=== PATIENT | female | born 1965 | race American Indian/Alaskan Native ===

== ENCOUNTER 2017-06-16 13:19 | Emergency (ER) | payer MEDICARE ==
[2017-06-16 15:33] LABS: Basophils % (Auto) 0.5 % (0.0-1.8); Eosinophils % (Auto) 2.5 % (0.0-4.3); Hematocrit 35.9 % (30.3-42.9); Hemoglobin 11.4 gm/dl (10.1-14.3); Mean Corpuscular HGB Conc 32 % (30-34); Mean Corpuscular Hemoglobin 27 pg (28-32); Mean Corpuscular Volume 86 fl (79-97); Platelet Count 229 K/mm3 (140-440); Red Blood Count 4.17 M/mm3 (3.65-5.03); Red Cell Distribution Width 14.3 % (13.2-15.2); White Blood Count 10.6 K/mm3 (4.5-11.0)
[2017-06-16 15:44] LABS: INR 0.91 (0.87-1.13)
[2017-06-16 15:48] LABS: BUN/Creatinine Ratio 19.23; Calcium 8.9 mg/dL (8.4-10.2); Chloride 102.4 mmol/L (98-107); Potassium 4.3 mmol/L (3.6-5.0)
[2017-06-16 16:15] LABS: Bacteria,Urine 1+ /HPF (Negative); Bilirubin,Urine NEG (Negative); Blood,Urine NEG (Negative); Ketones,Urine NEG (Negative); Leukocyte Esterase,Urine TR (Negative); Mucus,Urine FEW /HPF; Nitrite,Urine NEG (Negative)
[2017-06-17 03:43] VITALS: BP 132/72
--- NOTE | 2017-06-17 04:51 | Emergency Department Report ---
HPI - General Chief Complaint: Extremity Injury, Lower Time Seen by Provider: 06/17/17 04:42 - HPI HPI: Patient complaining of bilateral upper thighs redness after working outside yesterday for about 13 hours. Patient denies any leg swelling, or pain. Patient also complained of right wisdom tooth pain, jaw swelling. ED Past Medical Hx - Past Medical History Hx Hypertension: Yes Hx CVA: No Hx Heart Attack/AMI: No Hx Congestive Heart Failure: No Hx Diabetes: Yes Hx Deep Vein Thrombosis: No Hx Pulmonary Embolism: No Hx GERD: No Hx Liver Disease: No Hx Renal Disease: No Hx Sickle Cell Disease: No Hx Arthritis: No Hx Seizures: No Hx Psychiatric Treatment: Yes (depression, anxiety) Hx Asthma: No Hx COPD: No Hx Tuberculosis: No Hx Dementia: No Hx HIV: No Additional medical history: fibroids - Surgical History Hx Coronary Stent: No Hx Pacemaker: Yes Hx Internal Defibrillator: Yes Hx Breast Surgery: Yes (BREAST REDUCTION) Additional Surgical History: breast reduction 1999, x2, hysterectomy, fibroids removal - Social History Smoking Status: Current Every Day Smoker Substance Use Type: None - Medications Home Medications: Home Medications Medication Instructions Recorded Confirmed Last Taken Type Citalopram Hydrobromide [celeXA] 40 mg PO DAILY 10/09/13 03/25/16 11/28/15 History ALPRAZolam [Xanax TAB] 0.5 mg PO QHS 10/31/14 03/25/16 11/28/15 History Aspirin [Aspirin BABY CHEW TAB] 81 mg PO QDAY 10/31/14 03/25/16 11/28/15 History Clonidine HCl 0.2 mg PO BID 04/05/15 03/25/16 03/25/16 History Insulin Detemir [Levemir VIAL] 25 unit SQ QHS 12/20/15 03/25/16 Unknown History Labetalol [Normodyne TAB] 300 mg PO BID #90 tablet 03/24/16 Unknown Rx traMADol [Ultram 50 MG tab] 50 mg PO Q6HR PRN #20 tablet 08/20/16 Unknown Rx Acyclovir [Zovirax Cap] 400 mg PO TID #20 cap 08/21/16 Unknown Rx Cyclobenzaprine [Flexeril] 10 mg PO TID PRN #15 tablet 10/18/16 Unknown Rx Ibuprofen [Motrin 800 MG tab] 800 mg PO Q8HR PRN #30 tablet 10/18/16 Unknown Rx Amoxicillin [Amoxicillin TAB] 875 mg PO BID #10 tablet 06/17/17 Unknown Rx Ketorolac [Toradol] 10 mg PO Q6H PRN #10 tablet 06/17/17 Unknown Rx Triamcinolone 0.025% (Nf) [Kenalog 1 applic TP TID #1 tube 06/17/17 Unknown Rx 0.025% OINT] ED Review of Systems ROS: Stated complaint: TOOTHACHE/WEAK/BRUISE LEFT LEG Other details as noted in HPI Comment: All other systems reviewed and negative Constitutional: no symptoms reported ENT: other (dental pain) Musculoskeletal: myalgia Physical Exam - Physical Exam Vital Signs: Vital Signs 06/16/17 06/16/17 06/17/17 15:10 20:53 03:43 Temperature 98.5 F 98.3 F 98.6 F Pulse Rate 61 76 64 Respiratory 16 18 16 Rate Blood Pressure 126/67 153/79 Blood Pressure 132/72 [Right] O2 Sat by Pulse 96 100 100 Oximetry Physical Exam: Gen. alert and oriented 3 in no distress Right molar area dental abscess Head atraumatic normocephalic Eyes PERR LA EOMI Chest regular rate and rhythm normal S1-S2 lungs clear bilaterally Abdomen soft nondistended Back no point tenderness paravertebral tenderness Neuro no focal deficit. Psych normal mood. ED Course Vital Signs 06/16/17 06/16/17 06/17/17 15:10 20:53 03:43 Temperature 98.5 F 98.3 F 98.6 F Pulse Rate 61 76 64 Respiratory 16 18 16 Rate Blood Pressure 126/67 153/79 Blood Pressure 132/72 [Right] O2 Sat by Pulse 96 100 100 Oximetry ED Medical Decision Making - Lab Data Result diagrams: 06/16/17 15:23 06/16/17 15:23 Critical care attestation.: If time is entered above; I have spent that time in minutes in the direct care of this critically ill patient, excluding procedure time. ED Disposition Clinical Impression: Dermatitis, Dental abscess Disposition: DC-01 TO HOME OR SELFCARE Is pt being admited?: No Does the pt Need Aspirin: No Condition: Stable Instructions: Stasis Dermatitis (ED), Dental Abscess (ED) Prescriptions: Amoxicillin [Amoxicillin TAB] 875 mg PO BID #10 tablet Ketorolac [Toradol] 10 mg PO Q6H PRN #10 tablet PRN Reason: Pain Triamcinolone 0.025% (Nf) [Kenalog 0.025% OINT] 1 applic TP TID #1 tube Referrals: PRIMARY CARE,MD [Primary Care Provider] - 3-5 Days
== END 2017-06-17 05:06 | disposition home or self-care (01) ==
LOC: ED 13:19
DX: L30.9 Dermatitis, unspecified (principal); K04.7 Periapical abscess without sinus; F32.9 Major depressive disorder, single episode, unspecified; F41.9 Anxiety disorder, unspecified; I10 Essential (primary) hypertension; E11.9 Type 2 diabetes mellitus without complications; F17.200 Nicotine dependence, unspecified, uncomplicated; Z79.82 Long term (current) use of aspirin; Z79.4 Long term (current) use of insulin; Z95.0 Presence of cardiac pacemaker
CPT/HCPCS: 36415; 80048; 81001; 81025; 85025; 85610; 99283

== ENCOUNTER 2017-06-24 14:42 | Emergency (ER) | payer MEDICARE ==
[2017-06-24 15:30] LABS: Basophils % (Auto) 0.2 % (0.0-1.8); Eosinophils % (Auto) 1.5 % (0.0-4.3); Hematocrit 35.2 % (30.3-42.9); Hemoglobin 11.1 gm/dl (10.1-14.3); Mean Corpuscular HGB Conc 32 % (30-34); Mean Corpuscular Hemoglobin 27 pg (28-32); Mean Corpuscular Volume 87 fl (79-97); Platelet Count 240 K/mm3 (140-440); Red Blood Count 4.05 M/mm3 (3.65-5.03); Red Cell Distribution Width 14.2 % (13.2-15.2); White Blood Count 10.6 K/mm3 (4.5-11.0)
[2017-06-24 15:33] LABS: Albumin 3.8 g/dL (3.9-5); Albumin/Globulin Ratio 1.2 %; BUN/Creatinine Ratio 19.16; Bilirubin,Total 0.2 mg/dL (0.1-1.2); Calcium 8.5 mg/dL (8.4-10.2); Chloride 101.3 mmol/L (98-107); Potassium 4.6 mmol/L (3.6-5.0); Total Protein 6.9 g/dL (6.3-8.2)
[2017-06-24 17:01] VITALS: BP 135/63
[2017-06-24 17:11] LABS: Bacteria,Urine 1+ /HPF (Negative); Mucus,Urine FEW /HPF
[2017-06-24 17:12] LABS: Bilirubin,Urine NEG (Negative); Blood,Urine NEG (Negative); Ketones,Urine NEG (Negative); Leukocyte Esterase,Urine TR (Negative); Nitrite,Urine NEG (Negative)
[2017-06-24] MEDS ORDERED: TORADOL IM ONE (18:34)
[2017-06-24] MEDS ORDERED: NORCO 5/325 PO ONE (18:35)
--- NOTE | 2017-06-24 19:03 | Emergency Department Report ---
ED Extremity Problem HPI - General Chief complaint: Extremity Injury, Lower Stated complaint: KNEE PAIN Time Seen by Provider: 06/24/17 17:21 Source: patient Mode of arrival: Ambulatory Limitations: No Limitations - History of Present Illness Initial comments: 51-year-old female with past medical history of diabetes, hypertension, depression, and anxiety presents to the hospital complaining of multiple mosquito bites with subsequent localized skin reaction/rash and left medial knee pain 1 week. 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 She states that she has been bitten by multiple mosquitoes. She is presents concern for mosquito ball viral illness. She also states that she has a history of arthritis in her fingers. When it rains she gets pain in her fingers but for the last week she is also beginning and pain to her medial left knee. No trauma or injury reported. Pain worse or palpation, movement, and ambulation. Pain rated 7/10 in intensity. No alleviating factors. Taken Motrin without improvement. Patient was seen here last week seen with Dr. West diagnosed with stasis dermatitis and dental abscess. Placed on antibiotics and topical ointment. Patient states that rash seems to be improving. Severity scale (0 -10): 8 - Related Data Home Medications Medication Instructions Recorded Confirmed Last Taken Citalopram Hydrobromide [celeXA] 40 mg PO DAILY 10/09/13 03/25/16 11/28/15 ALPRAZolam [Xanax TAB] 0.5 mg PO QHS 10/31/14 03/25/16 11/28/15 Aspirin [Aspirin BABY CHEW TAB] 81 mg PO QDAY 10/31/14 03/25/16 11/28/15 Clonidine HCl 0.2 mg PO BID 04/05/15 03/25/16 03/25/16 Insulin Detemir [Levemir VIAL] 25 unit SQ QHS 12/20/15 03/25/16 Unknown Previous Rx's Medication Instructions Recorded Last Taken Type Labetalol [Normodyne TAB] 300 mg PO BID #90 tablet 03/24/16 Unknown Rx traMADol [Ultram 50 MG tab] 50 mg PO Q6HR PRN #20 tablet 08/20/16 Unknown Rx Acyclovir [Zovirax Cap] 400 mg PO TID #20 cap 08/21/16 Unknown Rx Cyclobenzaprine [Flexeril] 10 mg PO TID PRN #15 tablet 10/18/16 Unknown Rx Ibuprofen [Motrin 800 MG tab] 800 mg PO Q8HR PRN #30 tablet 10/18/16 Unknown Rx Amoxicillin [Amoxicillin TAB] 875 mg PO BID #10 tablet 06/17/17 Unknown Rx Ketorolac [Toradol] 10 mg PO Q6H PRN #10 tablet 06/17/17 Unknown Rx Triamcinolone 0.025% (Nf) [Kenalog 1 applic TP TID #1 tube 06/17/17 Unknown Rx 0.025% OINT] HYDROcodone/APAP 5-325 [[place] 1 each PO Q6HR PRN #15 tablet 06/24/17 Unknown Rx 5/325] Allergies Allergy/AdvReac Type Severity Reaction Status Date / Time amlodipine Allergy Intermediate Unknown Verified 07/04/16 19:56 insulin NPH human isophane Allergy Unknown Verified 01/16/16 17:07 [From Humulin N] insulin regular, human Allergy Unknown Verified 01/16/16 17:07 [From Humulin R] lisinopril Allergy Swelling Verified 10/31/14 17:21 losartan [Losartan] Allergy Unknown Verified 01/16/16 17:07 metformin Allergy Rash Verified 04/05/15 16:20 potassium Allergy Unknown Verified 01/16/16 17:07 ED Review of Systems ROS: Stated complaint: KNEE PAIN Other details as noted in HPI Comment: All other systems reviewed and negative Other: Constitutional: No fevers chills Eyes: No eye pain visual changes ENT: No ear pain or throat pain Neck: Denies pain Respiratory: Denies cough wheezing shortness of breath Cardiovascular: Denies chest pain, palpitations, syncope GI: Denies LLQ PAIN nausea, vomiting, diarrhea, constipation, melena hematochezia : Denies dysuria, urinary frequency, or urgency Musculoskeletal: as per hpi Skin: Denies rash, lesions, erythema Neurologic: Denies headache, numbness, weakness Psychiatric: Denies suicidal ideation, hallucinations Hematological/lymphatic: Denies easy bruising, lymphadenopathy ED Past Medical Hx - Past Medical History Hx Hypertension: Yes Hx CVA: No Hx Heart Attack/AMI: No Hx Congestive Heart Failure: No Hx Diabetes: Yes Hx Deep Vein Thrombosis: No Hx Pulmonary Embolism: No Hx GERD: No Hx Liver Disease: No Hx Renal Disease: No Hx Sickle Cell Disease: No Hx Arthritis: No Hx Seizures: No Hx Psychiatric Treatment: Yes (depression, anxiety) Hx Asthma: No Hx COPD: No Hx Tuberculosis: No Hx Dementia: No Hx HIV: No Additional medical history: fibroids - Surgical History Hx Coronary Stent: No Hx Pacemaker: No Hx Internal Defibrillator: Yes Hx Breast Surgery: Yes (BREAST REDUCTION) Additional Surgical History: breast reduction 1999, x2, hysterectomy, fibroids removal - Social History Smoking Status: Current Every Day Smoker Substance Use Type: None - Medications Home Medications: Home Medications Medication Instructions Recorded Confirmed Last Taken Type Citalopram Hydrobromide [celeXA] 40 mg PO DAILY 10/09/13 03/25/16 11/28/15 History ALPRAZolam [Xanax TAB] 0.5 mg PO QHS 10/31/14 03/25/16 11/28/15 History Aspirin [Aspirin BABY CHEW TAB] 81 mg PO QDAY 10/31/14 03/25/16 11/28/15 History Clonidine HCl 0.2 mg PO BID 04/05/15 03/25/16 03/25/16 History Insulin Detemir [Levemir VIAL] 25 unit SQ QHS 12/20/15 03/25/16 Unknown History Labetalol [Normodyne TAB] 300 mg PO BID #90 tablet 03/24/16 Unknown Rx traMADol [Ultram 50 MG tab] 50 mg PO Q6HR PRN #20 tablet 08/20/16 Unknown Rx Acyclovir [Zovirax Cap] 400 mg PO TID #20 cap 08/21/16 Unknown Rx Cyclobenzaprine [Flexeril] 10 mg PO TID PRN #15 tablet 10/18/16 Unknown Rx Ibuprofen [Motrin 800 MG tab] 800 mg PO Q8HR PRN #30 tablet 10/18/16 Unknown Rx Amoxicillin [Amoxicillin TAB] 875 mg PO BID #10 tablet 06/17/17 Unknown Rx Ketorolac [Toradol] 10 mg PO Q6H PRN #10 tablet 06/17/17 Unknown Rx Triamcinolone 0.025% (Nf) [Kenalog 1 applic TP TID #1 tube 06/17/17 Unknown Rx 0.025% OINT] HYDROcodone/APAP 5-325 [[place] 1 each PO Q6HR PRN #15 tablet 06/24/17 Unknown Rx 5/325] ED Physical Exam - General Limitations: No Limitations - Other Other exam information: General: No limitations, patient is alert in no acute distress Head exam: Atraumatic, normocephalic Eyes exam: Normal appearance, pupils equal reactive to light, extraocular movements intact ENT: Moist mucous membrane, normal oropharynx Neck exam: Normal inspection, full range of motion, no meningismus nontender Respiratory exam: Clear to auscultation bilateral, no wheezes, rales, crackles Cardiovascular: Normal rate and rhythm, normal heart sounds Abdomen: Soft, nondistended, mild left lower quadrant tenderness, with normal bowel sounds, no rebound, or guarding Extremity: Full range of motion normal inspection no deformity, tenderness at the left knee medial joint space. No warmth or erythema or edema Back: Normal Inspection, full range of motion, no tenderness Neurologic: Alert, oriented x3, cranial nerves intact, no motor or sensory deficit Psychiatric: normal affect, normal mood Skin: Several areas on legs of ecchymosis and insect bites ED Course Vital Signs 06/24/17 06/24/17 06/24/17 14:50 16:59 17:04 Temperature 98.2 F 98.3 F Pulse Rate 94 H 72 Respiratory 16 12 12 Rate Blood Pressure 141/68 Blood Pressure 135/63 [Right] O2 Sat by Pulse 99 Oximetry - Reevaluation(s) Reevaluation #1: 06/24/17 Patient received Toradol and [place] in the ED for pain ED Medical Decision Making - Lab Data Result diagrams: 06/24/17 15:01 06/24/17 15:01 Lab Results 06/24/17 06/24/17 06/24/17 Range/Units 14:49 15:01 15:01 WBC 10.6 (4.5-11.0) K/mm3 RBC 4.05 (3.65-5.03) M/mm3 Hgb 11.1 (10.1-14.3) gm/dl Hct 35.2 (30.3-42.9) % MCV 87 (79-97) fl MCH 27 L (28-32) pg MCHC 32 (30-34) % RDW 14.2 (13.2-15.2) % Plt Count 240 (140-440) K/mm3 Lymph % (Auto) 29.6 (13.4-35.0) % [place] % (Auto) 8.4 H (0.0-7.3) % Eos % (Auto) 1.5 (0.0-4.3) % Baso % (Auto) 0.2 (0.0-1.8) % Lymph # 3.1 (1.2-5.4) K/mm3 [place] # 0.9 H (0.0-0.8) K/mm3 Eos # 0.2 (0.0-0.4) K/mm3 Baso # 0.0 (0.0-0.1) K/mm3 Seg Neutrophils % 60.3 (40.0-70.0) % Seg Neutrophils # 6.4 (1.8-7.7) K/mm3 Sodium 139 (137-145) mmol/L Potassium 4.6 (3.6-5.0) mmol/L Chloride 101.3 (98-107) mmol/L Carbon Dioxide 24 (22-30) mmol/L Anion Gap 18 mmol/L BUN 23 H (7-17) mg/dL Creatinine 1.2 (0.7-1.2) mg/dL Estimated GFR 57 ml/min BUN/Creatinine Ratio 19.16 % Glucose 231 H (65-100) mg/dL POC Glucose 283 H (70-105) Calcium 8.5 (8.4-10.2) mg/dL Total Bilirubin 0.20 (0.1-1.2) mg/dL AST 15 (5-40) units/L ALT 18 (7-56) units/L Alkaline Phosphatase 98 (35-129) units/L Total Protein 6.9 (6.3-8.2) g/dL Albumin 3.8 L (3.9-5) g/dL Albumin/Globulin Ratio 1.2 % Lipase 40 (13-60) units/L Urine Color (Yellow) Urine Turbidity (Clear) Urine pH (5.0-7.0) Ur Specific [place] (1.003-1.030) Urine Protein (Negative) mg/dL Urine Glucose (UA) (Negative) mg/dL Urine Ketones (Negative) mg/dL Urine Blood (Negative) Urine Nitrite (Negative) Ur Reducing Substances Urine Bilirubin (Negative) Urine Ictotest Urine Urobilinogen (<2.0) mg/dL Ur Leukocyte Esterase (Negative) Urine WBC (Auto) (0.0-6.0) /HPF Urine RBC (Auto) (0.0-6.0) /HPF U Epithel Cells (Auto) (0-13.0) /HPF Urine Bacteria (Auto) (Negative) /HPF Urine Mucus /HPF 06/24/17 06/24/17 Range/Units 16:20 18:45 WBC (4.5-11.0) K/mm3 RBC (3.65-5.03) M/mm3 Hgb (10.1-14.3) gm/dl Hct (30.3-42.9) % MCV (79-97) fl MCH (28-32) pg MCHC (30-34) % RDW (13.2-15.2) % Plt Count (140-440) K/mm3 Lymph % (Auto) (13.4-35.0) % [place] % (Auto) (0.0-7.3) % Eos % (Auto) (0.0-4.3) % Baso % (Auto) (0.0-1.8) % Lymph # (1.2-5.4) K/mm3 [place] # (0.0-0.8) K/mm3 Eos # (0.0-0.4) K/mm3 Baso # (0.0-0.1) K/mm3 Seg Neutrophils % (40.0-70.0) % Seg Neutrophils # (1.8-7.7) K/mm3 Sodium (137-145) mmol/L Potassium (3.6-5.0) mmol/L Chloride (98-107) mmol/L Carbon Dioxide (22-30) mmol/L Anion Gap mmol/L BUN (7-17) mg/dL Creatinine (0.7-1.2) mg/dL Estimated GFR ml/min BUN/Creatinine Ratio % Glucose (65-100) mg/dL POC Glucose 218 H (70-105) Calcium (8.4-10.2) mg/dL Total Bilirubin (0.1-1.2) mg/dL AST (5-40) units/L ALT (7-56) units/L Alkaline Phosphatase (35-129) units/L Total Protein (6.3-8.2) g/dL Albumin (3.9-5) g/dL Albumin/Globulin Ratio % Lipase (13-60) units/L Urine Color Yellow (Yellow) Urine Turbidity Clear (Clear) Urine pH 6.0 (5.0-7.0) Ur Specific [place] 1.015 (1.003-1.030) Urine Protein 30 mg/dl (Negative) mg/dL Urine Glucose (UA) 50 (Negative) mg/dL Urine Ketones Neg (Negative) mg/dL Urine Blood Neg (Negative) Urine Nitrite Neg (Negative) Ur Reducing Substances Not Reportable Urine Bilirubin Neg (Negative) Urine Ictotest Not Reportable Urine Urobilinogen 2.0 (<2.0) mg/dL Ur Leukocyte Esterase Tr (Negative) Urine WBC (Auto) 1.0 (0.0-6.0) /HPF Urine RBC (Auto) 2.0 (0.0-6.0) /HPF U Epithel Cells (Auto) 11.0 (0-13.0) /HPF Urine Bacteria (Auto) 1+ (Negative) /HPF Urine Mucus Few /HPF - Medical Decision Making 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 This could be the cause of her knee pain but also patient may suffer from meniscus or ligamentous injury. Pain medication provided for symptomatic treatment. Sleeve knee brace recommended for support. Orthopedic follow-up encouraged. Patient's concern for mosquito born illness address. Patient informedof the cure for mosquito borne illnesses that typically it can occur in the [place]. Pt lacks of systemic symptoms, fever, viral illness therefore it makes mosquito born illness less likely. Labs and vitals unremarkable. - Differential Diagnosis bursitis, meniscal injury, ligamentous injury, arthritis Critical Care Time: No Critical care attestation.: If time is entered above; I have spent that time in minutes in the direct care of this critically ill patient, excluding procedure time. ED Disposition Clinical Impression: Mosquito bite, Right medial knee pain Disposition: DC-01 TO HOME OR SELFCARE Is pt being admited?: No Does the pt Need Aspirin: No Condition: Stable Instructions: Insect Bite or Sting (ED), Knee Pain (ED) Additional Instructions: Follow-up with either the orthopedic doctors provided for further workup and evaluation of the medial right knee pain. Take medication as prescribed. Return if worsen Prescriptions: HYDROcodone/APAP 5-325 [[place] 5/325] 1 each PO Q6HR PRN #15 tablet PRN Reason: Pain Referrals: CARMEN CARLSON MD [Staff Physician] - 3-5 Days JOSE FRANCISCO AKBAR MD [Staff Physician] - 3-5 Days [facility] [Provider Group] - 3-5 Days Forms: Work/School Release Form(ED) Time of Disposition: 19:06
== END 2017-06-24 19:28 | disposition home or self-care (01) ==
LOC: ED 14:42
DX: M25.561 Pain in right knee (principal); W57.XXXA Bitten or stung by nonvenomous insect and other nonvenomous arthropods, initial encounter; Y93.9 Activity, unspecified; Y92.89 Other specified places as the place of occurrence of the external cause; Y99.9 Unspecified external cause status; I10 Essential (primary) hypertension; E11.9 Type 2 diabetes mellitus without complications; F17.200 Nicotine dependence, unspecified, uncomplicated
CPT/HCPCS: 36415; 80053; 81001; 82962; 83690; 85025; 96372; 99283; J1885

== ENCOUNTER 2018-02-09 19:20 | Emergency (ER) | payer MEDICARE ==
[2018-02-09 20:34] LABS: Basophils % (Auto) 0.4 % (0.0-1.8); Eosinophils # (Auto) 0.2 K/mm3 (0.0-0.4); Eosinophils % (Auto) 1.9 % (0.0-4.3); Hematocrit 38.6 % (30.3-42.9); Hemoglobin 12.6 gm/dl (10.1-14.3); Lymphocytes # (Auto) 2.5 K/mm3 (1.2-5.4); Lymphocytes % (Auto) 28.1 % (13.4-35.0); Mean Corpuscular HGB Conc 33 % (30-34); Mean Corpuscular Hemoglobin 27 pg (28-32); Mean Corpuscular Volume 84 fl (79-97); Monocytes # (Auto) 0.8 K/mm3 (0.0-0.8); Monocytes % (Auto) 8.8 % (0.0-7.3); Platelet Count 210 K/mm3 (140-440); Red Blood Count 4.61 M/mm3 (3.65-5.03); Red Cell Distribution Width 13.5 % (13.2-15.2)
[2018-02-09 20:52] LABS: Alanine Aminotransferase 15 units/L (7-56); Albumin 3.2 g/dL (3.9-5); BUN/Creatinine Ratio 17; Blood Urea Nitrogen 15 mg/dL (7-17); Calcium 8.4 mg/dL (8.4-10.2); Hemolysis Index 0
[2018-02-09 21:19] LABS: Bilirubin,Urine NEG (Negative); Blood,Urine NEG (Negative); Color,Urine Yellow (Yellow); Urobilinogen,Urine < 2.0 mg/dL (<2.0)
[2018-02-09] MEDS ORDERED: NACL 0.9% 1000 ML 2,000 ML IV ONE (21:36)
--- NOTE | 2018-02-09 21:53 | Emergency Department Report ---
ED General Adult HPI - General Chief complaint: Hyperglycemia Stated complaint: HIGH BLOOD PRESSURE,SUGAR Time Seen by Provider: 02/09/18 21:35 Source: patient Mode of arrival: Ambulatory Limitations: No Limitations - History of Present Illness Initial comments: 52-year-old -French female comes into the emergency room complaining of her blood sugars have been elevated. Patient reports that she was seen yesterday at [place] for elevated blood sugar. Patient reports at that time a kink or fluid and insulin regular. Patient reports that she is on Lantus 10 units subcutaneous daily. She is not on any other hyperglycemic medication secondary to multiple allergies since she's been menopausal. Patient admitted to blurred vision/ cloudy. -: month(s) Severity scale (0 -10): 0 - Related Data Home Medications Medication Instructions Recorded Confirmed Last Taken Citalopram Hydrobromide [celeXA] 40 mg PO DAILY 10/09/13 03/25/16 11/28/15 ALPRAZolam [Xanax TAB] 0.5 mg PO QHS 10/31/14 03/25/16 11/28/15 Aspirin [Aspirin BABY CHEW TAB] 81 mg PO QDAY 10/31/14 03/25/16 11/28/15 Clonidine HCl 0.2 mg PO BID 04/05/15 03/25/16 03/25/16 Insulin Detemir [Levemir VIAL] 25 unit SQ QHS 12/20/15 03/25/16 Unknown Previous Rx's Medication Instructions Recorded Last Taken Type Labetalol [Normodyne TAB] 300 mg PO BID #90 tablet 03/24/16 Unknown Rx traMADol [Ultram 50 MG tab] 50 mg PO Q6HR PRN #20 tablet 08/20/16 Unknown Rx Acyclovir [Zovirax Cap] 400 mg PO TID #20 cap 08/21/16 Unknown Rx Cyclobenzaprine [Flexeril] 10 mg PO TID PRN #15 tablet 10/18/16 Unknown Rx Ibuprofen [Motrin 800 MG tab] 800 mg PO Q8HR PRN #30 tablet 10/18/16 Unknown Rx Amoxicillin [Amoxicillin TAB] 875 mg PO BID #10 tablet 06/17/17 Unknown Rx Ketorolac [Toradol] 10 mg PO Q6H PRN #10 tablet 06/17/17 Unknown Rx Triamcinolone 0.025% (Nf) [Kenalog 1 applic TP TID #1 tube 06/17/17 Unknown Rx 0.025% OINT] HYDROcodone/APAP 5-325 [[place] 1 each PO Q6HR PRN #15 tablet 06/24/17 Unknown Rx 5/325] Insulin Glargine,Hum.rec.anlog 15 unit SQ QHS #3 insuln.pen 02/09/18 Unknown Rx [Lantus Solostar] Insulin Regular, Human [Novolin R] 4 unit SC WMHS #1 vial 02/09/18 Unknown Rx Allergies Allergy/AdvReac Type Severity Reaction Status Date / Time amlodipine Allergy Intermediate Unknown Verified 07/04/16 19:56 insulin NPH human isophane Allergy Unknown Verified 01/16/16 17:07 [From Humulin N] insulin regular, human Allergy Unknown Verified 01/16/16 17:07 [From Humulin R] lisinopril Allergy Swelling Verified 10/31/14 17:21 losartan [Losartan] Allergy Unknown Verified 01/16/16 17:07 metformin Allergy Rash Verified 04/05/15 16:20 potassium Allergy Unknown Verified 01/16/16 17:07 ED Review of Systems ROS: Stated complaint: HIGH BLOOD PRESSURE,SUGAR Other details as noted in HPI ED Past Medical Hx - Past Medical History Hx Hypertension: Yes Hx CVA: No Hx Heart Attack/AMI: No Hx Congestive Heart Failure: No Hx Diabetes: Yes Hx Deep Vein Thrombosis: No Hx Pulmonary Embolism: No Hx GERD: No Hx Liver Disease: No Hx Renal Disease: No Hx Sickle Cell Disease: No Hx Arthritis: No Hx Seizures: No Hx Psychiatric Treatment: Yes (depression, anxiety) Hx Asthma: No Hx COPD: No Hx Tuberculosis: No Hx Dementia: No Hx HIV: No Additional medical history: fibroids - Surgical History Hx Coronary Stent: No Hx Pacemaker: No Hx Internal Defibrillator: Yes Hx Breast Surgery: Yes (BREAST REDUCTION) Additional Surgical History: breast reduction 1999, x2, hysterectomy, fibroids removal - Social History Smoking Status: Current Every Day Smoker Substance Use Type: None - Medications Home Medications: Home Medications Medication Instructions Recorded Confirmed Last Taken Type Citalopram Hydrobromide [celeXA] 40 mg PO DAILY 10/09/13 03/25/16 11/28/15 History ALPRAZolam [Xanax TAB] 0.5 mg PO QHS 10/31/14 03/25/16 11/28/15 History Aspirin [Aspirin BABY CHEW TAB] 81 mg PO QDAY 10/31/14 03/25/16 11/28/15 History Clonidine HCl 0.2 mg PO BID 04/05/15 03/25/16 03/25/16 History Insulin Detemir [Levemir VIAL] 25 unit SQ QHS 12/20/15 03/25/16 Unknown History Labetalol [Normodyne TAB] 300 mg PO BID #90 tablet 03/24/16 Unknown Rx traMADol [Ultram 50 MG tab] 50 mg PO Q6HR PRN #20 tablet 08/20/16 Unknown Rx Acyclovir [Zovirax Cap] 400 mg PO TID #20 cap 08/21/16 Unknown Rx Cyclobenzaprine [Flexeril] 10 mg PO TID PRN #15 tablet 10/18/16 Unknown Rx Ibuprofen [Motrin 800 MG tab] 800 mg PO Q8HR PRN #30 tablet 10/18/16 Unknown Rx Amoxicillin [Amoxicillin TAB] 875 mg PO BID #10 tablet 06/17/17 Unknown Rx Ketorolac [Toradol] 10 mg PO Q6H PRN #10 tablet 06/17/17 Unknown Rx Triamcinolone 0.025% (Nf) [Kenalog 1 applic TP TID #1 tube 06/17/17 Unknown Rx 0.025% OINT] HYDROcodone/APAP 5-325 [[place] 1 each PO Q6HR PRN #15 tablet 06/24/17 Unknown Rx 5/325] Insulin Glargine,Hum.rec.anlog 15 unit SQ QHS #3 insuln.pen 02/09/18 Unknown Rx [Lantus Solostar] Insulin Regular, Human [Novolin R] 4 unit SC WMHS #1 vial 02/09/18 Unknown Rx ED Physical Exam - General Limitations: No Limitations ED Course Vital Signs 02/09/18 19:38 Temperature 98.6 F Pulse Rate 92 H Respiratory 18 Rate Blood Pressure 123/71 Blood Pressure 123/71 [Right] O2 Sat by Pulse 100 Oximetry ED Medical Decision Making - Lab Data Result diagrams: 02/09/18 20:24 02/09/18 20:24 Critical care attestation.: If time is entered above; I have spent that time in minutes in the direct care of this critically ill patient, excluding procedure time. 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 Discussed patient to discontinue Novolin R she has any side effects such as swelling shortness of breathing chest pain. Please follow-up with an endocrine doctor I have listed one below. Prescriptions: Insulin Glargine,Hum.rec.anlog [Lantus Solostar] 15 unit SQ QHS #3 insuln.pen Insulin Regular, Human [Novolin R] 4 unit SC WMHS #1 vial Referrals: PRIMARY CAREMD [Primary Care Provider] - 3-5 Days LUCIO TORIBIO MD [Staff Physician] - 3-5 Days JOSE RAO MD [Staff Physician] - 3-5 Days [place] [Other] - 3-5 Days Forms: Work/School Release Form(ED)
[2018-02-09] MEDS ORDERED: HumuLIN R IV ONE (23:46)
[2018-02-10 00:59] VITALS: BP 127/73
== END 2018-02-10 01:03 | disposition home or self-care (01) ==
LOC: ED 19:20
DX: E11.65 Type 2 diabetes mellitus with hyperglycemia (principal); I10 Essential (primary) hypertension; F17.200 Nicotine dependence, unspecified, uncomplicated; Z88.8 Allergy status to other drugs, medicaments and biological substances; Z79.82 Long term (current) use of aspirin; Z79.4 Long term (current) use of insulin
CPT/HCPCS: 36415; 80053; 81001; 82962; 83036; 85025; 96361; 96374; 99283; J7030; J1815

== ENCOUNTER 2018-11-17 01:21 | Emergency (ER) | payer MEDICARE ==
[2018-11-17] MEDS ORDERED: NACL 0.9% 1000 ML 1,000 ML IV ONE (01:59)
[2018-11-17 02:19] LABS: Basophils % (Auto) 0.2 % (0.0-1.8); Eosinophils # (Auto) 0.2 K/mm3 (0.0-0.4); Eosinophils % (Auto) 2.3 % (0.0-4.3); Hematocrit 37.3 % (30.3-42.9); Hemoglobin 12.2 gm/dl (10.1-14.3); Lymphocytes # (Auto) 3.5 K/mm3 (1.2-5.4); Lymphocytes % (Auto) 37.6 % (13.4-35.0); Mean Corpuscular HGB Conc 33 % (30-34); Mean Corpuscular Volume 86 fl (79-97); Monocytes # (Auto) 0.7 K/mm3 (0.0-0.8); Monocytes % (Auto) 7.7 % (0.0-7.3); Platelet Count 230 K/mm3 (140-440); Red Blood Count 4.36 M/mm3 (3.65-5.03); Red Cell Distribution Width 14.4 % (13.2-15.2)
[2018-11-17] MEDS ORDERED: D50W (25GM) Syringe IV ONE ×2 (02:25→02:41)
[2018-11-17 02:33] LABS: Albumin 3.6 g/dL (3.9-5); BUN/Creatinine Ratio 24; Blood Urea Nitrogen 24 mg/dL (7-17); Calcium 8.7 mg/dL (8.4-10.2); Hemolysis Index 149
[2018-11-17 02:47] LABS: Bacteria,Urine 2+ /HPF (Negative); Bilirubin,Urine NEG (Negative); Blood,Urine SM (Negative); Color,Urine Yellow (Yellow); Mucus,Urine FEW /HPF; Urobilinogen,Urine < 2.0 mg/dL (<2.0)
[2018-11-17 03:29] LABS: Alanine Aminotransferase 18 units/L (7-56)
--- NOTE | 2018-11-17 04:37 | Cat Scan Report ---
FINAL REPORT PROCEDURE: CT ABDOMEN PELVIS W CON TECHNIQUE: Computerized axial tomography of the abdomen and pelvis was performed after the IV inject ion of iodinated nonionic contrast. HISTORY: abd pain COMPARISON: No prior studies are available for comparison. FINDINGS: Visualized lower thorax: No significant abnormality. Liver: Normal size and attenuation. There are tiny liver cysts. Spleen: Normal size and attenuation. Gallbladder and biliary system: Normal. Pancreas: Normal. Adrenals: Normal. Kidneys: There are kidney cysts bilaterally. There are no stones. There is no hydronephrosis.. GI tract: The stomach is unremarkable. There is no bowel obstruction, colitis or enteritis. The appen stan is not identified. There is no indirect evidence of appendicitis.. Lymph nodes and mesentery: Normal. Vasculature: Normal. Bladder: Normal. Reproductive organs: Uterus is unremarkable.. Peritoneum: There is no ascites or free air, abscess or adenopathy.. Musculoskeletal structures: No significant abnormality. Other: None. IMPRESSION: There is no acute intra-abdominal abnormality.
[2018-11-17] MEDS ORDERED: TORADOL IV ONE (04:40)
[2018-11-17 05:13] VITALS: BP 134/71
--- NOTE | 2018-11-17 05:37 | Emergency Department Report ---
HPI - General Chief Complaint: Abdominal Pain Time Seen by Provider: 11/17/18 02:38 - HPI HPI: 53-year-old -[place] Citizen female presents to the emergency department with complaint of a 2 day history of some lower abdominal discomfort as well as some mid to lower back pain. She denies any problems with bowel or bladder, numbness or paresthesias or any neurological deficits. She denies any vaginal bleeding or discharge, dysuria, fever, nausea or vomiting. She has not taken anything for her symptoms prior to presentation. The patient was found to triage to have low blood sugar. She admits that she continue to take her diabetes/insulin medication and did not have any appropriate dinner. The patient thinks that a lot of her symptoms are secondary to menopause and "hormone issues." She has a new primary care physician that she has not seen yet but has an appointment coming up next week. No recent travel or sick contacts at home. ED Past Medical Hx - Past Medical History Hx Hypertension: Yes Hx CVA: No Hx Heart Attack/AMI: No Hx Congestive Heart Failure: No Hx Diabetes: Yes Hx Deep Vein Thrombosis: No Hx Pulmonary Embolism: No Hx GERD: No Hx Liver Disease: No Hx Renal Disease: No Hx Sickle Cell Disease: No Hx Arthritis: No Hx Seizures: No Hx Psychiatric Treatment: Yes (depression, anxiety, panic attacks) Hx Asthma: No Hx COPD: No Hx Tuberculosis: No Hx Dementia: No Hx HIV: No Additional medical history: fibroids - Surgical History Hx Coronary Stent: No Hx Pacemaker: No Hx Internal Defibrillator: Yes Hx Breast Surgery: Yes (BREAST REDUCTION) Additional Surgical History: breast reduction 1999, x2, hysterectomy, fibroids removal - Social History Smoking Status: Current Every Day Smoker Substance Use Type: None - Medications Home Medications: Home Medications Medication Instructions Recorded Confirmed Last Taken Type RX: Citalopram Hydrobromide 40 mg PO DAILY 10/09/13 03/25/16 11/28/15 History [celeXA] RX: ALPRAZolam [Xanax TAB] 0.5 mg PO QHS 10/31/14 03/25/16 11/28/15 History RX: Aspirin [Aspirin BABY CHEW TAB] 81 mg PO QDAY 10/31/14 03/25/16 11/28/15 History RX: cloNIDine HCl [Clonidine HCl] 0.2 mg PO BID 04/05/15 03/25/1603/25/16 History RX: Insulin Detemir [Levemir VIAL] 25 unit SQ QHS 12/20/15 03/25/16 Unknown History RX: Labetalol [Normodyne TAB] 300 mg PO BID #90 tablet 03/24/16 Unknown Rx RX: traMADol [Ultram 50 MG tab] 50 mg PO Q6HR PRN #20 tablet 08/20/16 Unknown Rx RX: Acyclovir [Zovirax Cap] 400 mg PO TID #20 cap 08/21/16 Unknown Rx Cyclobenzaprine [Flexeril] 10 mg PO TID PRN #15 tablet 10/18/16 Unknown Rx RX: Amoxicillin [Amoxicillin TAB] 875 mg PO BID #10 tablet 06/17/17 Unknown Rx RX: Ketorolac [Toradol] 10 mg PO Q6H PRN #10 tablet 06/17/17 Unknown Rx RX: Triamcinolone 0.025% (Nf) 1 applic TP TID #1 tube 06/17/17 Unknown Rx [Kenalog 0.025% OINT] HYDROcodone/APAP 5-325 [[place] 1 each PO Q6HR PRN #15 tablet 06/24/17 Unknown Rx 5/325] Insulin Glargine,Hum.rec.anlog 15 unit SQ QHS #3 insuln.pen 02/09/18 Unknown Rx [Lantus Solostar] Insulin Regular, Human [Novolin R] 4 unit SC WMHS #1 vial 02/09/18 Unknown Rx Benzonatate [Tessalon Perle] 100 mg PO TID #15 capsule 10/15/18 Unknown Rx RX: Clindamycin [Clindamycin CAP] 300 mg PO Q8H #30 cap 10/15/18 Unknown Rx RX: Ibuprofen [Motrin 800 MG tab] 800 mg PO Q8HR PRN #30 tablet 10/15/18 Unknown Rx RX: traMADol [Ultram 50 MG tab] 50 mg PO Q6HR PRN #10 tablet 11/17/18 Unknown Rx ED Review of Systems ROS: Stated complaint: RT SIDE PAIN/WEAK/HBP Other details as noted in HPI Comment: All other systems reviewed and negative Constitutional: denies: chills, fever Eyes: denies: eye pain, vision change ENT: denies: ear pain, throat pain Respiratory: denies: cough, shortness of breath Cardiovascular: denies: chest pain, palpitations Gastrointestinal: abdominal pain. denies: vomiting Genitourinary: denies: dysuria Musculoskeletal: back pain. denies: arthralgia Skin: denies: rash, lesions Neurological: denies: headache, weakness Physical Exam - Physical Exam Vital Signs: Vital Signs 11/17/18 11/17/18 01:25 05:12 Temperature 97.9 F Pulse Rate 117 H 75 Respiratory 18 18 Rate Blood Pressure 146/64 Blood Pressure 134/71 [Left] O2 Sat by Pulse 100 100 Oximetry Physical Exam: GENERAL: The patient is well-developed well-nourished. HEENT: Normocephalic. Atraumatic. Patient has moist mucous membranes. EYES: Extraocular motions are intact. Pupils are equal and reactive to light bilaterally. NECK: Supple. Trachea is midline. CHEST/LUNGS: Clear to auscultation. There is no respiratory distress noted. HEART/CARDIOVASCULAR: Regular. There is no tachycardia. There is no obvious murmur. ABDOMEN: Abdomen is soft. Mild lower abdominal tenderness to palpation. No guarding. Patient has normal bowel sounds. Obese midsection. SKIN: Skin is warm and dry. NEURO: The patient is awake, alert, and oriented. The patient is cooperative. The patient has no focal neurologic deficits. The patient has normal speech. MUSCULOSKELETAL: There is no tenderness or deformity. There is no limitation range of motion. There is no evidence of acute injury. Muscle strength 5 out of 5 upper and lower extremities bilaterally. ED Course Vital Signs 11/17/18 11/17/18 01:25 05:12 Temperature 97.9 F Pulse Rate 117 H 75 Respiratory 18 18 Rate Blood Pressure 146/64 Blood Pressure 134/71 [Left] O2 Sat by Pulse 100 100 Oximetry ED Medical Decision Making - Lab Data Result diagrams: 11/17/18 02:10 11/17/18 02:10 - Radiology Data Radiology results: report reviewed CT of the abdomen and pelvis with IV contrast does not show any acute intra- abdominal or pelvic pathology. - Medical Decision Making Patient presents with a few days of lower abdominal pain and some back pain. She also presents with some hypoglycemia but did not have any unresponsive episode. She was given D50 and her blood sugar went up to about 160. It was rechecked prior to discharge and had only dropped down to about 150. Patient's labs were unremarkable including a CBC, CMP, urinalysis, Except for the hypogl ycemia. CT scan of the abdomen and pelvis was done and did not show any acute intra-abdominal or pelvic pathology. Patient had some mild tachycardia when she first arrived but I believe that was due to her hypoglycemia and repeat vitals were all within normal limits. Patient was given a dose of Toradol and some IV fluid and upon reevaluation she is feeling improved. She has an appointment next week with a new primary care physician. She will return to the ER with any worsening of her symptoms or any acute distress. - Differential Diagnosis diverticulitis, colitis, pyelonephritis, UTI Critical Care Time: No Critical care attestation.: If time is entered above; I have spent that time in minutes in the direct care of this critically ill patient, excluding procedure time. ED Disposition Clinical Impression: Hypoglycemia Back pain Qualifiers: Back pain location: low back pain Chronicity: unspecified Back pain laterality: unspecified Sciatica presence: without sciatica Qualified Code(s): M54.5 - Low back pain Abdominal pain Qualifiers: Abdominal location: lower abdomen, unspecified Qualified Code(s): R10.30 - Lower abdominal pain, unspecified Disposition: DC-01 TO HOME OR SELFCARE Is pt being admited?: No Condition: Stable Instructions: Diabetic Hypoglycemia (ED), Abdominal Pain (ED), Back Pain (ED) Additional Instructions: Please follow-up with your primary care physician in the next few days. Return to the emergency Department with any worsening of your symptoms or any acute distress. Prescriptions: RX: traMADol [Ultram 50 MG tab] 50 mg PO Q6HR PRN #10 tablet PRN Reason: Pain Referrals: EFE GREENE MD [Primary Care Provider] - 2-3 Days Time of Disposition: 05:37
== END 2018-11-17 06:20 | disposition home or self-care (01) ==
LOC: ED 01:21
DX: E11.649 Type 2 diabetes mellitus with hypoglycemia without coma (principal); R10.30 Lower abdominal pain, unspecified; M54.5 Low back pain; I10 Essential (primary) hypertension; F32.9 Major depressive disorder, single episode, unspecified; F41.9 Anxiety disorder, unspecified; F41.0 Panic disorder [episodic paroxysmal anxiety]; F17.200 Nicotine dependence, unspecified, uncomplicated; Z90.710 Acquired absence of both cervix and uterus; Z79.4 Long term (current) use of insulin; Z79.899 Other long term (current) drug therapy; Z88.6 Allergy status to analgesic agent; Z88.8 Allergy status to other drugs, medicaments and biological substances
CPT/HCPCS: 36415; 74177; 80053; 81001; 82962; 85025; 96374; 96375; 99284; J1885; Q9967

== ENCOUNTER 2019-01-27 12:49 | Emergency (ER) | payer MEDICARE ==
--- NOTE | 2019-01-27 13:21 | Emergency Department Report ---
HPI - General Chief Complaint: Arrhythmia/Palpitations Time Seen by Provider: 01/27/19 13:04 - HPI HPI: 53-year-old female presents to the emergency department via EMS from home with complaint of some anxiety and heart racing sensation that started about one hour prior to arrival. The heart racing/palpitations have resolved upon presentation. The patient has a history of anxiety for which she takes Xanax and says that she has been out since the beginning of the month when she was dealing with her mother's illness. She says that she contacted her psychiatrist was told she could not get an appointment until early to mid February. She also has a history of hypertension, insulin-dependent diabetes and depression. She denies any suicidal or homicidal ideations or any hallucinations. She did not take anything for her symptoms prior to arrival. She denies any chest pain, shortness of breath, nausea, vomiting or diaphoresis. She just got a new primary care physician. The patient was at an emergency department through [facility] 2 days ago secondary to a tooth infection. At that time she was prescribed Tylenol No. 3 and clindamycin. ED Past Medical Hx - Past Medical History Previous Medical History?: Yes Hx Hypertension: Yes Hx CVA: No Hx Heart Attack/AMI: No Hx Congestive Heart Failure: No Hx Diabetes: Yes Hx Deep Vein Thrombosis: No Hx Pulmonary Embolism: No Hx GERD: No Hx Liver Disease: No Hx Renal Disease: No Hx Sickle Cell Disease: No Hx Arthritis: No Hx Seizures: No Hx Psychiatric Treatment: Yes (depression, anxiety, panic attacks) Hx Asthma: No Hx COPD: No Hx Tuberculosis: No Hx Dementia: No Hx HIV: No Additional medical history: fibroids - Surgical History Past Surgical History?: Yes Hx Coronary Stent: No Hx Pacemaker: No Hx Internal Defibrillator: Yes Hx Breast Surgery: Yes (BREAST REDUCTION) Additional Surgical History: breast reduction 1999, x2, hysterectomy, fibroids removal, dental - Social History Smoking Status: Current Some Day Smoker Substance Use Type: None - Medications Home Medications: Home Medications Medication Instructions Recorded Confirmed Last Taken Type Citalopram Hydrobromide [celeXA] 40 mg PO DAILY 10/09/13 03/25/16 11/28/15 History ALPRAZolam [Xanax TAB] 0.5 mg PO QHS 10/31/14 03/25/16 11/28/15 History Aspirin [Aspirin BABY CHEW TAB] 81 mg PO QDAY 10/31/14 03/25/16 11/28/15 History cloNIDine HCl [Clonidine HCl] 0.2 mg PO BID 04/05/15 03/25/16 03/25/16 History Insulin Detemir [Levemir VIAL] 25 unit SQ QHS 12/20/15 03/25/16 Unknown History Labetalol [Normodyne TAB] 300 mg PO BID #90 tablet 03/24/16 Unknown Rx traMADol [Ultram 50 MG tab] 50 mg PO Q6HR PRN #20 tablet 08/20/16 Unknown Rx Acyclovir [Zovirax Cap] 400 mg PO TID #20 cap 08/21/16 Unknown Rx Cyclobenzaprine [Flexeril] 10 mg PO TID PRN #15 tablet 10/18/16 Unknown Rx Amoxicillin [Amoxicillin TAB] 875 mg PO BID #10 tablet 06/17/17 Unknown Rx Ketorolac [Toradol] 10 mg PO Q6H PRN #10 tablet 06/17/17 Unknown Rx Triamcinolone 0.025% (Nf) [Kenalog 1 applic TP TID #1 tube 06/17/17 Unknown Rx 0.025% OINT] HYDROcodone/APAP 5-325 [[place] 1 each PO Q6HR PRN #15 tablet 06/24/17 Unknown Rx 5/325] Insulin Glargine,Hum.rec.anlog 15 unit SQ QHS #3 insuln.pen 02/09/18 Unknown Rx [Lantus Solostar] Insulin Regular, Human [Novolin R] 4 unit SC WMHS #1 vial 02/09/18 Unknown Rx Benzonatate [Tessalon Perle] 100 mg PO TID #15 capsule 10/15/18 Unknown Rx Clindamycin [Clindamycin CAP] 300 mg PO Q8H #30 cap 10/15/18 Unknown Rx Ibuprofen [Motrin 800 MG tab] 800 mg PO Q8HR PRN #30 tablet 10/15/18 Unknown Rx traMADol [Ultram 50 MG tab] 50 mg PO Q6HR PRN #10 tablet 11/17/18 Unknown Rx ALPRAZolam [Xanax] 1 mg PO Q8H PRN #10 tablet 01/27/19 Unknown Rx ED Review of Systems ROS: Stated complaint: HEART PALPATIONS/JAW PAIN/ABSCESS Other details as noted in HPI Comment: All other systems reviewed and negative Constitutional: denies: chills, fever Eyes: denies: eye pain, vision change ENT: dental pain. denies: throat pain Respiratory: denies: cough, wheezing Cardiovascular: palpitations. denies: chest pain Gastrointestinal: denies: abdominal pain, vomiting Genitourinary: denies: dysuria, frequency Musculoskeletal: denies: back pain, arthralgia Skin: denies: rash, lesions Neurological: denies: headache, weakness Psychiatric: anxiety. denies: auditory hallucinations, visual hallucinations, homicidal thoughts, suicidal thoughts Physical Exam - Physical Exam Vital Signs: Vital Signs 01/27/19 12:58 Temperature 98.2 F Pulse Rate 76 Respiratory 16 Rate Blood Pressure 139/67 O2 Sat by Pulse 100 Oximetry Physical Exam: GENERAL: The patient is well-developed well-nourished. HEENT: Normocephalic. Atraumatic. Patient has moist mucous membranes. EYES: Extraocular motions are intact. Pupils are equal and reactive to light bilaterally. NECK: Supple. Trachea is midline. CHEST/LUNGS: Clear to auscultation. There is no respiratory distress noted. HEART/CARDIOVASCULAR: Regular. There is no tachycardia. There is no obvious murmur. ABDOMEN: Abdomen is soft, nontender. Patient has normal bowel sounds. There is no abdominal distention. SKIN: Skin is warm and dry. NEURO: The patient is awake, alert, and oriented. The patient is cooperative. The patient has no focal neurologic deficits. The patient has normal speech. MUSCULOSKELETAL: There is no tenderness or deformity. There is no limitation range of motion. There is no evidence of acute injury. ED Course Vital Signs 01/27/19 12:58 Temperature 98.2 F Pulse Rate 76 Respiratory 16 Rate Blood Pressure 139/67 O2 Sat by Pulse 100 Oximetry ED Medical Decision Making - Lab Data Result diagrams: 01/27/19 13:09 01/27/19 13:09 - EKG Data -: EKG Interpreted by Me EKG shows normal: sinus rhythm, axis, intervals, QRS complexes (Q waves to the septal leads), ST-T waves Rate: normal - EKG Data When compared to previous EKG there are: no significant change Interpretation: unchanged when compared t (04/25/16) - Medical Decision Making Patient presents to the emergency department with a complaint of some anxiety and heart racing that started about one hour prior to presentation and has since resolved. EKG does not show any signs of ST elevation [place] or dysrhythmia. Patient's labs show some renal insufficiency with a creatinine of 1.6 and GFR of about 41. She also has some hyperglycemia but does not appear to have any signs of diabetic ketoacidosis as there is no elevated anion gap. She was given IV fluid resuscitation and a dose of insulin and upon reevaluation her blood sugar came down to about 80. She was then given some food to stabilize the blood sugar and make sure it did not continue to drop. She was reevaluated multiple times and multiple hours and says that her symptoms have not returned. She has not had any complaints of any chest pain or shortness of breath. The patient has a primary care physician and psychiatrist. She was given a small dose/refill of her Xanax or any panic attacks or moderate to severe anxiety. She will return to the ER with any worsening of her symptoms or any acute distress. - Differential Diagnosis anxiety, hyperthyroid, DKA, HHNK Critical Care Time: No Critical care attestation.: If time is entered above; I have spent that time in minutes in the direct care of this critically ill patient, excluding procedure time. ED Disposition Clinical Impression: Anxiety, Hyperglycemia, Palpitations Disposition: DC-01 TO HOME OR SELFCARE Is pt being admited?: No Condition: Stable Instructions: Palpitations (ED), Diabetic Hyperglycemia (ED) Additional Instructions: Please follow-up with your primary care physician and psychiatrist. Return to the emergency Department with any worsening of your symptoms or any acute distress. Try and stay away from foods that are high in sugar, carbohydrates and starches to help with your diabetes. Keep a blood sugar log. You have been prescribed a medication that can be sedating. Therefore, this medication cannot be taken prior to driving, working, being responsible for children, and cannot be mixed with alcohol of any quantity. Prescriptions: ALPRAZolam [Xanax] 1 mg PO Q8H PRN #10 tablet PRN Reason: Anxiety Referrals: EFE GREENE MD [Primary Care Provider] - 2-3 Days Time of Disposition: 16:26
[2019-01-27 13:49] LABS: Basophils % (Auto) 0.3 % (0.0-1.8); Eosinophils # (Auto) 0.1 K/mm3 (0.0-0.4); Eosinophils % (Auto) 1.6 % (0.0-4.3); Hematocrit 33.8 % (30.3-42.9); Hemoglobin 10.9 gm/dl (10.1-14.3); Lymphocytes % (Auto) 29.1 % (13.4-35.0); Mean Corpuscular HGB Conc 32 % (30-34); Mean Corpuscular Volume 85 fl (79-97); Monocytes # (Auto) 0.6 K/mm3 (0.0-0.8); Monocytes % (Auto) 8.6 % (0.0-7.3); Platelet Count 229 K/mm3 (140-440); Red Blood Count 3.99 M/mm3 (3.65-5.03); Red Cell Distribution Width 14.1 % (13.2-15.2)
[2019-01-27 13:51] LABS: INR 0.87 (0.87-1.13); Partial Thromboplastin Time 27.2 Sec. (24.2-36.6)
[2019-01-27 14:05] LABS: Alanine Aminotransferase 12 units/L (7-56); Albumin 3.4 g/dL (3.9-5); BUN/Creatinine Ratio 21; Blood Urea Nitrogen 34 mg/dL (7-17); Calcium 8.5 mg/dL (8.4-10.2); Hemolysis Index 5
[2019-01-27] MEDS ORDERED: NACL 0.9% 1000 ML 1,000 ML IV ONE (14:08)
[2019-01-27] MEDS ORDERED: HumuLIN R IV ONE (14:09)
[2019-01-27 16:59] VITALS: BP 142/66
== END 2019-01-27 16:59 | disposition home or self-care (01) ==
LOC: ED 12:49
DX: F41.0 Panic disorder [episodic paroxysmal anxiety] (principal); E11.65 Type 2 diabetes mellitus with hyperglycemia; I10 Essential (primary) hypertension; F32.9 Major depressive disorder, single episode, unspecified; F17.200 Nicotine dependence, unspecified, uncomplicated; Z88.1 Allergy status to other antibiotic agents; Z88.8 Allergy status to other drugs, medicaments and biological substances; Z79.4 Long term (current) use of insulin; Z90.710 Acquired absence of both cervix and uterus
CPT/HCPCS: 36415; 80053; 82962; 84443; 84484; 85025; 85610; 85730; 93005; 93010; 96361; 96374; 99284; J7030; J1815

== ENCOUNTER 2019-01-29 13:28 | Emergency (ER) | payer MEDICARE ==
[2019-01-29 17:41] VITALS: BP 148/67
--- NOTE | 2019-01-29 17:45 | Emergency Department Report ---
HPI - General Chief Complaint: Allergic Reaction Time Seen by Provider: 01/29/19 17:06 - HPI HPI: Pt is a 53 yo female who presents to the ED with right upper dental pain. The patient states it is causing her to have a headache. She has not taken the tyle nol 3 or ibuprofen today. She states she also has light-headedness. She has not been drinking as much fluids as she should secondary to the dental pain. The patient is currently taking clindamycin but has not been drinking plenty of fluids while taking it as it states on the label. The patient is scheduled for a tooth extraction tomorrow with the dentist. She denies any fever, drainage, facial swelling, CP, tongue edema, throat swelling, difficulty in breathing, rash, itching, SOB, N/V. The patient also has a hx of DM and takes insulin. ED Past Medical Hx - Past Medical History Hx Hypertension: Yes Hx CVA: No Hx Heart Attack/AMI: No Hx Congestive Heart Failure: No Hx Diabetes: Yes Hx Deep Vein Thrombosis: No Hx Pulmonary Embolism: No Hx GERD: No Hx Liver Disease: No Hx Renal Disease: No Hx Sickle Cell Disease: No Hx Arthritis: No Hx Seizures: No Hx Psychiatric Treatment: Yes (depression, anxiety, panic attacks) Hx Asthma: No Hx COPD: No Hx Tuberculosis: No Hx Dementia: No Hx HIV: No Additional medical history: fibroids - Surgical History Past Surgical History?: Yes Hx Coronary Stent: No Hx Pacemaker: No Hx Internal Defibrillator: Yes Hx Breast Surgery: Yes (BREAST REDUCTION) Additional Surgical History: breast reduction 1999, x2, hysterectomy, fibroids removal - Social History Smoking Status: Current Every Day Smoker - Medications Home Medications: Home Medications Medication Instructions Recorded Confirmed Last Taken Type Citalopram Hydrobromide [celeXA] 40 mg PO DAILY 10/09/13 03/25/16 11/28/15 History ALPRAZolam [Xanax TAB] 0.5 mg PO QHS 10/31/14 03/25/16 11/28/15 History Aspirin [Aspirin BABY CHEW TAB] 81 mg PO QDAY 10/31/14 03/25/16 11/28/15 History cloNIDine HCl [Clonidine HCl] 0.2 mg PO BID 04/05/15 03/25/16 03/25/16 History Insulin Detemir [Levemir VIAL] 25 unit SQ QHS 12/20/15 03/25/16 Unknown History Labetalol [Normodyne TAB] 300 mg PO BID #90 tablet 03/24/16 Unknown Rx traMADol [Ultram 50 MG tab] 50 mg PO Q6HR PRN #20 tablet 08/20/16 Unknown Rx Acyclovir [Zovirax Cap] 400 mg PO TID #20 cap 08/21/16 Unknown Rx Cyclobenzaprine [Flexeril] 10 mg PO TID PRN #15 tablet 10/18/16 Unknown Rx Amoxicillin [Amoxicillin TAB] 875 mg PO BID #10 tablet 06/17/17 Unknown Rx Ketorolac [Toradol] 10 mg PO Q6H PRN #10 tablet 06/17/17 Unknown Rx Triamcinolone 0.025% (Nf) [Kenalog 1 applic TP TID #1 tube 06/17/17 Unknown Rx 0.025% OINT] HYDROcodone/APAP 5-325 [[place] 1 each PO Q6HR PRN #15 tablet 06/24/17 Unknown Rx 5/325] Insulin Glargine,Hum.rec.anlog 15 unit SQ QHS #3 insuln.pen 02/09/18 Unknown Rx [Lantus Solostar] Insulin Regular, Human [Novolin R] 4 unit SC WMHS #1 vial 02/09/18 Unknown Rx Benzonatate [Tessalon Perle] 100 mg PO TID #15 capsule 10/15/18 Unknown Rx Clindamycin [Clindamycin CAP] 300 mg PO Q8H #30 cap 10/15/18 Unknown Rx Ibuprofen [Motrin 800 MG tab] 800 mg PO Q8HR PRN #30 tablet 10/15/18 Unknown Rx traMADol [Ultram 50 MG tab] 50 mg PO Q6HR PRN #10 tablet 11/17/18 Unknown Rx ALPRAZolam [Xanax] 1 mg PO Q8H PRN #10 tablet 01/27/19 Unknown Rx ED Review of Systems ROS: Stated complaint: PALPATATION Other details as noted in HPI Comment: All other systems reviewed and negative Physical Exam - Physical Exam Vital Signs: Vital Signs 01/29/19 01/29/19 14:06 17:40 Temperature 98.3 F 98.3 F Pulse Rate 79 68 Respiratory 18 17 Rate Blood Pressure 139/65 Blood Pressure 148/67 [Left] O2 Sat by Pulse 98 100 Oximetry Physical Exam: pt is alert and in no apparent distress, breath sounds are normal bilaterally, no respiratory distress, no w/r/r, heart is regular rate and rhythm, no murmur, no rub, moderately dry mucous membranes, no facial edema, no tongue edema, uvula is midline, no rash, right upper gum with previous abscess that has drained, small opening where the drainage occurred, no drainage currently, no fluctuance, no induration, no erythema, dental caries present ED Course Vital Signs 01/29/19 01/29/19 14:06 17:40 Temperature 98.3 F 98.3 F Pulse Rate 79 68 Respiratory 18 17 Rate Blood Pressure 139/65 Blood Pressure 148/67 [Left] O2 Sat by Pulse 98 100 Oximetry ED Medical Decision Making - Lab Data Vital Signs 01/29/19 01/29/19 14:06 17:40 Temperature 98.3 F 98.3 F Pulse Rate 79 68 Respiratory 18 17 Rate Blood Pressure 139/65 Blood Pressure 148/67 [Left] O2 Sat by Pulse 98 100 Oximetry - Medical Decision Making Pt is a 53 yo female who presents to the ED with right upper dental pain. The patient states it is causing her to have a headache. She has not taken the tylenol 3 or ibuprofen today. She states she also has light-headedness. She has not been drinking as much fluids as she should secondary to the dental pain. The patient is currently taking clindamycin but has not been drinking plenty of fluids while taking it as it states on the label. The patient is scheduled for a tooth extraction tomorrow with the dentist. She denies any fever, drainage, facial swelling, CP, tongue edema, throat swelling, difficulty in breathing, rash, itching, SOB, N/V. The patient also has a hx of DM and takes insulin. Examination shows a previous dental abscess of the right upper gum which drained, no current drainage, fluctuance, erythema, or induration. Pt has dental caries. no facial swelling, no angioedema, uvula is midline. heart and lung examination is normal. VSS were checked twice and were WNL. BG 221 which patient states it how her blood glucose typically runs. Advised pt to please keep her appt with her dentist tomorrow (01/31) for her dental extraction. Advised to please drink 8 glasses of water a day. Discussed with pt to see her PCP she has an appt on 01/31 and need to discuss getting better control of her glucose. Critical care attestation.: If time is entered above; I have spent that time in minutes in the direct care of this critically ill patient, excluding procedure time. ED Disposition Clinical Impression: Pain, dental, Dental abscess Disposition: TO HOME OR SELFCARE Is pt being admited?: No Does the pt Need Aspirin: No Condition: Stable Instructions: Dental Abscess (ED), Dental Caries (ED), Toothache (ED) Additional Instructions: Please follow up with your dentist tomorrow (01/29) for your tooth extraction. Keep your appointment with your primary care doctor on 01/31/19 to discuss your medications and elevation in your blood glucose. Take medication as prescribed. Please drink plenty of fluids. Take your ibuprofen /tylenol 3 that you were prescribed for pain. Return to the emergency room immediately for any new or worsening symptoms as discussed. Referrals: EFE GREENE MD [Primary Care Provider] - 2-3 Days Time of Disposition: 18:16 Print Language: URDU
== END 2019-01-29 18:24 | disposition home or self-care (01) ==
LOC: ED 13:28
DX: K04.7 Periapical abscess without sinus (principal); I10 Essential (primary) hypertension; E11.9 Type 2 diabetes mellitus without complications; F32.9 Major depressive disorder, single episode, unspecified; Z90.710 Acquired absence of both cervix and uterus
CPT/HCPCS: 82962

== ENCOUNTER 2019-04-09 16:38 | Emergency (ER) | payer MEDICARE ==
[2019-04-09] MEDS ORDERED: ASPIRIN PO ONE (16:54)
[2019-04-09] MEDS ORDERED: ALUM-MAG HYDROX-SIMETH 200-200-20MG/5ML PO ONE (17:15)
[2019-04-09] MEDS ORDERED: LIDOCAINE VISCOUS 2% PO ONE (17:15)
--- NOTE | 2019-04-09 17:19 | Emergency Department Report ---
ED General Adult HPI - General Chief complaint: Chest Pain Stated complaint: CHEST/ABD PAIN Time Seen by Provider: 04/09/19 17:01 Source: patient, EMS Mode of arrival: Stretcher Limitations: No Limitations - History of Present Illness Initial comments: Patient is a 53-year-old female that presents emergency room with complaints of epigastric pain. Patient states she ate fried chicken last night and immediately began having burning sensation in her stomach. Patient states that she's got a bad taste in her mouth. Patient is also complaining of burping. Patient states she feels like her stomach is swollen. Patient states the pain is a discomfort and is a 4 out of 10. Patient states she feels nauseous at times. Patient denies chest pain. Patient denies shortness of breath. Patient denies vomiting. Patient states she feels bloated. Patient denies diarrhea. Patient denies changes in her bowel movements. -: Sudden Location: abdomen Severity scale (0 -10): 4 Quality: burning Improves with: rest Worsens with: eating Associated Symptoms: denies: confusion, chest pain, cough, diaphoresis, fever/chills, headaches, loss of appetite, malaise, rash, seizure, shortness of breath, syncope, weakness - Related Data Home Medications Medication Instructions Recorded Confirmed Last Taken Citalopram Hydrobromide [celeXA] 40 mg PO DAILY 10/09/13 03/25/16 11/28/15 ALPRAZolam [Xanax TAB] 0.5 mg PO QHS 10/31/14 03/25/16 11/28/15 Aspirin [Aspirin BABY CHEW TAB] 81 mg PO QDAY 10/31/14 03/25/16 11/28/15 cloNIDine HCl [Clonidine HCl] 0.2 mg PO BID 04/05/15 03/25/16 03/25/16 Insulin Detemir [Levemir VIAL] 25 unit SQ QHS 12/20/15 03/25/16 Unknown Previous Rx's Medication Instructions Recorded Last Taken Type Labetalol [Labetalol 200mg TAB] 300 mg PO BID #90 tablet 03/24/16 Unknown Rx traMADol [Ultram 50 MG tab] 50 mg PO Q6HR PRN #20 tablet 08/20/16 Unknown Rx Acyclovir [Zovirax Cap] 400 mg PO TID #20 cap 08/21/16 Unknown Rx Cyclobenzaprine [Flexeril] 10 mg PO TID PRN #15 tablet 10/18/16 Unknown Rx Amoxicillin [Amoxicillin TAB] 875 mg PO BID #10 tablet 06/17/17 Unknown Rx Ketorolac [Toradol] 10 mg PO Q6H PRN #10 tablet 06/17/17 Unknown Rx Triamcinolone 0.025% (Nf) [Kenalog 1 applic TP TID #1 tube 06/17/17 Unknown Rx 0.025% OINT] HYDROcodone/APAP 5-325 [[place] 1 each PO Q6HR PRN #15 tablet 06/24/17 Unknown Rx 5/325] Insulin Glargine,Hum.rec.anlog 15 unit SQ QHS #3 insuln.pen 02/09/18 Unknown Rx [Lantus Solostar] Insulin Regular, Human [Novolin R] 4 unit SC WMHS #1 vial 02/09/18 Unknown Rx Benzonatate [Tessalon Perle] 100 mg PO TID #15 capsule 10/15/18 Unknown Rx Clindamycin [Clindamycin CAP] 300 mg PO Q8H #30 cap 10/15/18 Unknown Rx Ibuprofen [Motrin 800 MG tab] 800 mg PO Q8HR PRN #30 tablet 10/15/18 Unknown Rx traMADol [Ultram 50 MG tab] 50 mg PO Q6HR PRN #10 tablet 11/17/18 Unknown Rx ALPRAZolam [Xanax] 1 mg PO Q8H PRN #10 tablet 01/27/19 Unknown Rx ALPRAZolam [Xanax TAB] 1 mg PO QID PRN #16 tab 04/09/19 Unknown Rx Esomeprazole Magnesium [NexIUM] 40 mg PO QDAY 30 Days #30 04/09/19 Unknown Rx capsule.dr Allergies Allergy/AdvReac Type Severity Reaction Status Date / Time amlodipine Allergy Intermediate Unknown Verified 04/09/19 16:46 amoxicillin Allergy Unknown Verified 04/09/19 16:46 insulin NPH human isophane Allergy Unknown Verified 04/09/19 16:46 [From Humulin N] insulin regular, human Allergy Unknown Verified 04/09/19 16:46 [From Humulin R] lisinopril Allergy Swelling Verified 04/09/19 16:46 losartan [Losartan] Allergy Unknown Verified 04/09/19 16:46 metformin Allergy Rash Verified 04/09/19 16:46 potassium Allergy Unknown Verified 04/09/19 16:46 [id number] Reductase Allergy Unknown Verified 04/09/19 16:46 Inhibitor ED Review of Systems ROS: Stated complaint: CHEST/ABD PAIN Other details as noted in HPI Constitutional: denies: chills, fever Eyes: denies: eye pain, eye discharge, vision change ENT: denies: ear pain, throat pain Respiratory: denies: cough, shortness of breath, wheezing Cardiovascular: denies: chest pain, palpitations Endocrine: no symptoms reported Gastrointestinal: abdominal pain, nausea. denies: vomiting, diarrhea Genitourinary: denies: urgency, dysuria, discharge Musculoskeletal: denies: back pain, joint swelling, arthralgia Skin: denies: rash, lesions Neurological: denies: headache, weakness, paresthesias Psychiatric: denies: anxiety, depression Hematological/Lymphatic: denies: easy bleeding, easy bruising ED Past Medical Hx - Past Medical History Previous Medical History?: Yes Hx Hypertension: Yes Hx CVA: No Hx Heart Attack/AMI: No Hx Congestive Heart Failure: No Hx Diabetes: Yes Hx Deep Vein Thrombosis: No Hx Pulmonary Embolism: No Hx GERD: No Hx Liver Disease: No Hx Renal Disease: No Hx Sickle Cell Disease: No Hx Arthritis: No Hx Seizures: No Hx Psychiatric Treatment: Yes (depression, anxiety, panic attacks) Hx Asthma: No Hx COPD: No Hx Tuberculosis: No Hx Dementia: No Hx HIV: No Additional medical history: fibroids - Surgical History Past Surgical History?: Yes Hx Coronary Stent: No Hx Pacemaker: No Hx Internal Defibrillator: Yes Hx Breast Surgery: Yes (BREAST REDUCTION) Additional Surgical History: breast reduction 1999, x2, hysterectomy, fibroids removal - Family History Family history: no significant - Social History Smoking Status: Current Every Day Smoker Substance Use Type: None - Medications Home Medications: Home Medications Medication Instructions Recorded Confirmed Last Taken Type Citalopram Hydrobromide [celeXA] 40 mg PO DAILY 10/09/13 03/25/16 11/28/15 History ALPRAZolam [Xanax TAB] 0.5 mg PO QHS 10/31/14 03/25/16 11/28/15 History Aspirin [Aspirin BABY CHEW TAB] 81 mg PO QDAY 10/31/14 03/25/16 11/28/15 History cloNIDine HCl [Clonidine HCl] 0.2 mg PO BID 04/05/15 03/25/16 03/25/16 History Insulin Detemir [Levemir VIAL] 25 unit SQ QHS 12/20/15 03/25/16 Unknown History Labetalol [Labetalol 200mg TAB] 300 mg PO BID #90 tablet 03/24/16 Unknown Rx traMADol [Ultram 50 MG tab] 50 mg PO Q6HR PRN #20 tablet 08/20/16 Unknown Rx Acyclovir [Zovirax Cap] 400 mg PO TID #20 cap 08/21/16 Unknown Rx Cyclobenzaprine [Flexeril] 10 mg PO TID PRN #15 tablet 10/18/16 Unknown Rx Amoxicillin [Amoxicillin TAB] 875 mg PO BID #10 tablet 06/17/17 Unknown Rx Ketorolac [Toradol] 10 mg PO Q6H PRN #10 tablet 06/17/17 Unknown Rx Triamcinolone 0.025% (Nf) [Kenalog 1 applic TP TID #1 tube 06/17/17 Unknown Rx 0.025% OINT] HYDROcodone/APAP 5-325 [[place] 1 each PO Q6HR PRN #15 tablet 06/24/17 Unknown Rx 5/325] Insulin Glargine,Hum.rec.anlog 15 unit SQ QHS #3 insuln.pen 02/09/18 Unknown Rx [Lantus Solostar] Insulin Regular, Human [Novolin R] 4 unit SC WMHS #1 vial 02/09/18 Unknown Rx Benzonatate [Tessalon Perle] 100 mg PO TID #15 capsule 10/15/18 Unknown Rx Clindamycin [Clindamycin CAP] 300 mg PO Q8H #30 cap 10/15/18 Unknown Rx Ibuprofen [Motrin 800 MG tab] 800 mg PO Q8HR PRN #30 tablet 10/15/18 Unknown Rx traMADol [Ultram 50 MG tab] 50 mg PO Q6HR PRN #10 tablet 11/17/18 Unknown Rx ALPRAZolam [Xanax] 1 mg PO Q8H PRN #10 tablet 01/27/19 Unknown Rx ALPRAZolam [Xanax TAB] 1 mg PO QID PRN #16 tab 04/09/19 Unknown Rx Esomeprazole Magnesium [NexIUM] 40 mg PO QDAY 30 Days #30 04/09/19 Unknown Rx capsule. ED Physical Exam - General Limitations: No Limitations General appearance: alert, in no apparent distress - Head Head exam: Present: atraumatic, normocephalic - Eye Eye exam: Present: normal appearance - ENT ENT exam: Present: mucous membranes moist - Neck Neck exam: Present: normal inspection - Respiratory Respiratory exam: Present: normal lung sounds bilaterally. Absent: respiratory distress, wheezes - Cardiovascular Cardiovascular Exam: Present: regular rate, normal rhythm. Absent: systolic murmur, diastolic murmur, rubs, gallop - GI/Abdominal GI/Abdominal exam: Present: soft, tenderness (epigastric tenderness. Palpation of the epigastric reproduces symptoms.), normal bowel sounds - Rectal Rectal exam: Present: deferred - Extremities Exam Extremities exam: Present: normal inspection - Back Exam Back exam: Present: normal inspection - Neurological Exam Neurological exam: Present: alert, oriented X3 - Psychiatric Psychiatric exam: Present: normal affect, normal mood - Skin Skin exam: Present: warm, dry, intact, normal color. Absent: rash ED Course - Reevaluation(s) Reevaluation #1: Initial exam done. After seeing the patient it appears the patient is having a GERD or gastritis flare up. Patient will be given a GI cocktail and reassessed. She agrees with plan of care. 04/09/19 17:19 Patient's clinical finding was consistent with gastritis and acid reflux. Patient given a GI cocktail including Maalox and lidocaine and all the patient's symptoms resolved. Patient is stable for discharge. Discussed all findings with patient. Patient agrees to plan of care. Patient given discharge instructions. Patient will be discharged home. Patient voiced understanding of discharge instructions. Patient given a GERD diet. 04/09/19 18:22 ED Medical Decision Making - Medical Decision Making Patient is a 53-year-old female that presents emergency room with complaints of 24 hours of epigastric pain. Patient's clinical findings consistent with gastritis. Patient given a GI cocktail and all of her symptoms resolved in ER. Patient will be given treatment for gastritis to include Nexium. Patient given a gastritis diet. Patient will need to follow up with her primary care and a GI doctor. - Differential Diagnosis gastritis. Epigastric pain. Critical care attestation.: If time is entered above; I have spent that time in minutes in the direct care of this critically ill patient, excluding procedure time. ED Disposition Clinical Impression: Epigastric abdominal pain, Anxiety Gastritis Qualifiers: Gastritis type: unspecified gastritis Chronicity: acute Gastritis bleeding: without bleeding Qualified Code(s): K29.00 - Acute gastritis without bleeding Disposition: TO HOME OR SELFCARE Is pt being admited?: No Does the pt Need Aspirin: No Condition: Stable Instructions: Gastritis (ED), Diet for Ulcers and Gastritis (ED), Gastroesophageal Reflux Disease (ED) Additional Instructions: Patient to follow-up with primary care in 2-3 days. 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 Patient to take Tylenol when necessary for pain. Patient to return to ER if condition worsens. Patient did eat a reflux diet. Patient to take meds as directed. Patient to increase water. Patient to rest. Patient to continue all meds. Prescriptions: Esomeprazole Magnesium [NexIUM] 40 mg PO QDAY 30 Days #30 capsule. ALPRAZolam [Xanax TAB] 1 mg PO QID PRN #16 tab PRN Reason: Anxiety Referrals: MARCO ANTONIO CROCKER MD [Primary Care Provider] - 3-5 Days Time of Disposition: 18:27
== END 2019-04-09 19:07 | disposition home or self-care (01) ==
LOC: ED 16:38
DX: K29.00 Acute gastritis without bleeding (principal); I10 Essential (primary) hypertension; E11.9 Type 2 diabetes mellitus without complications; F17.200 Nicotine dependence, unspecified, uncomplicated

== ENCOUNTER 2019-04-17 16:32 | Emergency (ER) | payer MEDICARE ==
--- NOTE | 2019-04-17 16:38 | Emergency Department Report ---
Blank Doc - Documentation Documentation: This is a 53-year-old female that presents with lower back and neck pain s/p [facility]. This initial assessment/diagnostic orders/clinical plan/treatment(s) is/are subject to change based on patient's health status, clinical progression and re- assessment by fellow clinical providers in the ED. Further treatment and workup at subsequent clinical providers discretion. Patient/guardians urged not to elope from the ED as their condition may be serious if not clinically assessed and managed. Initial orders include: 1- Patient sent to [facility] for further evaluation and treatment 2- xrays
[2019-04-17 16:40] VITALS: BP 142/66
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
[2019-04-17] MEDS ORDERED: ZOFRAN ODT PO ONE (19:47)
[2019-04-17] MEDS ORDERED: IBUPROFEN PO ONE (19:47)
[2019-04-17] MEDS ORDERED: NORCO 5/325 PO ONE (19:47)
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
== END 2019-04-17 22:23 | disposition home or self-care (01) ==
LOC: ED 16:32
DX: M62.830 Muscle spasm of back (principal); M54.2 Cervicalgia; I10 Essential (primary) hypertension; E11.9 Type 2 diabetes mellitus without complications; F17.200 Nicotine dependence, unspecified, uncomplicated; Z90.710 Acquired absence of both cervix and uterus; Z79.899 Other long term (current) drug therapy; Z79.4 Long term (current) use of insulin; Z88.6 Allergy status to analgesic agent; Z88.1 Allergy status to other antibiotic agents; Z88.8 Allergy status to other drugs, medicaments and biological substances; V89.2XXA Person injured in unspecified motor-vehicle accident, traffic, initial encounter; Y93.89 Activity, other specified; Y92.488 Other paved roadways as the place of occurrence of the external cause; Y99.8 Other external cause status
CPT/HCPCS: 72040; 72100; 72131; 99284; Q0162

== ENCOUNTER 2019-04-30 17:26 | Emergency (ER) | payer MEDICARE ==
[2019-04-30 17:59] VITALS: BP 110/31
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
[2019-04-30 18:55] LABS: Basophils % (Auto) 0.5 % (0.0-1.8); Eosinophils # (Auto) 0.2 K/mm3 (0.0-0.4); Eosinophils % (Auto) 2.1 % (0.0-4.3); Hematocrit 35.6 % (30.3-42.9); Hemoglobin 11.7 gm/dl (10.1-14.3); Lymphocytes # (Auto) 2.5 K/mm3 (1.2-5.4); Lymphocytes % (Auto) 29.3 % (13.4-35.0); Mean Corpuscular HGB Conc 33 % (30-34); Mean Corpuscular Volume 85 fl (79-97); Monocytes # (Auto) 0.7 K/mm3 (0.0-0.8); Monocytes % (Auto) 8.2 % (0.0-7.3); Platelet Count 210 K/mm3 (140-440); Red Blood Count 4.22 M/mm3 (3.65-5.03); Red Cell Distribution Width 14.4 % (13.2-15.2)
[2019-04-30 19:19] LABS: Albumin 3.5 g/dL (3.9-5); Calcium 8.6 mg/dL (8.4-10.2)
[2019-04-30] MEDS ORDERED: TYLENOL ONE (19:41)
[2019-04-30] MEDS ORDERED: NACL 0.9% 1000 ML 1,000 ML IV ONE (19:54)
[2019-04-30] MEDS ORDERED: ZOFRAN IV ONE (19:54)
--- NOTE | 2019-04-30 21:06 | XRay Report ---
PROCEDURE: XR CHEST ROUTINE 2V TECHNIQUE: PA and lateral chest radiographs were obtained. HISTORY: dizziness COMPARISONS: October 2018. FINDINGS: Heart: Normal. Mediastinum/Vessels: Normal. Lungs/Pleural space: Normal. Bony thorax: No acute osseous abnormality. IMPRESSION: Normal examination. This document is electronically signed by Dante Baez MD., April 30 2019 09:04:49 PM ET
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
[2019-04-30 21:40] LABS: Bacteria,Urine 1+ /HPF (Negative); Bilirubin,Urine NEG (Negative); Blood,Urine NEG (Negative); Color,Urine Yellow (Yellow); Urobilinogen,Urine < 2.0 mg/dL (<2.0)
--- NOTE | 2019-04-30 22:55 | Cat Scan Report ---
PROCEDURE: CT HEAD/BRAIN WO CON TECHNIQUE: Computerized tomography of the head was performed without contrast material. CT DOSE LENGTH PRODUCT: 920.5 mGycm HISTORY: headache dizziness COMPARISONS: 11/29/2015 . FINDINGS: No CT evidence of intracranial mass, hemorrhage, acute territorial infarction, or hydrocephalus. Intr acranial arteries are symmetric in density. Stable osteoma projecting off the right frontal skull out er table. Minimal bilateral ethmoid sinus and right sphenoid sinus mucosal thickening IMPRESSION: No CT evidence of acute intracranial abnormality . This document is electronically signed by Suzan Motta MD., April 30 2019 10:54:11 PM ET
== END 2019-04-30 23:35 | disposition home or self-care (01) ==
LOC: ED 17:26
DX: E86.0 Dehydration (principal); J01.00 Acute maxillary sinusitis, unspecified; J01.10 Acute frontal sinusitis, unspecified; I10 Essential (primary) hypertension; E11.9 Type 2 diabetes mellitus without complications; F32.9 Major depressive disorder, single episode, unspecified; F41.0 Panic disorder [episodic paroxysmal anxiety]; M54.2 Cervicalgia; M54.9 Dorsalgia, unspecified; F17.200 Nicotine dependence, unspecified, uncomplicated; Z79.1 Long term (current) use of non-steroidal anti-inflammatories (NSAID); Z79.4 Long term (current) use of insulin; Z79.899 Other long term (current) drug therapy; Z79.82 Long term (current) use of aspirin; Z88.1 Allergy status to other antibiotic agents; Z88.8 Allergy status to other drugs, medicaments and biological substances; Z90.710 Acquired absence of both cervix and uterus; Z98.890 Other specified postprocedural states
CPT/HCPCS: 36415; 70450; 71046; 80053; 81001; 84484; 85025; 93005; 93010; 96361; 96374; 99285; J2405; J7030

== ENCOUNTER 2019-06-30 10:49 | Emergency (ER) | payer MEDICARE ==
--- NOTE | 2019-06-30 11:38 | XRay Report ---
CHEST 1 VIEW INDICATION: Chest Pain. COMPARISON: 04/30/2019. FINDINGS: Support devices: None. Heart: Normal. Lungs/Pleura: No acute pulmonary or pleural findings. IMPRESSION: 1. No acute findings. Signer Name: Osmel Arroyo MD Signed: 06/30/2019 11:33 AM Workstation Name: [id number]
[2019-06-30] MEDS ORDERED: TORADOL IV ONE (12:09)
[2019-06-30] MEDS ORDERED: REGLAN IV ONE (12:09)
[2019-06-30] MEDS ORDERED: MAGNESIUM SULFATE 2GM/50ML 2 GM/50 ML BAG IV ONE (12:09)
[2019-06-30] MEDS ORDERED: XYLOCAINE TOPICAL 4% TP ONE (12:09)
[2019-06-30] MEDS ORDERED: PEPCID IV ONE (12:09)
[2019-06-30] MEDS ORDERED: BENADRYL IV ONE (12:10)
--- NOTE | 2019-06-30 12:11 | Emergency Department Report ---
ED General Adult HPI - General Chief complaint: Chest Pain Stated complaint: CHEST PAIN/HEADACHE/HTN Time Seen by Provider: 06/30/19 11:11 Source: patient, EMS (EMS documentation not available at the time of chart dictation), RN notes reviewed, old records reviewed Mode of arrival: Stretcher Limitations: No Limitations - History of Present Illness Initial comments: This is a 53-year-old female. This patient does not smoke to this provider previously. Her past medical history includes chest wall pain, anxiety, muscle spasm, and hypertension. The patient presents to the ER with multiple complaints. Her first complaint is chest wall pain. The pain is achy and crampy. It is in the middle of her chest. It does not radiate to the back, arms or neck. There is no vomiting, diaphoresis or exertional shortness of breath. It is now resolved. The pain increases with palpation. It decreases with rest. There is no trauma, and no recent repetitive age of motion that she is aware of. No recent aspirin consumption, the patient denies DVT, pulmonary embolism risk factors. The patient denies family history for coronary artery disease, and pul monary embolism. Patient had a negative nuclear stress test at this hospital in December 2015. The patient has a secondary complaint of headache. The headache is frontal, bitemporal and occipital. The headache started earlier on today. The headache is not sudden or thunderclap in nature. The headache is not maximal in intensity at the onset. This is not the most intense headache of her life. There is no neck pain or stiffness. There is no loss of vision. There is no extremity weakness or numbness. The patient reports frequent and chronic headaches. -: Gradual, hour(s) Location: head, chest Severity scale (0 -10): 5 Quality: other Consistency: other Improves with: other Worsens with: other - Related Data Home Medications Medication Instructions Recorded Confirmed Last Taken Citalopram Hydrobromide [celeXA] 40 mg PO DAILY 10/09/13 03/25/16 11/28/15 ALPRAZolam [Xanax TAB] 0.5 mg PO QHS 10/31/14 03/25/16 11/28/15 Aspirin [Aspirin BABY CHEW TAB] 81 mg PO QDAY 10/31/14 03/25/16 11/28/15 cloNIDine HCl [Clonidine HCl] 0.2 mg PO BID 04/05/15 03/25/16 03/25/16 Insulin Detemir [Levemir VIAL] 25 unit SQ QHS 12/20/15 03/25/16 Unknown Previous Rx's Medication Instructions Recorded Last Taken Type Labetalol [Labetalol 200mg TAB] 300 mg PO BID #90 tablet 03/24/16 Unknown Rx traMADol [Ultram 50 MG tab] 50 mg PO Q6HR PRN #20 tablet 08/20/16 Unknown Rx Acyclovir [Zovirax Cap] 400 mg PO TID #20 cap 08/21/16 Unknown Rx Cyclobenzaprine [Flexeril] 10 mg PO TID PRN #15 tablet 10/18/16 Unknown Rx Ketorolac [Toradol] 10 mg PO Q6H PRN #10 tablet 06/17/17 Unknown Rx Triamcinolone 0.025% (Nf) [Kenalog 1 applic TP TID #1 tube 06/17/17 Unknown Rx 0.025% OINT] HYDROcodone/APAP 5-325 [[place] 1 each PO Q6HR PRN #15 tablet 06/24/17 Unknown Rx 5/325] Insulin Glargine,Hum.rec.anlog 15 unit SQ QHS #3 insuln.pen 02/09/18 Unknown Rx [Lantus Solostar] Insulin Regular, Human [Novolin R] 4 unit SC WMHS #1 vial 02/09/18 Unknown Rx Benzonatate [Tessalon Perle] 100 mg PO TID #15 capsule 10/15/18 Unknown Rx Clindamycin [Clindamycin CAP] 300 mg PO Q8H #30 cap 10/15/18 Unknown Rx Ibuprofen [Motrin 800 MG tab] 800 mg PO Q8HR PRN #30 tablet 10/15/18 Unknown Rx traMADol [Ultram 50 MG tab] 50 mg PO Q6HR PRN #10 tablet 11/17/18 Unknown Rx ALPRAZolam [Xanax] 1 mg PO Q8H PRN #10 tablet 01/27/19 Unknown Rx ALPRAZolam [Xanax TAB] 1 mg PO QID PRN #16 tab 04/09/19 Unknown Rx Esomeprazole Magnesium [NexIUM] 40 mg PO QDAY 30 Days #30 04/09/19 Unknown Rx capsule. Baclofen 20 mg PO Q8H PRN #21 tablet 04/17/19 Unknown Rx Ibuprofen [Motrin] 800 mg PO Q8HR PRN #24 tablet 04/17/19 Unknown Rx traMADol [Ultram] 50 mg PO Q6HR PRN #15 tablet 04/17/19 Unknown Rx Acetaminophen [Acetaminophen TAB] 1,000 mg PO Q6HR PRN #30 tablet 04/30/19 Unknown Rx Azithromycin [Zithromax Z-GRISELDA] 250 mg PO DAILY #6 tab 04/30/19 Unknown Rx diphenhydrAMINE [Benadryl CAP] 25 mg PO Q6HR PRN #30 capsule 04/30/19 Unknown Rx Acetaminophen [Non-Aspirin Extra 500 mg PO Q6HR PRN #30 tablet 06/30/19 Unknown Rx Strength] Aspirin [Aspirin BABY CHEW TAB] 81 mg PO QDAY #30 tab.chew 06/30/19 Unknown Rx Famotidine [Pepcid] 20 mg PO BID #10 tablet 06/30/19 Unknown Rx Allergies Allergy/AdvReac Type Severity Reaction Status Date / Time amlodipine Allergy Intermediate Unknown Verified 04/17/19 16:35 amoxicillin Allergy Unknown Verified 04/17/19 16:35 insulin NPH human isophane Allergy Unknown Verified 04/17/19 16:35 [From Humulin N] insulin regular, human Allergy Unknown Verified 04/17/19 16:35 [From Humulin R] lisinopril Allergy Swelling Verified 04/17/19 16:35 losartan [Losartan] Allergy Unknown Verified 04/17/19 16:35 metformin Allergy Rash Verified 04/17/19 16:35 potassium Allergy Unknown Verified 04/17/19 16:36 [id number] Reductase Allergy Unknown Verified 04/17/19 16:36 Inhibitor ED Review of Systems ROS: Stated complaint: CHEST PAIN/HEADACHE/HTN Other details as noted in HPI Constitutional: denies: fever Eyes: denies: eye discharge, vision change ENT: denies: epistaxis Respiratory: denies: cough, wheezing Cardiovascular: chest pain Gastrointestinal: denies: nausea, vomiting Genitourinary: denies: dysuria Musculoskeletal: denies: myalgia Neurological: headache. denies: as per HPI, weakness, numbness, paresthesias, confusion Psychiatric: anxiety ED Past Medical Hx - Past Medical History Previous Medical History?: Yes Hx Hypertension: Yes Hx CVA: No Hx Heart Attack/AMI: No Hx Congestive Heart Failure: No Hx Diabetes: Yes Hx Deep Vein Thrombosis: No Hx Pulmonary Embolism: No Hx GERD: No Hx Liver Disease: No Hx Renal Disease: No Hx Sickle Cell Disease: No Hx Arthritis: No Hx Seizures: No Hx Psychiatric Treatment: Yes (depression, anxiety, panic attacks) Hx Asthma: No Hx COPD: No Hx Tuberculosis: No Hx Dementia: No Hx HIV: No Additional medical history: fibroids - Surgical History Past Surgical History?: Yes Hx Coronary Stent: No Hx Pacemaker: No Hx Internal Defibrillator: Yes Hx Breast Surgery: Yes (BREAST REDUCTION) Additional Surgical History: breast reduction 1999, x2, hysterectomy, fibroids removal - Social History Smoking Status: Current Every Day Smoker Substance Use Type: None - Medications Home Medications: Home Medications Medication Instructions Recorded Confirmed Last Taken Type Citalopram Hydrobromide [celeXA] 40 mg PO DAILY 10/09/13 03/25/16 11/28/15 History ALPRAZolam [Xanax TAB] 0.5 mg PO QHS 10/31/14 03/25/16 11/28/15 History Aspirin [Aspirin BABY CHEW TAB] 81 mg PO QDAY 10/31/14 03/25/16 11/28/15 History cloNIDine HCl [Clonidine HCl] 0.2 mg PO BID 04/05/15 03/25/16 03/25/16 History Insulin Detemir [Levemir VIAL] 25 unit SQ QHS 12/20/15 03/25/16 Unknown History Labetalol [Labetalol 200mg TAB] 300 mg PO BID #90 tablet 03/24/16 Unknown Rx traMADol [Ultram 50 MG tab] 50 mg PO Q6HR PRN #20 tablet 08/20/16 Unknown Rx Acyclovir [Zovirax Cap] 400 mg PO TID #20 cap 08/21/16 Unknown Rx Cyclobenzaprine [Flexeril] 10 mg PO TID PRN #15 tablet 10/18/16 Unknown Rx Ketorolac [Toradol] 10 mg PO Q6H PRN #10 tablet 06/17/17 Unknown Rx Triamcinolone 0.025% (Nf) [Kenalog 1 applic TP TID #1 tube 06/17/17 Unknown Rx 0.025% OINT] HYDROcodone/APAP 5-325 [[place] 1 each PO Q6HR PRN #15 tablet 06/24/17 Unknown Rx 5/325] Insulin Glargine,Hum.rec.anlog 15 unit SQ QHS #3 insuln.pen 02/09/18 Unknown Rx [Lantus Solostar] Insulin Regular, Human [Novolin R] 4 unit SC WMHS #1 vial 02/09/18 Unknown Rx Benzonatate [Tessalon Perle] 100 mg PO TID #15 capsule 10/15/18 Unknown Rx Clindamycin [Clindamycin CAP] 300 mg PO Q8H #30 cap 10/15/18 Unknown Rx Ibuprofen [Motrin 800 MG tab] 800 mg PO Q8HR PRN #30 tablet 10/15/18 Unknown Rx traMADol [Ultram 50 MG tab] 50 mg PO Q6HR PRN #10 tablet 11/17/18 Unknown Rx ALPRAZolam [Xanax] 1 mg PO Q8H PRN #10 tablet 01/27/19 Unknown Rx ALPRAZolam [Xanax TAB] 1 mg PO QID PRN #16 tab 04/09/19 Unknown Rx Esomeprazole Magnesium [NexIUM] 40 mg PO QDAY 30 Days #30 04/09/19 Unknown Rx capsule. Baclofen 20 mg PO Q8H PRN #21 tablet 04/17/19 Unknown Rx Ibuprofen [Motrin] 800 mg PO Q8HR PRN #24 tablet 04/17/19 Unknown Rx traMADol [Ultram] 50 mg PO Q6HR PRN #15 tablet 04/17/19 Unknown Rx Acetaminophen [Acetaminophen TAB] 1,000 mg PO Q6HR PRN #30 tablet 04/30/19 Unknown Rx Azithromycin [Zithromax Z-GRISELDA] 250 mg PO DAILY #6 tab 04/30/19 Unknown Rx diphenhydrAMINE [Benadryl CAP] 25 mg PO Q6HR PRN #30 capsule 04/30/19 Unknown Rx Acetaminophen [Non-Aspirin Extra 500 mg PO Q6HR PRN #30 tablet 06/30/19 Unknown Rx Strength] Aspirin [Aspirin BABY CHEW TAB] 81 mg PO QDAY #30 tab.chew 06/30/19 Unknown Rx Famotidine [Pepcid] 20 mg PO BID #10 tablet 06/30/19 Unknown Rx ED Physical Exam - General Limitations: No Limitations General appearance: alert, in no apparent distress - Head Head exam: Present: atraumatic, normocephalic - Eye Eye exam: Present: normal appearance, PERRL, EOMI, other (visual acuity intact to finger counting and color perception at close distance.). Absent: nystagmus - ENT ENT exam: Present: normal exam, normal orophraynx, mucous membranes moist, normal external ear exam - Neck Neck exam: Present: normal inspection, full ROM. Absent: tenderness, meningismus - Respiratory Respiratory exam: Present: normal lung sounds bilaterally, chest wall tenderness, other (chaperoned by homemaking rehabilitation consultant Yaneli Stevens). Absent: respiratory distress, wheezes, rales, rhonchi, stridor - Cardiovascular Cardiovascular Exam: Present: normal rhythm, bradycardia, normal heart sounds. Absent: systolic murmur, diastolic murmur, rubs, gallop - GI/Abdominal GI/Abdominal exam: Present: soft. Absent: distended, tenderness, guarding, rebound, rigid, pulsatile mass - Extremities Exam Extremities exam: Present: normal inspection, full ROM, other (2+ pulses noted in the bilateral upper, lower extremities. There is no long bony tenderness. The pelvis is stable. Muscular compartments are soft.). Absent: pedal edema, calf tenderness - Back Exam Back exam: Present: normal inspection, full ROM. Absent: tenderness, CVA tenderness (R), CVA tenderness (L), paraspinal tenderness, vertebral tenderness - Neurological Exam Neurological exam: Present: alert (There is there is no pass pointing. There is negative pronator drift. There is normal [id number]), oriented X3, other (there is no facial droop. The tongue is midline. The extraocular movements are intact bilaterally. 5/ 5 strength bilateral upper, lower extremities. Sensation intact to light touch bilateral upper, lower extremities bilaterally. Sensation is intact to light touch in the bilateral V1, V2, V3 distribution.). Absent: motor sensory deficit - Psychiatric Psychiatric exam: Present: anxious - Skin Skin exam: Present: warm, dry, intact, normal color. Absent: rash ED Course Vital Signs 06/30/19 06/30/19 06/30/19 10:58 11:00 11:02 Temperature 97.9 F Pulse Rate 59 L 58 L 56 L Respiratory 12 12 15 Rate Blood Pressure 116/55 125/57 O2 Sat by Pulse 98 96 Oximetry 08/06/30/19 06/30/19 11:20 12:00 12:59 Temperature Pulse Rate 60 62 Respiratory 15 8 L 21 Rate Blood Pressure 125/57 125/57 O2 Sat by Pulse 96 96 96 Oximetry 06/30/19 06/30/19 06/30/19 13:31 14:01 14:30 Temperature Pulse Rate 55 L 64 Respiratory 19 19 Rate Blood Pressure 130/71 142/58 151/67 O2 Sat by Pulse 93 94 97 Oximetry - Reevaluation(s) Reevaluation #1: 06/30/19 14:00 Differential diagnosis, including but not limited to: GERD, gastritis, costochondritis, pneumonia, acute coronary syndrome, migraine headache, tension headache, cluster headache, anxiety Assessment and plan: 53-year-old female with 2 complaints Complaints #1, chest pain: Patient reports no pulmonary embolism or DVT risk factors, she is not tachycardic, tachypneic or hypoxic, she is low risk by well's criteria, and this is unlikely to be a pulmonary embolism. X-ray of the chest is unremarkable, EKG abnormal but unchanged from prior, troponin negative 1, and chest wall pain is reproducible. Patient low risk by heart score for major adverse cardiac event, has equal pulses in upper and lower extremities, and x-ray the chest is unremarkable, therefore unlikely to be aortic disease. Patient's symptoms have been treated. She is now sleeping in her stretcher and she is in no acute distress. This institution has an expedited outpatient follow-up policy, whereby patients who are low risk for major adverse cardiac event on the heart score may obtain expedited outpatient follow-up to complete an outpatient cardiac risk stratification. The patient will be referred into this program. Complaint #2, headache: GCS of 15, unremarkable neurologic exam, no fever, or neck stiffness, and by history does not have any red flag aspects. The patient's headache is treated supportively and symptomatically. Her neurologic examination is within normal limits. She can follow up with an outpatient primary care doctor for further management. Reevaluation #2: 06/30/19 14:44 Patient sleeping comfortably in stretcher. EKG #2 was unchanged from prior EKG. Troponin is negative 2. Patient states tenderness her pain is completely resolved. ED Medical Decision Making - Lab Data Result diagrams: 06/30/19 12:00 06/30/19 12:00 Vital Signs 06/30/19 06/30/19 06/30/19 10:58 11:00 11:02 Temperature 97.9 F Pulse Rate 59 L 58 L 56 L Respiratory 12 12 15 Rate Blood Pressure 116/55 125/57 O2 Sat by Pulse 98 96 Oximetry 06/30/19 06/30/19 11:20 12:59 Temperature Pulse Rate 62 Respiratory 15 21 Rate Blood Pressure 125/57 O2 Sat by Pulse 96 96 Oximetry Lab Results 06/30/19 06/30/19 Range/Units 12:00 12:00 WBC 7.5 (4.5-11.0) K/mm3 RBC 4.27 (3.65-5.03) M/mm3 Hgb 11.8 (10.1-14.3) gm/dl Hct 36.2 (30.3-42.9) % MCV 85 (79-97) fl MCH 28 (28-32) pg MCHC 33 (30-34) % RDW 14.4 (13.2-15.2) % Plt Count 190 (140-440) K/mm3 Lymph % (Auto) 36.2 H (13.4-35.0) % [place] % (Auto) 9.1 H (0.0-7.3) % Eos % (Auto) 1.8 (0.0-4.3) % Baso % (Auto) Aquaculture Program Director Lymph # 2.7 (1.2-5.4) K/mm3 [place] # 0.7 (0.0-0.8) K/mm3 Eos # 0.1 (0.0-0.4) K/mm3 Baso # 0.0 (0.0-0.1) K/mm3 Seg Neutrophils % 52.6 (40.0-70.0) % Seg Neutrophils # 3.9 (1.8-7.7) K/mm3 Sodium 141 (137-145) mmol/L Potassium 4.3 (3.6-5.0) mmol/L Chloride 103.8 (98-107) mmol/L Carbon Dioxide 26 (22-30) mmol/L Anion Gap 16 mmol/L BUN 33 H (7-17) mg/dL Creatinine 1.1 (0.7-1.2) mg/dL Estimated GFR > 60 ml/min BUN/Creatinine Ratio 30 % Glucose 122 H (65-100) mg/dL Calcium 9.2 (8.4-10.2) mg/dL Troponin T < 0.010 (0.00-0.029) ng/mL - EKG Data -: EKG Interpreted by Me EKG shows normal: sinus rhythm Rate: bradycardia - EKG Data 06/30/19 14:03 EKG shows a sinus rhythm, bradycardic, borderline left axis deviation, low voltage, poor R-wave progression, prolonged ME interval, EKG is abnormal, the EKG is not consistent with ST elevation myocardial infarction, the EKG appears to be unchanged from prior EKG from April 2019. - Radiology Data Radiology results: pending, report reviewed, image reviewed X-ray of the chest is negative for acute disease. Critical care attestation.: If time is entered above; I have spent that time in minutes in the direct care of this critically ill patient, excluding procedure time. ED Disposition Clinical Impression: Chest wall pain, Headache Disposition: TO HOME OR SELFCARE Is pt being admited?: No Does the pt Need Aspirin: No Condition: Stable Instructions: Costochondritis (ED) Additional Instructions: Patient may continue atenolol for blood pressure, and hold nifedipine XL. Patient may take the prescribed medications as needed/directed for chest wall pain and headache. Recommend follow-up with a laborer general within the next 3-5 days. Return to the emergency room right away or projectile vomiting, change in mental status, confusion, and ability to tolerate liquid feeds, new, worsening or different symptoms not present on the initial emergency room evaluation. Prescriptions: Aspirin [Aspirin BABY CHEW TAB] 81 mg PO QDAY #30 tab.chew Acetaminophen [Non-Aspirin Extra Strength] 500 mg PO Q6HR PRN #30 tablet PRN Reason: Pain , Severe (7-10) Famotidine [Pepcid] 20 mg PO BID #10 tablet Referrals: PRIMARY MD MICKI [Primary Care Provider] - 3-5 Days SHAQUILLE PRATER MD [Staff Physician] - 3-5 Days [facility] [Provider Group] - 3-5 Days
[2019-06-30 12:38] LABS: Eosinophils # (Auto) 0.1 K/mm3 (0.0-0.4); Eosinophils % (Auto) 1.8 % (0.0-4.3); Hematocrit 36.2 % (30.3-42.9); Hemoglobin 11.8 gm/dl (10.1-14.3); Lymphocytes # (Auto) 2.7 K/mm3 (1.2-5.4); Lymphocytes % (Auto) 36.2 % (13.4-35.0); Mean Corpuscular HGB Conc 33 % (30-34); Mean Corpuscular Volume 85 fl (79-97); Monocytes # (Auto) 0.7 K/mm3 (0.0-0.8); Monocytes % (Auto) 9.1 % (0.0-7.3); Platelet Count 190 K/mm3 (140-440); Red Blood Count 4.27 M/mm3 (3.65-5.03); Red Cell Distribution Width 14.4 % (13.2-15.2)
[2019-06-30 12:41] LABS: BUN/Creatinine Ratio 30; Blood Urea Nitrogen 33 mg/dL (7-17); Calcium 9.2 mg/dL (8.4-10.2); Hemolysis Index 0
[2019-06-30 14:43] VITALS: BP 151/67
== END 2019-06-30 15:48 | disposition home or self-care (01) ==
LOC: ED 10:49
DX: R07.89 Other chest pain (principal); R51 Headache; I10 Essential (primary) hypertension; E11.9 Type 2 diabetes mellitus without complications; F32.9 Major depressive disorder, single episode, unspecified; F41.9 Anxiety disorder, unspecified; F41.0 Panic disorder [episodic paroxysmal anxiety]; F17.200 Nicotine dependence, unspecified, uncomplicated; Z98.890 Other specified postprocedural states; Z79.899 Other long term (current) drug therapy; Z88.8 Allergy status to other drugs, medicaments and biological substances; Z88.1 Allergy status to other antibiotic agents; Z88.2 Allergy status to sulfonamides; Z79.4 Long term (current) use of insulin
CPT/HCPCS: 36415; 71045; 80048; 82550; 83735; 84484; 85025; 93005; 93010; 96365; 96375; 99285; J1200; J1885; J2765; J3475

== ENCOUNTER 2019-08-16 20:13 | Emergency (ER) | payer MEDICARE ==
--- NOTE | 2019-08-16 20:35 | Event Note ---
ED Screening Note Date of service: 08/16/19 Time: 20:30 ED Screening Note: This is a 53 y.o. F. that presents to the ER with elevated blood pressure. Patient report peripheral edema and facial swelling when she woke up this morning. States swelling improved. 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 This initial assessment/diagnostic orders/clinical plan/treatment(s) is/are subject to change based on patients health status, clinical progression and re- assessment by fellow clinical providers in the ED. Further treatment and workup at subsequent clinical providers discretion. Patient/guardian urged not to elope from the ED as their condition may be serious if not clinically assessed and managed. Initial orders include:
[2019-08-16 22:30] LABS: Basophils % (Auto) 0.2 % (0.0-1.8); Eosinophils # (Auto) 0.2 K/mm3 (0.0-0.4); Eosinophils % (Auto) 2.2 % (0.0-4.3); Hematocrit 35.4 % (30.3-42.9); Hemoglobin 11.7 gm/dl (10.1-14.3); Lymphocytes # (Auto) 2.4 K/mm3 (1.2-5.4); Lymphocytes % (Auto) 28.5 % (13.4-35.0); Mean Corpuscular HGB Conc 33 % (30-34); Mean Corpuscular Volume 85 fl (79-97); Monocytes # (Auto) 0.8 K/mm3 (0.0-0.8); Monocytes % (Auto) 9.2 % (0.0-7.3); Platelet Count 227 K/mm3 (140-440); Red Blood Count 4.18 M/mm3 (3.65-5.03); Red Cell Distribution Width 13.9 % (13.2-15.2)
[2019-08-16 22:36] LABS: Bilirubin,Urine NEG (Negative); Blood,Urine SM (Negative); Color,Urine Yellow (Yellow); Hyaline Casts,Urine 1 /LPF; RBC,Urine < 1.0 /HPF (0.0-6.0); Urobilinogen,Urine < 2.0 mg/dL (<2.0)
--- NOTE | 2019-08-16 22:37 | XRay Report ---
CHEST PA AND LATERAL VIEWS INDICATION: weakness. COMPARISON: 06/30/2019. FINDINGS: Support devices: None. Heart: Within normal limits. Lungs/Pleura: No acute pulmonary or pleural findings. IMPRESSION: 1. No significant abnormality. Signer Name: Osmel Arroyo MD Signed: 08/16/2019 10:32 PM Workstation Name: [id number]
[2019-08-16 22:49] LABS: Alanine Aminotransferase 21 units/L (7-56); Albumin 3.6 g/dL (3.9-5); BUN/Creatinine Ratio 33; Blood Urea Nitrogen 30 mg/dL (7-17); Hemolysis Index 4
[2019-08-16] MEDS ORDERED: BENTYL PO ONE (23:31)
[2019-08-16] MEDS ORDERED: PEPCID PO ONE (23:31)
[2019-08-16] MEDS ORDERED: NACL 0.9% 1000 ML 1,000 ML IV ONE (23:31)
--- NOTE | 2019-08-16 23:34 | Emergency Department Report ---
ED General Adult HPI - General Chief complaint: High BP Stated complaint: HIGH BP/LEFT ARM PAIN/LEG PAIN Time Seen by Provider: 08/16/19 20:30 Source: patient Mode of arrival: Ambulatory Limitations: No Limitations - History of Present Illness Initial comments: Patient is a 53-year-old -[place] female with a history of hypertension and anxiety who presents to the ED with complaint of acute onset persistently elevated blood pressure intermittently for the last 3 days. Patient also states that her blood pressure medications were recently changed by her primary care physician because she has been found to be allergic to many other medications. Patient states that she is currently on Procardia 60 mg daily and clonidine 0.1 mg twice a day. Patient states that she has also had persistent diffuse body aches, generalized weakness and abdominal bloating with nausea. Patient denies chest pain, shortness of breath, dizziness, headache, fever, chills, cough, sore throat, dysuria, urinary frequency and urgency vaginal bleeding. MD Complaint: Elevated BP -: Sudden, days(s) (2) Location: abdomen Radiation: non-radiation Severity scale (0 -10): 0 Quality: dull Consistency: intermittent Improves with: none Worsens with: none Associated Symptoms: loss of appetite, malaise. denies: denies other symptoms, chest pain, cough, diaphoresis, fever/chills, headaches, nausea/vomiting, rash, shortness of breath, syncope, weakness, other Treatments Prior to Arrival: none - Related Data Home Medications Medication Instructions Recorded Confirmed Last Taken Citalopram Hydrobromide [celeXA] 40 mg PO DAILY 10/09/13 03/25/16 11/28/15 ALPRAZolam [Xanax TAB] 0.5 mg PO QHS 10/31/14 03/25/16 11/28/15 Aspirin [Aspirin BABY CHEW TAB] 81 mg PO QDAY 10/31/14 03/25/16 11/28/15 cloNIDine HCl [Clonidine HCl] 0.2 mg PO BID 04/05/15 03/25/16 03/25/16 Insulin Detemir [Levemir VIAL] 25 unit SQ QHS 12/20/15 03/25/16 Unknown Previous Rx's Medication Instructions Recorded Last Taken Type Labetalol [Labetalol 200mg TAB] 300 mg PO BID #90 tablet 05/20/16 Unknown Rx traMADol [Ultram 50 MG tab] 50 mg PO Q6HR PRN #20 tablet 08/20/16 Unknown Rx Acyclovir [Zovirax Cap] 400 mg PO TID #20 cap 08/21/16 Unknown Rx Cyclobenzaprine [Flexeril] 10 mg PO TID PRN #15 tablet 10/18/16 Unknown Rx Ketorolac [Toradol] 10 mg PO Q6H PRN #10 tablet 06/17/17 Unknown Rx Triamcinolone 0.025% (Nf) [Kenalog 1 applic TP TID #1 tube 06/17/17 Unknown Rx 0.025% OINT] HYDROcodone/APAP 5-325 [Ogden 1 each PO Q6HR PRN #15 tablet 06/24/17 Unknown Rx 5/325] Insulin Glargine,Hum.rec.anlog 15 unit SQ QHS #3 insuln.pen 02/09/18 Unknown Rx [Lantus Solostar] Insulin Regular, Human [Novolin R] 4 unit SC WMHS #1 vial 02/09/18 Unknown Rx Benzonatate [Tessalon Perle] 100 mg PO TID #15 capsule 10/15/18 Unknown Rx Clindamycin [Clindamycin CAP] 300 mg PO Q8H #30 cap 10/15/18 Unknown Rx Ibuprofen [Motrin 800 MG tab] 800 mg PO Q8HR PRN #30 tablet 10/15/18 Unknown Rx traMADol [Ultram 50 MG tab] 50 mg PO Q6HR PRN #10 tablet 11/17/18 Unknown Rx ALPRAZolam [Xanax] 1 mg PO Q8H PRN #10 tablet 01/27/19 Unknown Rx ALPRAZolam [Xanax TAB] 1 mg PO QID PRN #16 tab 04/09/19 Unknown Rx Esomeprazole Magnesium [NexIUM] 40 mg PO QDAY 30 Days #30 04/09/19 Unknown Rx capsule. Baclofen 20 mg PO Q8H PRN #21 tablet 04/17/19 Unknown Rx Ibuprofen [Motrin] 800 mg PO Q8HR PRN #24 tablet 04/17/19 Unknown Rx traMADol [Ultram] 50 mg PO Q6HR PRN #15 tablet 04/17/19 Unknown Rx Acetaminophen [Acetaminophen TAB] 1,000 mg PO Q6HR PRN #30 tablet 04/30/19 Unknown Rx Azithromycin [Zithromax Z-GRISELDA] 250 mg PO DAILY #6 tab 04/30/19 Unknown Rx diphenhydrAMINE [Benadryl CAP] 25 mg PO Q6HR PRN #30 capsule 04/30/19 Unknown Rx Acetaminophen [Non-Aspirin Extra 500 mg PO Q6HR PRN #30 tablet 06/30/19 Unknown Rx Strength] Aspirin [Aspirin BABY CHEW TAB] 81 mg PO QDAY #30 tab.chew 06/30/19 Unknown Rx Famotidine [Pepcid] 20 mg PO BID #10 tablet 06/30/19 Unknown Rx traMADol [Ultram 50 MG tab] 50 mg PO Q6HR PRN #12 tablet 07/03/19 Unknown Rx Dicyclomine [Bentyl] 20 mg PO Q6H PRN #30 tablet 08/16/19 Unknown Rx Famotidine [Pepcid] 40 mg PO DAILY #30 tablet 08/16/19 Unknown Rx Ondansetron [Zofran Odt] 4 mg PO Q6HR PRN #15 tab.rapdis 08/16/19 Unknown Rx hydrOXYzine PAMOATE [Vistaril] 25 mg PO Q6H PRN #30 capsule 08/16/19 Unknown Rx Allergies Allergy/AdvReac Type Severity Reaction Status Date / Time amlodipine Allergy Intermediate Unknown Verified 04/17/19 16:35 amoxicillin Allergy Unknown Verified 04/17/19 16:35 insulin NPH human isophane Allergy Unknown Verified 04/17/19 16:35 [From Humulin N] insulin regular, human Allergy Unknown Verified 04/17/19 16:35 [From Humulin R] lisinopril Allergy Swelling Verified 04/17/19 16:35 losartan [Losartan] Allergy Unknown Verified 04/17/19 16:35 metformin Allergy Rash Verified 04/17/19 16:35 potassium Allergy Unknown Verified 04/17/19 16:36 Vggnaem-Xzk-Eya Reductase Allergy Unknown Verified 04/17/19 16:36 Inhibitor nifedipine AdvReac Mild Unknown Verified 08/16/19 20:35 ED Review of Systems ROS: Stated complaint: HIGH BP/LEFT ARM PAIN/LEG PAIN Other details as noted in HPI Constitutional: denies: chills, fever Eyes: denies: eye pain, eye discharge, vision change ENT: denies: ear pain, throat pain Respiratory: denies: cough, shortness of breath, wheezing Cardiovascular: denies: chest pain, palpitations Endocrine: no symptoms reported Gastrointestinal: denies: abdominal pain, nausea, vomiting, diarrhea Genitourinary: denies: urgency, dysuria, discharge Musculoskeletal: denies: back pain, joint swelling, arthralgia Skin: denies: rash, lesions Neurological: denies: headache, weakness, paresthesias Psychiatric: anxiety. denies: depression Hematological/Lymphatic: denies: easy bleeding, easy bruising ED Past Medical Hx - Past Medical History Hx Hypertension: Yes Hx CVA: No Hx Heart Attack/AMI: No Hx Congestive Heart Failure: No Hx Diabetes: Yes Hx Deep Vein Thrombosis: No Hx Pulmonary Embolism: No Hx GERD: No Hx Liver Disease: No Hx Renal Disease: No Hx Sickle Cell Disease: No Hx Arthritis: No Hx Seizures: No Hx Psychiatric Treatment: Yes (depression, anxiety, panic attacks) Hx Asthma: No Hx COPD: No Hx Tuberculosis: No Hx Dementia: No Hx HIV: No Additional medical history: fibroids - Surgical History Hx Coronary Stent: No Hx Pacemaker: No Hx Internal Defibrillator: Yes Hx Breast Surgery: Yes (BREAST REDUCTION) Additional Surgical History: breast reduction 1999, x2, hysterectomy, fibroids removal - Social History Smoking Status: Never Smoker Substance Use Type: None - Medications Home Medications: Home Medications Medication Instructions Recorded Confirmed Last Taken Type Citalopram Hydrobromide [celeXA] 40 mg PO DAILY 10/09/13 03/25/16 11/28/15 Hi story ALPRAZolam [Xanax TAB] 0.5 mg PO QHS 10/31/14 03/25/16 11/28/15 History Aspirin [Aspirin BABY CHEW TAB] 81 mg PO QDAY 10/31/14 03/25/16 11/28/15 History cloNIDine HCl [Clonidine HCl] 0.2 mg PO BID 04/05/15 03/25/16 03/25/16 History Insulin Detemir [Levemir VIAL] 25 unit SQ QHS 12/20/15 03/25/16 Unknown History Labetalol [Labetalol 200mg TAB] 300 mg PO BID #90 tablet 03/24/16 Unknown Rx traMADol [Ultram 50 MG tab] 50 mg PO Q6HR PRN #20 tablet 08/20/16 Unknown Rx Acyclovir [Zovirax Cap] 400 mg PO TID #20 cap 08/21/16 Unknown Rx Cyclobenzaprine [Flexeril] 10 mg PO TID PRN #15 tablet 10/18/16 Unknown Rx Ketorolac [Toradol] 10 mg PO Q6H PRN #10 tablet 06/17/17 Unknown Rx Triamcinolone 0.025% (Nf) [Kenalog 1 applic TP TID #1 tube 06/17/17 Unknown Rx 0.025% OINT] HYDROcodone/APAP 5-325 [Ogden 1 each PO Q6HR PRN #15 tablet 06/24/17 Unknown Rx 5/325] Insulin Glargine,Hum.rec.anlog 15 unit SQ QHS #3 insuln.pen 02/09/18 Unknown Rx [Lantus Solostar] Insulin Regular, Human [Novolin R] 4 unit SC WMHS #1 vial 02/09/18 Unknown Rx Benzonatate [Tessalon Perle] 100 mg PO TID #15 capsule 10/15/18 Unknown Rx Clindamycin [Clindamycin CAP] 300 mg PO Q8H #30 cap 10/15/18 Unknown Rx Ibuprofen [Motrin 800 MG tab] 800 mg PO Q8HR PRN #30 tablet 10/15/18 Unknown Rx traMADol [Ultram 50 MG tab] 50 mg PO Q6HR PRN #10 tablet 11/17/18 Unknown Rx ALPRAZolam [Xanax] 1 mg PO Q8H PRN #10 tablet 01/27/19 Unknown Rx ALPRAZolam [Xanax TAB] 1 mg PO QID PRN #16 tab 04/09/19 Unknown Rx Esomeprazole Magnesium [NexIUM] 40 mg PO QDAY 30 Days #30 04/09/19 Unknown Rx capsule. Baclofen 20 mg PO Q8H PRN #21 tablet 04/17/19 Unknown Rx Ibuprofen [Motrin] 800 mg PO Q8HR PRN #24 tablet 04/17/19 Unknown Rx traMADol [Ultram] 50 mg PO Q6HR PRN #15 tablet 04/17/19 Unknown Rx Acetaminophen [Acetaminophen TAB] 1,000 mg PO Q6HR PRN #30 tablet 04/30/19 Unknown Rx Azithromycin [Zithromax Z-GRISELDA] 250 mg PO DAILY #6 tab 04/30/19 Unknown Rx diphenhydrAMINE [Benadryl CAP] 25 mg PO Q6HR PRN #30 capsule 04/30/19 Unknown Rx Acetaminophen [Non-Aspirin Extra 500 mg PO Q6HR PRN #30 tablet 06/30/19 Unknown Rx Strength] Aspirin [Aspirin BABY CHEW TAB] 81 mg PO QDAY #30 tab.chew 06/30/19 Unknown Rx Famotidine [Pepcid] 20 mg PO BID #10 tablet 06/30/19 Unknown Rx traMADol [Ultram 50 MG tab] 50 mg PO Q6HR PRN #12 tablet 07/03/19 Unknown Rx Dicyclomine [Bentyl] 20 mg PO Q6H PRN #30 tablet 08/16/19 Unknown Rx Famotidine [Pepcid] 40 mg PO DAILY #30 tablet 08/16/19 Unknown Rx Ondansetron [Zofran Odt] 4 mg PO Q6HR PRN #15 tab.rapdis 08/16/19 Unknown Rx hydrOXYzine PAMOATE [Vistaril] 25 mg PO Q6H PRN #30 capsule 08/16/19 Unknown Rx ED Physical Exam - General Limitations: No Limitations General appearance: alert, in no apparent distress - Head Head exam: Present: atraumatic, normocephalic, normal inspection - Eye Eye exam: Present: normal appearance, PERRL, EOMI Pupils: Present: normal accommodation - ENT ENT exam: Present: normal exam, normal orophraynx, mucous membranes moist, TM's normal bilaterally, normal external ear exam - Neck Neck exam: Present: normal inspection, full ROM - Respiratory Respiratory exam: Present: normal lung sounds bilaterally. Absent: respiratory distress, wheezes, rales, rhonchi, chest wall tenderness, accessory muscle use, decreased breath sounds - Cardiovascular Cardiovascular Exam: Present: regular rate, normal rhythm, normal heart sounds. Absent: systolic murmur, diastolic murmur, rubs, gallop - GI/Abdominal GI/Abdominal exam: Present: soft, normal bowel sounds. Absent: tenderness, hyperactive bowel sounds, hypoactive bowel sounds, organomegaly, mass, bruit - Extremities Exam Extremities exam: Present: normal inspection, full ROM, normal capillary refill - Back Exam Back exam: Present: normal inspection, full ROM - Neurological Exam Neurological exam: Present: alert, oriented X3, CN II-XII intact, normal gait, reflexes normal - Psychiatric Psychiatric exam: Present: normal affect, normal mood - Skin Skin exam: Present: warm, dry, intact, normal color. Absent: rash ED Course Vital Signs 08/16/19 08/16/19 08/16/19 20:21 20:30 21:56 Temperature 97.8 F 97.8 F 97.9 F Pulse Rate 80 82 67 Respiratory 16 16 18 Rate Blood Pressure 169/69 169/69 Blood Pressure 147/66 [Left] O2 Sat by Pulse 100 100 98 Oximetry - Reevaluation(s) Reevaluation #1: 08/16/19 23:46 This 53-year-old female who presented to the ED with generalized weakness and tee dy aches and elevated blood pressure for 2 days. In the ED, patient is alert and oriented 3 and is not in distress but anxious. Lab test results were reviewed and are all unremarkable including troponin levels except elevated BUN of 30 and hyperglycemia of 195 mg/dL. EKG shows normal sinus rhythm with a ventricular rate of [address] or T-wave abnormalities. Chest x-ray shows no acute cardio pulmonary abnormalities or pneumonitis. On reevaluation, patient's blood pressure without any intervention normalized to 147/66. Patient was treated in the ED with normal saline 1 L IV bolus and treated with antacids. On reevaluation, patient felt better and was discharged home on medications or antacids and advised to continue taking her regular blood pressure medications. ED Medical Decision Making - Lab Data Result diagrams: 08/16/19 21:55 08/16/19 21:55 - EKG Data EKG shows normal: sinus rhythm Rate: normal - EKG Data Interpretation: normal EKG 08/16/19 23:54 Normal sinus rhythm with ventricular rate of 68 beats a minute, no ST or T-wave abnormalities or pathological Q waves. - Radiology Data Radiology results: report reviewed, image reviewed Chest x-ray shows no acute cardiopulmonary abnormalities or pneumonitis. - Medical Decision Making This 53-year-old female who presented to the ED with generalized weakness and body aches and elevated blood pressure for 2 days. In the ED, patient is alert and oriented 3 and is not in distress but anxious. Lab test results were reviewed and are all unremarkable including troponin levels except elevated BUN of 30 and hyperglycemia of 195 mg/dL. EKG shows normal sinus rhythm with a tri tricular rate of [address] or T-wave abnormalities. Chest x-ray shows no acute cardio pulmonary abnormalities or pneumonitis. On reevaluation, patient's blood pressure without any intervention normalized to 147/66. Patient was treated in the ED with normal saline 1 L IV bolus and treated with antacids. On reevaluation, patient felt better and was discharged home on medications or antacids and advised to continue taking her regular blood pressure medications. - Differential Diagnosis Uncontrolled HTN; GERD; Anxiety; Muscle spasms Critical care attestation.: If time is entered above; I have spent that time in minutes in the direct care of this critically ill patient, excluding procedure time. ED Disposition Clinical Impression: Uncontrolled stage 2 hypertension, Anxiety as acute reaction to exceptional stress, Dehydration GERD (gastroesophageal reflux disease) Qualifiers: Esophagitis presence: without esophagitis Qualified Code(s): K21.9 - Gastro- esophageal reflux disease without esophagitis Disposition: TO HOME OR SELFCARE Is pt being admited?: No Does the pt Need Aspirin: No Condition: Stable Instructions: Hypertension (ED), Anxiety (ED), Gastroesophageal Reflux Disease (ED), Dehydration (ED) Additional Instructions: Take medication with food, drink plenty of fluids and follow-up with your primary care physician in 7-10 days for reevaluation. Return to the ED immediately if symptoms get worse. Prescriptions: Dicyclomine [Bentyl] 20 mg PO Q6H PRN #30 tablet PRN Reason: Pain , Severe (7-10) Famotidine [Pepcid] 40 mg PO DAILY #30 tablet hydrOXYzine PAMOATE [Vistaril] 25 mg PO Q6H PRN #30 capsule PRN Reason: Anxiety Ondansetron [Zofran Odt] 4 mg PO Q6HR PRN #15 tab.rapdis PRN Reason: Nausea Referrals: [facility] [Outside] - 3-5 Days Time of Disposition: 23:56 Print Language: LAO
[2019-08-17 01:46] VITALS: BP 154/67
== END 2019-08-17 01:46 | disposition home or self-care (01) ==
LOC: ED 20:13
DX: I10 Essential (primary) hypertension (principal); F41.9 Anxiety disorder, unspecified; K21.9 Gastro-esophageal reflux disease without esophagitis; E11.9 Type 2 diabetes mellitus without complications; F32.9 Major depressive disorder, single episode, unspecified
CPT/HCPCS: 36415; 71046; 80053; 81001; 82962; 84484; 85025; 93005; 93010; 96360; 96361; 99284; J7030

== ENCOUNTER 2019-08-21 17:34 | Emergency (ER) | payer MEDICARE ==
--- NOTE | 2019-08-21 17:40 | Emergency Department Report ---
Blank Doc - Documentation Documentation: 53-year-old female that presents with chest pains and uncontrolled HTN at homes. This initial assessment/diagnostic orders/clinical plan/treatment(s) is/are subject to change based on patient's health status, clinical progression and re- assessment by fellow clinical providers in the ED. Further treatment and workup at subsequent clinical providers discretion. Patient/guardians urged not to elope from the ED as their condition may be serious if not clinically assessed and managed. Initial orders include: 1- Patient sent to [facility] for further evaluation and treatment 2- labs 3- EKG 4- cXR
--- NOTE | 2019-08-21 18:09 | XRay Report ---
CHEST 2 VIEWS INDICATION: Chest Pain. COMPARISON: 08/16/2019 FINDINGS: Support devices: None. Heart: Within normal limits. Lungs/pleura: No acute air space or interstitial disease. No pneumothorax. Additional findings: None. IMPRESSION: 1. No acute findings. Signer Name: Derek Young MD Signed: 08/21/2019 6:04 PM Workstation Name: [id number]
--- NOTE | 2019-08-21 18:18 | Emergency Department Report ---
ED General Adult HPI - General Chief complaint: High BP Stated complaint: HBP/MEDS CHANGED Time Seen by Provider: 08/21/19 17:39 Source: patient Mode of arrival: Ambulatory Limitations: No Limitations - History of Present Illness Initial comments: 53-year-old female with a history of high blood pressure anxiety and diabetes presents with complaint of elevated blood pressure. Patient denies any chest pain at current time. Patient denies any shortness of breath. Patient denies any focal weakness or slurred speech. Patient recently evaluated 1012 with a negative workup. Patient states she has been taking her Procardia and clonidine therapy. Patient states her blood pressure was elevated at home and thus presented here for evaluation. - Related Data Home Medications Medication Instructions Recorded Confirmed Last Taken Citalopram Hydrobromide [celeXA] 40 mg PO DAILY 10/09/13 03/25/16 11/28/15 ALPRAZolam [Xanax TAB] 0.5 mg PO QHS 10/31/14 03/25/16 11/28/15 Aspirin [Aspirin BABY CHEW TAB] 81 mg PO QDAY 10/31/14 03/25/16 11/28/15 cloNIDine HCl [Clonidine HCl] 0.2 mg PO BID 04/05/15 03/25/16 03/25/16 Insulin Detemir [Levemir VIAL] 25 unit SQ QHS 12/20/15 03/25/16 Unknown Previous Rx's Medication Instructions Recorded Last Taken Type Labetalol [Labetalol 200mg TAB] 300 mg PO BID #90 tablet 03/24/16 Unknown Rx traMADol [Ultram 50 MG tab] 50 mg PO Q6HR PRN #20 tablet 08/20/16 Unknown Rx Acyclovir [Zovirax Cap] 400 mg PO TID #20 cap 08/21/16 Unknown Rx Cyclobenzaprine [Flexeril] 10 mg PO TID PRN #15 tablet 10/18/16 Unknown Rx Ketorolac [Toradol] 10 mg PO Q6H PRN #10 tablet 06/17/17 Unknown Rx Triamcinolone 0.025% (Nf) [Kenalog 1 applic TP TID #1 tube 06/17/17 Unknown Rx 0.025% OINT] HYDROcodone/APAP 5-325 [[place] 1 each PO Q6HR PRN #15 tablet 06/24/17 Unknown Rx 5/325] Insulin Glargine,Hum.rec.anlog 15 unit SQ QHS #3 insuln.pen 02/09/18 Unknown Rx [Lantus Solostar] Insulin Regular, Human [Novolin R] 4 unit SC WMHS #1 vial 02/09/18 Unknown Rx Benzonatate [Tessalon Perle] 100 mg PO TID #15 capsule 10/15/18 Unknown Rx Clindamycin [Clindamycin CAP] 300 mg PO Q8H #30 cap 10/15/18 Unknown Rx Ibuprofen [Motrin 800 MG tab] 800 mg PO Q8HR PRN #30 tablet 10/15/18 Unknown Rx traMADol [Ultram 50 MG tab] 50 mg PO Q6HR PRN #10 tablet 11/17/18 Unknown Rx ALPRAZolam [Xanax] 1 mg PO Q8H PRN #10 tablet 01/27/19 Unknown Rx ALPRAZolam [Xanax TAB] 1 mg PO QID PRN #16 tab 04/09/19 Unknown Rx Esomeprazole Magnesium [NexIUM] 40 mg PO QDAY 30 Days #30 04/09/19 Unknown Rx capsule. Baclofen 20 mg PO Q8H PRN #21 tablet 04/17/19 Unknown Rx Ibuprofen [Motrin] 800 mg PO Q8HR PRN #24 tablet 04/17/19 Unknown Rx traMADol [Ultram] 50 mg PO Q6HR PRN #15 tablet 04/17/19 Unknown Rx Acetaminophen [Acetaminophen TAB] 1,000 mg PO Q6HR PRN #30 tablet 04/30/19 Unknown Rx Azithromycin [Zithromax Z-GRISELDA] 250 mg PO DAILY #6 tab 04/30/19 Unknown Rx diphenhydrAMINE [Benadryl CAP] 25 mg PO Q6HR PRN #30 capsule 04/30/19 Unknown Rx Acetaminophen [Non-Aspirin Extra 500 mg PO Q6HR PRN #30 tablet 06/30/19 Unknown Rx Strength] Aspirin [Aspirin BABY CHEW TAB] 81 mg PO QDAY #30 tab.chew 06/30/19 Unknown Rx Famotidine [Pepcid] 20 mg PO BID #10 tablet 06/30/19 Unknown Rx traMADol [Ultram 50 MG tab] 50 mg PO Q6HR PRN #12 tablet 07/03/19 Unknown Rx Dicyclomine [Bentyl] 20 mg PO Q6H PRN #30 tablet 08/16/19 Unknown Rx Famotidine [Pepcid] 40 mg PO DAILY #30 tablet 08/16/19 Unknown Rx Ondansetron [Zofran Odt] 4 mg PO Q6HR PRN #15 tab.rapdis 08/16/19 Unknown Rx hydrOXYzine PAMOATE [Vistaril] 25 mg PO Q6H PRN #30 capsule 08/16/19 Unknown Rx Allergies Allergy/AdvReac Type Severity Reaction Status Date / Time amlodipine Allergy Intermediate Unknown Verified 04/17/19 16:35 amoxicillin Allergy Unknown Verified 04/17/19 16:35 insulin NPH human isophane Allergy Unknown Verified 04/17/19 16:35 [From Humulin N] insulin regular, human Allergy Unknown Verified 04/17/19 16:35 [From Humulin R] lisinopril Allergy Swelling Verified 04/17/19 16:35 losartan [Losartan] Allergy Unknown Verified 04/17/19 16:35 metformin Allergy Rash Verified 04/17/19 16:35 potassium Allergy Unknown Verified 04/17/19 16:36 [id number] Reductase Allergy Unknown Verified 04/17/19 16:36 Inhibitor nifedipine AdvReac Mild Unknown Verified 08/16/19 20:35 ED Review of Systems ROS: Stated complaint: HBP/MEDS CHANGED Other details as noted in HPI Constitutional: denies: chills, fever Eyes: denies: eye pain, eye discharge, vision change ENT: denies: ear pain, throat pain Respiratory: denies: cough, shortness of breath, wheezing Cardiovascular: denies: chest pain, palpitations Endocrine: no symptoms reported Gastrointestinal: denies: abdominal pain, nausea, diarrhea Genitourinary: denies: urgency, dysuria, discharge Musculoskeletal: denies: back pain, joint swelling, arthralgia Skin: denies: rash, lesions Neurological: denies: headache, weakness, paresthesias Psychiatric: denies: anxiety, depression Hematological/Lymphatic: denies: easy bleeding, easy bruising ED Past Medical Hx - Past Medical History Previous Medical History?: Yes Hx Hypertension: Yes Hx CVA: No Hx Heart Attack/AMI: No Hx Congestive Heart Failure: No Hx Diabetes: Yes Hx Deep Vein Thrombosis: No Hx Pulmonary Embolism: No Hx GERD: No Hx Liver Disease: No Hx Renal Disease: No Hx Sickle Cell Disease: No Hx Arthritis: No Hx Seizures: No Hx Psychiatric Treatment: Yes (depression, anxiety, panic attacks) Hx Asthma: No Hx COPD: No Hx Tuberculosis: No Hx Dementia: No Hx HIV: No Additional medical history: fibroids - Surgical History Past Surgical History?: Yes Hx Coronary Stent: No Hx Pacemaker: No Hx Internal Defibrillator: Yes Hx Breast Surgery: Yes (BREAST REDUCTION) Additional Surgical History: breast reduction 2000, x2, hysterectomy, fibroids removal - Social History Smoking Status: Current Every Day Smoker Substance Use Type: None - Medications Home Medications: Home Medications Medication Instructions Recorded Confirmed Last Taken Type Citalopram Hydrobromide [celeXA] 40 mg PO DAILY 10/09/13 03/25/16 11/28/15 History ALPRAZolam [Xanax TAB] 0.5 mg PO QHS 10/31/14 03/25/16 11/28/15 History Aspirin [Aspirin BABY CHEW TAB] 81 mg PO QDAY 10/31/14 03/25/16 11/28/15 History cloNIDine HCl [Clonidine HCl] 0.2 mg PO BID 04/05/15 03/25/16 03/25/16 History Insulin Detemir [Levemir VIAL] 25 unit SQ QHS 12/20/15 03/25/16 Unknown History Labetalol [Labetalol 200mg TAB] 300 mg PO BID #90 tablet 03/24/16 Unknown Rx traMADol [Ultram 50 MG tab] 50 mg PO Q6HR PRN #20 tablet 08/20/16 Unknown Rx Acyclovir [Zovirax Cap] 400 mg PO TID #20 cap 08/21/16 Unknown Rx Cyclobenzaprine [Flexeril] 10 mg PO TID PRN #15 tablet 10/18/16 Unknown Rx Ketorolac [Toradol] 10 mg PO Q6H PRN #10 tablet 06/17/17 Unknown Rx Triamcinolone 0.025% (Nf) [Kenalog 1 applic TP TID #1 tube 06/17/17 Unknown Rx 0.025% OINT] HYDROcodone/APAP 5-325 [[place] 1 each PO Q6HR PRN #15 tablet 06/24/17 Unknown Rx 5/325] Insulin Glargine,Hum.rec.anlog 15 unit SQ QHS #3 insuln.pen 02/09/18 Unknown Rx [Lantus Solostar] Insulin Regular, Human [Novolin R] 4 unit SC WMHS #1 vial 02/09/18 Unknown Rx Benzonatate [Tessalon Perle] 100 mg PO TID #15 capsule 10/15/18 Unknown Rx Clindamycin [Clindamycin CAP] 300 mg PO Q8H #30 cap 10/15/18 Unknown Rx Ibuprofen [Motrin 800 MG tab] 800 mg PO Q8HR PRN #30 tablet 10/15/18 Unknown Rx traMADol [Ultram 50 MG tab] 50 mg PO Q6HR PRN #10 tablet 11/17/18 Unknown Rx ALPRAZolam [Xanax] 1 mg PO Q8H PRN #10 tablet 01/27/19 Unknown Rx ALPRAZolam [Xanax TAB] 1 mg PO QID PRN #16 tab 04/09/19 Unknown Rx Esomeprazole Magnesium [NexIUM] 40 mg PO QDAY 30 Days #30 04/09/19 Unknown Rx capsule. Baclofen 20 mg PO Q8H PRN #21 tablet 04/17/19 Unknown Rx Ibuprofen [Motrin] 800 mg PO Q8HR PRN #24 tablet 04/17/19 Unknown Rx traMADol [Ultram] 50 mg PO Q6HR PRN #15 tablet 04/17/19 Unknown Rx Acetaminophen [Acetaminophen TAB] 1,000 mg PO Q6HR PRN #30 tablet 04/30/19 Unknown Rx Azithromycin [Zithromax Z-GRISELDA] 250 mg PO DAILY #6 tab 04/30/19 Unknown Rx diphenhydrAMINE [Benadryl CAP] 25 mg PO Q6HR PRN #30 capsule 04/30/19 Unknown Rx Acetaminophen [Non-Aspirin Extra 500 mg PO Q6HR PRN #30 tablet 06/30/19 Unknown Rx Strength] Aspirin [Aspirin BABY CHEW TAB] 81 mg PO QDAY #30 tab.chew 06/30/19 Unknown Rx Famotidine [Pepcid] 20 mg PO BID #10 tablet 06/30/19 Unknown Rx traMADol [Ultram 50 MG tab] 50 mg PO Q6HR PRN #12 tablet 07/03/19 Unknown Rx Dicyclomine [Bentyl] 20 mg PO Q6H PRN #30 tablet 08/16/19 Unknown Rx Famotidine [Pepcid] 40 mg PO DAILY #30 tablet 08/16/19 Unknown Rx Ondansetron [Zofran Odt] 4 mg PO Q6HR PRN #15 tab.rapdis 08/16/19 Unknown Rx hydrOXYzine PAMOATE [Vistaril] 25 mg PO Q6H PRN #30 capsule 08/16/19 Unknown Rx ED Physical Exam - General Limitations: No Limitations General appearance: alert, in no apparent distress - Head Head exam: Present: atraumatic, normocephalic - Eye Eye exam: Present: normal appearance - ENT ENT exam: Present: mucous membranes moist - Neck Neck exam: Present: normal inspection - Respiratory Respiratory exam: Present: normal lung sounds bilaterally. Absent: respiratory distress - Cardiovascular Cardiovascular Exam: Present: regular rate, normal rhythm. Absent: systolic murmur, diastolic murmur, rubs, gallop - GI/Abdominal GI/Abdominal exam: Present: soft, normal bowel sounds - Extremities Exam Extremities exam: Present: normal inspection - Back Exam Back exam: Present: normal inspection - Neurological Exam Neurological exam: Present: alert, oriented X3 - Psychiatric Psychiatric exam: Present: normal affect, normal mood - Skin Skin exam: Present: warm, dry, intact, normal color. Absent: rash ED Course Vital Signs 08/21/19 08/21/19 17:38 18:47 Temperature 98.6 F Pulse Rate 119 H 66 Respiratory 18 18 Rate Blood Pressure 215/85 Blood Pressure 154/62 [Left] O2 Sat by Pulse 99 100 Oximetry ED Medical Decision Making - Lab Data Result diagrams: 08/21/19 17:59 08/21/19 17:59 - EKG Data EKG shows normal: sinus rhythm Rate: normal - EKG Data When compared to previous EKG there are: no significant change Interpretation: no acute changes - Medical Decision Making Patient heart rate is normal on EKG. Patient to be discharged to follow-up with PCP. Patient has negative blood panel as well while here in emergency department. - Differential Diagnosis pneumonia; pneumothorax; hypertensive urgency; electrolyte abnormality; ane Critical care attestation.: If time is entered above; I have spent that time in minutes in the direct care of this critically ill patient, excluding procedure time. ED Disposition Clinical Impression: Chest pain, Uncontrolled stage 2 hypertension Disposition: - TO HOME OR SELFCARE Is pt being admited?: No Condition: Stable Instructions: Chest Pain (ED), Hypertension (ED) Time of Disposition: 20:52 Print Language: SRI LANKAN
[2019-08-21 18:41] LABS: Alanine Aminotransferase 18 units/L (7-56); Albumin 3.5 g/dL (3.9-5); BUN/Creatinine Ratio 25; Blood Urea Nitrogen 25 mg/dL (7-17); Calcium 8.9 mg/dL (8.4-10.2); Hemolysis Index 6
[2019-08-21 18:48] VITALS: BP 154/62
[2019-08-21 19:08] LABS: Bilirubin,Urine NEG (Negative); Blood,Urine SM (Negative); Color,Urine Yellow (Yellow); Hyaline Casts,Urine 1 /LPF; Urobilinogen,Urine < 2.0 mg/dL (<2.0)
[2019-08-21 19:12] LABS: Basophils % (Auto) 0.4 % (0.0-1.8); Eosinophils # (Auto) 0.1 K/mm3 (0.0-0.4); Eosinophils % (Auto) 1.6 % (0.0-4.3); Hematocrit 37.1 % (30.3-42.9); Hemoglobin 11.9 gm/dl (10.1-14.3); Lymphocytes # (Auto) 2.7 K/mm3 (1.2-5.4); Lymphocytes % (Auto) 31.6 % (13.4-35.0); Mean Corpuscular HGB Conc 32 % (30-34); Mean Corpuscular Volume 85 fl (79-97); Monocytes # (Auto) 0.6 K/mm3 (0.0-0.8); Monocytes % (Auto) 6.5 % (0.0-7.3); Platelet Count 228 K/mm3 (140-440); Red Blood Count 4.37 M/mm3 (3.65-5.03); Red Cell Distribution Width 13.8 % (13.2-15.2)
[2019-08-21 19:22] LABS: INR 0.93 (0.87-1.13)
[2019-08-21 19:23] LABS: Partial Thromboplastin Time 28.6 Sec. (24.2-36.6)
== END 2019-08-21 21:56 | disposition home or self-care (01) ==
LOC: ED 17:34
DX: R07.89 Other chest pain (principal); I10 Essential (primary) hypertension; E11.9 Type 2 diabetes mellitus without complications; F32.9 Major depressive disorder, single episode, unspecified; F41.0 Panic disorder [episodic paroxysmal anxiety]; F17.200 Nicotine dependence, unspecified, uncomplicated; Z98.890 Other specified postprocedural states; Z90.710 Acquired absence of both cervix and uterus; Z79.899 Other long term (current) drug therapy; Z88.1 Allergy status to other antibiotic agents; Z88.8 Allergy status to other drugs, medicaments and biological substances
CPT/HCPCS: 36415; 71046; 80053; 81001; 82962; 84484; 85025; 85610; 85730; 93005; 93010

== ENCOUNTER 2019-09-08 21:35 | Emergency (ER) | payer MEDICARE ==
[2019-09-08 22:58] LABS: Basophils % (Auto) 0.3 % (0.0-1.8); Eosinophils # (Auto) 0.1 K/mm3 (0.0-0.4); Eosinophils % (Auto) 1.4 % (0.0-4.3); Hematocrit 35.8 % (30.3-42.9); Lymphocytes # (Auto) 2.7 K/mm3 (1.2-5.4); Lymphocytes % (Auto) 31.3 % (13.4-35.0); Mean Corpuscular HGB Conc 34 % (30-34); Mean Corpuscular Volume 84 fl (79-97); Monocytes # (Auto) 0.8 K/mm3 (0.0-0.8); Monocytes % (Auto) 9.1 % (0.0-7.3); Platelet Count 210 K/mm3 (140-440); Red Blood Count 4.25 M/mm3 (3.65-5.03); Red Cell Distribution Width 13.9 % (13.2-15.2)
[2019-09-08 23:03] LABS: Bilirubin,Urine NEG (Negative); Blood,Urine SM (Negative); Color,Urine Yellow (Yellow); Urobilinogen,Urine < 2.0 mg/dL (<2.0); WBC,Urine < 1.0 /HPF (0.0-6.0)
[2019-09-08 23:15] LABS: BUN/Creatinine Ratio 22; Blood Urea Nitrogen 20 mg/dL (7-17); Calcium 9.3 mg/dL (8.4-10.2); Hemolysis Index 11
[2019-09-08] MEDS ORDERED: IBUPROFEN 800 MG TAB PO ONE (23:46)
[2019-09-08] MEDS ORDERED: AZITHROMYCIN 250 MG TAB PO ONE (23:46)
--- NOTE | 2019-09-09 00:35 | XRay Report ---
CHEST 2 views 09/08/2019 11:50 PM INDICATION / CLINICAL INFORMATION: infection sx. COMPARISON: 08/21/19 FINDINGS: SUPPORT DEVICES: None. HEART / MEDIASTINUM: No significant abnormality. LUNGS / PLEURA: No significant pulmonary or pleural abnormality. No pneumothorax. ADDITIONAL FINDINGS: No significant additional findings. IMPRESSION: 1. No acute findings. No change. Signer Name: Ulisses Kathleen MD Signed: 09/09/2019 12:31 AM Workstation Name: [id number]
--- NOTE | 2019-09-09 01:29 | Emergency Department Report ---
- General Chief Complaint: Upper Respiratory Infection Stated Complaint: NAUSEA,DIZZY ,LYNN Time Seen by Provider: 09/08/19 23:31 Source: patient Mode of arrival: Ambulatory Limitations: No Limitations - History of Present Illness Initial Comments: 53-year-old female with a past medical history of diabetes, hypertension, depression, anxiety, and panic attacks presents to the hospital concerns mold exposure and in her current symptoms. Patient complains of sinus headache, pressure behind eyes, chills, runny nose, nasal congestion, and some mild lightheadedness. She states that in May she discovered mold in her home and thought that it was taken care of by the landlord. He weeks ago asystole was open she found that M[place] was still present. She states that the last 3 weeks of symptoms above have progressively worsened. She denies [place] a fever, blurred vision, focal weakness, focal numbness, or significant cough. She does have white nasal discharge. She presents to the hospital with elevated BP. At time of triage she had only taken her am dose of clonidine 0.2 mg and doxazosin 2mg dose. Not taking the evening dose of either of these medications. Both are prescribed twice a day. He took the evening dose of clonidine at time of triage but cannot recall she took the other medication. He states that she is currently working with Dr Reeves to adjust her meds for blood pressure control. - Related Data Home Medications Medication Instructions Recorded Confirmed Last Taken Citalopram Hydrobromide [celeXA] 40 mg PO DAILY 10/09/13 03/25/16 11/28/15 ALPRAZolam [Xanax TAB] 0.5 mg PO QHS 10/31/14 03/25/16 11/28/15 Aspirin [Aspirin BABY CHEW TAB] 81 mg PO QDAY 10/31/14 03/25/16 11/28/15 cloNIDine HCl [Clonidine HCl] 0.2 mg PO BID 04/05/15 03/25/16 03/25/16 Insulin Detemir [Levemir VIAL] 25 unit SQ QHS 12/20/15 03/25/16 Unknown Previous Rx's Medication Instructions Recorded Last Taken Type Labetalol [Labetalol 200mg TAB] 300 mg PO BID #90 tablet 03/24/16 Unknown Rx traMADol [Ultram 50 MG tab] 50 mg PO Q6HR PRN #20 tablet 08/20/16 Unknown Rx Acyclovir [Zovirax Cap] 400 mg PO TID #20 cap 08/21/16 Unknown Rx Cyclobenzaprine [Flexeril] 10 mg PO TID PRN #15 tablet 10/18/16 Unknown Rx Ketorolac [Toradol] 10 mg PO Q6H PRN #10 tablet 06/17/17 Unknown Rx Triamcinolone 0.025% (Nf) [Kenalog 1 applic TP TID #1 tube 06/17/17 Unknown Rx 0.025% OINT] HYDROcodone/APAP 5-325 [[place] 1 each PO Q6HR PRN #15 tablet 06/24/17 Unknown Rx 5/325] Insulin Glargine,Hum.rec.anlog 15 unit SQ QHS #3 insuln.pen 02/09/18 Unknown Rx [Lantus Solostar] Insulin Regular, Human [Novolin R] 4 unit SC WMHS #1 vial 02/09/18 Unknown Rx Benzonatate [Tessalon Perle] 100 mg PO TID #15 capsule 10/15/18 Unknown Rx Clindamycin [Clindamycin CAP] 300 mg PO Q8H #30 cap 10/15/18 Unknown Rx Ibuprofen [Motrin 800 MG tab] 800 mg PO Q8HR PRN #30 tablet 10/15/18 Unknown Rx traMADol [Ultram 50 MG tab] 50 mg PO Q6HR PRN #10 tablet 11/17/18 Unknown Rx ALPRAZolam [Xanax] 1 mg PO Q8H PRN #10 tablet 01/27/19 Unknown Rx ALPRAZolam [Xanax TAB] 1 mg PO QID PRN #16 tab 04/09/19 Unknown Rx Esomeprazole Magnesium [NexIUM] 40 mg PO QDAY 30 Days #30 04/09/19 Unknown Rx capsule. Baclofen 20 mg PO Q8H PRN #21 tablet 04/17/19 Unknown Rx Ibuprofen [Motrin] 800 mg PO Q8HR PRN #24 tablet 04/17/19 Unknown Rx traMADol [Ultram] 50 mg PO Q6HR PRN #15 tablet 04/17/19 Unknown Rx Acetaminophen [Acetaminophen TAB] 1,000 mg PO Q6HR PRN #30 tablet 04/30/19 Unknown Rx Azithromycin [Zithromax Z-GRISELDA] 250 mg PO DAILY #6 tab 04/30/19 Unknown Rx diphenhydrAMINE [Benadryl CAP] 25 mg PO Q6HR PRN #30 capsule 04/30/19 Unknown Rx Acetaminophen [Non-Aspirin Extra 500 mg PO Q6HR PRN #30 tablet 06/30/19 Unknown Rx Strength] Aspirin [Aspirin BABY CHEW TAB] 81 mg PO QDAY #30 tab.chew 06/30/19 Unknown Rx Famotidine [Pepcid] 20 mg PO BID #10 tablet 06/30/19 Unknown Rx traMADol [Ultram 50 MG tab] 50 mg PO Q6HR PRN #12 tablet 07/03/19 Unknown Rx Dicyclomine [Bentyl] 20 mg PO Q6H PRN #30 tablet 08/16/19 Unknown Rx Famotidine [Pepcid] 40 mg PO DAILY #30 tablet 08/16/19 Unknown Rx Ondansetron [Zofran Odt] 4 mg PO Q6HR PRN #15 tab.rapdis 08/16/19 Unknown Rx hydrOXYzine PAMOATE [Vistaril] 25 mg PO Q6H PRN #30 capsule 08/16/19 Unknown Rx Azithromycin [Zithromax TAB] 250 mg PO QDAY #4 tablet 09/09/19 Unknown Rx Ibuprofen [Motrin] 800 mg PO Q8HR PRN #30 tablet 09/09/19 Unknown Rx Sodium Chloride [Saline Nasal 1 - 2 sprays NS PRN PRN #1 spray 09/09/19 Unknown Rx [place]] Allergies Allergy/AdvReac Type Severity Reaction Status Date / Time amlodipine Allergy Intermediate Unknown Verified 04/17/19 16:35 amoxicillin Allergy Unknown Verified 04/17/19 16:35 insulin NPH human isophane Allergy Unknown Verified 04/17/19 16:35 [From Humulin N] insulin regular, human Allergy Unknown Verified 04/17/19 16:35 [From Humulin R] lisinopril Allergy Swelling Verified 04/17/19 16:35 losartan [Losartan] Allergy Unknown Verified 04/17/19 16:35 metformin Allergy Rash Verified 04/17/19 16:35 potassium Allergy Unknown Verified 04/17/19 16:36 [id number] Reductase Allergy Unknown Verified 04/17/19 16:36 Inhibitor nifedipine AdvReac Mild Unknown Verified 08/16/19 20:35 ED Review of Systems ROS: Stated complaint: NAUSEA,DIZZY ,LYNN Other details as noted in HPI Comment: All other systems reviewed and negative ED Past Medical Hx - Past Medical History Previous Medical History?: Yes Hx Hypertension: Yes Hx CVA: No Hx Heart Attack/AMI: No Hx Congestive Heart Failure: No Hx Diabetes: Yes Hx Deep Vein Thrombosis: No Hx Pulmonary Embolism: No Hx GERD: No Hx Liver Disease: No Hx Renal Disease: No Hx Sickle Cell Disease: No Hx Arthritis: No Hx Seizures: No Hx Psychiatric Treatment: Yes (depression, anxiety, panic attacks) Hx Asthma: No Hx COPD: No Hx Tuberculosis: No Hx Dementia: No Hx HIV: No Additional medical history: fibroids - Surgical History Past Surgical History?: Yes Hx Coronary Stent: No Hx Pacemaker: No Hx Internal Defibrillator: Yes Hx Breast Surgery: Yes (BREAST REDUCTION) Additional Surgical History: breast reduction 1999, x2, hysterectomy, fibroids removal - Social History Smoking Status: Current Every Day Smoker Substance Use Type: None - Medications Home Medications: Home Medications Medication Instructions Recorded Confirmed Last Taken Type Citalopram Hydrobromide [celeXA] 40 mg PO DAILY 10/09/13 03/25/16 11/28/15 History ALPRAZolam [Xanax TAB] 0.5 mg PO QHS 10/31/14 03/25/16 11/28/15 History Aspirin [Aspirin BABY CHEW TAB] 81 mg PO QDAY 10/31/14 03/25/16 11/28/15 History cloNIDine HCl [Clonidine HCl] 0.2 mg PO BID 04/05/15 03/25/16 03/25/16 History Insulin Detemir [Levemir VIAL] 25 unit SQ QHS 12/20/15 03/25/16 Unknown History Labetalol [Labetalol 200mg TAB] 300 mg PO BID #90 tablet 03/24/16 Unknown Rx traMADol [Ultram 50 MG tab] 50 mg PO Q6HR PRN #20 tablet 08/20/16 Unknown Rx Acyclovir [Zovirax Cap] 400 mg PO TID #20 cap 08/21/16 Unknown Rx Cyclobenzaprine [Flexeril] 10 mg PO TID PRN #15 tablet 10/18/16 Unknown Rx Ketorolac [Toradol] 10 mg PO Q6H PRN #10 tablet 06/17/17 Unknown Rx Triamcinolone 0.025% (Nf) [Kenalog 1 applic TP TID #1 tube 06/17/17 Unknown Rx 0.025% OINT] HYDROcodone/APAP 5-325 [Churd[place] 1 each PO Q6HR PRN #15 tablet 06/24/17 Unknown Rx 5/325] Insulin Glargine,Hum.rec.anlog 15 unit SQ QHS #3 insuln.pen 02/09/18 Unknown Rx [Lantus Solostar] Insulin Regular, Human [Novolin R] 4 unit SC WMHS #1 vial 02/09/18 Unknown Rx Benzonatate [Tessalon Perle] 100 mg PO TID #15 capsule 10/15/18 Unknown Rx Clindamycin [Clindamycin CAP] 300 mg PO Q8H #30 cap 10/15/18 Unknown Rx Ibuprofen [Motrin 800 MG tab] 800 mg PO Q8HR PRN #30 tablet 10/15/18 Unknown Rx traMADol [Ultram 50 MG tab] 50 mg PO Q6HR PRN #10 tablet 11/17/18 Unknown Rx ALPRAZolam [Xanax] 1 mg PO Q8H PRN #10 tablet 01/27/19 Unknown Rx ALPRAZolam [Xanax TAB] 1 mg PO QID PRN #16 tab 04/09/19 Unknown Rx Esomeprazole Magnesium [NexIUM] 40 mg PO QDAY 30 Days #30 04/09/19 Unknown Rx capsule. Baclofen 20 mg PO Q8H PRN #21 tablet 04/17/19 Unknown Rx Ibuprofen [Motrin] 800 mg PO Q8HR PRN #24 tablet 04/17/19 Unknown Rx traMADol [Ultram] 50 mg PO Q6HR PRN #15 tablet 04/17/19 Unknown Rx Acetaminophen [Acetaminophen TAB] 1,000 mg PO Q6HR PRN #30 tablet 04/30/19 Unknown Rx Azithromycin [Zithromax Z-GRISELDA] 250 mg PO DAILY #6 tab 04/30/19 Unknown Rx diphenhydrAMINE [Benadryl CAP] 25 mg PO Q6HR PRN #30 capsule 04/30/19 Unknown Rx Acetaminophen [Non-Aspirin Extra 500 mg PO Q6HR PRN #30 tablet 06/30/19 Unknown Rx Strength] Aspirin [Aspirin BABY CHEW TAB] 81 mg PO QDAY #30 tab.chew 06/30/19 Unknown Rx Famotidine [Pepcid] 20 mg PO BID #10 tablet 06/30/19 Unknown Rx traMADol [Ultram 50 MG tab] 50 mg PO Q6HR PRN #12 tablet 07/03/19 Unknown Rx Dicyclomine [Bentyl] 20 mg PO Q6H PRN #30 tablet 08/16/19 Unknown Rx Famotidine [Pepcid] 40 mg PO DAILY #30 tablet 08/16/19 Unknown Rx Ondansetron [Zofran Odt] 4 mg PO Q6HR PRN #15 tab.rapdis 08/16/19 Unknown Rx hydrOXYzine PAMOATE [Vistaril] 25 mg PO Q6H PRN #30 capsule 08/16/19 Unknown Rx Azithromycin [Zithromax TAB] 250 mg PO QDAY #4 tablet 09/09/19 Unknown Rx Ibuprofen [Motrin] 800 mg PO Q8HR PRN #30 tablet 09/09/19 Unknown Rx Sodium Chloride [Saline Nasal 1 - 2 sprays NS PRN PRN #1 spray 09/09/19 Unknown Rx [place]] ED Physical Exam - General Limitations: No Limitations - Other Other exam information: General: No acute distress Head: Atraumatic Eyes: normal appearance ENT: Moist mucous membranes, mild sinus pressure tenderness, nasal congestion Neck: Normal appearance, no midline tenderness, no nuchal rigidity Chest: Clear to auscultation bilaterally CV: Regular rate and rhythm Abdomen: Soft, normal bowel sounds, nontender, nondistended, no rebound or guarding Back: Normal inspection Extremity: Normal inspection infection, full range of motion Neuro: Alert O x 3, no facial asymmetry, speech clear, no gross motor sensory deficit Psych: Appropriate behavior Skin: No rash ED Course Vital Signs 09/08/19 09/08/19 09/08/19 22:21 22:25 23:19 Temperature 98.4 F Pulse Rate 95 H 75 Respiratory 18 18 15 Rate Blood Pressure 235/96 Blood Pressure [Right] O2 Sat by Pulse 98 Oximetry 09/08/19 09/08/19 09/09/19 23:30 23:45 00:22 Temperature Pulse Rate 70 Respiratory 20 17 Rate Blood Pressure 208/74 204/86 204/86 Blood Pressure [Right] O2 Sat by Pulse 99 100 Oximetry 09/09/19 09/09/19 09/09/19 00:31 00:32 00:45 Temperature Pulse Rate 86 Respiratory 16 Rate Blood Pressure 186/72 178/85 Blood Pressure 171/64 [Right] O2 Sat by Pulse 96 99 97 Oximetry 09/09/19 09/09/19 01:01 01:15 Temperature Pulse Rate 74 78 Respiratory 14 13 Rate Blood Pressure 176/84 183/75 Blood Pressure [Right] O2 Sat by Pulse 97 95 Oximetry ED Medical Decision Making - Lab Data Result diagrams: 09/08/19 22:37 09/08/19 22:37 Lab Results 09/08/19 09/08/19 09/08/19 Range/Units 22:37 22:37 Unknown WBC 8.6 (4.5-11.0) K/mm3 RBC 4.25 (3.65-5.03) M/mm3 Hgb 12.0 (10.1-14.3) gm/dl Hct 35.8 (30.3-42.9) % MCV 84 (79-97) fl MCH 28 (28-32) pg MCHC 34 (30-34) % RDW 13.9 (13.2-15.2) % Plt Count 210 (140-440) K/mm3 Lymph % (Auto) 31.3 (13.4-35.0) % [place] % (Auto) 9.1 H (0.0-7.3) % Eos % (Auto) 1.4 (0.0-4.3) % Baso % (Auto) 0.3 (0.0-1.8) % Lymph # 2.7 (1.2-5.4) K/mm3 [place] # 0.8 (0.0-0.8) K/mm3 Eos # 0.1 (0.0-0.4) K/mm3 Baso # 0.0 (0.0-0.1) K/mm3 Seg Neutrophils % 57.9 (40.0-70.0) % Seg Neutrophils # 5.0 (1.8-7.7) K/mm3 Sodium 136 L (137-145) mmol/L Potassium 3.8 (3.6-5.0) mmol/L Chloride 101.4 (98-107) mmol/L Carbon Dioxide 23 (22-30) mmol/L Anion Gap 15 mmol/L BUN 20 H (7-17) mg/dL Creatinine 0.9 (0.7-1.2) mg/dL Estimated GFR > 60 ml/min BUN/Creatinine Ratio 22 % Glucose 201 H (65-100) mg/dL Calcium 9.3 (8.4-10.2) mg/dL Urine Color Yellow (Yellow) Urine Turbidity Clear (Clear) Urine pH 6.0 (5.0-7.0) Ur Specific [place] 1.006 (1.003-1.030) Urine Protein 100 mg/dl (Negative) mg/dL Urine Glucose (UA) 50 (Negative) mg/dL Urine Ketones Neg (Negative) mg/dL Urine Blood Sm (Negative) Urine Nitrite Neg (Negative) Urine Bilirubin Neg (Negative) Urine Urobilinogen < 2.0 (<2.0) mg/dL Ur Leukocyte Esterase Neg (Negative) Urine WBC (Auto) < 1.0 (0.0-6.0) /HPF Urine RBC (Auto) 2.0 (0.0-6.0) /HPF U Epithel Cells (Auto) 5.0 (0-13.0) /HPF - Radiology Data Radiology results: report reviewed CHEST 2 views 09/08/2019 11:50 PM INDICATION / CLINICAL INFORMATION: infection sx. COMPARISON: 08/21/19 FINDINGS: SUPPORT DEVICES: None. HEART / MEDIASTINUM: No significant abnormality. LUNGS / PLEURA: No significant pulmonary or pleural abnormality. No pneumothorax. ADDITIONAL FINDINGS: No significant additional findings. IMPRESSION: 1. No acute findings. No change. - Medical Decision Making BP trending downwards. Suspect the patient's blood pressure was high upon hesitation because she had not had her evening dose of medications. She is suppose to take it by 7 pm. Patient was not provided any additional blood pressure medicine in the ED. She did receive azithromycin and Motrin for si nusitis and headache. She was discharged home on for sinusitis. She was informed that she might need to move if her sx continue due to mold exposure. f/u advised with pmd and cardiology - Differential Diagnosis reaction to mold, allergies, sinusitis, htn emergency Critical Care Time: No Critical care attestation.: If time is entered above; I have spent that time in minutes in the direct care of this critically ill patient, excluding procedure time. ED Disposition Clinical Impression: Sinusitis, Mold exposure, Uncontrolled hypertension Disposition: DC-01 TO HOME OR SELFCARE Is pt being admited?: No Does the pt Need Aspirin: No Condition: Stable Instructions: Hypertension (ED), Sinusitis (ED) Additional Instructions: Take the medication as prescribed. Follow-up with your doctor or doctor/clinic provided. Return if symptoms worsen as indicated by your discharge instructions. Prescriptions: Ibuprofen [Motrin] 800 mg PO Q8HR PRN #30 tablet PRN Reason: Pain , Severe (7-10) Sodium Chloride [Saline Nasal [place]] 1 - 2 sprays NS PRN PRN #1 spray PRN Reason: Nasal Congestion Azithromycin [Zithromax TAB] 250 mg PO QDAY #4 tablet Referrals: PRIMARY CAREMD [Primary Care Provider] - 3-5 Days [facility] [Provider Group] - 3-5 Days MELODY HARMON MD [Staff Physician] - 3-5 Days KAE REEVES MD [Staff Physician] - 3-5 Days Time of Disposition: 01:36
[2019-09-09 02:04] VITALS: BP 171/64
== END 2019-09-09 02:04 | disposition home or self-care (01) ==
LOC: ED 21:35
DX: J32.9 Chronic sinusitis, unspecified (principal); I10 Essential (primary) hypertension; E11.9 Type 2 diabetes mellitus without complications; F32.9 Major depressive disorder, single episode, unspecified; F41.0 Panic disorder [episodic paroxysmal anxiety]; F17.200 Nicotine dependence, unspecified, uncomplicated; Z79.82 Long term (current) use of aspirin; Z79.4 Long term (current) use of insulin; Z79.899 Other long term (current) drug therapy; Z88.1 Allergy status to other antibiotic agents; Z88.5 Allergy status to narcotic agent; Z88.8 Allergy status to other drugs, medicaments and biological substances; Z90.710 Acquired absence of both cervix and uterus; Z77.120 Contact with and (suspected) exposure to mold (toxic)
CPT/HCPCS: 36415; 71046; 80048; 81001; 85025; 99284

== ENCOUNTER 2019-09-12 23:20 | Emergency (ER) | payer MEDICARE ==
[2019-09-13] MEDS ORDERED: FLUTICASONE PROPIONATE NASAL SPRAY 16 GM NS ONE (03:07)
[2019-09-13] MEDS ORDERED: IBUPROFEN 600 MG TAB PO ONE (03:07)
--- NOTE | 2019-09-13 03:08 | Emergency Department Report ---
ED General Adult HPI - General Chief complaint: Medical Clearance Stated complaint: MOLD EXPOSURE, BREATHING,CHEST PAIN Time Seen by Provider: 09/13/19 02:56 Source: patient, RN notes reviewed, old records reviewed Mode of arrival: Ambulatory Limitations: No Limitations - History of Present Illness Initial comments: This is a 53-year-old female. I have evaluated this patient in the past. Please see my note from 06/30/2019 for details of her past medical history. Please see Dr. Luna note from 09/08/2019 for the details of her recent past medical complaints. Apparently, the patient's apartment has been found to have mold and mildew, as per her verbal report. She reports that she believes that this is causing her to have frontal sinus pressure, bilateral maxillary sinus pressure, cough, epigastric burning, abdominal burning, generalized discomfort. This is been going on for a few days. The symptoms are intermittent in didn't and do not r adiate anywhere. She believes that they're exacerbated with exposure to "mold and mildew." She cannot tell me how mold and mildew were confirmed. She reports that this is an brought to the attention of her landlord. The patient does not endorse additional complaints at this time. She endorses compliance with her medications at home. -: Gradual Location: head, chest, abdomen Radiation: other Quality: other Consistency: other Improves with: other Worsens with: other Associated Symptoms: other - Related Data Home Medications Medication Instructions Recorded Confirmed Last Taken Citalopram Hydrobromide [celeXA] 40 mg PO DAILY 10/09/13 03/25/16 11/28/15 ALPRAZolam [Xanax TAB] 0.5 mg PO QHS 10/31/14 03/25/16 11/28/15 Aspirin [Aspirin BABY CHEW TAB] 81 mg PO QDAY 10/31/14 03/25/16 11/28/15 cloNIDine HCl [Clonidine HCl] 0.2 mg PO BID 04/05/15 03/25/16 03/25/16 Insulin Detemir [Levemir VIAL] 25 unit SQ QHS 12/20/15 03/25/16 Unknown Previous Rx's Medication Instructions Recorded Last Taken Type Labetalol [Labetalol 200mg TAB] 300 mg PO BID #90 tablet 03/24/16 Unknown Rx traMADol [Ultram 50 MG tab] 50 mg PO Q6HR PRN #20 tablet 08/20/16 Unknown Rx Acyclovir [Zovirax Cap] 400 mg PO TID #20 cap 08/21/16 Unknown Rx Cyclobenzaprine [Flexeril] 10 mg PO TID PRN #15 tablet 10/18/16 Unknown Rx Ketorolac [Toradol] 10 mg PO Q6H PRN #10 tablet 06/17/17 Unknown Rx Triamcinolone 0.025% (Nf) [Kenalog 1 applic TP TID #1 tube 06/17/17 Unknown Rx 0.025% OINT] HYDROcodone/APAP 5-325 [[place] 1 each PO Q6HR PRN #15 tablet 06/24/17 Unknown Rx 5/325] Insulin Glargine,Hum.rec.anlog 15 unit SQ QHS #3 insuln.pen 02/09/18 Unknown Rx [Lantus Solostar] Insulin Regular, Human [Novolin R] 4 unit SC WMHS #1 vial 02/09/18 Unknown Rx Benzonatate [Tessalon Perle] 100 mg PO TID #15 capsule 10/15/18 Unknown Rx Clindamycin [Clindamycin CAP] 300 mg PO Q8H #30 cap 10/15/18 Unknown Rx Ibuprofen [Motrin 800 MG tab] 800 mg PO Q8HR PRN #30 tablet 10/15/18 Unknown Rx traMADol [Ultram 50 MG tab] 50 mg PO Q6HR PRN #10 tablet 11/17/18 Unknown Rx ALPRAZolam [Xanax] 1 mg PO Q8H PRN #10 tablet 01/27/19 Unknown Rx ALPRAZolam [Xanax TAB] 1 mg PO QID PRN #16 tab 04/09/19 Unknown Rx Esomeprazole Magnesium [NexIUM] 40 mg PO QDAY 30 Days #30 04/09/19 Unknown Rx capsule. Baclofen 20 mg PO Q8H PRN #21 tablet 04/17/19 Unknown Rx Ibuprofen [Motrin] 800 mg PO Q8HR PRN #24 tablet 04/17/19 Unknown Rx traMADol [Ultram] 50 mg PO Q6HR PRN #15 tablet 04/17/19 Unknown Rx Acetaminophen [Acetaminophen TAB] 1,000 mg PO Q6HR PRN #30 tablet 04/30/19 Unknown Rx Azithromycin [Zithromax Z-GRISELDA] 250 mg PO DAILY #6 tab 04/30/19 Unknown Rx diphenhydrAMINE [Benadryl CAP] 25 mg PO Q6HR PRN #30 capsule 04/30/19 Unknown Rx Acetaminophen [Non-Aspirin Extra 500 mg PO Q6HR PRN #30 tablet 06/30/19 Unknown Rx Strength] Aspirin [Aspirin BABY CHEW TAB] 81 mg PO QDAY #30 tab.chew 06/30/19 Unknown Rx Famotidine [Pepcid] 20 mg PO BID #10 tablet 06/30/19 Unknown Rx traMADol [Ultram 50 MG tab] 50 mg PO Q6HR PRN #12 tablet 07/03/19 Unknown Rx Dicyclomine [Bentyl] 20 mg PO Q6H PRN #30 tablet 08/16/19 Unknown Rx Famotidine [Pepcid] 40 mg PO DAILY #30 tablet 08/16/19 Unknown Rx Ondansetron [Zofran Odt] 4 mg PO Q6HR PRN #15 tab.rapdis 08/16/19 Unknown Rx hydrOXYzine PAMOATE [Vistaril] 25 mg PO Q6H PRN #30 capsule 08/16/19 Unknown Rx Azithromycin [Zithromax TAB] 250 mg PO QDAY #4 tablet 09/09/19 Unknown Rx Ibuprofen [Motrin] 800 mg PO Q8HR PRN #30 tablet 09/09/19 Unknown Rx Sodium Chloride [Saline Nasal 1 - 2 sprays NS PRN PRN #1 spray 09/09/19 Unknown Rx Catarina] Allergies Allergy/AdvReac Type Severity Reaction Status Date / Time amlodipine Allergy Intermediate Unknown Verified 04/17/19 16:35 amoxicillin Allergy Unknown Verified 04/17/19 16:35 insulin NPH human isophane Allergy Unknown Verified 04/17/19 16:35 [From Humulin N] insulin regular, human Allergy Unknown Verified 04/17/19 16:35 [From Humulin R] lisinopril Allergy Swelling Verified 04/17/19 16:35 losartan [Losartan] Allergy Unknown Verified 04/17/19 16:35 metformin Allergy Rash Verified 04/17/19 16:35 potassium Allergy Unknown Verified 04/17/19 16:36 [id number] Reductase Allergy Unknown Verified 04/17/19 16:36 Inhibitor nifedipine AdvReac Mild Unknown Verified 08/16/19 20:35 ED Review of Systems ROS: Stated complaint: MOLD EXPOSURE, BREATHING,CHEST PAIN Other details as noted in HPI Constitutional: denies: fever ENT: congestion Cardiovascular: denies: syncope Gastrointestinal: abdominal pain. denies: vomiting Neurological: weakness ED Past Medical Hx - Past Medical History Hx Hypertension: Yes Hx CVA: No Hx Heart Attack/AMI: No Hx Congestive Heart Failure: No Hx Diabetes: Yes Hx Deep Vein Thrombosis: No Hx Pulmonary Embolism: No Hx GERD: No Hx Liver Disease: No Hx Renal Disease: No Hx Sickle Cell Disease: No Hx Arthritis: No Hx Seizures: No Hx Psychiatric Treatment: Yes (depression, anxiety, panic attacks) Hx Asthma: No Hx COPD: No Hx Tuberculosis: No Hx Dementia: No Hx HIV: No Additional medical history: fibroids - Surgical History Hx Coronary Stent: No Hx Pacemaker: No Hx Internal Defibrillator: Yes Hx Breast Surgery: Yes (BREAST REDUCTION) Additional Surgical History: breast reduction 1999, x2, hysterectomy, fibroids removal - Social History Smoking Status: Current Every Day Smoker Substance Use Type: None - Medications Home Medications: Home Medications Medication Instructions Recorded Confirmed Last Taken Type Citalopram Hydrobromide [celeXA] 40 mg PO DAILY 10/09/13 03/25/16 11/28/15 History ALPRAZolam [Xanax TAB] 0.5 mg PO QHS 10/31/14 03/25/16 11/28/15 History Aspirin [Aspirin BABY CHEW TAB] 81 mg PO QDAY 10/31/14 03/25/16 11/28/15 History cloNIDine HCl [Clonidine HCl] 0.2 mg PO BID 04/05/15 03/25/16 03/25/16 History Insulin Detemir [Levemir VIAL] 25 unit SQ QHS 12/20/15 03/25/16 Unknown History Labetalol [Labetalol 200mg TAB] 300 mg PO BID #90 tablet 03/24/16 Unknown Rx traMADol [Ultram 50 MG tab] 50 mg PO Q6HR PRN #20 tablet 08/20/16 Unknown Rx Acyclovir [Zovirax Cap] 400 mg PO TID #20 cap 08/21/16 Unknown Rx Cyclobenzaprine [Flexeril] 10 mg PO TID PRN #15 tablet 10/18/16 Unknown Rx Ketorolac [Toradol] 10 mg PO Q6H PRN #10 tablet 06/17/17 Unknown Rx Triamcinolone 0.025% (Nf) [Kenalog 1 applic TP TID #1 tube 06/17/17 Unknown Rx 0.025% OINT] HYDROcodone/APAP 5-325 [[place] 1 each PO Q6HR PRN #15 tablet 06/24/17 Unknown Rx 5/325] Insulin Glargine,Hum.rec.anlog 15 unit SQ QHS #3 insuln.pen 02/09/18 Unknown Rx [Lantus Solostar] Insulin Regular, Human [Novolin R] 4 unit SC WMHS #1 vial 02/09/18 Unknown Rx Benzonatate [Tessalon Perle] 100 mg PO TID #15 capsule 10/15/18 Unknown Rx Clindamycin [Clindamycin CAP] 300 mg PO Q8H #30 cap 10/15/18 Unknown Rx Ibuprofen [Motrin 800 MG tab] 800 mg PO Q8HR PRN #30 tablet 10/15/18 Unknown Rx traMADol [Ultram 50 MG tab] 50 mg PO Q6HR PRN #10 tablet 11/17/18 Unknown Rx ALPRAZolam [Xanax] 1 mg PO Q8H PRN #10 tablet 01/27/19 Unknown Rx ALPRAZolam [Xanax TAB] 1 mg PO QID PRN #16 tab 04/09/19 Unknown Rx Esomeprazole Magnesium [NexIUM] 40 mg PO QDAY 30 Days #30 04/09/19 Unknown Rx capsule. Baclofen 20 mg PO Q8H PRN #21 tablet 04/17/19 Unknown Rx Ibuprofen [Motrin] 800 mg PO Q8HR PRN #24 tablet 04/17/19 Unknown Rx traMADol [Ultram] 50 mg PO Q6HR PRN #15 tablet 04/17/19 Unknown Rx Acetaminophen [Acetaminophen TAB] 1,000 mg PO Q6HR PRN #30 tablet 04/30/19 Unknown Rx Azithromycin [Zithromax Z-GRISELDA] 250 mg PO DAILY #6 tab 04/30/19 Unknown Rx diphenhydrAMINE [Benadryl CAP] 25 mg PO Q6HR PRN #30 capsule 04/30/19 Unknown Rx Acetaminophen [Non-Aspirin Extra 500 mg PO Q6HR PRN #30 tablet 06/30/19 Unknown Rx Strength] Aspirin [Aspirin BABY CHEW TAB] 81 mg PO QDAY #30 tab.chew 06/30/19 Unknown Rx Famotidine [Pepcid] 20 mg PO BID #10 tablet 06/30/19 Unknown Rx traMADol [Ultram 50 MG tab] 50 mg PO Q6HR PRN #12 tablet 07/03/19 Unknown Rx Dicyclomine [Bentyl] 20 mg PO Q6H PRN #30 tablet 08/16/19 Unknown Rx Famotidine [Pepcid] 40 mg PO DAILY #30 tablet 08/16/19 Unknown Rx Ondansetron [Zofran Odt] 4 mg PO Q6HR PRN #15 tab.rapdis 08/16/19 Unknown Rx hydrOXYzine PAMOATE [Vistaril] 25 mg PO Q6H PRN #30 capsule 08/16/19 Unknown Rx Azithromycin [Zithromax TAB] 250 mg PO QDAY #4 tablet 09/09/19 Unknown Rx Ibuprofen [Motrin] 800 mg PO Q8HR PRN #30 tablet 09/09/19 Unknown Rx Sodium Chloride [Saline Nasal 1 - 2 sprays NS PRN PRN #1 spray 09/09/19 Unknown Rx Catarina] ED Physical Exam - General Limitations: No Limitations, Other (during the history and physical examination, college service officer and escorted by nurse Elyssa Hall) General appearance: alert, in no apparent distress - Head Head exam: Present: atraumatic, normocephalic - Eye Eye exam: Present: normal appearance, PERRL, EOMI, other (visual acuity intact to finger counting, color perception, reading at a close distance). Absent: nystagmus - ENT ENT exam: Present: normal exam, normal orophraynx, mucous membranes moist, normal external ear exam - Neck Neck exam: Present: normal inspection, full ROM. Absent: tenderness, meningismus - Respiratory Respiratory exam: Present: normal lung sounds bilaterally. Absent: respiratory distress - Cardiovascular Cardiovascular Exam: Present: regular rate, normal rhythm, normal heart sounds. Absent: bradycardia, tachycardia, irregular rhythm, systolic murmur, diastolic murmur, rubs, gallop - GI/Abdominal GI/Abdominal exam: Present: soft. Absent: distended, tenderness, guarding, rebound, rigid, pulsatile mass - Extremities Exam Extremities exam: Present: normal inspection, full ROM, other (2+ pulses noted in the bilateral upper, lower extremities. There is no long bone tenderness. Musculoskeletal compartments are soft. The pelvis is stable.). Absent: pedal edema, calf tenderness - Back Exam Back exam: Present: normal inspection, full ROM. Absent: tenderness, CVA tenderness (R), CVA tenderness (L), paraspinal tenderness, vertebral tenderness - Neurological Exam Neurological exam: Present: alert, oriented X3, normal gait, other (there is no facial droop. The tongue is midline. Extraocular movements are intact bilaterally. Patient speaking in full complete sentences. Shoulder shrug is intact bilaterally. Hearing is grossly intact bilaterally. Visual acuity intact to finger counting and color perception at a close distance. 5/5 strength 4 extremities. Sensation intact to light touch in 4 extremities.). Absent: motor sensory deficit - Psychiatric Psychiatric exam: Present: anxious - Skin Skin exam: Present: warm, dry, intact, normal color. Absent: rash ED Course Vital Signs 09/12/19 09/13/19 09/13/19 23:33 02:07 03:29 Temperature 98.5 F Pulse Rate 119 H 84 69 Respiratory 14 20 18 Rate Blood Pressure 236/93 195/84 Blood Pressure 181/67 [Left] O2 Sat by Pulse 100 100 100 Oximetry ED Medical Decision Making - Lab Data Vital Signs 09/12/19 09/13/19 09/13/19 23:33 02:07 03:29 Temperature 98.5 F Pulse Rate 119 H 84 69 Respiratory 14 20 18 Rate Blood Pressure 236/93 195/84 Blood Pressure 181/67 [Left] O2 Sat by Pulse 100 100 100 Oximetry - EKG Data 09/13/19 04:18 EKG today shows a sinus rhythm, 71 beats for minute, normal axis, QTC is 460 ms, there is low voltage, there is poor R-wave progression. The NV interval is slightly prolonged. The EKG today is abnormal. EKG today is not consistent with ST elevation myocardial infarction. Prior chest x-ray is unremarkable and interpretation. Recently had unremarkable laboratory studies performed. - Radiology Data Radiology results: report reviewed, image reviewed - Medical Decision Making Differential diagnosis, including not limited to: Chronic hypertension, medication noncompliance, anxiety, exposure to dust, mold, mildew, and allergens Assessment and plan: 53-year-old female with recurrent complaint of high blood pressure, facial fullness, cough, and generalized discomfort, with suspected exposure to mold and/or mildew. Her blood pressure is improved with minimal intervention at this time. Please reference the [employer] clinical policy on hypertension which is not acutely symptom addict. Patient had a cardiac risk stratification at this hospital within the past year. She recently had blood work and a physical exam and thorough evaluation by my colleague a few days ago. The patient does not appear to have an emergent medical condition at this time. She'll need to follow-up with her primary care doctor and/or heat regulator for her hypertension and elevated blood pressure. She needs to follow-up with her landlord to adjust her living conditions. Critical care attestation.: If time is entered above; I have spent that time in minutes in the direct care of this critically ill patient, excluding procedure time. ED Disposition Clinical Impression: Mold exposure, Elevated blood pressure reading Disposition: - TO HOME OR SELFCARE Is pt being admited?: No Does the pt Need Aspirin: No Condition: Stable Additional Instructions: Continue current outpatient medications. Follow-up with your primary care doctor or heat regulator within the next month to follow-up on hypertension and elevated blood pressure. Patient was found to have high blood pressure while here in the emergency room. It is important to take blood pressure medications, and to make efforts to lower blood pressure, such as by performing physical activity, exercise, modification of diet to include consumption of lean protein, lean meat, plenty of fruits, fiber, vegetables, and avoid consumption of simple carbohydrates and processed foods. Long-term hypertension may cause stroke, heart attack, disability, paralysis, loss of quality of life. Recommend patient follow up with her landlord regarding mold exposure and mildew. Patient may take [id number] Flonase, as directed on the package insert. This may help out with nasal sinus congestion. Patient may alternate Tylenol, 650 mg by mouth every 4-6 hours as needed for pain, with ibuprofen, 400 mg by mouth with food, every 6 hours. Patient may also use vaporizer and/or humidifier to help with nasal sinus congestion. Please return to the emergency room right away with new, worsened, different symptoms, or symptoms not present on the initial emergency room evaluation. Referrals: EFE GREENE MD [Primary Care Provider] - as needed KAE CHRISTIE MD [Staff Physician] - as needed
[2019-09-13 03:30] VITALS: BP 181/67
== END 2019-09-13 04:35 | disposition home or self-care (01) ==
LOC: ED 23:20
DX: J01.00 Acute maxillary sinusitis, unspecified (principal); J01.10 Acute frontal sinusitis, unspecified; F17.200 Nicotine dependence, unspecified, uncomplicated; I10 Essential (primary) hypertension; E11.9 Type 2 diabetes mellitus without complications; F41.0 Panic disorder [episodic paroxysmal anxiety]; F32.9 Major depressive disorder, single episode, unspecified; Z77.120 Contact with and (suspected) exposure to mold (toxic); Z79.82 Long term (current) use of aspirin; Z79.4 Long term (current) use of insulin; Z79.899 Other long term (current) drug therapy; Z88.1 Allergy status to other antibiotic agents; Z88.8 Allergy status to other drugs, medicaments and biological substances; Z79.1 Long term (current) use of non-steroidal anti-inflammatories (NSAID); Z90.710 Acquired absence of both cervix and uterus
CPT/HCPCS: 93005; 93010; 99282

== ENCOUNTER 2019-10-08 04:45 | Emergency (ER) | payer MEDICARE ==
[2019-10-08] MEDS ORDERED: NITROGLYCERIN 0.4 MG TAB SUBL SL ONE (05:05)
--- NOTE | 2019-10-08 05:40 | XRay Report ---
CHEST 1 VIEW INDICATION / CLINICAL INFORMATION: Chest Pain. COMPARISON: None available. FINDINGS: SUPPORT DEVICES: None. HEART / MEDIASTINUM: No significant abnormality. LUNGS / PLEURA: No significant pulmonary or pleural abnormality. No pneumothorax. ADDITIONAL FINDINGS: No significant additional findings. IMPRESSION: 1. No acute findings. Signer Name: Abelardo Polanco MD Signed: 10/08/2019 5:36 AM Workstation Name: [id number]
[2019-10-08 05:41] LABS: Red Blood Count 3.75 M/mm3 (3.65-5.03)
[2019-10-08 05:42] LABS: Basophils # (Auto) 0.1 K/mm3 (0.0-0.1); Basophils % (Auto) 0.9 % (0.0-1.8); Eosinophils # (Auto) 0.2 K/mm3 (0.0-0.4); Eosinophils % (Auto) 2.9 % (0.0-4.3); Hematocrit 31.8 % (30.3-42.9); Hemoglobin 10.3 gm/dl (10.1-14.3); Lymphocytes # (Auto) 2.4 K/mm3 (1.2-5.4); Lymphocytes % (Auto) 27.7 % (13.4-35.0); Mean Corpuscular HGB Conc 32 % (30-34); Mean Corpuscular Volume 85 fl (79-97); Monocytes # (Auto) 0.8 K/mm3 (0.0-0.8); Monocytes % (Auto) 9.7 % (0.0-7.3); Platelet Count 235 K/mm3 (140-440); Red Cell Distribution Width 13.9 % (13.2-15.2)
[2019-10-08 05:53] LABS: BUN/Creatinine Ratio 16; Blood Urea Nitrogen 14 mg/dL (7-17); Calcium 8.6 mg/dL (8.4-10.2); Hemolysis Index 25
[2019-10-08 05:57] LABS: Alanine Aminotransferase 17 units/L (7-56); Albumin 3.3 g/dL (3.9-5)
[2019-10-08 06:06] LABS: Bilirubin,Direct < 0.2 mg/dL (0-0.2)
[2019-10-08] MEDS ORDERED: FUROSEMIDE 20 MG/2 ML INJ IV ONE (06:32)
--- NOTE | 2019-10-08 06:51 | Emergency Department Report ---
HPI - General Chief Complaint: Chest Pain Time Seen by Provider: 10/08/19 06:00 - HPI HPI: 54-year-old female presents to the emergency department with a complaint of a two-week history of leg swelling and shortness of breath. It is associated with a productive cough. The patient says that she has been staying in an apartment that has mold and thinks this could be triggering to her symptoms. She is a tobacco smoker but denies any illicit drug use. She has a past medical history of diabetes, hypertension, depression, anxiety, fibroids. Patient says that she also has been having some issues with controlling her blood pressure despite compliance with her medication. She follows with [facility] and says that she is on clonidine and doxazosin. Patient presents with a blood pressure of 232/77. She denies any significant chest pain but sometimes says that she has a feeling of tightness. No recent travel or sic k contacts at home. ED Past Medical Hx - Past Medical History Hx Hypertension: Yes Hx CVA: No Hx Heart Attack/AMI: No Hx Congestive Heart Failure: No Hx Diabetes: Yes Hx Deep Vein Thrombosis: No Hx Pulmonary Embolism: No Hx GERD: No Hx Liver Disease: No Hx Renal Disease: No Hx Sickle Cell Disease: No Hx Arthritis: No Hx Seizures: No Hx Psychiatric Treatment: Yes (depression, anxiety, panic attacks) Hx Asthma: No Hx COPD: No Hx Tuberculosis: No Hx Dementia: No Hx HIV: No Additional medical history: fibroids - Surgical History Hx Coronary Stent: No Hx Pacemaker: No Hx Internal Defibrillator: Yes Hx Breast Surgery: Yes (BREAST REDUCTION) Additional Surgical History: breast reduction 1999, x2, hysterectomy, fibroids removal - Social History Smoking Status: Never Smoker Substance Use Type: None - Medications Home Medications: Home Medications Medication Instructions Recorded Confirmed Last Taken Type Citalopram Hydrobromide [celeXA] 40 mg PO DAILY 10/09/13 03/25/16 11/28/15 History ALPRAZolam [Xanax TAB] 0.5 mg PO QHS 10/31/14 03/25/16 11/28/15 History Aspirin [Aspirin BABY CHEW TAB] 81 mg PO QDAY 10/31/14 03/25/16 11/28/15 History cloNIDine HCl [Clonidine HCl] 0.2 mg PO BID 04/05/15 03/25/16 03/25/16 History Insulin Detemir [Levemir VIAL] 25 unit SQ QHS 12/20/15 03/25/16 Unknown History labetaloL [Labetalol 200mg TAB] 300 mg PO BID #90 tablet 03/24/16 Unknown Rx traMADoL [Ultram 50 MG tab] 50 mg PO Q6HR PRN #20 tablet 08/20/16 Unknown Rx Acyclovir [Zovirax Cap] 400 mg PO TID #20 cap 08/21/16 Unknown Rx Cyclobenzaprine [Flexeril] 10 mg PO TID PRN #15 tablet 10/18/16 Unknown Rx Ketorolac [Toradol] 10 mg PO Q6H PRN #10 tablet 06/17/17 Unknown Rx Triamcinolone 0.025% (Nf) [Kenalog 1 applic TP TID #1 tube 06/17/17 Unknown Rx 0.025% OINT] HYDROcodone/APAP 5-325 [Verdigre 1 each PO Q6HR PRN #15 tablet 06/24/17 Unknown Rx 5/325] Insulin Glargine,Hum.rec.anlog 15 unit SQ QHS #3 insuln.pen 02/09/18 Unknown Rx [Lantus Solostar] Insulin Regular, Human [Novolin R] 4 unit SC WMHS #1 vial 02/09/18 Unknown Rx Benzonatate [Tessalon Perle] 100 mg PO TID #15 capsule 10/15/18 Unknown Rx Clindamycin [Clindamycin CAP] 300 mg PO Q8H #30 cap 10/15/18 Unknown Rx Ibuprofen [Motrin 800 MG tab] 800 mg PO Q8HR PRN #30 tablet 10/15/18 Unknown Rx traMADoL [Ultram 50 MG tab] 50 mg PO Q6HR PRN #10 tablet 11/17/18 Unknown Rx ALPRAZolam [Xanax] 1 mg PO Q8H PRN #10 tablet 01/27/19 Unknown Rx ALPRAZolam [Xanax TAB] 1 mg PO QID PRN #16 tab 04/09/19 Unknown Rx Esomeprazole Magnesium [NexIUM] 40 mg PO QDAY 30 Days #30 04/09/19 Unknown Rx capsule.dr Baclofen 20 mg PO Q8H PRN #21 tablet 04/17/19 Unknown Rx Ibuprofen [Motrin] 800 mg PO Q8HR PRN #24 tablet 04/17/19 Unknown Rx traMADoL [Ultram] 50 mg PO Q6HR PRN #15 tablet 04/17/19 Unknown Rx Acetaminophen [Acetaminophen TAB] 1,000 mg PO Q6HR PRN #30 tablet 04/30/19 Unknown Rx Azithromycin [Zithromax Z-GRISELDA] 250 mg PO DAILY #6 tab 04/30/19 Unknown Rx diphenhydrAMINE [Benadryl CAP] 25 mg PO Q6HR PRN #30 capsule 04/30/19 Unknown Rx Acetaminophen [Non-Aspirin Extra 500 mg PO Q6HR PRN #30 tablet 06/30/19 Unknown Rx Strength] Aspirin [Aspirin BABY CHEW TAB] 81 mg PO QDAY #30 tab.chew 06/30/19 Unknown Rx Famotidine [Pepcid] 20 mg PO BID #10 tablet 06/30/19 Unknown Rx traMADoL [Ultram 50 MG tab] 50 mg PO Q6HR PRN #12 tablet 07/03/19 Unknown Rx Dicyclomine [Bentyl] 20 mg PO Q6H PRN #30 tablet 08/16/19 Unknown Rx Famotidine [Pepcid] 40 mg PO DAILY #30 tablet 08/16/19 Unknown Rx Ondansetron [Zofran Odt] 4 mg PO Q6HR PRN #15 tab.rapdis 08/16/19 Unknown Rx hydrOXYzine PAMOATE [Vistaril] 25 mg PO Q6H PRN #30 capsule 08/16/19 Unknown Rx Azithromycin [Zithromax TAB] 250 mg PO QDAY #4 tablet 09/09/19 Unknown Rx Ibuprofen [Motrin] 800 mg PO Q8HR PRN #30 tablet 09/09/19 Unknown Rx Sodium Chloride [Saline Nasal 1 - 2 sprays NS PRN PRN #1 spray 09/09/19 Unknown Rx [place]] ALPRAZolam [Xanax TAB] 0.5 mg PO BID PRN #6 tab 10/08/19 Unknown Rx Furosemide [Lasix] 20 mg PO QDAY #3 tablet 10/08/19 Unknown Rx ED Review of Systems ROS: Stated complaint: BILATERAL LEG SWELLING/DEHYDRATION Other details as noted in HPI Comment: All other systems reviewed and negative Constitutional: denies: chills, fever Eyes: denies: eye pain, vision change Respiratory: cough, shortness of breath Cardiovascular: edema. denies: palpitations Gastrointestinal: denies: abdominal pain, vomiting Genitourinary: denies: dysuria, discharge Musculoskeletal: denies: back pain, arthralgia Skin: denies: rash, lesions Neurological: denies: headache, weakness Physical Exam - Physical Exam Vital Signs: Vital Signs 10/08/19 10/08/19 10/08/19 04:49 05:30 05:31 Temperature 98.5 F Pulse Rate 91 H 75 74 Respiratory 18 16 Rate Blood Pressure 232/77 193/76 193/74 Blood Pressure [Right] O2 Sat by Pulse 97 Oximetry 10/08/19 10/08/19 05:49 05:58 Temperature Pulse Rate 71 80 Respiratory 20 Rate Blood Pressure Blood Pressure 175/73 [Right] O2 Sat by Pulse Oximetry Physical Exam: GENERAL: The patient is well-developed well-nourished. HENT: Normocephalic. Atraumatic. Patient has moist mucous membranes. EYES: Extraocular motions are intact. Pupils equal reactive to light bilaterally. NECK: Supple. Trachea is midline. CHEST/LUNGS: Clear to auscultation. No tachypnea or accessory muscle use. There is a productive sounding cough heard during examination. There is no respiratory distress noted. HEART/CARDIOVASCULAR: Regular. There is no tachycardia. There is no murmur. ABDOMEN: Abdomen is soft, nontender. Patient has normal bowel sounds. Obese habitus. SKIN: Skin is warm and dry. 1-2+ pitting edema to the bilateral lower ex tremities. NEURO: The patient is awake, alert, and oriented. The patient is cooperative. The patient has no focal neurologic deficits. Normal speech. MUSCULOSKELETAL: There is no tenderness or deformity. There is no limitation range of motion. ED Course Vital Signs 10/08/19 10/08/19 10/08/19 04:49 05:30 05:31 Temperature 98.5 F Pulse Rate 91 H 75 74 Respiratory 18 16 Rate Blood Pressure 232/77 193/76 193/74 Blood Pressure [Right] O2 Sat by Pulse 97 Oximetry 10/08/19 10/08/19 05:49 05:58 Temperature Pulse Rate 71 80 Respiratory 20 Rate Blood Pressure Blood Pressure 175/73 [Right] O2 Sat by Pulse Oximetry ED Medical Decision Making - Lab Data Result diagrams: 10/08/19 05:25 10/08/19 05:25 - EKG Data -: EKG Interpreted by Me EKG shows normal: sinus rhythm, axis, intervals (prolonged CO interval), QRS complexes (Q waves to the anterior leads), ST-T waves Rate: normal - EKG Data When compared to previous EKG there are: no significant change Interpretation: unchanged when compared t (09/13/19) - Radiology Data Radiology results: report reviewed, image reviewed interpreted by me: Chest x-ray does not show any acute process. There are no pleural effusions, obvious pneumonia and there is no pneumothorax. CTA CHEST WITH CONTRAST INDICATION : SOB, elevated dimer. TECHNIQUE: Axial imaging performed through the chest, with contrast bolus timing set to maximize opacification of the pulmonary arteries. Sagittal and coronal reformatted images. 3-plane MIP reformatted images were obtained. All CT scans at this [facility] are performed using CT dose reduction for ALARA by means of automated exposure control. 100 mL of intravenous contrast administered. COMPARISON: AP chest performed the same day FINDINGS: Bolus: Contrast bolus timing is adequate. PTE: No filling defect is present to suggest PTE. Mediastinum: Heart and great vessels appear normal. No pathologic mediastinal adenopathy. Lungs: Lungs are clear. Bones: Degenerative changes in the spine with nothing acute. Upper abdomen: Limited imaging of the upper abdomen shows nothing acute. IMPRESSION: Negative for PTE. Clear lungs. - Medical Decision Making This patient presents to the emergency department with a complaint of a two-week history of lower extremity swelling, some shortness of breath and she complains of some occasional feelings of chest tightness. EKG was done that does not show any signs of ST elevation MD or dysrhythmia. Chest x-ray does not show any pleural effusions, pneumonia, pneumothorax, focal consolidation, or any other acute process. The patient's labs were unremarkable including negative troponins 2, except for a elevated and equivocal d-dimer, and an elevated BNP level of 920. The patient was given a dose of Lasix to start some diuresis. She was given a dose of labetalol prior to my shift for her initial triage blood pressure of 232/77. The patient was also given a dose of Xanax as she has some visible anxiety. The patient was reevaluated multiple times over multiple hours and is feeling greatly improved. Her blood pressure has come down to a more reasonable level and has not required any further antihypertensive medication. Despite the elevated BNP level, the patient does not have any pleural effusions, but she does have the lower extremity edema. This may be a marker of some early or new onset CHF. The patient was seen ambulatory in the emergency department multiple times and both appears and feels stable. I spoke to ALAN Luciano for [facility], who agrees that the patient appears safe for discharge home and has assisted in setting up the patient for an appointment with Dr. Christie for 2 PM tomorrow. The patient has been ins tructed to return to the emergency Department with any worsening of her symptoms or any acute distress. - Differential Diagnosis MD, CHF, PE, venous stasis Critical Care Time: No Critical care attestation.: If time is entered above; I have spent that time in minutes in the direct care of this critically ill patient, excluding procedure time. 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 I am giving you multiple referrals for local primary care physicians and clinics. Take your medications as prescribed. Return to the emergency Department with any worsening of your symptoms or any acute distress. You have been prescribed a medication that is sedating and therefore should not be taken prior to driving, working, and responsible for children and in no way s hould be mixed with alcohol of any quantity. Prescriptions: Furosemide [Lasix] 20 mg PO QDAY #3 tablet ALPRAZolam [Xanax TAB] 0.5 mg PO BID PRN #6 tab PRN Reason: Anxiety Referrals: KAE CHRISTIE MD [Staff Physician] - 10/09/19 2:10 pm AAKASH ESPINOSA MD [Staff Physician] - 2-3 Days CHINO ALMANZA MD [Staff Physician] - 2-3 Days [facility] [Outside] - 2-3 Days Time of Disposition: 11:40
[2019-10-08] MEDS ORDERED: IPRATROPIUM/ALBUTEROL SULFATE 3 ML AMPUL.NEB IH ONE (07:22)
[2019-10-08] MEDS ORDERED: ALPRAZolam 0.5 MG TAB PO ONE (07:41)
--- NOTE | 2019-10-08 09:26 | Cat Scan Report ---
CTA CHEST WITH CONTRAST INDICATION : SOB, elevated dimer. TECHNIQUE: Axial imaging performed through the chest, with contrast bolus timing set to maximize opa cification of the pulmonary arteries. Sagittal and coronal reformatted images. 3-plane MIP reformatte d images were obtained. All CT scans at this location are performed using CT dose reduction for ALAR A by means of automated exposure control. 100 mL of intravenous contrast administered. COMPARISON: AP chest performed the same day FINDINGS: Bolus: Contrast bolus timing is adequate. PTE: No filling defect is present to suggest PTE. Mediastinum: Heart and great vessels appear normal. No pathologic mediastinal adenopathy. Lungs: Lungs are clear. Bones: Degenerative changes in the spine with nothing acute. Upper abdomen: Limited imaging of the upper abdomen shows nothing acute. IMPRESSION: Negative for PTE. Clear lungs. Signer Name: Alcon Solorio Jr, MD Signed: 10/08/2019 9:22 AM Workstation Name: [id number]
[2019-10-08 11:07] VITALS: BP 179/65
== END 2019-10-08 11:54 | disposition home or self-care (01) ==
LOC: ED 04:45
DX: R60.0 Localized edema (principal); R07.89 Other chest pain; R06.00 Dyspnea, unspecified; F41.9 Anxiety disorder, unspecified; I10 Essential (primary) hypertension; E11.9 Type 2 diabetes mellitus without complications; F32.9 Major depressive disorder, single episode, unspecified; Z90.710 Acquired absence of both cervix and uterus; Z98.890 Other specified postprocedural states; Z79.1 Long term (current) use of non-steroidal anti-inflammatories (NSAID); Z79.899 Other long term (current) drug therapy
CPT/HCPCS: 36415; 71045; 71275; 80048; 80076; 83880; 84484; 85025; 85379; 93005; 93010; 94640; 96374; 96375; 99285; J1940

== ENCOUNTER 2019-10-21 11:06 | Emergency (ER) | payer MEDICARE ==
[2019-10-21 12:42] VITALS: BP 150/72
--- NOTE | 2019-10-21 12:45 | Emergency Department Report ---
ED General Adult HPI - General Chief complaint: High BP Stated complaint: HBP Time Seen by Provider: 10/21/19 12:34 Source: patient Mode of arrival: Ambulatory Limitations: No Limitations - History of Present Illness Initial comments: Pt is a 54-year-old -[place] female who is well known to us here in the ER. She comes to the ER after her blood pressure was elevated this morning at her psychiatrist's office. When her blood pressure was elevated she took her nifedipine and her blood pressure on arrival to the ER has been normal both in triage and repeated several times in the main ED. She denies chest pain or shortness of breath. She states that her blood pressure being elevated just scared her. Again this was in the context of being at her psychiatrist's office. Patient has not been taking her nifedipine she states that Dr. Van her PCP told her not to take it. I've instructed her that she needs to resume that medication. She is asking for referral to a new PCP. EMR was reviewed and patient was recently seen about 3 weeks ago in the ER. Since then she did follow up with [facility] and had cardiac clearance and they told her it was fine. Also of note she had a CTA on that last ER visit was normal. PMH MENOPAUSE HTN MD/ANXIETY DM LIVES WITH SON CARDS [facility] PCP ANTONIO RX VALSARTAN K XANAX CLONIDINE NIFEDIPINE LASIX Patient did see the psychiatrist today and they have added additional medications but she does not know the name. - Related Data Home Medications Medication Instructions Recorded Confirmed Last Taken Citalopram Hydrobromide [celeXA] 40 mg PO DAILY 10/09/13 03/25/16 11/28/15 ALPRAZolam [Xanax TAB] 0.5 mg PO QHS 10/31/14 03/25/16 11/28/15 Aspirin [Aspirin BABY CHEW TAB] 81 mg PO QDAY 10/31/14 03/25/16 11/28/15 cloNIDine HCl [Clonidine HCl] 0.2 mg PO BID 04/05/15 03/25/16 03/25/16 Insulin Detemir [Levemir VIAL] 25 unit SQ QHS 12/20/15 03/25/16 Unknown Previous Rx's Medication Instructions Recorded Last Taken Type labetaloL [Labetalol 200mg TAB] 300 mg PO BID #90 tablet 03/24/16 Unknown Rx traMADoL [Ultram 50 MG tab] 50 mg PO Q6HR PRN #20 tablet 08/20/16 Unknown Rx Acyclovir [Zovirax Cap] 400 mg PO TID #20 cap 08/21/16 Unknown Rx Cyclobenzaprine [Flexeril] 10 mg PO TID PRN #15 tablet 10/18/16 Unknown Rx Ketorolac [Toradol] 10 mg PO Q6H PRN #10 tablet 06/17/17 Unknown Rx Triamcinolone 0.025% (Nf) [Kenalog 1 applic TP TID #1 tube 06/17/17 Unknown Rx 0.025% OINT] HYDROcodone/APAP 5-325 [[place] 1 each PO Q6HR PRN #15 tablet 06/24/17 Unknown Rx 5/325] Insulin Glargine,Hum.rec.anlog 15 unit SQ QHS #3 insuln.pen 02/09/18 Unknown Rx [Lantus Solostar] Insulin Regular, Human [Novolin R] 4 unit SC WMHS #1 vial 02/09/18 Unknown Rx Benzonatate [Tessalon Perle] 100 mg PO TID #15 capsule 10/15/18 Unknown Rx Clindamycin [Clindamycin CAP] 300 mg PO Q8H #30 cap 10/15/18 Unknown Rx Ibuprofen [Motrin 800 MG tab] 800 mg PO Q8HR PRN #30 tablet 10/15/18 Unknown Rx traMADoL [Ultram 50 MG tab] 50 mg PO Q6HR PRN #10 tablet 11/17/18 Unknown Rx ALPRAZolam [Xanax] 1 mg PO Q8H PRN #10 tablet 01/27/19 Unknown Rx ALPRAZolam [Xanax TAB] 1 mg PO QID PRN #16 tab 04/09/19 Unknown Rx Esomeprazole Magnesium [NexIUM] 40 mg PO QDAY 30 Days #30 04/09/19 Unknown Rx capsule. Baclofen 20 mg PO Q8H PRN #21 tablet 04/17/19 Unknown Rx Ibuprofen [Motrin] 800 mg PO Q8HR PRN #24 tablet 04/17/19 Unknown Rx traMADoL [Ultram] 50 mg PO Q6HR PRN #15 tablet 04/17/19 Unknown Rx Acetaminophen [Acetaminophen TAB] 1,000 mg PO Q6HR PRN #30 tablet 04/30/19 Unknown Rx Azithromycin [Zithromax Z-GRISELDA] 250 mg PO DAILY #6 tab 04/30/19 Unknown Rx diphenhydrAMINE [Benadryl CAP] 25 mg PO Q6HR PRN #30 capsule 04/30/19 Unknown Rx Acetaminophen [Non-Aspirin Extra 500 mg PO Q6HR PRN #30 tablet 06/30/19 Unknown Rx Strength] Aspirin [Aspirin BABY CHEW TAB] 81 mg PO QDAY #30 tab.chew 06/30/19 Unknown Rx Famotidine [Pepcid] 20 mg PO BID #10 tablet 06/30/19 Unknown Rx traMADoL [Ultram 50 MG tab] 50 mg PO Q6HR PRN #12 tablet 07/03/19 Unknown Rx Dicyclomine [Bentyl] 20 mg PO Q6H PRN #30 tablet 08/16/19 Unknown Rx Famotidine [Pepcid] 40 mg PO DAILY #30 tablet 08/16/19 Unknown Rx Ondansetron [Zofran Odt] 4 mg PO Q6HR PRN #15 tab.rapdis 08/16/19 Unknown Rx hydrOXYzine PAMOATE [Vistaril] 25 mg PO Q6H PRN #30 capsule 08/16/19 Unknown Rx Azithromycin [Zithromax TAB] 250 mg PO QDAY #4 tablet 09/09/19 Unknown Rx Ibuprofen [Motrin] 800 mg PO Q8HR PRN #30 tablet 09/09/19 Unknown Rx Sodium Chloride [Saline Nasal 1 - 2 sprays NS PRN PRN #1 spray 09/09/19 Unknown Rx [place]] ALPRAZolam [Xanax TAB] 0.5 mg PO BID PRN #6 tab 10/08/19 Unknown Rx Furosemide [Lasix] 20 mg PO QDAY #3 tablet 10/08/19 Unknown Rx Allergies Allergy/AdvReac Type Severity Reaction Status Date / Time amlodipine Allergy Intermediate Unknown Verified 04/17/19 16:35 amoxicillin Allergy Unknown Verified 04/17/19 16:35 insulin NPH human isophane Allergy Unknown Verified 04/17/19 16:35 [From Humulin N] insulin regular, human Allergy Unknown Verified 04/17/19 16:35 [From Humulin R] lisinopril Allergy Swelling Verified 04/17/19 16:35 losartan [Losartan] Allergy Unknown Verified 04/17/19 16:35 metformin Allergy Rash Verified 04/17/19 16:35 potassium Allergy Unknown Verified 04/17/19 16:36 [id number]-Znl-Tui Reductase Allergy Unknown Verified 04/17/19 16:36 Inhibitor nifedipine AdvReac Mild Unknown Verified 08/16/19 20:35 ED Review of Systems ROS: Stated complaint: HBP Other details as noted in HPI Comment: All other systems reviewed and negative ED Past Medical Hx - Past Medical History Previous Medical History?: Yes Hx Hypertension: Yes Hx CVA: No Hx Heart Attack/AMI: No Hx Congestive Heart Failure: No Hx Diabetes: Yes Hx Deep Vein Thrombosis: No Hx Pulmonary Embolism: No Hx GERD: No Hx Liver Disease: No Hx Renal Disease: No Hx Sickle Cell Disease: No Hx Arthritis: No Hx Seizures: No Hx Kidney Stones: No Hx Psychiatric Treatment: Yes (depression, anxiety, panic attacks) Hx Asthma: No Hx COPD: No Hx Tuberculosis: No Hx Dementia: No Hx HIV: No Additional medical history: fibroids - Surgical History Past Surgical History?: Yes Hx Coronary Stent: No Hx Pacemaker: No Hx Internal Defibrillator: Yes Hx Breast Surgery: Yes (BREAST REDUCTION) Additional Surgical History: breast reduction 1999, x2, hysterectomy, fibroids removal - Family History Family history: no significant - Social History Smoking Status: Current Every Day Smoker Substance Use Type: None - Medications Home Medications: Home Medications Medication Instructions Recorded Confirmed Last Taken Type Citalopram Hydrobromide [celeXA] 40 mg PO DAILY 10/09/13 03/25/16 11/28/15 History ALPRAZolam [Xanax TAB] 0.5 mg PO QHS 10/31/14 03/25/16 11/28/15 History Aspirin [Aspirin BABY CHEW TAB] 81 mg PO QDAY 10/31/14 03/25/16 11/28/15 History cloNIDine HCl [Clonidine HCl] 0.2 mg PO BID 04/05/15 03/25/16 03/25/16 History Insulin Detemir [Levemir VIAL] 25 unit SQ QHS 12/20/15 03/25/16 Unknown History labetaloL [Labetalol 200mg TAB] 300 mg PO BID #90 tablet 03/24/16 Unknown Rx traMADoL [Ultram 50 MG tab] 50 mg PO Q6HR PRN #20 tablet 08/20/16 Unknown Rx Acyclovir [Zovirax Cap] 400 mg PO TID #20 cap 08/21/16 Unknown Rx Cyclobenzaprine [Flexeril] 10 mg PO TID PRN #15 tablet 10/18/16 Unknown Rx Ketorolac [Toradol] 10 mg PO Q6H PRN #10 tablet 06/17/17 Unknown Rx Triamcinolone 0.025% (Nf) [Kenalog 1 applic TP TID #1 tube 06/17/17 Unknown Rx 0.025% OINT] HYDROcodone/APAP 5-325 [[place] 1 each PO Q6HR PRN #15 tablet 06/24/17 Unknown Rx 5/325] Insulin Glargine,Hum.rec.anlog 15 unit SQ QHS #3 insuln.pen 02/09/18 Unknown Rx [Lantus Solostar] Insulin Regular, Human [Novolin R] 4 unit SC WMHS #1 vial 02/09/18 Unknown Rx Benzonatate [Tessalon Perle] 100 mg PO TID #15 capsule 10/15/18 Unknown Rx Clindamycin [Clindamycin CAP] 300 mg PO Q8H #30 cap 10/15/18 Unknown Rx Ibuprofen [Motrin 800 MG tab] 800 mg PO Q8HR PRN #30 tablet 10/15/18 Unknown Rx traMADoL [Ultram 50 MG tab] 50 mg PO Q6HR PRN #10 tablet 11/17/18 Unknown Rx ALPRAZolam [Xanax] 1 mg PO Q8H PRN #10 tablet 01/27/19 Unknown Rx ALPRAZolam [Xanax TAB] 1 mg PO QID PRN #16 tab 04/09/19 Unknown Rx Esomeprazole Magnesium [NexIUM] 40 mg PO QDAY 30 Days #30 04/09/19 Unknown Rx capsule. Baclofen 20 mg PO Q8H PRN #21 tablet 04/17/19 Unknown Rx Ibuprofen [Motrin] 800 mg PO Q8HR PRN #24 tablet 04/17/19 Unknown Rx traMADoL [Ultram] 50 mg PO Q6HR PRN #15 tablet 04/17/19 Unknown Rx Acetaminophen [Acetaminophen TAB] 1,000 mg PO Q6HR PRN #30 tablet 04/30/19 Unknown Rx Azithromycin [Zithromax Z-GRISELDA] 250 mg PO DAILY #6 tab 04/30/19 Unknown Rx diphenhydrAMINE [Benadryl CAP] 25 mg PO Q6HR PRN #30 capsule 04/30/19 Unknown Rx Acetaminophen [Non-Aspirin Extra 500 mg PO Q6HR PRN #30 tablet 06/30/19 Unknown Rx Strength] Aspirin [Aspirin BABY CHEW TAB] 81 mg PO QDAY #30 tab.chew 06/30/19 Unknown Rx Famotidine [Pepcid] 20 mg PO BID #10 tablet 06/30/19 Unknown Rx traMADoL [Ultram 50 MG tab] 50 mg PO Q6HR PRN #12 tablet 07/03/19 Unknown Rx Dicyclomine [Bentyl] 20 mg PO Q6H PRN #30 tablet 08/16/19 Unknown Rx Famotidine [Pepcid] 40 mg PO DAILY #30 tablet 08/16/19 Unknown Rx Ondansetron [Zofran Odt] 4 mg PO Q6HR PRN #15 tab.rapdis 08/16/19 Unknown Rx hydrOXYzine PAMOATE [Vistaril] 25 mg PO Q6H PRN #30 capsule 08/16/19 Unknown Rx Azithromycin [Zithromax TAB] 250 mg PO QDAY #4 tablet 09/09/19 Unknown Rx Ibuprofen [Motrin] 800 mg PO Q8HR PRN #30 tablet 09/09/19 Unknown Rx Sodium Chloride [Saline Nasal 1 - 2 sprays NS PRN PRN #1 spray 09/09/19 Unknown Rx [place]] ALPRAZolam [Xanax TAB] 0.5 mg PO BID PRN #6 tab 10/08/19 Unknown Rx Furosemide [Lasix] 20 mg PO QDAY #3 tablet 10/08/19 Unknown Rx ED Physical Exam - General Limitations: No Limitations General appearance: alert, in no apparent distress - Head Head exam: Present: atraumatic, normocephalic - Eye Eye exam: Present: normal appearance - ENT ENT exam: Present: mucous membranes moist - Neck Neck exam: Present: normal inspection - Respiratory Respiratory exam: Present: normal lung sounds bilaterally. Absent: respiratory distress - Cardiovascular Cardiovascular Exam: Present: regular rate, normal rhythm. Absent: systolic murmur, diastolic murmur, rubs, gallop - GI/Abdominal GI/Abdominal exam: Present: soft, normal bowel sounds - Extremities Exam Extremities exam: Present: normal inspection - Back Exam Back exam: Present: normal inspection - Neurological Exam Neurological exam: Present: alert, oriented X3 - Psychiatric Psychiatric exam: Present: normal affect, normal mood - Skin Skin exam: Present: warm, dry, intact, normal color. Absent: rash ED Course Vital Signs 10/21/19 12:38 Pulse Rate 80 Respiratory 12 Rate Blood Pressure 150/72 ED Medical Decision Making - EKG Data EKG shows normal: sinus rhythm Rate: normal - EKG Data When compared to previous EKG there are: no significant change Interpretation: no acute changes - Medical Decision Making Vital Signs (72 hours) 10/21/19 12:38 Pulse Rate 80 Respiratory 12 Rate Blood Pressure 150/72 BP RECHECKED SEVERAL TIMES AND NORMAL GIVEN PT TOOK HER BP MEDS PT EDUCATED ON CARE AND MANAGEMENT OF HTN PT REASSURED DC HOME WITH PCP FOLLOW UP; SHE HAS REQUESTED NEW PCP- REFERRALS GIVEN AMBULATORY NON TOXIC NON ILL APPEARING TAKING PO - Differential Diagnosis BP RECHECK Critical care attestation.: If time is entered above; I have spent that time in minutes in the direct care of this critically ill patient, excluding procedure time. ED Disposition Clinical Impression: Hypertension, Blood pressure check Disposition: DC-01 TO HOME OR SELFCARE Is pt being admited?: No Does the pt Need Aspirin: No Condition: Stable Instructions: Menopause (ED), Hypertension (ED) Additional Instructions: TAKE ALL MEDS INSTRUCTED LOW SALT LOW FAT DIET FOLLOW UP WITH PCP REFERRAL BELOW WALK DAILY STOP SMOKING Referrals: AAKASH ESPINOSA MD [Staff Physician] - 3-5 Days Time of Disposition: 12:49
== END 2019-10-21 13:15 | disposition home or self-care (01) ==
LOC: ED 11:06
DX: I10 Essential (primary) hypertension (principal); Z01.30 Encounter for examination of blood pressure without abnormal findings; E11.9 Type 2 diabetes mellitus without complications; F32.9 Major depressive disorder, single episode, unspecified; Z90.710 Acquired absence of both cervix and uterus; Z98.890 Other specified postprocedural states; F17.200 Nicotine dependence, unspecified, uncomplicated; Z79.1 Long term (current) use of non-steroidal anti-inflammatories (NSAID); Z79.899 Other long term (current) drug therapy; Z88.1 Allergy status to other antibiotic agents; Z88.8 Allergy status to other drugs, medicaments and biological substances
CPT/HCPCS: 93005; 93010; 99281

== ENCOUNTER 2019-11-14 13:55 | Emergency (ER) | payer MEDICARE ==
--- NOTE | 2019-11-14 15:36 | Event Note ---
ED Screening Note Date of service: 11/14/19 Time: 15:31 ED Screening Note: 54 y/o female comes in for palpitations and chest pain today. Has seen her field technical specialist 2 weeks ago . This initial assessment/diagnostic orders/clinical plan/treatment(s) is/are subject to change based on patients health status, clinical progression and re- assessment by fellow clinical providers in the ED. Further treatment and workup at subsequent clinical providers discretion. Patient/guardian urged not to elope from the ED as their condition may be serious if not clinically assessed and managed. Initial orders include:
[2019-11-14 15:58] LABS: Basophils % (Auto) 0.6 % (0.0-1.8); Eosinophils # (Auto) 0.1 K/mm3 (0.0-0.4); Eosinophils % (Auto) 1.7 % (0.0-4.3); Hematocrit 41.1 % (30.3-42.9); Hemoglobin 13.3 gm/dl (10.1-14.3); Lymphocytes # (Auto) 2.5 K/mm3 (1.2-5.4); Lymphocytes % (Auto) 33.2 % (13.4-35.0); Mean Corpuscular HGB Conc 32 % (30-34); Mean Corpuscular Volume 83 fl (79-97); Monocytes # (Auto) 0.5 K/mm3 (0.0-0.8); Monocytes % (Auto) 6.6 % (0.0-7.3); Platelet Count 259 K/mm3 (140-440); Red Blood Count 4.93 M/mm3 (3.65-5.03); Red Cell Distribution Width 14.1 % (13.2-15.2)
--- NOTE | 2019-11-14 16:07 | Emergency Department Report ---
ED Chest Pain HPI - General Chief Complaint: Chest Pain Stated Complaint: CHEST PAIN Time Seen by Provider: 11/14/19 15:30 Source: patient, EMS Mode of arrival: Wheelchair Limitations: No Limitations - History of Present Illness Initial Comments: 54 YO AA FEMALE COMES TO ER WITH 3 D HX OF LEFT SIDE CP WHICH SHE ASSOCIATES WITH A NEW BRAND OF LOSARTAN BEING DISPENSED AT THE PHARMACY. CARD PRATIK HOME RX XANAX CLONIDINE NIFEDPINE LOSARTAN CITALOPRAM NUC STRESS TEST 12/21 NORMAL; NORMAL EF MENOPAUSAL MD Complaint: chest pain -: Gradual, days(s) Onset: during rest, during exertion Pain Location: substernal Pain Radiation: none Severity: mild Quality: tightness Consistency: intermittent Improves With: nothing Worsens With: nothing Context: other (BRAND OF LOSARTAN CHANGED) re: other (ANXIOUS). denies: nausea, vomting, diaphoresis, dyspnea, sense of impending doom Other Symptoms: denies: cough, fever, syncope, rash, acid taste in mouth, leg swelling, palpitations, burping Treatments Prior to Arrival: none Aspirin use within the Past 7 Days: (1) Yes - Related Data On Oral Contraceptives: No Home Medications Medication Instructions Recorded Confirmed Last Taken Citalopram Hydrobromide [celeXA] 40 mg PO DAILY 10/09/13 03/25/16 11/28/15 cloNIDine HCL [Clonidine HCl] 0.2 mg PO BID 04/05/15 03/25/16 03/25/16 Insulin Detemir [Levemir VIAL] 25 unit SQ QHS 12/20/15 03/25/16 Unknown Previous Rx's Medication Instructions Recorded Last Taken Type Insulin Glargine,Hum.rec.anlog 15 unit SQ QHS #3 insuln.pen 02/09/18 Unknown Rx [Lantus Solostar] Insulin Regular, Human [Novolin R] 4 unit SC WMHS #1 vial 02/09/18 Unknown Rx Aspirin [Aspirin BABY CHEW TAB] 81 mg PO QDAY #30 tab.chew 06/30/19 Unknown Rx ALPRAZolam [Xanax TAB] 0.5 mg PO BID PRN #6 tab 10/08/19 Unknown Rx Allergies Allergy/AdvReac Type Severity Reaction Status Date / Time amlodipine Allergy Intermediate Unknown Verified 04/17/19 16:35 amoxicillin Allergy Unknown Verified 04/17/19 16:35 insulin NPH human isophane Allergy Unknown Verified 04/17/19 16:35 [From Humulin N] insulin regular, human Allergy Unknown Verified 04/17/19 16:35 [From Humulin R] lisinopril Allergy Swelling Verified 04/17/19 16:35 losartan [Losartan] Allergy Unknown Verified 04/17/19 16:35 metformin Allergy Rash Verified 04/17/19 16:35 potassium Allergy Unknown Verified 04/17/19 16:36 Mxjhyfg-Rnt-Dmi Reductase Allergy Unknown Verified 04/17/19 16:36 Inhibitor nifedipine AdvReac Mild Unknown Verified 08/16/19 20:35 Heart Score - HEART Score History: Slightly suspicious EKG: Normal Age: 45-65 Risk factors: 1-2 risk factors Troponin: < normal limit HEART Score: 2 ED Review of Systems ROS: Stated complaint: CHEST PAIN Other details as noted in HPI Comment: All other systems reviewed and negative ED Past Medical Hx - Past Medical History Hx Hypertension: Yes Hx CVA: No Hx Heart Attack/AMI: No Hx Congestive Heart Failure: No Hx Diabetes: Yes Hx Deep Vein Thrombosis: No Hx Pulmonary Embolism: No Hx GERD: No Hx Liver Disease: No Hx Renal Disease: No Hx of Cancer: No Hx Sickle Cell Disease: No Hx Arthritis: No Hx Headaches / Migraines: No Hx Seizures: No Hx Kidney Stones: No Hx Psychiatric Treatment: Yes (depression, anxiety, panic attacks) Hx Asthma: No Hx COPD: No Hx Tuberculosis: No Hx Dementia: No Hx HIV: No Additional medical history: fibroids - Surgical History Past Surgical History?: Yes Hx Coronary Stent: No Hx Pacemaker: No Hx Internal Defibrillator: Yes Hx Breast Surgery: Yes (BREAST REDUCTION) Additional Surgical History: breast reduction 1999, x2, hysterectomy, fibroids removal - Family History Family history: other (DAD DEC CVA; MOM A/W HTN) - Social History Smoking Status: Current Every Day Smoker Substance Use Type: None - Medications Home Medications: Home Medications Medication Instructions Recorded Confirmed Last Taken Type Citalopram Hydrobromide [celeXA] 40 mg PO DAILY 10/09/13 03/25/16 11/28/15 History cloNIDine HCL [Clonidine HCl] 0.2 mg PO BID 04/05/15 03/25/16 03/25/16 History Insulin Detemir [Levemir VIAL] 25 unit SQ QHS 12/20/15 03/25/16 Unknown History Insulin Glargine,Hum.rec.anlog 15 unit SQ QHS #3 insuln.pen 02/09/18 Unknown Rx [Lantus Solostar] Insulin Regular, Human [Novolin R] 4 unit SC WMHS #1 vial 02/09/18 Unknown Rx Aspirin [Aspirin BABY CHEW TAB] 81 mg PO QDAY #30 tab.chew 06/30/19 Unknown Rx ALPRAZolam [Xanax TAB] 0.5 mg PO BID PRN #6 tab 10/08/19 Unknown Rx ED Physical Exam - General Limitations: No Limitations General appearance: alert, in no apparent distress - Head Head exam: Present: atraumatic, normocephalic - Eye Eye exam: Present: normal appearance - ENT ENT exam: Present: mucous membranes moist - Neck Neck exam: Present: normal inspection - Respiratory Respiratory exam: Present: normal lung sounds bilaterally. Absent: respiratory distress - Cardiovascular Cardiovascular Exam: Present: regular rate, normal rhythm. Absent: systolic murmur, diastolic murmur, rubs, gallop - GI/Abdominal GI/Abdominal exam: Present: soft, normal bowel sounds - Extremities Exam Extremities exam: Present: normal inspection - Back Exam Back exam: Present: normal inspection - Neurological Exam Neurological exam: Present: alert, oriented X3 - Psychiatric Psychiatric exam: Present: normal affect, normal mood, anxious - Skin Skin exam: Present: warm, dry, intact, normal color. Absent: rash ED Course Vital Signs 11/14/19 15:35 Temperature 97.6 F Pulse Rate 80 Respiratory 20 Rate Blood Pressure 113/59 O2 Sat by Pulse 99 Oximetry - Reevaluation(s) Reevaluation #1: 11/14/19 17:23 on reexam pt is ambulatory and in nad she seems anxious about the brand of med being changed- she laughed when I brought up "anxious" - she states shes been told this before. EMR reviewed and rx for xanax noted; pt does have her bottle for xanax in her purse. She will need to see PCP for any refills SERAFIN score - Serafin Score Age > 65: (0) No Aspirin use within the Past 7 Days: (1) Yes 3 or more CAD Risk Factors: (1) Yes 2 or more Angina events in past 24 hrs: (0) No Known CAD with more than 50% Stenosis: (0) No Elevated Cardiac Markers: (0) No ST Deviation Greater than 0.5mm: (0) No SERAFIN Score: 2 ED Medical Decision Making - Lab Data Result diagrams: 11/14/19 15:43 11/14/19 15:43 - EKG Data EKG shows normal: sinus rhythm Rate: normal - EKG Data When compared to previous EKG there are: no significant change Interpretation: no acute changes - Radiology Data Radiology results: report reviewed, image reviewed - Medical Decision Making Lab Results 11/14/19 11/14/19 Range/Units 15:43 15:43 WBC 7.6 (4.5-11.0) K/mm3 RBC 4.93 (3.65-5.03) M/mm3 Hgb 13.3 (10.1-14.3) gm/dl Hct 41.1 (30.3-42.9) % MCV 83 (79-97) fl MCH 27 L (28-32) pg MCHC 32 (30-34) % RDW 14.1 (13.2-15.2) % Plt Count 259 (140-440) K/mm3 Lymph % (Auto) 33.2 (13.4-35.0) % Stark % (Auto) 6.6 (0.0-7.3) % Eos % (Auto) 1.7 (0.0-4.3) % Baso % (Auto) 0.6 (0.0-1.8) % Lymph # 2.5 (1.2-5.4) K/mm3 Stark # 0.5 (0.0-0.8) K/mm3 Eos # 0.1 (0.0-0.4) K/mm3 Baso # 0.0 (0.0-0.1) K/mm3 Seg Neutrophils % 57.9 (40.0-70.0) % Seg Neutrophils # 4.4 (1.8-7.7) K/mm3 Sodium 135 L (137-145) mmol/L Potassium 4.4 (3.6-5.0) mmol/L Chloride 102.0 (98-107) mmol/L Carbon Dioxide 19 L (22-30) mmol/L Anion Gap 18 mmol/L BUN 19 H (7-17) mg/dL Creatinine 1.2 (0.7-1.2) mg/dL Estimated GFR 57 ml/min BUN/Creatinine Ratio 16 % Glucose 152 H (65-100) mg/dL Calcium 9.2 (8.4-10.2) mg/dL Total Bilirubin 0.20 (0.1-1.2) mg/dL AST 20 (5-40) units/L ALT 28 (7-56) units/L Alkaline Phosphatase 107 (35-129) units/L Troponin T < 0.010 (0.00-0.029) ng/mL Total Protein 7.6 (6.3-8.2) g/dL Albumin 3.4 L (3.9-5) g/dL Albumin/Globulin Ratio 0.8 % Vital Signs 11/14/19 15:35 Temperature 97.6 F Pulse Rate 80 Respiratory 20 Rate Blood Pressure 113/59 O2 Sat by Pulse 99 Oximetry labs noted trop neg ekg unchanged and with nap xray normal pt anxious over brand change of her meds she is non ill non toxic appearing. she has no fever. she is ambulatory and ta maritza po. - Differential Diagnosis RO ACS/ANXIETY/CHEST WALL PAIN Critical care attestation.: If time is entered above; I have spent that time in minutes in the direct care of this critically ill patient, excluding procedure time. ED Disposition Clinical Impression: Chest pain, History of diabetes mellitus, Proteinuria Disposition: TO HOME OR SELFCARE Is pt being admited?: No Does the pt Need Aspirin: No Condition: Stable Instructions: Chest Pain (ED) Additional Instructions: diabetic diet stay well hydrated meds per routine activity as tolerated follow up with pcp and cards MD for reevaluation on Sunday- discuss with them your concerns regarding the brand change of your losartan. have your PCP follow up on the protein in your urine. Referrals: AAKASH ESPINOSA MD [Staff Physician] - 3-5 Days KAE CHRISTIE MD [Staff Physician] - 3-5 Days Time of Disposition: 16:24
[2019-11-14 16:23] LABS: Alanine Aminotransferase 28 units/L (7-56); Albumin 3.4 g/dL (3.9-5); BUN/Creatinine Ratio 16; Blood Urea Nitrogen 19 mg/dL (7-17); Calcium 9.2 mg/dL (8.4-10.2); Hemolysis Index 4
--- NOTE | 2019-11-14 16:29 | XRay Report ---
CHEST 1 VIEW 4:09 PM INDICATION / CLINICAL INFORMATION: Chest and left arm pain/swelling. COMPARISON: 10/08/2019. FINDINGS: SUPPORT DEVICES: None. HEART / MEDIASTINUM: The heart size and pulmonary vasculature are normal. The aorta is normal in rashaun richard. LUNGS / PLEURA: No significant pulmonary or pleural abnormality. No pneumothorax. ADDITIONAL FINDINGS: No significant additional findings. IMPRESSION: No acute abnormality or significant change. Signer Name: Obed Rodriguez MD Signed: 11/14/2019 4:24 PM Workstation Name: [id number]
[2019-11-14 17:40] LABS: Bilirubin,Urine NEG (Negative); Blood,Urine NEG (Negative); Color,Urine Amber (Yellow); Protein,Urine >500 mg/dL (Negative); Urobilinogen,Urine < 2.0 mg/dL (<2.0)
[2019-11-14 17:46] VITALS: BP 117/47
== END 2019-11-14 17:45 | disposition home or self-care (01) ==
LOC: ED 13:55
DX: R07.89 Other chest pain (principal); R80.9 Proteinuria, unspecified; I10 Essential (primary) hypertension; F17.200 Nicotine dependence, unspecified, uncomplicated; E11.9 Type 2 diabetes mellitus without complications; F32.9 Major depressive disorder, single episode, unspecified; F41.9 Anxiety disorder, unspecified; Z90.710 Acquired absence of both cervix and uterus; Z98.890 Other specified postprocedural states; Z79.899 Other long term (current) drug therapy; Z79.4 Long term (current) use of insulin; Z88.1 Allergy status to other antibiotic agents; Z88.6 Allergy status to analgesic agent; Z88.8 Allergy status to other drugs, medicaments and biological substances
CPT/HCPCS: 36415; 71045; 80053; 81001; 82805; 84484; 85025; 93005; 93010

== ENCOUNTER 2019-12-12 10:17 | Emergency (ER) | payer MEDICARE ==
[2019-12-12 11:23] LABS: Basophils % (Auto) 0.3 % (0.0-1.8); Eosinophils # (Auto) 0.1 K/mm3 (0.0-0.4); Eosinophils % (Auto) 1.2 % (0.0-4.3); Hematocrit 39.5 % (30.3-42.9); Hemoglobin 12.7 gm/dl (10.1-14.3); Lymphocytes # (Auto) 3.7 K/mm3 (1.2-5.4); Lymphocytes % (Auto) 40.5 % (13.4-35.0); Mean Corpuscular HGB Conc 32 % (30-34); Mean Corpuscular Volume 84 fl (79-97); Monocytes # (Auto) 0.6 K/mm3 (0.0-0.8); Monocytes % (Auto) 6.6 % (0.0-7.3); Platelet Count 231 K/mm3 (140-440); Red Blood Count 4.72 M/mm3 (3.65-5.03); Red Cell Distribution Width 14.6 % (13.2-15.2)
[2019-12-12 11:37] LABS: Albumin 3.5 g/dL (3.9-5); Calcium 9.2 mg/dL (8.4-10.2)
--- NOTE | 2019-12-12 13:12 | XRay Report ---
CHEST 2 VIEWS INDICATION / CLINICAL INFORMATION: Upper chest pain. COMPARISON: None available. FINDINGS: SUPPORT DEVICES: None. HEART / MEDIASTINUM: No significant abnormality. LUNGS / PLEURA: No significant pulmonary or pleural abnormality. No pneumothorax. ADDITIONAL FINDINGS: Degenerative changes are seen throughout the spine. No significant additional fi ndings. IMPRESSION: 1. No acute abnormality of the chest. Signer Name: Colton Sanhcez MD Signed: 12/12/2019 1:08 PM Workstation Name: [id number]
[2019-12-12 13:28] LABS: Bilirubin,Urine NEG (Negative); Blood,Urine NEG (Negative); Color,Urine Yellow (Yellow); Urobilinogen,Urine < 2.0 mg/dL (<2.0)
[2019-12-12 14:00] LABS: Protein,Urine >500 mg/dL (Negative)
--- NOTE | 2019-12-12 14:12 | Emergency Department Report ---
ED General Adult HPI - General Chief complaint: Abdominal Pain Stated complaint: BACK AND SIDE PAIN Time Seen by Provider: 12/12/19 12:23 Source: patient Mode of arrival: Ambulatory Limitations: No Limitations - Related Data Home Medications Medication Instructions Recorded Confirmed Last Taken Citalopram Hydrobromide [celeXA] 40 mg PO DAILY 10/09/13 03/25/16 11/28/15 cloNIDine HCL [Clonidine HCl] 0.2 mg PO BID 04/05/15 03/25/16 03/25/16 Insulin Detemir [Levemir VIAL] 25 unit SQ QHS 12/20/15 03/25/16 Unknown Previous Rx's Medication Instructions Recorded Last Taken Type Insulin Glargine,Hum.rec.anlog 15 unit SQ QHS #3 insuln.pen 02/09/18 Unknown Rx [Lantus Solostar] Insulin Regular, Human [Novolin R] 4 unit SC WMHS #1 vial 02/09/18 Unknown Rx Aspirin [Aspirin BABY CHEW TAB] 81 mg PO QDAY #30 tab.chew 06/30/19 Unknown Rx ALPRAZolam [Xanax TAB] 0.5 mg PO BID PRN #6 tab 10/08/19 Unknown Rx Insulin Glargine,Hum.rec.anlog 15 unit SQ QHS #3 insuln.pen 12/12/19 Unknown Rx [Lantus Solostar] Mupirocin [Bactroban 2%] 1 applic TP TID #20 tube 12/12/19 Unknown Rx Allergies Allergy/AdvReac Type Severity Reaction Status Date / Time amlodipine Allergy Intermediate Unknown Verified 04/17/19 16:35 amoxicillin Allergy Unknown Verified 04/17/19 16:35 insulin NPH human isophane Allergy Unknown Verified 04/17/19 16:35 [From Humulin N] insulin regular, human Allergy Unknown Verified 04/17/19 16:35 [From Humulin R] lisinopril Allergy Swelling Verified 04/17/19 16:35 losartan [Losartan] Allergy Unknown Verified 04/17/19 16:35 metformin Allergy Rash Verified 04/17/19 16:35 potassium Allergy Unknown Verified 04/17/19 16:36 Ztstiin-Ixs-Yfp Reductase Allergy Unknown Verified 04/17/19 16:36 Inhibitor nifedipine AdvReac Mild Unknown Verified 08/16/19 20:35 ED Review of Systems ROS: Stated complaint: BACK AND SIDE PAIN Other details as noted in HPI Comment: All other systems reviewed and negative ED Past Medical Hx - Past Medical History Previous Medical History?: Yes Hx Hypertension: Yes Hx CVA: No Hx Heart Attack/AMI: No Hx Congestive Heart Failure: No Hx Diabetes: Yes Hx Deep Vein Thrombosis: No Hx Pulmonary Embolism: No Hx GERD: No Hx Liver Disease: No Hx Renal Disease: No Hx Sickle Cell Disease: No Hx Arthritis: No Hx Headaches / Migraines: No Hx Seizures: No Hx Kidney Stones: No Hx Psychiatric Treatment: Yes (depression, anxiety, panic attacks) Hx Asthma: No Hx COPD: No Hx Tuberculosis: No Hx Dementia: No Hx HIV: No Additional medical history: fibroids - Surgical History Past Surgical History?: Yes Hx Coronary Stent: No Hx Pacemaker: No Hx Internal Defibrillator: Yes Hx Breast Surgery: Yes (BREAST REDUCTION) Additional Surgical History: breast reduction 1999, x2, hysterectomy, fibroids removal - Social History Smoking Status: Current Every Day Smoker Substance Use Type: None - Medications Home Medications: Home Medications Medication Instructions Recorded Confirmed Last Taken Type Citalopram Hydrobromide [celeXA] 40 mg PO DAILY 10/09/13 03/25/16 11/28/15 History cloNIDine HCL [Clonidine HCl] 0.2 mg PO BID 04/05/15 03/25/16 03/25/16 History Insulin Detemir [Levemir VIAL] 25 unit SQ QHS 12/20/15 03/25/16 Unknown History Insulin Glargine,Hum.rec.anlog 15 unit SQ QHS #3 insuln.pen 02/09/18 Unknown Rx [Lantus Solostar] Insulin Regular, Human [Novolin R] 4 unit SC WMHS #1 vial 02/09/18 Unknown Rx Aspirin [Aspirin BABY CHEW TAB] 81 mg PO QDAY #30 tab.chew 06/30/19 Unknown Rx ALPRAZolam [Xanax TAB] 0.5 mg PO BID PRN #6 tab 10/08/19 Unknown Rx Insulin Glargine,Hum.rec.anlog 15 unit SQ QHS #3 insuln.pen 12/12/19 Unknown Rx [Lantus Solostar] Mupirocin [Bactroban 2%] 1 applic TP TID #20 tube 12/12/19 Unknown Rx ED Physical Exam - General Limitations: No Limitations General appearance: alert, in no apparent distress - Head Head exam: Present: atraumatic, normocephalic - Eye Eye exam: Present: normal appearance, PERRL, EOMI Pupils: Present: normal accommodation - ENT ENT exam: Present: mucous membranes moist - Neck Neck exam: Present: normal inspection - Respiratory Respiratory exam: Present: normal lung sounds bilaterally. Absent: respiratory distress - Cardiovascular Cardiovascular Exam: Present: regular rate, normal rhythm. Absent: systolic murmur, diastolic murmur, rubs, gallop - GI/Abdominal GI/Abdominal exam: Present: soft, normal bowel sounds - Extremities Exam Extremities exam: Present: normal inspection - Back Exam Back exam: Present: normal inspection - Neurological Exam Neurological exam: Present: alert, oriented X3 - Psychiatric Psychiatric exam: Present: normal affect, normal mood - Skin Skin exam: Present: warm, dry, intact, normal color. Absent: rash ED Course Vital Signs 12/12/19 12/12/19 12/12/19 10:21 12:58 13:00 Temperature 98.8 F Pulse Rate 140 H Respiratory 16 Rate Blood Pressure 188/77 139/52 O2 Sat by Pulse 99 100 100 Oximetry 12/12/19 13:18 Temperature Pulse Rate Respiratory 18 Rate Blood Pressure O2 Sat by Pulse 99 Oximetry ED Medical Decision Making - Lab Data Result diagrams: 12/12/19 10:47 12/12/19 10:47 Lab Results 12/12/19 12/12/19 12/12/19 Range/Units 10:47 10:47 Unknown WBC 9.1 (4.5-11.0) K/mm3 RBC 4.72 (3.65-5.03) M/mm3 Hgb 12.7 (10.1-14.3) gm/dl Hct 39.5 (30.3-42.9) % MCV 84 (79-97) fl MCH 27 L (28-32) pg MCHC 32 (30-34) % RDW 14.6 (13.2-15.2) % Plt Count 231 (140-440) K/mm3 Lymph % (Auto) 40.5 H (13.4-35.0) % [place] % (Auto) 6.6 (0.0-7.3) % Eos % (Auto) 1.2 (0.0-4.3) % Baso % (Auto) 0.3 (0.0-1.8) % Lymph # 3.7 (1.2-5.4) K/mm3 Lyon # 0.6 (0.0-0.8) K/mm3 Eos # 0.1 (0.0-0.4) K/mm3 Baso # 0.0 (0.0-0.1) K/mm3 Seg Neutrophils % 51.4 (40.0-70.0) % Seg Neutrophils # 4.7 (1.8-7.7) K/mm3 Sodium 135 L (137-145) mmol/L Potassium 4.0 (3.6-5.0) mmol/L Chloride 102.3 (98-107) mmol/L Carbon Dioxide 20 L (22-30) mmol/L Anion Gap 17 mmol/L BUN 26 H (7-17) mg/dL Creatinine 1.2 (0.7-1.2) mg/dL Estimated GFR 57 ml/min BUN/Creatinine Ratio 22 % Glucose 272 H (65-100) mg/dL Calcium 9.2 (8.4-10.2) mg/dL Total Bilirubin 0.30 (0.1-1.2) mg/dL AST 15 (5-40) units/L ALT 17 (7-56) units/L Alkaline Phosphatase 104 (35-129) units/L Total Protein 7.6 (6.3-8.2) g/dL Albumin 3.5 L (3.9-5) g/dL Albumin/Globulin Ratio 0.9 % Urine Color Yellow (Yellow) Urine Turbidity Slightly-cloudy (Clear) Urine pH 5.0 (5.0-7.0) Ur Specific [place] 1.015 (1.003-1.030) Urine Protein >500 (Negative) mg/dL Urine Glucose (UA) 50 (Negative) mg/dL Urine Ketones Neg (Negative) mg/dL Urine Blood Neg (Negative) Urine Nitrite Neg (Negative) Urine Bilirubin Neg (Negative) Urine Urobilinogen < 2.0 (<2.0) mg/dL Ur Leukocyte Esterase Neg (Negative) Urine WBC (Auto) 1.0 (0.0-6.0) /HPF Urine RBC (Auto) 1.0 (0.0-6.0) /HPF U Epithel Cells (Auto) 1.0 (0-13.0) /HPF - EKG Data EKG shows normal: sinus rhythm Rate: tachycardia - EKG Data When compared to previous EKG there are: no significant change Interpretation: no acute changes - Radiology Data Radiology results: report reviewed [facility] [address] [place] [address] XRay Report Signed Patient: CRISPIN LARRY MR#: [id number] 0 : 1965 Acct:[id number] Age/Sex: 54 / F ADM Date: 12/12/19 Loc: ED Attending Dr: Ordering Physician: ALAN BAILEY Date of Service: 12/12/19 Procedure(s): XR chest routine 2V Accession Number(s): [id number] cc: ALAN BAILEY Fluoro Time In Minutes: CHEST 2 VIEWS INDICATION / CLINICAL INFORMATION: Upper chest pain. COMPARISON: None available. FINDINGS: SUPPORT DEVICES: None. HEART / MEDIASTINUM: No significant abnormality. LUNGS / PLEURA: No significant pulmonary or pleural abnormality. No p neumothorax. ADDITIONAL FINDINGS: Degenerative changes are seen throughout the spine. No significant additional findings. IMPRESSION: 1. No acute abnormality of the chest. Signer Name: Colton Sanchez MD Signed: 12/12/2019 1:08 PM Workstation Name: [id number] Transcribed By: [place] Dictated By: Colton Sanchez MD Electronically Authenticated By: Colton Sanchez MD Signed Date/Time: 12/12/19 1308 DD/ 1307 TD/TT: - Medical Decision Making This patient presents with abdominal pain of unclear etiology. Their evaluation has not identified a emergent etiology for the abdominal pain. Specifically, given the very benign exam, normal laboratory studies, and lack of significant risk factors, I have a very low suspicion for appendicitis, ischemic bowel, bowel perforation, or any other life threatening disease. I have discussed with the patient the level of uncertainty with undifferentiated abdominal pain and clearly explained the need to follow-up as noted on the discharge instructions, or return to the Emergency Department immediately if the pain worsens, develops fever, persistent and uncontrollable vomiting, or for any new symptoms or concerns. I discussed with the patient that this presentation today for abdominal pain could represent a significant risk for an acute abdominal process. Although the tests in the ED were essentially normal, there is still a possibility of a process such as appendicitis, diverticulitis, cholecystitis, ulcer, early bowel obstruction, mesenteric ischemia, kidney stone, or even kidney infection which could subsequently cause disability or . The patient understands that they must return within 24 hours for a recheck or see their physician within 24 hours for re-exam due to the possibility of significant surgical or medical process. Heart rate is improved to the 80s spontaneously patient is ambulatory in no acute distress speaking in full sentences. Discussed need to follow with primary care provider was expresses complete understanding she is alert and oriented 3 and at time of discharge she did request a refill of her Lantus. Also some ointment for her insect bite. Critical care attestation.: If time is entered above; I have spent that time in minutes in the direct care of this critically ill patient, excluding procedure time. ED Disposition Clinical Impression: Flank pain, Abdominal pain, Insect bite, Abnormal EKG Disposition: DC- TO HOME OR SELFCARE Is pt being admited?: No Does the pt Need Aspirin: No Condition: Stable Instructions: Abdominal Pain (ED), Insect Bite or Sting (ED), Supraventricular Tachycardia (ED) Additional Instructions: Your Lantus was refilled per your request requests information was provided also local primary care doctors for your follow-up Prescriptions: Mupirocin [Bactroban 2%] 1 applic TP TID #20 tube Insulin Glargine,Hum.rec.anlog [Lantus Solostar] 15 unit SQ QHS #3 insuln.pen Referrals: AAKASH ESPINOSA MD [Staff Physician] - 3-5 Days [facility] [Provider Group] - 3-5 Days
[2019-12-12 14:52] VITALS: BP 148/70
== END 2019-12-12 15:30 | disposition home or self-care (01) ==
LOC: ED 10:17
DX: R10.9 Unspecified abdominal pain (principal); R94.31 Abnormal electrocardiogram [ECG] [EKG]; T14.8XXA Other injury of unspecified body region, initial encounter; I10 Essential (primary) hypertension; E11.9 Type 2 diabetes mellitus without complications; F41.9 Anxiety disorder, unspecified; F17.200 Nicotine dependence, unspecified, uncomplicated; Z88.8 Allergy status to other drugs, medicaments and biological substances; Z95.810 Presence of automatic (implantable) cardiac defibrillator; Z98.890 Other specified postprocedural states; Z79.899 Other long term (current) drug therapy; W57.XXXA Bitten or stung by nonvenomous insect and other nonvenomous arthropods, initial encounter; Y93.89 Activity, other specified; Y92.89 Other specified places as the place of occurrence of the external cause; Y99.8 Other external cause status
CPT/HCPCS: 36415; 71046; 80053; 81001; 85025; 93005; 93010

== ENCOUNTER 2020-02-22 23:49 | Emergency (ER) | payer MEDICARE ==
[2020-02-23] MEDS ORDERED: cloNIDine 0.1 MG TAB ONE (00:20)
[2020-02-23] MEDS ORDERED: cloNIDine 0.1 MG TAB PO ONE (00:21)
--- NOTE | 2020-02-23 00:24 | Emergency Department Report ---
ED General Adult HPI - General Chief complaint: High BP Stated complaint: HYPERTENSION Time Seen by Provider: 02/22/20 23:57 Source: patient, EMS Mode of arrival: Ambulatory Limitations: No Limitations - History of Present Illness Initial comments: Patient is 54 years old female with history of hypertension. Patient presented to the ER stating that her blood pressure has been very high recently. She reported that her blood pressure was 234/132. Patient denied any headache, neck pain, chest pain, shortness of breath, weakness numbness or tingling sensation. Patient stated that she is taking losartan and nifedipine but the pharmacist told her she cannot take this medicine together. Patient is also taking clonidine 0.2 mg twice a day. Severity scale (0 -10): 0 - Related Data Home Medications Medication Instructions Recorded Confirmed Last Taken Citalopram Hydrobromide [celeXA] 40 mg PO DAILY 10/09/13 02/23/20 11/28/15 cloNIDine HCL [Clonidine HCl] 0.2 mg PO BID 04/05/15 02/23/20 03/25/16 Insulin Detemir [Levemir VIAL] 25 unit SQ QHS 12/20/15 03/25/16 Unknown ALPRAZolam [Xanax TAB] 1 mg PO TID PRN 02/23/20 02/23/20 Unknown NIFEdipine [Adalat cc] 50 mg PO DAILY 02/23/20 02/23/20 Unknown Valsartan [Diovan] 160 mg PO DAILY 02/23/20 02/23/20 Unknown Previous Rx's Medication Instructions Recorded Last Taken Type Aspirin [Aspirin BABY CHEW TAB] 81 mg PO QDAY #30 tab.chew 06/30/19 Unknown Rx Insulin Glargine,Hum.rec.anlog 15 unit SQ QHS #3 insuln.pen 12/12/19 Unknown Rx [Lantus Solostar] Allergies Allergy/AdvReac Type Severity Reaction Status Date / Time amlodipine Allergy Intermediate Unknown Verified 04/17/19 16:35 amoxicillin Allergy Unknown Verified 04/17/19 16:35 insulin NPH human isophane Allergy Unknown Verified 04/17/19 16:35 [From Humulin N] insulin regular, human Allergy Unknown Verified 04/17/19 16:35 [From Humulin R] lisinopril Allergy Swelling Verified 04/17/19 16:35 losartan [Losartan] Allergy Unknown Verified 04/17/19 16:35 metformin Allergy Rash Verified 04/17/19 16:35 potassium Allergy Unknown Verified 04/17/19 16:36 Lwclrks-Eja-Lkw Reductase Allergy Unknown Verified 04/17/19 16:36 Inhibitor nifedipine AdvReac Mild Unknown Verified 08/16/19 20:35 ED Review of Systems ROS: Stated complaint: HYPERTENSION Other details as noted in HPI Comment: All other systems reviewed and negative Constitutional: denies: chills, fever Respiratory: denies: cough, shortness of breath, SOB with exertion, wheezing Cardiovascular: denies: chest pain, palpitations Gastrointestinal: denies: abdominal pain, nausea Musculoskeletal: denies: back pain Neurological: denies: headache, weakness, numbness, paresthesias, confusion, abnormal gait ED Past Medical Hx - Past Medical History Previous Medical History?: Yes Hx Hypertension: Yes Hx CVA: No Hx Heart Attack/AMI: No Hx Congestive Heart Failure: No Hx Diabetes: Yes Hx Deep Vein Thrombosis: No Hx Pulmonary Embolism: No Hx GERD: No Hx Liver Disease: No Hx Renal Disease: No Hx Sickle Cell Disease: No Hx Arthritis: No Hx Headaches / Migraines: No Hx Seizures: No Hx Kidney Stones: No Hx Psychiatric Treatment: Yes (depression, anxiety, panic attacks) Hx Asthma: No Hx COPD: No Hx Tuberculosis: No Hx Dementia: No Hx HIV: No Additional medical history: fibroids - Surgical History Past Surgical History?: Yes Hx Coronary Stent: No Hx Pacemaker: No Hx Internal Defibrillator: Yes Hx Breast Surgery: Yes (BREAST REDUCTION) Additional Surgical History: breast reduction 1999, x2, hysterectomy, fibroids removal - Social History Smoking Status: Current Every Day Smoker - Medications Home Medications: Home Medications Medication Instructions Recorded Confirmed Last Taken Type Citalopram Hydrobromide [celeXA] 40 mg PO DAILY 10/09/13 02/23/20 11/28/15 History cloNIDine HCL [Clonidine HCl] 0.2 mg PO BID 04/05/15 02/23/20 03/25/16 History Insulin Detemir [Levemir VIAL] 25 unit SQ QHS 12/20/15 03/25/16 Unknown History Aspirin [Aspirin BABY CHEW TAB] 81 mg PO QDAY #30 tab.chew 06/30/19 02/23/20 Unknown Rx Insulin Glargine,Hum.rec.anlog 15 unit SQ QHS #3 insuln.pen 12/12/19 02/23/20 Unknown Rx [Lantus Solostar] ALPRAZolam [Xanax TAB] 1 mg PO TID PRN 02/23/20 02/23/20 Unknown History NIFEdipine [Adalat cc] 50 mg PO DAILY 02/23/20 02/23/20 Unknown History Valsartan [Diovan] 160 mg PO DAILY 02/23/20 02/23/20 Unknown History ED Physical Exam - General Limitations: No Limitations General appearance: alert, in no apparent distress - Head Head exam: Present: atraumatic, normocephalic, normal inspection - Eye Eye exam: Present: normal appearance, PERRL - ENT ENT exam: Present: normal exam, normal orophraynx, mucous membranes moist - Neck Neck exam: Present: normal inspection, full ROM. Absent: tenderness, meningismus, lymphadenopathy, thyromegaly - Respiratory Respiratory exam: Present: normal lung sounds bilaterally - Cardiovascular Cardiovascular Exam: Present: regular rate, normal rhythm, normal heart sounds - GI/Abdominal GI/Abdominal exam: Present: soft, normal bowel sounds. Absent: distended, tenderness, guarding, rebound, rigid, organomegaly, mass, bruit, pulsatile mass, hernia - Extremities Exam Extremities exam: Present: normal inspection, full ROM, normal capillary refill. Absent: pedal edema, calf tenderness - Back Exam Back exam: Present: normal inspection, full ROM. Absent: CVA tenderness (R), CVA tenderness (L) - Neurological Exam Neurological exam: Present: alert, oriented X3, CN II-XII intact, normal gait, reflexes normal. Absent: motor sensory deficit - Psychiatric Psychiatric exam: Present: normal mood - Skin Skin exam: Present: warm, intact, normal color ED Course Vital Signs 02/22/20 02/23/20 02/23/20 23:58 00:01 00:30 Temperature 98.6 F Pulse Rate 84 83 70 Respiratory 20 20 Rate Blood Pressure 229/82 Blood Pressure 229/82 194/85 [Left] O2 Sat by Pulse 100 100 Oximetry 02/23/20 02/23/20 02/23/20 00:41 00:42 01:00 Temperature Pulse Rate 75 74 Respiratory 20 Rate Blood Pressure 229/82 Blood Pressure 182/94 [Left] O2 Sat by Pulse 99 Oximetry 02/23/20 01:22 Temperature Pulse Rate 78 Respiratory Rate Blood Pressure Blood Pressure 174/57 [Left] O2 Sat by Pulse Oximetry ED Medical Decision Making - Lab Data Result diagrams: 02/23/20 01:07 02/23/20 01:07 - Medical Decision Making Patient is 54 years old female with history of hypertension. Patient presented to the ER stating that her blood pressure has been very high recently. She reported that her blood pressure was 234/132. Patient denied any headache, neck pain, chest pain, shortness of breath, weakness numbness or tingling sensation. Patient stated that she is taking losartan and nifedipine but the pharmacist told her she cannot take this medicine together. Patient is also taking clonidine 0.2 mg twice a day. Patient given clonidine 0.1 mg and her current blood pressure now is 150/74. Patient is still denying any chest pain or shortness of breath. 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 Patient also advised to follow-up with her primary care physician in the next 2 to 3 days and to return to the ER if she develop any new symptoms. Critical care attestation.: If time is entered above; I have spent that time in minutes in the direct care of this critically ill patient, excluding procedure time. ED Disposition Clinical Impression: Malignant hypertension Disposition: DC-01 TO HOME OR SELFCARE Is pt being admited?: No Condition: Stable Instructions: Hypertension (ED) Referrals: PRIMARY CARE, [Primary Care Provider] - 3-5 Days
[2020-02-23 01:54] LABS: Basophils % (Auto) 0.4 % (0.0-1.8); Eosinophils # (Auto) 0.2 K/mm3 (0.0-0.4); Eosinophils % (Auto) 2.3 % (0.0-4.3); Hemoglobin 11.4 gm/dl (10.1-14.3); Lymphocytes # (Auto) 2.4 K/mm3 (1.2-5.4); Lymphocytes % (Auto) 31.1 % (13.4-35.0); Mean Corpuscular HGB Conc 33 % (30-34); Mean Corpuscular Volume 84 fl (79-97); Monocytes # (Auto) 0.7 K/mm3 (0.0-0.8); Monocytes % (Auto) 9.5 % (0.0-7.3); Platelet Count 193 K/mm3 (140-440); Red Blood Count 4.18 M/mm3 (3.65-5.03); Red Cell Distribution Width 14.8 % (13.2-15.2)
[2020-02-23 01:58] LABS: BUN/Creatinine Ratio 20; Blood Urea Nitrogen 22 mg/dL (7-17); Calcium 8.7 mg/dL (8.4-10.2); Hemolysis Index 7
[2020-02-23 04:06] VITALS: BP 137/62
== END 2020-02-23 04:00 | disposition home or self-care (01) ==
LOC: ED 23:49
DX: I10 Essential (primary) hypertension (principal); E11.9 Type 2 diabetes mellitus without complications; F32.9 Major depressive disorder, single episode, unspecified; F41.9 Anxiety disorder, unspecified; F17.200 Nicotine dependence, unspecified, uncomplicated; Z79.899 Other long term (current) drug therapy; Z88.8 Allergy status to other drugs, medicaments and biological substances; Z98.890 Other specified postprocedural states; Z90.710 Acquired absence of both cervix and uterus
CPT/HCPCS: 36415; 80048; 85025

== ENCOUNTER 2020-03-08 00:47 | Emergency (ER) | payer MEDICARE ==
[2020-03-08] MEDS ORDERED: diphenhydrAMINE 50 MG/ML VIAL IV ONE (01:16)
[2020-03-08] MEDS ORDERED: methylPREDNISolone Sod Succinate 125 MG/2 ML INJ IV ONE (01:16)
[2020-03-08] MEDS ORDERED: FAMOTIDINE 20 MG/2 ML INJ IV ONE (01:16)
--- NOTE | 2020-03-08 01:37 | Emergency Department Report ---
ED Allergic Reaction HPI - General Chief complaint: Allergic Reaction Stated complaint: ALLERGIC REACRION Time Seen by Provider: 03/08/20 01:16 Source: patient Mode of arrival: Ambulatory Limitations: No Limitations - History of Present Illness Initial Comments: 54-year-old female with history of hypertension and multiple drug allergies presents to ED for allergic reaction. Patient states she was previously on valsartan but was switched to losartan due to allergic reaction. Patient states she took her losartan on 03/05/20. States she yesterday, 03/06/20, with rash to the face and chest. Patient reports itching associated. She reports mild facial swelling as well. She denies any difficulty breathing or swallowing. Patient states she took a Benadryl on yesterday when the rash began. States she took another Benadryl earlier today as well, however, the rash and itching persist, so she decided to come to the emergency room. MD Complaint: allergic reaction -: days(s) (2) Exposure: medication (losartan) Symptoms: rash, itching, facial swelling. denies: difficulty swallowing, difficulty breathing Severity: moderate Treatment Prior to Arrival: benadryl - Related Data Home Medications Medication Instructions Recorded Confirmed Last Taken Citalopram Hydrobromide [celeXA] 40 mg PO DAILY 10/09/13 02/23/20 11/28/15 cloNIDine HCL [Clonidine HCl] 0.2 mg PO BID 04/05/15 02/23/20 03/25/16 Insulin Detemir [Levemir VIAL] 25 unit SQ QHS 12/20/15 03/25/16 Unknown ALPRAZolam [Xanax TAB] 1 mg PO TID PRN 02/23/20 02/23/20 Unknown NIFEdipine [Adalat cc] 50 mg PO DAILY 02/23/20 02/23/20 Unknown Valsartan [Diovan] 160 mg PO DAILY 02/23/20 02/23/20 Unknown Previous Rx's Medication Instructions Recorded Last Taken Type Aspirin [Aspirin BABY CHEW TAB] 81 mg PO QDAY #30 tab.chew 06/30/19 Unknown Rx Insulin Glargine,Hum.rec.anlog 15 unit SQ QHS #3 insuln.pen 12/12/19 Unknown Rx [Lantus Solostar] predniSONE [Deltasone] 50 mg PO QDAY #5 tab 03/08/20 Unknown Rx Allergies Allergy/AdvReac Type Severity Reaction Status Date / Time amlodipine Allergy Intermediate Unknown Verified 04/17/19 16:35 amoxicillin Allergy Unknown Verified 04/17/19 16:35 insulin NPH human isophane Allergy Unknown Verified 04/17/19 16:35 [From Humulin N] insulin regular, human Allergy Unknown Verified 04/17/19 16:35 [From Humulin R] lisinopril Allergy Swelling Verified 04/17/19 16:35 losartan [Losartan] Allergy Unknown Verified 04/17/19 16:35 metformin Allergy Rash Verified 04/17/19 16:35 potassium Allergy Unknown Verified 04/17/19 16:36 [id number]-[id number]-Gut Reductase Allergy Unknown Verified 04/17/19 16:36 Inhibitor valsartan Allergy Swelling Verified 03/08/20 00:58 nifedipine AdvReac Mild Unknown Verified 08/16/19 20:35 ED Review of Systems ROS: Stated complaint: ALLERGIC REACRION Other details as noted in HPI Comment: All other systems reviewed and negative Constitutional: denies: chills, fever Respiratory: denies: shortness of breath Cardiovascular: denies: chest pain Gastrointestinal: denies: vomiting Skin: rash ED Past Medical Hx - Past Medical History Previous Medical History?: Yes Hx Hypertension: Yes Hx CVA: No Hx Heart Attack/AMI: No Hx Congestive Heart Failure: No Hx Diabetes: Yes Hx Deep Vein Thrombosis: No Hx Pulmonary Embolism: No Hx GERD: No Hx Liver Disease: No Hx Renal Disease: No Hx Sickle Cell Disease: No Hx Arthritis: No Hx Headaches / Migraines: No Hx Seizures: No Hx Kidney Stones: No Hx Psychiatric Treatment: Yes (depression, anxiety, panic attacks) Hx Asthma: No Hx COPD: No Hx Tuberculosis: No Hx Dementia: No Hx HIV: No Additional medical history: fibroids - Surgical History Past Surgical History?: Yes Hx Coronary Stent: No Hx Pacemaker: No Hx Internal Defibrillator: Yes Hx Breast Surgery: Yes (BREAST REDUCTION) Additional Surgical History: breast reduction 1999, x2, hysterectomy, fibroids removal - Social History Smoking Status: Current Every Day Smoker Substance Use Type: None - Medications Home Medications: Home Medications Medication Instructions Recorded Confirmed Last Taken Type Citalopram Hydrobromide [celeXA] 40 mg PO DAILY 10/09/13 02/23/20 11/28/15 History cloNIDine HCL [Clonidine HCl] 0.2 mg PO BID 04/05/15 02/23/20 03/25/16 History Insulin Detemir [Levemir VIAL] 25 unit SQ QHS 12/20/15 03/25/16 Unknown History Aspirin [Aspirin BABY CHEW TAB] 81 mg PO QDAY #30 tab.chew 06/30/19 02/23/20 Unknown Rx Insulin Glargine,Hum.rec.anlog 15 unit SQ QHS #3 insuln.pen 12/12/19 02/23/20 Unknown Rx [Lantus Solostar] ALPRAZolam [Xanax TAB] 1 mg PO TID PRN 02/23/20 02/23/20 Unknown History NIFEdipine [Adalat cc] 50 mg PO DAILY 02/23/20 02/23/20 Unknown History Valsartan [Diovan] 160 mg PO DAILY 02/23/20 02/23/20 Unknown History predniSONE [Deltasone] 50 mg PO QDAY #5 tab 03/08/20 Unknown Rx ED Physical Exam - General Limitations: No Limitations General appearance: alert, in no apparent distress - Head Head exam: Present: atraumatic, normocephalic - Eye Eye exam: Present: normal appearance, PERRL, EOMI. Absent: periorbital swelling - ENT ENT exam: Present: normal orophraynx (no evidence of lip or tongue swelling, uvula midline and nonedematous), mucous membranes moist - Neck Neck exam: Present: normal inspection - Respiratory Respiratory exam: Present: normal lung sounds bilaterally. Absent: respiratory distress, wheezes, stridor - Cardiovascular Cardiovascular Exam: Present: normal rhythm, tachycardia - GI/Abdominal GI/Abdominal exam: Present: soft. Absent: distended, tenderness - Extremities Exam Extremities exam: Present: normal inspection - Neurological Exam Neurological exam: Present: alert, oriented X3 - Psychiatric Psychiatric exam: Present: normal affect, normal mood - Skin Skin exam: Present: rash (urticarial rash to face and chest) ED Course Vital Signs 03/08/20 03/08/20 03/08/20 00:53 01:07 02:01 Temperature 98.3 F 98.7 F Pulse Rate 128 H 89 82 Respiratory 18 18 20 Rate Blood Pressure 197/77 Blood Pressure 148/70 130/64 [Left] O2 Sat by Pulse 100 100 96 Oximetry ED Medical Decision Making - Medical Decision Making Allergic rxn, ongoing x 2 days. No resp distress. Airway is patent. Patient was given Benadryl, Pepcid, Solu-Medrol. Will discharge home with prescription for prednisone. Patient advised to follow-up with her PCP in regards to changing her BP meds. - Differential Diagnosis Allergic reaction Critical care attestation.: If time is entered above; I have spent that time in minutes in the direct care of this critically ill patient, excluding procedure time. ED Disposition Clinical Impression: Allergic reaction caused by a drug Disposition: DC-01 TO HOME OR SELFCARE Is pt being admited?: No Condition: Stable Instructions: Urticaria (ED), Allergies (ED) Prescriptions: predniSONE [Deltasone] 50 mg PO QDAY #5 tab Referrals: PRIMARY CARE, [Primary Care Provider] - 3-5 Days
[2020-03-08 02:02] VITALS: BP 130/64
== END 2020-03-08 02:01 | disposition home or self-care (01) ==
LOC: ED 00:47
DX: T50.995A Adverse effect of other drugs, medicaments and biological substances, initial encounter (principal); I10 Essential (primary) hypertension; E11.9 Type 2 diabetes mellitus without complications; F32.89 Other specified depressive episodes; F41.9 Anxiety disorder, unspecified; F41.0 Panic disorder [episodic paroxysmal anxiety]; F17.200 Nicotine dependence, unspecified, uncomplicated; Z90.710 Acquired absence of both cervix and uterus; Z98.890 Other specified postprocedural states; Z88.6 Allergy status to analgesic agent; Z79.4 Long term (current) use of insulin; Z79.899 Other long term (current) drug therapy; Z88.1 Allergy status to other antibiotic agents; Z88.8 Allergy status to other drugs, medicaments and biological substances; Y92.89 Other specified places as the place of occurrence of the external cause
CPT/HCPCS: 96374; 96375; 99282; J1200; J2930

== ENCOUNTER 2020-03-09 03:12 | Emergency (ER) | payer MEDICARE ==
[2020-03-09] MEDS ORDERED: INSULIN REGULAR, HUMAN 100 UNITS/1 ML IV ONE (04:34)
[2020-03-09] MEDS ORDERED: SODIUM CHLORIDE 0.9% 1000 ML 1,000 ML IV ONE (04:34)
[2020-03-09] MEDS ORDERED: diphenhydrAMINE 50 MG/ML VIAL IV ONE (04:36)
[2020-03-09] MEDS ORDERED: FAMOTIDINE 20 MG/2 ML INJ IV ONE (04:36)
--- NOTE | 2020-03-09 04:39 | Emergency Department Report ---
ED General Adult HPI - General Chief complaint: Hyperglycemia Stated complaint: HIGH BLOOD SUGAR Time Seen by Provider: 03/09/20 04:33 Source: patient, EMS Mode of arrival: Wheelchair Limitations: No Limitations - History of Present Illness Initial comments: CC: "I'm here for an allergic reaction." HPI: Mrs. Chapa is a 54 yo female with hx of HTN, IDDM, GERD, anxiety presents with hives on face and torso. Seen last night in this ED. Prescribed prednisone. Her blood sugar has been elevated as a result. She feels the hives are due to new medication Losartan. -: Gradual, days(s) (1) Location: head, face, chest Consistency: constant Improves with: none Worsens with: none Associated Symptoms: denies other symptoms - Related Data Home Medications Medication Instructions Recorded Confirmed Last Taken Citalopram Hydrobromide [celeXA] 40 mg PO DAILY 10/09/13 02/23/20 11/28/15 cloNIDine HCL [Clonidine HCl] 0.2 mg PO BID 04/05/15 02/23/20 03/25/16 Insulin Detemir [Levemir VIAL] 25 unit SQ QHS 12/20/15 03/25/16 Unknown ALPRAZolam [Xanax TAB] 1 mg PO TID PRN 02/23/20 02/23/20 Unknown NIFEdipine [Adalat cc] 50 mg PO DAILY 02/23/20 02/23/20 Unknown Valsartan [Diovan] 160 mg PO DAILY 02/23/20 02/23/20 Unknown Previous Rx's Medication Instructions Recorded Last Taken Type Aspirin [Aspirin BABY CHEW TAB] 81 mg PO QDAY #30 tab.chew 06/30/19 Unknown Rx Insulin Glargine,Hum.rec.anlog 15 unit SQ QHS #3 insuln.pen 12/12/19 Unknown Rx [Lantus Solostar] predniSONE [Deltasone] 50 mg PO QDAY #5 tab 03/08/20 Unknown Rx Famotidine [Pepcid] 20 mg PO BID 4 Days #8 tablet 03/09/20 Unknown Rx Hydrocortisone 1% [Hydrocortisone 1 applicatio TP TID 7 Days #1 tube 03/09/20 Unknown Rx 1% CREAM] diphenhydrAMINE [Benadryl CAP] 25 mg PO Q6HR 4 Days #16 capsule 03/09/20 Unknown Rx Allergies Allergy/AdvReac Type Severity Reaction Status Date / Time amlodipine Allergy Intermediate Unknown Verified 04/17/19 16:35 amoxicillin Allergy Unknown Verified 04/17/19 16:35 insulin NPH human isophane Allergy Unknown Verified 04/17/19 16:35 [From Humulin N] insulin regular, human Allergy Unknown Verified 04/17/19 16:35 [From Humulin R] lisinopril Allergy Swelling Verified 04/17/19 16:35 losartan [Losartan] Allergy Unknown Verified 04/17/19 16:35 metformin Allergy Rash Verified 04/17/19 16:35 potassium Allergy Unknown Verified 04/17/19 16:36 [id number] Reductase Allergy Unknown Verified 04/17/19 16:36 Inhibitor valsartan Allergy Swelling Verified 03/08/20 00:58 nifedipine AdvReac Mild Unknown Verified 08/16/19 20:35 ED Review of Systems ROS: Stated complaint: HIGH BLOOD SUGAR Other details as noted in HPI Comment: All other systems reviewed and negative Constitutional: denies: fever, malaise Respiratory: denies: cough, shortness of breath Cardiovascular: denies: chest pain Skin: rash, lesions ED Past Medical Hx - Past Medical History Previous Medical History?: Yes Hx Hypertension: Yes Hx CVA: No Hx Heart Attack/AMI: No Hx Congestive Heart Failure: No Hx Diabetes: Yes Hx Deep Vein Thrombosis: No Hx Pulmonary Embolism: No Hx GERD: No Hx Liver Disease: No Hx Renal Disease: No Hx Sickle Cell Disease: No Hx Arthritis: No Hx Headaches / Migraines: No Hx Seizures: No Hx Kidney Stones: No Hx Psychiatric Treatment: Yes (depression, anxiety, panic attacks) Hx Asthma: No Hx COPD: No Hx Tuberculosis: No Hx Dementia: No Hx HIV: No Additional medical history: fibroids - Surgical History Past Surgical History?: Yes Hx Coronary Stent: No Hx Pacemaker: No Hx Internal Defibrillator: Yes Hx Breast Surgery: Yes (BREAST REDUCTION) Additional Surgical History: breast reduction 1999, x2, hysterectomy, fibroids removal - Social History Smoking Status: Current Every Day Smoker Substance Use Type: None - Medications Home Medications: Home Medications Medication Instructions Recorded Confirmed Last Taken Type Citalopram Hydrobromide [celeXA] 40 mg PO DAILY 10/09/13 02/23/20 11/28/15 History cloNIDine HCL [Clonidine HCl] 0.2 mg PO BID 04/05/15 02/23/20 03/25/16 History Insulin Detemir [Levemir VIAL] 25 unit SQ QHS 12/20/15 03/25/16 Unknown History Aspirin [Aspirin BABY CHEW TAB] 81 mg PO QDAY #30 tab.chew 06/30/19 02/23/20 Unknown Rx Insulin Glargine,Hum.rec.anlog 15 unit SQ QHS #3 insuln.pen 12/12/19 02/23/20 Unknown Rx [Lantus Solostar] ALPRAZolam [Xanax TAB] 1 mg PO TID PRN 02/23/20 02/23/20 Unknown History NIFEdipine [Adalat cc] 50 mg PO DAILY 02/23/20 02/23/20 Unknown History Valsartan [Diovan] 160 mg PO DAILY 02/23/20 02/23/20 Unknown History predniSONE [Deltasone] 50 mg PO QDAY #5 tab 03/08/20 Unknown Rx Famotidine [Pepcid] 20 mg PO BID 4 Days #8 tablet 03/09/20 Unknown Rx Hydrocortisone 1% [Hydrocortisone 1 applicatio TP TID 7 Days #1 tube 03/09/20 Unknown Rx 1% CREAM] diphenhydrAMINE [Benadryl CAP] 25 mg PO Q6HR 4 Days #16 capsule 03/09/20 Unknown Rx ED Physical Exam - General Limitations: No Limitations General appearance: alert, in no apparent distress - Head Head exam: Present: atraumatic, normocephalic - Eye Eye exam: Present: normal appearance - ENT ENT exam: Present: mucous membranes moist - Neck Neck exam: Present: normal inspection, full ROM - Respiratory Respiratory exam: Present: normal lung sounds bilaterally. Absent: respiratory distress, wheezes, rales, rhonchi - Cardiovascular Cardiovascular Exam: Present: regular rate, normal rhythm, normal heart sounds. Absent: systolic murmur, diastolic murmur, rubs, gallop - GI/Abdominal GI/Abdominal exam: Present: soft, normal bowel sounds. Absent: distended, rebound - Extremities Exam Extremities exam: Present: normal inspection - Back Exam Back exam: Present: normal inspection - Neurological Exam Neurological exam: Present: alert, oriented X3 - Psychiatric Psychiatric exam: Present: normal affect, normal mood - Skin Skin exam: Present: warm, dry, intact, normal color, urticaria (face chest). Absent: rash ED Course Vital Signs 03/09/20 03:26 Temperature 98.1 F Pulse Rate 91 H Respiratory 14 Rate Blood Pressure 148/68 O2 Sat by Pulse 100 Oximetry ED Medical Decision Making - Medical Decision Making acute allergic reaction possibly due to new drug, consideration contact dermatitis, prescribed hydrocortisone cream, benadryl, famotidine hyperglycemia as a result of steroid use, recommended increasing does of insulin if she desires to use prednisone Critical care attestation.: If time is entered above; I have spent that time in minutes in the direct care of this critically ill patient, excluding procedure time. ED Disposition Clinical Impression: Allergic reaction caused by a drug, Hyperglycemia due to type 2 diabetes mellitus Disposition: DC-01 TO HOME OR SELFCARE Is pt being admited?: No Does the pt Need Aspirin: No Instructions: Anaphylaxis (ED) Prescriptions: diphenhydrAMINE [Benadryl CAP] 25 mg PO Q6HR 4 Days #16 capsule Hydrocortisone 1% [Hydrocortisone 1% CREAM] 1 applicatio TP TID 7 Days #1 tube Famotidine [Pepcid] 20 mg PO BID 4 Days #8 tablet Referrals: PRIMARY CARE, [Primary Care Provider] - as needed
[2020-03-09 06:35] VITALS: BP 149/67
== END 2020-03-09 06:10 | disposition home or self-care (01) ==
LOC: ED 03:12
DX: E11.65 Type 2 diabetes mellitus with hyperglycemia (principal); T50.905A Adverse effect of unspecified drugs, medicaments and biological substances, initial encounter; I10 Essential (primary) hypertension; F41.9 Anxiety disorder, unspecified; F32.9 Major depressive disorder, single episode, unspecified; F17.200 Nicotine dependence, unspecified, uncomplicated; Z79.899 Other long term (current) drug therapy; Z97.4 Presence of external hearing-aid; Z88.8 Allergy status to other drugs, medicaments and biological substances; Y92.89 Other specified places as the place of occurrence of the external cause
CPT/HCPCS: 82962; 93005; 96361; 96374; 96375; 99284; J1200; J7030; J1815

== ENCOUNTER 2020-06-29 22:43 | Emergency (ER) | payer MEDICARE ==
[2020-06-29] MEDS ORDERED: ALUM-MAG HYDROXIDE-SIMETHICONE 200-200-20MG/5ML ORAL LIQD 30 ML PO ONE (23:36)
[2020-06-29] MEDS ORDERED: LIDOCAINE VISCOUS 2% 15 ML ORAL LIQD PO ONE (23:36)
--- NOTE | 2020-06-29 23:47 | XRay Report ---
CHEST 2 VIEWS, 06/29/2020 10:18 PM INDICATION: Chest pain COMPARISON: Chest radiograph, 06/06/2020 FINDINGS: Support devices: None. Heart: The heart is normal in size. Lungs/pleura: The lungs are well expanded and appear clear. Additional findings: No significant acute abnormality. IMPRESSION: 1. No evidence of acute cardiopulmonary process. Signer Name: Nicole Ferreira MD Signed: 06/29/2020 11:43 PM Workstation Name: [id number]
[2020-06-30 00:24] LABS: Basophils # (Auto) 0.1 K/mm3 (0.0-0.1); Basophils % (Auto) 0.7 % (0.0-1.8); Eosinophils # (Auto) 0.2 K/mm3 (0.0-0.4); Eosinophils % (Auto) 2.6 % (0.0-4.3); Hematocrit 37.2 % (30.3-42.9); Hemoglobin 12.2 gm/dl (10.1-14.3); Lymphocytes # (Auto) 2.7 K/mm3 (1.2-5.4); Lymphocytes % (Auto) 31.1 % (13.4-35.0); Mean Corpuscular HGB Conc 33 % (30-34); Mean Corpuscular Volume 85 fl (79-97); Monocytes # (Auto) 0.7 K/mm3 (0.0-0.8); Monocytes % (Auto) 7.8 % (0.0-7.3); Platelet Count 205 K/mm3 (140-440); Red Blood Count 4.41 M/mm3 (3.65-5.03); Red Cell Distribution Width 14.4 % (13.2-15.2)
[2020-06-30 00:47] LABS: BUN/Creatinine Ratio 20; Blood Urea Nitrogen 24 mg/dL (7-17); Calcium 9.3 mg/dL (8.4-10.2); Hemolysis Index 6
--- NOTE | 2020-06-30 00:51 | Emergency Department Report ---
ED General Adult HPI - General Chief complaint: Chest Pain Stated complaint: CHEST PAIN Time Seen by Provider: 06/29/20 23:35 Source: patient Mode of arrival: Ambulatory Limitations: No Limitations - Related Data Home Medications Medication Instructions Recorded Confirmed Last Taken Citalopram Hydrobromide [celeXA] 40 mg PO DAILY 10/09/13 02/23/20 11/28/15 cloNIDine HCL [Clonidine HCl] 0.2 mg PO BID 04/05/15 02/23/20 03/25/16 Insulin Detemir [Levemir VIAL] 25 unit SQ QHS 12/20/15 03/25/16 Unknown ALPRAZolam [Xanax TAB] 1 mg PO TID PRN 02/23/20 02/23/20 Unknown NIFEdipine [Adalat cc] 50 mg PO DAILY 02/23/20 02/23/20 Unknown Valsartan [Diovan] 160 mg PO DAILY 02/23/20 02/23/20 Unknown Previous Rx's Medication Instructions Recorded Last Taken Type Aspirin [Aspirin BABY CHEW TAB] 81 mg PO QDAY #30 tab.chew 06/30/19 Unknown Rx Insulin Glargine,Hum.rec.anlog 15 unit SQ QHS #3 insuln.pen 12/12/19 Unknown Rx [Lantus Solostar] predniSONE [Deltasone] 50 mg PO QDAY #5 tab 03/08/20 Unknown Rx Famotidine [Pepcid] 20 mg PO BID 4 Days #8 tablet 03/09/20 Unknown Rx Hydrocortisone 1% [Hydrocortisone 1 applicatio TP TID 7 Days #1 tube 03/09/20 Unknown Rx 1% CREAM] diphenhydrAMINE [Benadryl CAP] 25 mg PO Q6HR 4 Days #16 capsule 03/09/20 Unknown Rx Insulin Regular, Human [Humulin R] 10 unit IJ DAILY #1 vial 04/13/20 Unknown Rx Allergies Allergy/AdvReac Type Severity Reaction Status Date / Time amlodipine Allergy Intermediate Unknown Verified 04/17/19 16:35 amoxicillin Allergy Unknown Verified 04/17/19 16:35 insulin NPH human isophane Allergy Unknown Verified 04/17/19 16:35 [From Humulin N] insulin regular, human Allergy Unknown Verified 04/17/19 16:35 [From Humulin R] lisinopril Allergy Swelling Verified 04/17/19 16:35 losartan [Losartan] Allergy Unknown Verified 04/17/19 16:35 metformin Allergy Rash Verified 04/17/19 16:35 potassium Allergy Unknown Verified 04/17/19 16:36 Pqnzmqe-Raq-Pvu Reductase Allergy Unknown Verified 04/17/19 16:36 Inhibitor valsartan Allergy Swelling Verified 03/08/20 00:58 nifedipine AdvReac Mild Unknown Verified 08/16/19 20:35 ED Review of Systems ROS: Stated complaint: CHEST PAIN Other details as noted in HPI ED Past Medical Hx - Past Medical History Hx Hypertension: Yes Hx CVA: No Hx Heart Attack/AMI: No Hx Congestive Heart Failure: No Hx Diabetes: Yes Hx Deep Vein Thrombosis: No Hx Pulmonary Embolism: No Hx GERD: No Hx Liver Disease: No Hx Renal Disease: No Hx Sickle Cell Disease: No Hx Arthritis: No Hx Headaches / Migraines: No Hx Seizures: No Hx Kidney Stones: No Hx Psychiatric Treatment: Yes (depression, anxiety, panic attacks) Hx Asthma: No Hx COPD: No Hx Tuberculosis: No Hx Dementia: No Hx HIV: No Additional medical history: fibroids, Mold exposure - Surgical History Hx Coronary Stent: No Hx Pacemaker: No Hx Internal Defibrillator: Yes Hx Breast Surgery: Yes (BREAST REDUCTION) Additional Surgical History: breast reduction 1999, x2, hysterectomy, fibroids removal - Social History Smoking Status: Current Every Day Smoker - Medications Home Medications: Home Medications Medication Instructions Recorded Confirmed Last Taken Type Citalopram Hydrobromide [celeXA] 40 mg PO DAILY 10/09/13 02/23/20 11/28/15 History cloNIDine HCL [Clonidine HCl] 0.2 mg PO BID 04/05/15 02/23/20 03/25/16 History Insulin Detemir [Levemir VIAL] 25 unit SQ QHS 12/20/15 03/25/16 Unknown History Aspirin [Aspirin BABY CHEW TAB] 81 mg PO QDAY #30 tab.chew 06/30/19 02/23/20 Un known Rx Insulin Glargine,Hum.rec.anlog 15 unit SQ QHS #3 insuln.pen 12/12/19 02/23/20 Unknown Rx [Lantus Solostar] ALPRAZolam [Xanax TAB] 1 mg PO TID PRN 02/23/20 02/23/20 Unknown History NIFEdipine [Adalat cc] 50 mg PO DAILY 02/23/20 02/23/20 Unknown History Valsartan [Diovan] 160 mg PO DAILY 02/23/20 02/23/20 Unknown History predniSONE [Deltasone] 50 mg PO QDAY #5 tab 03/08/20 Unknown Rx Famotidine [Pepcid] 20 mg PO BID 4 Days #8 tablet 03/09/20 Unknown Rx Hydrocortisone 1% [Hydrocortisone 1 applicatio TP TID 7 Days #1 tube 03/09/20 Unknown Rx 1% CREAM] diphenhydrAMINE [Benadryl CAP] 25 mg PO Q6HR 4 Days #16 capsule 03/09/20 Unknown Rx Insulin Regular, Human [Humulin R] 10 unit IJ DAILY #1 vial 04/13/20 Unknown Rx ED Physical Exam - General Limitations: No Limitations ED Course Vital Signs 06/29/20 22:47 Temperature 97.8 F Pulse Rate 84 Respiratory 12 Rate Blood Pressure 181/82 O2 Sat by Pulse 100 Oximetry ED Medical Decision Making - Lab Data Result diagrams: 06/29/20 23:25 06/29/20 23:25 Labs 06/29/20 06/29/20 23:25 23:25 WBC 8.8 RBC 4.41 Hgb 12.2 Hct 37.2 MCV 85 MCH 28 MCHC 33 RDW 14.4 Plt Count 205 Lymph % (Auto) 31.1 [place] % (Auto) 7.8 H Eos % (Auto) 2.6 Baso % (Auto) 0.7 Lymph # 2.7 [place] # 0.7 Eos # 0.2 Baso # 0.1 Seg Neutrophils % 57.8 Seg Neutrophils # 5.1 Sodium 140 Potassium 4.0 Chloride 103.1 Carbon Dioxide 23 Anion Gap 18 BUN 24 H Creatinine 1.2 Estimated GFR 57 BUN/Creatinine Ratio 20 Glucose 293 H Calcium 9.3 Troponin T < 0.010 - EKG Data EKG shows normal: sinus rhythm, QRS complexes Rate: normal - EKG Data When compared to previous EKG there are: previous EKG unavailable Interpretation: nonspecific ST-T wave alan (EKG interp by ed attending. NO ST [facility]) - Radiology Data Radiology results: report reviewed, image reviewed Findings Reporting MD: Nicole Ferreira Dictation Time: June 29, 2020 22:43 Health And Wellness Director: Not available Certified Dietary Manager Date: CHEST 2 VIEWS, 06/29/2020 10:18 PM INDICATION: Chest pain COMPARISON: Chest radiograph, 06/06/2020 FINDINGS: Support devices: None. Heart: The heart is normal in size. Lungs/pleura: The lungs are well expanded and appear clear. Additional findings: No significant acute abnormality. IMPRESSION: 1. No evidence of acute cardiopulmonary process. Signer Name: Nicole Ferreira MD Signed: 06/29/2020 10:43 PM Workstation Name: [id number] - Medical Decision Making chest pain improved, ekg NSTD , will cm on d, heart score is 0, pain is improved with medications ginve in ed, will continue to monitor pt status, pt will be dc'd to home in stable condition at this time. pt is currently a/o x 3, ambulattory with steady gait and nad. Critical care attestation.: If time is entered above; I have spent that time in minutes in the direct care of this critically ill patient, excluding procedure time. ED Disposition Clinical Impression: Stress Chest pain Qualifiers: Chest pain type: unspecified Qualified Code(s): R07.9 - Chest pain, unspecified Disposition: DC-01 TO HOME OR SELFCARE Is pt being admited?: No Does the pt Need Aspirin: No Condition: Stable Instructions: Chest Pain (ED), Stress (ED) Additional Instructions: take over the counter, nsaids a needed for pain. follow up with you doctor in 2- 3 days. Referrals: PRIMARY CARE, [Primary Care Provider] - 3-5 Days Forms: Work/School Release Form(ED) Time of Disposition: 01:24
[2020-06-30 01:43] VITALS: BP 152/76
--- NOTE | 2020-06-30 01:44 | Emergency Department Report ---
ED Chest Pain HPI - General Chief Complaint: Chest Pain Stated Complaint: CHEST PAIN Time Seen by Provider: 06/29/20 23:35 Source: patient Mode of arrival: Ambulatory Limitations: No Limitations - History of Present Illness Initial Comments: pt is a 54 y/o aaf with hx of GERD and Depression who presents for cp x 3 days , states pain intermittent 3/10 substernal exacerbated by stress. pt states multiple stressors today including finding mold in her home and need to move to new apartment [place]. Current Cp is 1/10 described as pressure and bloating. pt denies fever no chills, no n/v, no diaphoresis, no dizzines or light headedness. pt endorses HTN,DMII, adde and nonadherent with tx regimen. pt dies sob, no SI or HI. MD Complaint: chest pain Onset/Timin -: days(s) Onset: during rest Pain Location: left chest Pain Radiation: none Severity: moderate Severity scale (0 -10): 3 Quality: aching Consistency: intermittent Improves With: nothing Worsens With: other (stress) re: denies: nausea, vomting, diaphoresis Other Symptoms: cough, fever, syncope Treatments Prior to Arrival: none - Related Data Home Medications Medication Instructions Recorded Confirmed Last Taken Citalopram Hydrobromide [celeXA] 40 mg PO DAILY 10/09/13 02/23/20 11/28/15 cloNIDine HCL [Clonidine HCl] 0.2 mg PO BID 04/05/15 02/23/20 03/25/16 Insulin Detemir [Levemir VIAL] 25 unit SQ QHS 12/20/15 03/25/16 Unknown ALPRAZolam [Xanax TAB] 1 mg PO TID PRN 02/23/20 02/23/20 Unknown NIFEdipine [Adalat cc] 50 mg PO DAILY 02/23/20 02/23/20 Unknown Valsartan [Diovan] 160 mg PO DAILY 02/23/20 02/23/20 Unknown Previous Rx's Medication Instructions Recorded Last Taken Type Aspirin [Aspirin BABY CHEW TAB] 81 mg PO QDAY #30 tab.chew 06/30/19 Unknown Rx Insulin Glargine,Hum.rec.anlog 15 unit SQ QHS #3 insuln.pen 12/12/19 Unknown Rx [Lantus Solostar] predniSONE [Deltasone] 50 mg PO QDAY #5 tab 03/08/20 Unknown Rx Famotidine [Pepcid] 20 mg PO BID 4 Days #8 tablet 03/09/20 Unknown Rx Hydrocortisone 1% [Hydrocortisone 1 applicatio TP TID 7 Days #1 tube 03/09/20 Unknown Rx 1% CREAM] diphenhydrAMINE [Benadryl CAP] 25 mg PO Q6HR 4 Days #16 capsule 03/09/20 Unknown Rx Insulin Regular, Human [Humulin R] 10 unit IJ DAILY #1 vial 04/13/20 Unknown Rx Allergies Allergy/AdvReac Type Severity Reaction Status Date / Time amlodipine Allergy Intermediate Unknown Verified 04/17/19 16:35 amoxicillin Allergy Unknown Verified 04/17/19 16:35 insulin NPH human isophane Allergy Unknown Verified 04/17/19 16:35 [From Humulin N] insulin regular, human Allergy Unknown Verified 04/17/19 16:35 [From Humulin R] lisinopril Allergy Swelling Verified 04/17/19 16:35 losartan [Losartan] Allergy Unknown Verified 04/17/19 16:35 metformin Allergy Rash Verified 04/17/19 16:35 potassium Allergy Unknown Verified 04/17/19 16:36 [id number]-Vjg-Qsn Reductase Allergy Unknown Verified 04/17/19 16:36 Inhibitor valsartan Allergy Swelling Verified 03/08/20 00:58 nifedipine AdvReac Mild Unknown Verified 08/16/19 20:35 Heart Score - HEART Score History: Slightly suspicious EKG: Normal Age: 45-65 Risk factors: 1-2 risk factors Troponin: < normal limit HEART Score: 2 ED Review of Systems ROS: Stated complaint: CHEST PAIN Other details as noted in HPI Constitutional: denies: chills, fever Eyes: denies: eye pain, eye discharge, vision change ENT: denies: ear pain, throat pain, congestion Respiratory: denies: cough, shortness of breath, wheezing Cardiovascular: denies: chest pain, palpitations, dyspnea on exertion Endocrine: no symptoms reported Gastrointestinal: abdominal pain (epigastric ). denies: nausea, vomiting, diarrhea, constipation, hematemesis, melena Genitourinary: denies: urgency, dysuria, frequency, hematuria, discharge Musculoskeletal: denies: back pain, joint swelling, arthralgia Skin: denies: rash, lesions Neurological: denies: headache, weakness, numbness, paresthesias, confusion Psychiatric: denies: anxiety, depression Hematological/Lymphatic: denies: easy bleeding, easy bruising ED Past Medical Hx - Past Medical History Hx Hypertension: Yes Hx CVA: No Hx Heart Attack/AMI: No Hx Congestive Heart Failure: No Hx Diabetes: Yes Hx Deep Vein Thrombosis: No Hx Pulmonary Embolism: No Hx GERD: No Hx Liver Disease: No Hx Renal Disease: No Hx Sickle Cell Disease: No Hx Arthritis: No Hx Headaches / Migraines: No Hx Seizures: No Hx Kidney Stones: No Hx Psychiatric Treatment: Yes (depression, anxiety, panic attacks) Hx Asthma: No Hx COPD: No Hx Tuberculosis: No Hx Dementia: No Hx HIV: No Additional medical history: fibroids, Mold exposure - Surgical History Hx Coronary Stent: No Hx Pacemaker: No Hx Internal Defibrillator: Yes Hx Breast Surgery: Yes (BREAST REDUCTION) Additional Surgical History: breast reduction 1999, x2, hysterectomy, fibroids removal - Social History Smoking Status: Current Every Day Smoker - Medications Home Medications: Home Medications Medication Instructions Recorded Confirmed Last Taken Type Citalopram Hydrobromide [celeXA] 40 mg PO DAILY 10/09/13 02/23/20 11/28/15 History cloNIDine HCL [Clonidine HCl] 0.2 mg PO BID 04/05/15 02/23/20 03/25/16 History Insulin Detemir [Levemir VIAL] 25 unit SQ QHS 12/20/15 03/25/16 Unknown History Aspirin [Aspirin BABY CHEW TAB] 81 mg PO QDAY #30 tab.chew 06/30/19 02/23/20 Unknown Rx Insulin Glargine,Hum.rec.anlog 15 unit SQ QHS #3 insuln.pen 12/12/19 02/23/20 Unknown Rx [Lantus Solostar] ALPRAZolam [Xanax TAB] 1 mg PO TID PRN 02/23/20 02/23/20 Unknown History NIFEdipine [Adalat cc] 50 mg PO DAILY 02/23/20 02/23/20 Unknown History Valsartan [Diovan] 160 mg PO DAILY 02/23/20 02/23/20 Unknown History predniSONE [Deltasone] 50 mg PO QDAY #5 tab 03/08/20 Unknown Rx Famotidine [Pepcid] 20 mg PO BID 4 Days #8 tablet 03/09/20 Unknown Rx Hydrocortisone 1% [Hydrocortisone 1 applicatio TP TID 7 Days #1 tube 03/09/20 Unknown Rx 1% CREAM] diphenhydrAMINE [Benadryl CAP] 25 mg PO Q6HR 4 Days #16 capsule 03/09/20 Unkno wn Rx Insulin Regular, Human [Humulin R] 10 unit IJ DAILY #1 vial 04/13/20 Unknown Rx ED Physical Exam - General Limitations: No Limitations General appearance: alert, in no apparent distress - Head Head exam: Present: atraumatic, normocephalic - Eye Eye exam: Present: normal appearance, PERRL, EOMI Pupils: Present: normal accommodation - ENT ENT exam: Present: mucous membranes moist - Neck Neck exam: Present: normal inspection, full ROM. Absent: tenderness, lymphadenopathy - Respiratory Respiratory exam: Present: normal lung sounds bilaterally. Absent: wheezes, rales, rhonchi, stridor, chest wall tenderness - Cardiovascular Cardiovascular Exam: Present: regular rate, normal rhythm, normal heart sounds. Absent: systolic murmur, diastolic murmur, rubs, gallop - GI/Abdominal GI/Abdominal exam: Present: soft, normal bowel sounds. Absent: distended, tenderness, guarding, rebound, rigid, bruit, hernia - Rectal Rectal exam: Present: deferred - Extremities Exam Extremities exam: Present: normal inspection - Back Exam Back exam: Present: normal inspection, full ROM. Absent: tenderness, CVA tenderness (R), CVA tenderness (L) - Neurological Exam Neurological exam: Present: alert, CN II-XII intact, normal gait - Psychiatric Psychiatric exam: Present: normal affect, normal mood, anxious - Skin Skin exam: Present: warm ED Course Vital Signs 06/29/20 06/30/20 22:47 01:30 Temperature 97.8 F Pulse Rate 84 75 Respiratory 12 16 Rate Blood Pressure 181/82 Blood Pressure 152/76 [Right] O2 Sat by Pulse 100 99 Oximetry MICHELET score - Michelet Score Age > 65: (0) No Aspirin use within the Past 7 Days: (0) No 3 or more CAD Risk Factors: (1) Yes 2 or more Angina events in past 24 hrs: (0) No Known CAD with more than 50% Stenosis: (0) No Elevated Cardiac Markers: (0) No ST Deviation Greater than 0.5mm: (0) No MICHELET Score: 1 ED Medical Decision Making - Lab Data Result diagrams: 06/29/20 23:25 06/29/20 23:25 Critical care attestation.: If time is entered above; I have spent that time in minutes in the direct care of this critically ill patient, excluding procedure time. ED Disposition Clinical Impression: Stress Chest pain Qualifiers: Chest pain type: unspecified Qualified Code(s): R07.9 - Chest pain, unspecified Disposition: - TO HOME OR SELFCARE Is pt being admited?: No Does the pt Need Aspirin: No Condition: Stable Instructions: Chest Pain (ED), Stress (ED) Additional Instructions: take over the counter, nsaids a needed for pain. follow up with you doctor in 2- 3 days. Referrals: PINKY LAWSON MD [Referring] - 3-5 Days Forms: Work/School Release Form(ED) Time of Disposition: 01:50
== END 2020-06-30 01:30 | disposition home or self-care (01) ==
LOC: ED 22:43
DX: F43.9 Reaction to severe stress, unspecified (principal); R07.9 Chest pain, unspecified; F41.1 Generalized anxiety disorder; F32.9 Major depressive disorder, single episode, unspecified; K21.9 Gastro-esophageal reflux disease without esophagitis; E11.9 Type 2 diabetes mellitus without complications; F17.200 Nicotine dependence, unspecified, uncomplicated; Z79.899 Other long term (current) drug therapy; Z90.710 Acquired absence of both cervix and uterus; Z88.0 Allergy status to penicillin; Z88.8 Allergy status to other drugs, medicaments and biological substances; Z98.890 Other specified postprocedural states; Z95.810 Presence of automatic (implantable) cardiac defibrillator
CPT/HCPCS: 36415; 71046; 80048; 84484; 85025; 93005

== ENCOUNTER 2020-07-04 17:11 | Emergency (ER) | payer MEDICARE ==
[2020-07-04 17:51] VITALS: BP 137/70
--- NOTE | 2020-07-04 17:53 | Emergency Department Report ---
Chief Complaint: Headache Stated Complaint: BLOOD SUGAR AND BP HIGH Time Seen by Provider: 07/04/20 17:24 - HPI History of Present Illness: Patient is a 54-year-old female presents emergency room with complaints of concerned that her blood pressure was elevated. She states that she was at a friend's house eating a meal. Patient states that she does not eat spicy food. She states that her friend had put something spicy in the food. She states that she ate it and then her mouth felt like it was on fire in her eyes and nose started running. She states then she felt like her "blood pressure was going up." She states that she did have a little mild headache. She does not report any vision changes, numbness, weakness, speech disturbance, gait disturbance. Past medical history of diabetes, hypertension, anxiety. She states that she does have a psychiatrist and a psychologist. she states that she has also had some discomfort in her right breast for a couple of days, no nipple discharge, she denies any lumps. mail handler: SHARRI Trejo, no obvious palpapble nodule, no nipple retraction, no peau d'orange, no skin changes, no ecchymosis, no erythema, no increased warmth, no induration or fluctuance, pt will be referred to her [facility] [facility] to have mammogram performed since she states it has been 2 years since she has had one Vitals are stable On exam: Nontoxic appearing, no acute distress Normal appearance of the eyes, PERRLA, EOMI Atraumatic, normocephalic Breath sounds are clear bilaterally, no wheezing, no rales, no rhonchi, no respiratory distress, no accessory muscle use, no stridor Regular rate and rhythm, no murmur, no gallop, no rub Alert and oriented x4, no focal neuro deficit, normal gait, cranial nerves II through XII intact Skin is warm dry intact Patient just had a full cardiac work-up in this emergency department a couple of days ago and has stable renal function Patient's blood pressure is stable in the emergency department Patient is not having any signs of hypertensive urgency or emergency Patient's blood glucose is 208 She has no neurological deficits on exam advised pt Please continue to take your medications as prescribed by your doctors. Please follow-up with your primary care doctor. Please follow-up with your [employer] for your routine mammogram. Please follow-up with your psychiatrist/psychologist. Return to emergency room for any new or worsening symptoms. Medical screening examination performed and there is no threat to life or limb at this time Discussed strict return precautions with patient - Exam Vital Signs: Vital Signs 07/04/20 17:12 Temperature 98.2 F Pulse Rate 106 H Respiratory 18 Rate Blood Pressure 158/70 O2 Sat by Pulse 100 Oximetry MSE screening note: Focused history and physical exam performed. ED Disposition for MSE Clinical Impression: Encounter for medical screening examination Disposition: MED SCREENING EXAM-LEFT Is pt being admited?: No Does the pt Need Aspirin: No Condition: Stable Instructions: Chronic Hypertension (ED) Additional Instructions: Please continue to take your medications as prescribed by your doctors. Please follow-up with your primary care doctor. Please follow-up with your [employer] for your routine mammogram. Please follow-up with your psychiatrist/psychologist. Return to emergency room for any new or worsening symptoms. 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
== END 2020-07-04 18:15 | disposition left against medical advice (07) ==
LOC: ED 17:11
DX: R51 Headache (principal); Z00.00 Encounter for general adult medical examination without abnormal findings; Z53.21 Procedure and treatment not carried out due to patient leaving prior to being seen by health care provider
CPT/HCPCS: 82962

== ENCOUNTER 2020-07-30 01:42 | Emergency (ER) | payer MEDICARE ==
--- NOTE | 2020-07-30 02:01 | Emergency Department Report ---
ED General Adult HPI - General Chief complaint: High BP Stated complaint: PANIC ATTACK/MH EVAL PUI?: No Time Seen by Provider: 07/30/20 01:54 Source: patient Mode of arrival: Ambulatory Limitations: No Limitations - History of Present Illness Initial comments: Patient is a 54-year-old female that presents emergency room with complaints of elevated blood pressure and a panic attack. Patient brought in by EMS. Patient states she has been having a lot of life stressors that caused her to have a panic attack and she noticed her blood pressure was up so she called EMS to bring her to the hospital. Patient states she took a Xanax just prior to EMS getting there and her panic attack has resolved. Patient states her blood pr essure was still elevated, so she came to the emergency room for evaluation. Patient denies chest pain shortness of breath. Patient denies headache. Patient denies visual changes. Patient denies dizziness. Patient denies lightheadedness. Patient states her blood pressure has been up lately due to being under so MUCH life stressors. Patient denies recent travel. Patient denies recent international travel. Patient denies exposure to the novel coronavirus. Patient denies sick contacts. Patient denies fever and chills. Patient denies cough. Patient denies diarrhea. Patient denies coming in contact with anybody with symptoms of the novel coronavirus. -: Sudden Consistency: constant Improves with: rest Worsens with: movement Associated Symptoms: denies: confusion, chest pain, cough, diaphoresis, fever/chills, headaches, loss of appetite, malaise, nausea/vomiting, rash, seizure, shortness of breath, syncope, weakness - Related Data Home Medications Medication Instructions Recorded Confirmed Last Taken Citalopram Hydrobromide [celeXA] 40 mg PO DAILY 10/09/13 02/23/20 11/28/15 cloNIDine HCL [Clonidine HCl] 0.2 mg PO BID 04/05/15 02/23/20 03/25/16 Insulin Detemir [Levemir VIAL] 25 unit SQ QHS 12/20/15 03/25/16 Unknown ALPRAZolam [Xanax TAB] 1 mg PO TID PRN 02/23/20 02/23/20 Unknown NIFEdipine [Adalat cc] 50 mg PO DAILY 02/23/20 02/23/20 Unknown Valsartan [Diovan] 160 mg PO DAILY 02/23/20 02/23/20 Unknown Previous Rx's Medication Instructions Recorded Last Taken Type Aspirin [Aspirin BABY CHEW TAB] 81 mg PO QDAY #30 tab.chew 06/30/19 Unknown Rx Insulin Glargine,Hum.rec.anlog 15 unit SQ QHS #3 insuln.pen 12/12/19 Unknown Rx [Lantus Solostar] predniSONE [Deltasone] 50 mg PO QDAY #5 tab 03/08/20 Unknown Rx Famotidine [Pepcid] 20 mg PO BID 4 Days #8 tablet 03/09/20 Unknown Rx Hydrocortisone 1% [Hydrocortisone 1 applicatio TP TID 7 Days #1 tube 03/09/20 Unknown Rx 1% CREAM] diphenhydrAMINE [Benadryl CAP] 25 mg PO Q6HR 4 Days #16 capsule 03/09/20 Unknown Rx Insulin Regular, Human [Humulin R] 10 unit IJ DAILY #1 vial 04/13/20 Unknown Rx Allergies Allergy/AdvReac Type Severity Reaction Status Date / Time amlodipine Allergy Intermediate Unknown Verified 04/17/19 16:35 amoxicillin Allergy Unknown Verified 04/17/19 16:35 insulin NPH human isophane Allergy Unknown Verified 04/17/19 16:35 [From Humulin N] insulin regular, human Allergy Unknown Verified 04/17/19 16:35 [From Humulin R] lisinopril Allergy Swelling Verified 04/17/19 16:35 losartan [Losartan] Allergy Unknown Verified 04/17/19 16:35 metformin Allergy Rash Verified 04/17/19 16:35 potassium Allergy Unknown Verified 04/17/19 16:36 Jxrnwel-Mal-Cad Reductase Allergy Unknown Verified 04/17/19 16:36 Inhibitor valsartan Allergy Swelling Verified 03/08/20 00:58 nifedipine AdvReac Mild Unknown Verified 08/16/19 20:35 ED Review of Systems ROS: Stated complaint: PANIC ATTACK/MH EVAL Other details as noted in HPI Constitutional: denies: chills, fever Eyes: denies: eye pain, eye discharge, vision change ENT: denies: ear pain, throat pain Respiratory: denies: cough, shortness of breath, wheezing Cardiovascular: denies: chest pain, palpitations Endocrine: no symptoms reported Gastrointestinal: denies: abdominal pain, nausea, diarrhea Genitourinary: denies: urgency, dysuria, discharge Musculoskeletal: denies: back pain, joint swelling, arthralgia Skin: denies: rash, lesions Neurological: denies: headache, weakness, paresthesias Psychiatric: anxiety. denies: depression, auditory hallucinations, visual hallucinations, homicidal thoughts, suicidal thoughts Hematological/Lymphatic: denies: easy bleeding, easy bruising ED Past Medical Hx - Past Medical History Previous Medical History?: Yes Hx Hypertension: Yes Hx CVA: No Hx Heart Attack/AMI: No Hx Congestive Heart Failure: No Hx Diabetes: Yes Hx Deep Vein Thrombosis: No Hx Pulmonary Embolism: No Hx GERD: No Hx Liver Disease: No Hx Renal Disease: No Hx Sickle Cell Disease: No Hx Arthritis: No Hx Headaches / Migraines: No Hx Seizures: No Hx Kidney Stones: No Hx Psychiatric Treatment: Yes (depression, anxiety, panic attacks) Hx Asthma: No Hx COPD: No Hx Tuberculosis: No Hx Dementia: No Hx HIV: No Additional medical history: fibroids, Mold exposure - Surgical History Hx Coronary Stent: No Hx Pacemaker: No Hx Internal Defibrillator: Yes Hx Breast Surgery: Yes (BREAST REDUCTION) Additional Surgical History: breast reduction 1999, x2, hysterectomy, fibroids removal - Social History Smoking Status: Never Smoker Substance Use Type: None - Medications Home Medications: Home Medications Medication Instructions Recorded Confirmed Last Taken Type Citalopram Hydrobromide [celeXA] 40 mg PO DAILY 10/09/13 02/23/20 11/28/15 History cloNIDine HCL [Clonidine HCl] 0.2 mg PO BID 04/05/15 02/23/20 03/25/16 History Insulin Detemir [Levemir VIAL] 25 unit SQ QHS 12/20/15 03/25/16 Unknown History Aspirin [Aspirin BABY CHEW TAB] 81 mg PO QDAY #30 tab.chew 06/30/19 02/23/20 Unknown Rx Insulin Glargine,Hum.rec.anlog 15 unit SQ QHS #3 insuln.pen 12/12/19 02/23/20 Unknown Rx [Lantus Solostar] ALPRAZolam [Xanax TAB] 1 mg PO TID PRN 02/23/20 02/23/20 Unknown History NIFEdipine [Adalat cc] 50 mg PO DAILY 02/23/20 02/23/20 Unknown History Valsartan [Diovan] 160 mg PO DAILY 02/23/20 02/23/20 Unknown History predniSONE [Deltasone] 50 mg PO QDAY #5 tab 03/08/20 Unknown Rx Famotidine [Pepcid] 20 mg PO BID 4 Days #8 tablet 03/09/20 Unknown Rx Hydrocortisone 1% [Hydrocortisone 1 applicatio TP TID 7 Days #1 tube 03/09/20 Unknown Rx 1% CREAM] diphenhydrAMINE [Benadryl CAP] 25 mg PO Q6HR 4 Days #16 capsule 03/09/20 Unknown Rx Insulin Regular, Human [Humulin R] 10 unit IJ DAILY #1 vial 04/13/20 Unknown Rx ED Physical Exam - General Limitations: No Limitations General appearance: alert, in no apparent distress - Head Head exam: Present: atraumatic, normocephalic - Eye Eye exam: Present: normal appearance - ENT ENT exam: Present: mucous membranes moist - Neck Neck exam: Present: normal inspection - Respiratory Respiratory exam: Present: normal lung sounds bilaterally. Absent: respiratory distress - Cardiovascular Cardiovascular Exam: Present: regular rate, normal rhythm. Absent: systolic murmur, diastolic murmur, rubs, gallop - GI/Abdominal GI/Abdominal exam: Present: soft, normal bowel sounds - Extremities Exam Extremities exam: Present: normal inspection - Back Exam Back exam: Present: normal inspection - Neurological Exam Neurological exam: Present: alert, oriented X3 - Psychiatric Psychiatric exam: Present: normal affect, normal mood. Absent: anxious, flat affect, manic, homicidal ideation, suicidal ideation - Skin Skin exam: Present: warm, dry, intact, normal color. Absent: rash ED Course Vital Signs 07/30/20 07/30/20 07/30/20 01:53 02:01 02:15 Temperature 97.7 F Pulse Rate 102 H 91 H Respiratory 18 15 Rate Blood Pressure 176/75 146/67 146/67 O2 Sat by Pulse 95 99 100 Oximetry 07/30/20 07/30/20 02:31 02:45 Temperature Pulse Rate 89 89 Respiratory 12 13 Rate Blood Pressure 150/30 160/80 O2 Sat by Pulse 100 99 Oximetry - Reevaluation(s) Reevaluation #1: Patient states she is feeling much better. Patient denies anxiety. Patient denies panic attack. Patient's blood pressure improved. Patient's blood pressure monitored. I discussed all results and clinical findings with patient. I discussed plan of care with patient. Patient agrees with plan of care. Patient is stable for discharge. Patient will be discharged home. Patient given discharge instructions. Patient voiced understanding of discharge instructions. 07/30/20 02:54 ED Medical Decision Making - Lab Data Result diagrams: 07/30/20 02:04 07/30/20 02:04 - Medical Decision Making Patient is a 54-year-old female that presents emergency with complaints of a panic attack, stress reaction, anxiety and elevated blood pressure. Patient brought in by EMS. Patient took a Xanax prior to EMS arriving at her home. Patient decided to come in and have her blood pressure checked and evaluated. Patient states her panic attack has improved. Patient states she is been under a lot of stress lately. Patient blood pressure improved with time on its own. Patient stable for discharge. Patient had labs done which were essentially unremarkable except for elevated blood sugar. Patient instructed to follow-up with her primary care for management of her diabetes and blood pressure. Patient discharged home. Patient stable for discharge. - Differential Diagnosis Panic attack, elevated blood pressure, hypertension, anxiety, stress Critical care attestation.: If time is entered above; I have spent that time in minutes in the direct care of this critically ill patient, excluding procedure time. ED Disposition Clinical Impression: Hyperglycemia, Panic attack Hypertension Qualifiers: Hypertension type: essential hypertension Qualified Code(s): I10 - Essential (primary) hypertension Disposition: DC-01 TO HOME OR SELFCARE Is pt being admited?: No Does the pt Need Aspirin: No Condition: Stable Instructions: Heart Healthy Diet (ED), Stress (ED), How to Take a Blood Pressure (ED), Panic Disorder (ED), DASH Eating Plan (ED), Low Sodium Diet (ED) , Hypertension (ED), Anxiety (ED) Additional Instructions: Patient to follow-up with primary care in 2 to 3 days. Patient to rest. Patient to increase water. Patient to monitor blood pressure at home. Patient to keep a blood pressure log and take blood pressure log to follow-up appointments. Patient to eat a low-salt heart healthy diet.. Patient to take Tylenol or ibuprofen as needed for pain. Patient to continue blood pressure medications. Patient to continue all medications. Patient to eat a diabetic diet.. Patient to return to the ER if condition worsens, changes or new symptoms arise. [facility] [Primary Care Provider] - 2-3 Days Time of Disposition: 03:00
[2020-07-30 02:32] LABS: Alanine Aminotransferase 15 units/L (7-56); Albumin 3.7 g/dL (3.9-5); BUN/Creatinine Ratio 29; Blood Urea Nitrogen 32 mg/dL (7-17); Calcium 8.9 mg/dL (8.4-10.2); Hematocrit 36.8 % (30.3-42.9); Hemoglobin 12.1 gm/dl (10.1-14.3); Hemolysis Index 5; Mean Corpuscular HGB Conc 33 % (30-34); Mean Corpuscular Volume 85 fl (79-97); Platelet Count 195 K/mm3 (140-440); Red Blood Count 4.33 M/mm3 (3.65-5.03); Red Cell Distribution Width 14.4 % (13.2-15.2)
[2020-07-30 02:56] VITALS: BP 160/80
== END 2020-07-30 02:00 | disposition home or self-care (01) ==
LOC: ED 01:42
DX: F41.0 Panic disorder [episodic paroxysmal anxiety] (principal); E11.65 Type 2 diabetes mellitus with hyperglycemia; I10 Essential (primary) hypertension; F32.9 Major depressive disorder, single episode, unspecified; Z98.890 Other specified postprocedural states; Z90.710 Acquired absence of both cervix and uterus; Z79.4 Long term (current) use of insulin; Z79.899 Other long term (current) drug therapy; Z88.1 Allergy status to other antibiotic agents; Z88.8 Allergy status to other drugs, medicaments and biological substances
CPT/HCPCS: 36415; 80053; 85027

== ENCOUNTER 2020-08-13 11:41 | Emergency (ER) | payer MEDICARE ==
[2020-08-13 12:45] VITALS: BP 156/71
--- NOTE | 2020-08-13 13:49 | XRay Report ---
LEFT TIBIA AND FIBULA 2 VIEWS INDICATION: LEG INJURY. COMPARISON: None. IMPRESSION: No acute osseous or soft tissue abnormality. No significant DJD. Signer Name: Alcon Solorio Jr, MD Signed: 08/13/2020 1:45 PM Workstation Name: [id number]
--- NOTE | 2020-08-13 14:19 | Emergency Department Report ---
ED Lower Extremity HPI - General Chief Complaint: Extremity Injury, Lower Stated Complaint: BP HIGH LT SIDE PAIN Time Seen by Provider: 08/13/20 14:08 Source: patient Mode of arrival: Ambulatory Limitations: No Limitations - History of Present Illness Initial Comments: 54-year-old -[place] female presents to the emergency room for left leg pain that started about 3 days ago. Patient denies any initial injury. She reports that she has a past medical history of, diabetes, hypertension depression anxiety panic attacks fibroids and mold exposure. Patient admits that she is gone through quite a bit in the last few months of trying to move out from a home that was infected by moment. Patient also felt that her blood pressure was elevated and called EMS last night. She stated that her blood pressure was in the 180s over 80 and heart rate went up to 126 she reports that she was having a panic attack. Patient comes in today with a blood pressure of 156/71 heart rate 70. Patient is requesting a referral for a new primary care provider and a die maker. MD Complaint: leg injury Onset/Timin -: days(s) (Left leg), Last night (Elevated blood pressure elevated heart rate) Injury: Leg: Left Type of Injury: unknown Severity scale (0 -10): 0 Improves With: nothing Worsens With: nothing - Related Data Home Medications Medication Instructions Recorded Confirmed Last Taken Citalopram Hydrobromide [celeXA] 40 mg PO DAILY 10/09/13 02/23/20 11/28/15 cloNIDine HCL [Clonidine HCl] 0.2 mg PO BID 04/05/15 02/23/20 03/25/16 Insulin Detemir [Levemir VIAL] 25 unit SQ QHS 12/20/15 03/25/16 Unknown ALPRAZolam [Xanax TAB] 1 mg PO TID PRN 02/23/20 02/23/20 Unknown NIFEdipine [Adalat cc] 50 mg PO DAILY 02/23/20 02/23/20 Unknown Valsartan [Diovan] 160 mg PO DAILY 02/23/20 02/23/20 Unknown Previous Rx's Medication Instructions Recorded Last Taken Type Aspirin [Aspirin BABY CHEW TAB] 81 mg PO QDAY #30 tab.chew 06/30/19 Unknown Rx Insulin Glargine,Hum.rec.anlog 15 unit SQ QHS #3 insuln.pen 12/12/19 Unknown Rx [Lantus Solostar] predniSONE [Deltasone] 50 mg PO QDAY #5 tab 03/08/20 Unknown Rx Famotidine [Pepcid] 20 mg PO BID 4 Days #8 tablet 03/09/20 Unknown Rx Hydrocortisone 1% [Hydrocortisone 1 applicatio TP TID 7 Days #1 tube 03/09/20 Unknown Rx 1% CREAM] diphenhydrAMINE [Benadryl CAP] 25 mg PO Q6HR 4 Days #16 capsule 03/09/20 Unknown Rx Insulin Regular, Human [Humulin R] 10 unit IJ DAILY #1 vial 04/13/20 Unknown Rx Allergies Allergy/AdvReac Type Severity Reaction Status Date / Time amlodipine Allergy Intermediate Unknown Verified 04/17/19 16:35 amoxicillin Allergy Unknown Verified 04/17/19 16:35 insulin NPH human isophane Allergy Unknown Verified 04/17/19 16:35 [From Humulin N] insulin regular, human Allergy Unknown Verified 04/17/19 16:35 [From Humulin R] lisinopril Allergy Swelling Verified 04/17/19 16:35 losartan [Losartan] Allergy Unknown Verified 04/17/19 16:35 metformin Allergy Rash Verified 04/17/19 16:35 potassium Allergy Unknown Verified 04/17/19 16:36 Upetsix-Qcc-Axd Reductase Allergy Unknown Verified 04/17/19 16:36 Inhibitor valsartan Allergy Swelling Verified 03/08/20 00:58 nifedipine AdvReac Mild Unknown Verified 08/16/19 20:35 ED Review of Systems ROS: Stated complaint: BP HIGH LT SIDE PAIN Other details as noted in HPI Comment: All other systems reviewed and negative ED Past Medical Hx - Past Medical History Previous Medical History?: Yes Hx Hypertension: Yes Hx CVA: No Hx Heart Attack/AMI: No Hx Congestive Heart Failure: No Hx Diabetes: Yes Hx Deep Vein Thrombosis: No Hx Pulmonary Embolism: No Hx GERD: No Hx Liver Disease: No Hx Renal Disease: No Hx Sickle Cell Disease: No Hx Arthritis: No Hx Headaches / Migraines: No Hx Seizures: No Hx Kidney Stones: No Hx Psychiatric Treatment: Yes (depression, anxiety, panic attacks) Hx Asthma: No Hx COPD: No Hx Tuberculosis: No Hx Dementia: No Hx HIV: No Additional medical history: fibroids, Mold exposure - Surgical History Past Surgical History?: Yes Hx Coronary Stent: No Hx Pacemaker: No Hx Internal Defibrillator: Yes Hx Breast Surgery: Yes (BREAST REDUCTION) Additional Surgical History: breast reduction 1999, x2, hysterectomy, fibroids removal - Social History Smoking Status: Never Smoker Substance Use Type: None - Medications Home Medications: Home Medications Medication Instructions Recorded Confirmed Last Taken Type Citalopram Hydrobromide [celeXA] 40 mg PO DAILY 10/09/13 02/23/20 11/28/15 History cloNIDine HCL [Clonidine HCl] 0.2 mg PO BID 04/05/15 02/23/20 03/25/16 History Insulin Detemir [Levemir VIAL] 25 unit SQ QHS 12/20/15 03/25/16 Unknown History Aspirin [Aspirin BABY CHEW TAB] 81 mg PO QDAY #30 tab.chew 06/30/19 02/23/20 Unknown Rx Insulin Glargine,Hum.rec.anlog 15 unit SQ QHS #3 insuln.pen 12/12/19 02/23/20 Unknown Rx [Lantus Solostar] ALPRAZolam [Xanax TAB] 1 mg PO TID PRN 02/23/20 02/23/20 Unknown History NIFEdipine [Adalat cc] 50 mg PO DAILY 02/23/20 02/23/20 Unknown History Valsartan [Diovan] 160 mg PO DAILY 02/23/20 02/23/20 Unknown History predniSONE [Deltasone] 50 mg PO QDAY #5 tab 03/08/20 Unknown Rx Famotidine [Pepcid] 20 mg PO BID 4 Days #8 tablet 03/09/20 Unknown Rx Hydrocortisone 1% [Hydrocortisone 1 applicatio TP TID 7 Days #1 tube 03/09/20 Unknown Rx 1% CREAM] diphenhydrAMINE [Benadryl CAP] 25 mg PO Q6HR 4 Days #16 capsule 03/09/20 Unknown Rx Insulin Regular, Human [Humulin R] 10 unit IJ DAILY #1 vial 04/13/20 Unknown Rx ED Physical Exam - General Limitations: No Limitations General appearance: alert, in no apparent distress - Head Head exam: Present: atraumatic, normocephalic - Eye Eye exam: Present: normal appearance - ENT ENT exam: Present: mucous membranes moist - Neck Neck exam: Present: normal inspection, full ROM - Respiratory Respiratory exam: Present: normal lung sounds bilaterally. Absent: respiratory distress - Cardiovascular Cardiovascular Exam: Present: regular rate, normal rhythm. Absent: systolic murmur, diastolic murmur, rubs, gallop - GI/Abdominal GI/Abdominal exam: Present: soft, normal bowel sounds - Expanded Lower Extremity Exam Left Hip exam: Present: normal inspection, full ROM Upper Leg exam: Present: normal inspection, full ROM Knee exam: Present: normal inspection, full ROM Lower Leg exam: Present: normal inspection, full ROM Ankle exam: Present: normal inspection, full ROM Foot/Toe exam: Present: normal inspection, full ROM Neuro vascular tendon exam: Present: no vascular compromise - Back Exam Back exam: Present: normal inspection - Neurological Exam Neurological exam: Present: alert, oriented X3 - Psychiatric Psychiatric exam: Present: normal affect, normal mood - Skin Skin exam: Present: warm, dry, intact, normal color. Absent: rash ED Course Vital Signs 08/13/20 12:44 Temperature 98.3 F Pulse Rate 70 Respiratory 17 Rate Blood Pressure 156/71 [Left] O2 Sat by Pulse 99 Oximetry ED Lower Extremity MDM - Radiology Data Radiology results: report reviewed Patient: JALEESA LARRY MR#: [id number] 0 : 1965 Acct:[id number] Age/Sex: 54 / F ADM Date: 08/13/20 Loc: ED Attending Dr: Ordering Physician: DENA LAM MD Date of Service: 08/13/20 Procedure(s): XR tibia fibula 2V LT Accession Number(s): [id number] cc: ED MD GENARO Fluoro Time In Minutes: LEFT TIBIA AND FIBULA 2 VIEWS INDICATION: LEG INJURY. COMPARISON: None. IMPRESSION: No acute osseous or soft tissue abnormality. No significant DJD. Signer Name: Alcon Solorio Jr, MD Signed: 08/13/2020 1:45 PM Workstation Name: [id number] Transcribed By: TTR Dictated By: ALCON SOLORIO JR, MD Electronically Authenticated By: ALCON SOLORIO JR, MD Signed Date/Time: 08/13/20 1345 DD/ 1344 TD/TT: - Medical Decision Making 54-year-old -[place] female presents to the emergency room for left leg pain that started about 3 days ago. Patient denies any initial injury. She reports that she has a past medical history of, diabetes, hypertension depression anxiety panic attacks fibroids and mold exposure. Patient admits that she is gone through quite a bit in the last few months of trying to move o ut from a home that was infected by moment. Patient also felt that her blood pressure was elevated and called EMS last night. She stated that her blood pressure was in the 180s over 80 and heart rate went up to 126 she reports that she was having a panic attack. Patient comes in today with a blood pressure of 156/71 heart rate 70. Patient is requesting a referral for a new primary care provider and a die maker. X-ray was negative for any acute abnormalities. Physical examination was within normal limits. Discussed with patient I will refer her to her primary care provider Dr. Daniel Seymour a die maker Critical care attestation.: If time is entered above; I have spent that time in minutes in the direct care of this critically ill patient, excluding procedure time. ED Disposition Clinical Impression: Left leg pain, Worried well Disposition: DC-01 TO HOME OR SELFCARE Is pt being admited?: No Does the pt Need Aspirin: No Condition: Stable Additional Instructions: Please follow-up with Dr. Daniel Seymour and Shen. I have listed their information below. Please be sure to check your blood sugars before you take your insulin. Follow-up with your mental health provider. Referrals: LATOYA STEIN MD [Staff Physician] - 3-5 Days AAKASH ESPINOSA MD [Staff Physician] - 3-5 Days
== END 2020-08-13 15:00 | disposition home or self-care (01) ==
LOC: ED 11:41
DX: M79.605 Pain in left leg (principal); I10 Essential (primary) hypertension; E11.9 Type 2 diabetes mellitus without complications; F32.89 Other specified depressive episodes; F41.9 Anxiety disorder, unspecified; Z90.710 Acquired absence of both cervix and uterus; Z98.890 Other specified postprocedural states; Z88.1 Allergy status to other antibiotic agents; Z71.1 Person with feared health complaint in whom no diagnosis is made; Z88.6 Allergy status to analgesic agent; Z79.899 Other long term (current) drug therapy; Z79.4 Long term (current) use of insulin
CPT/HCPCS: 99283

== ENCOUNTER 2020-09-08 20:26 | Emergency (ER) | payer MEDICARE ==
--- NOTE | 2020-09-08 21:15 | Event Note ---
ED Screening Note ED Screening Note: palpitations headache that began tonight no CP takes humulin and believes she is having "a reaction" no n/v/d no fever This initial assessment/diagnostic orders/clinical plan/treatment(s) is/are subject to change based on patients health status, clinical progression and re- assessment by fellow clinical providers in the ED. Further treatment and workup at subsequent clinical providers discretion. Patient/guardian urged not to elope from the ED as their condition may be serious if not clinically assessed and managed. Initial orders include: labs, EKG
[2020-09-08 22:24] LABS: Basophils % (Auto) 0.4 % (0.0-1.8); Eosinophils # (Auto) 0.3 K/mm3 (0.0-0.4); Eosinophils % (Auto) 2.8 % (0.0-4.3); Hematocrit 37.1 % (30.3-42.9); Lymphocytes % (Auto) 32.9 % (13.4-35.0); Mean Corpuscular HGB Conc 32 % (30-34); Mean Corpuscular Volume 85 fl (79-97); Monocytes # (Auto) 0.8 K/mm3 (0.0-0.8); Monocytes % (Auto) 9.1 % (0.0-7.3); Platelet Count 218 K/mm3 (140-440); Red Blood Count 4.39 M/mm3 (3.65-5.03); Red Cell Distribution Width 14.3 % (13.2-15.2)
[2020-09-08 22:25] LABS: Alanine Aminotransferase 17 units/L (7-56); Albumin 3.7 g/dL (3.9-5); BUN/Creatinine Ratio 23; Blood Urea Nitrogen 30 mg/dL (7-17); Calcium 9.4 mg/dL (8.4-10.2); Hemolysis Index 23
[2020-09-08 22:47] LABS: Bacteria,Urine 1+ /HPF (Negative); Bilirubin,Urine NEG (Negative); Blood,Urine SM (Negative); Color,Urine Straw (Yellow); Mucus,Urine FEW /HPF; RBC,Urine < 1.0 /HPF (0.0-6.0); Urobilinogen,Urine < 2.0 mg/dL (<2.0)
--- NOTE | 2020-09-08 23:50 | Emergency Department Report ---
ED General Adult HPI - General Chief complaint: Hyperglycemia Stated complaint: ANXIETY, HYPERGLYCEMIA PUI?: No Time Seen by Provider: 09/08/20 23:30 Source: EMS Mode of arrival: Ambulatory Limitations: No Limitations - History of Present Illness Initial comments: Patient is a 54-year-old female that presents emergency room with complaints of anxiety, elevated blood sugar, hot flashes and palpitations. Patient denies chest pain or shortness of breath. Patient states her symptoms started 3 days ago. Patient dates her symptoms are worsening. Patient states that she believes that her insulin, Humulin R is causing the symptoms. Patient states she is also menopausal. Patient states that her anxiety is increasing. Patient states that she is under a lot of stress. Patient denies suicidal homicidal ideations. Patient denies hallucinations. Patient denies fever and chills. Patient denies abdominal pain. Patient states that her palpitations hot flashes are worse with exertion and better with rest. Patient states that her anxiety is better with meditation. Patient states her blood sugar is fluctuating. Patient denies recent travel. Patient denies recent international travel. Patient denies exposure to the novel coronavirus. Patient denies sick contacts. Patient denies fever and chills. Patient denies cough. Patient denies diarrhea. Patient denies coming in contact with anybody with symptoms of the novel coronavirus. -: Sudden Severity scale (0 -10): 0 Consistency: constant Improves with: rest Worsens with: movement Associated Symptoms: denies: confusion, chest pain, cough, diaphoresis, fever/chills, headaches, loss of appetite, malaise, nausea/vomiting, rash, seizure, shortness of breath, syncope, weakness Treatments Prior to Arrival: none - Related Data Home Medications Medication Instructions Recorded Confirmed Last Taken Citalopram Hydrobromide [celeXA] 40 mg PO DAILY 10/09/13 02/23/20 11/28/15 cloNIDine HCL [Clonidine HCl] 0.2 mg PO BID 04/05/15 02/23/20 03/25/16 Insulin Detemir [Levemir VIAL] 25 unit SQ QHS 12/20/15 03/25/16 Unknown ALPRAZolam [Xanax TAB] 1 mg PO TID PRN 02/23/20 02/23/20 Unknown NIFEdipine [Adalat cc] 50 mg PO DAILY 02/23/20 02/23/20 Unknown Valsartan [Diovan] 160 mg PO DAILY 02/23/20 02/23/20 Unknown Previous Rx's Medication Instructions Recorded Last Taken Type Aspirin [Aspirin BABY CHEW TAB] 81 mg PO QDAY #30 tab.chew 06/30/19 Unknown Rx Insulin Glargine,Hum.rec.anlog 15 unit SQ QHS #3 insuln.pen 12/12/19 Unknown Rx [Lantus Solostar] predniSONE [Deltasone] 50 mg PO QDAY #5 tab 03/08/20 Unknown Rx Famotidine [Pepcid] 20 mg PO BID 4 Days #8 tablet 03/09/20 Unknown Rx Hydrocortisone 1% [Hydrocortisone 1 applicatio TP TID 7 Days #1 tube 03/09/20 Unknown Rx 1% CREAM] diphenhydrAMINE [Benadryl CAP] 25 mg PO Q6HR 4 Days #16 capsule 03/09/20 Unknown Rx Insulin Regular, Human [Humulin R] 10 unit IJ DAILY #1 vial 04/13/20 Unknown Rx Allergies Allergy/AdvReac Type Severity Reaction Status Date / Time amlodipine Allergy Intermediate Unknown Verified 04/17/19 16:35 amoxicillin Allergy Unknown Verified 04/17/19 16:35 insulin NPH human isophane Allergy Unknown Verified 04/17/19 16:35 [From Humulin N] insulin regular, human Allergy Unknown Verified 04/17/19 16:35 [From Humulin R] lisinopril Allergy Swelling Verified 04/17/19 16:35 losartan [Losartan] Allergy Unknown Verified 04/17/19 16:35 metformin Allergy Rash Verified 04/17/19 16:35 potassium Allergy Unknown Verified 04/17/19 16:36 Wxhhohw-Zbx-Ouw Reductase Allergy Unknown Verified 04/17/19 16:36 Inhibitor valsartan Allergy Swelling Verified 03/08/20 00:58 nifedipine AdvReac Mild Unknown Verified 08/16/19 20:35 ED Review of Systems ROS: Stated complaint: ANXIETY, HYPERGLYCEMIA Other details as noted in HPI Constitutional: denies: chills, fever Eyes: denies: eye pain, eye discharge, vision change ENT: denies: ear pain, throat pain Respiratory: denies: cough, shortness of breath, wheezing Cardiovascular: palpitations. denies: chest pain Endocrine: no symptoms reported Gastrointestinal: denies: abdominal pain, nausea, diarrhea Genitourinary: denies: urgency, dysuria, discharge Musculoskeletal: denies: back pain, joint swelling, arthralgia Skin: denies: rash, lesions Neurological: denies: headache, weakness, paresthesias Psychiatric: anxiety, depression Hematological/Lymphatic: denies: easy bleeding, easy bruising ED Past Medical Hx - Past Medical History Previous Medical History?: Yes Hx Hypertension: Yes Hx CVA: No Hx Heart Attack/AMI: No Hx Congestive Heart Failure: No Hx Diabetes: Yes Hx Deep Vein Thrombosis: No Hx Pulmonary Embolism: No Hx GERD: No Hx Liver Disease: No Hx Renal Disease: No Hx Sickle Cell Disease: No Hx Arthritis: No Hx Headaches / Migraines: No Hx Seizures: No Hx Kidney Stones: No Hx Psychiatric Treatment: Yes (depression, anxiety, panic attacks) Hx Asthma: No Hx COPD: No Hx Tuberculosis: No Hx Dementia: No Hx HIV: No Additional medical history: fibroids, Mold exposure - Surgical History Past Surgical History?: Yes Hx Coronary Stent: No Hx Pacemaker: No Hx Internal Defibrillator: Yes Hx Breast Surgery: Yes (BREAST REDUCTION) Additional Surgical History: breast reduction 1999, x2, hysterectomy, fibroids removal - Family History Family history: no significant - Social History Smoking Status: Never Smoker Substance Use Type: None - Medications Home Medications: Home Medications Medication Instructions Recorded Confirmed Last Taken Type Citalopram Hydrobromide [celeXA] 40 mg PO DAILY 10/09/13 02/23/20 11/28/15 History cloNIDine HCL [Clonidine HCl] 0.2 mg PO BID 04/05/15 02/23/20 03/25/16 History Insulin Detemir [Levemir VIAL] 25 unit SQ QHS 12/20/15 03/25/16 Unknown History Aspirin [Aspirin BABY CHEW TAB] 81 mg PO QDAY #30 tab.chew 06/30/19 02/23/20 Unknown Rx Insulin Glargine,Hum.rec.anlog 15 unit SQ QHS #3 insuln.pen 12/12/19 02/23/20 Unknown Rx [Lantus Solostar] ALPRAZolam [Xanax TAB] 1 mg PO TID PRN 02/23/20 02/23/20 Unknown History NIFEdipine [Adalat cc] 50 mg PO DAILY 02/23/20 02/23/20 Unknown History Valsartan [Diovan] 160 mg PO DAILY 02/23/20 02/23/20 Unknown History predniSONE [Deltasone] 50 mg PO QDAY #5 tab 03/08/20 Unknown Rx Famotidine [Pepcid] 20 mg PO BID 4 Days #8 tablet 03/09/20 Unknown Rx Hydrocortisone 1% [Hydrocortisone 1 applicatio TP TID 7 Days #1 tube 03/09/20 Unknown Rx 1% CREAM] diphenhydrAMINE [Benadryl CAP] 25 mg PO Q6HR 4 Days #16 capsule 03/09/20 Unknown Rx Insulin Regular, Human [Humulin R] 10 unit IJ DAILY #1 vial 04/13/20 Unknown Rx ED Physical Exam - General Limitations: No Limitations General appearance: alert, in no apparent distress - Head Head exam: Present: atraumatic, normocephalic - Eye Eye exam: Present: normal appearance - ENT ENT exam: Present: mucous membranes moist - Neck Neck exam: Present: normal inspection - Respiratory Respiratory exam: Present: normal lung sounds bilaterally. Absent: respiratory distress, wheezes, rales, rhonchi, chest wall tenderness, accessory muscle use, decreased breath sounds - Cardiovascular Cardiovascular Exam: Present: regular rate, normal rhythm. Absent: systolic murmur, diastolic murmur, rubs, gallop - GI/Abdominal GI/Abdominal exam: Present: soft, normal bowel sounds. Absent: distended, tenderness, guarding - Extremities Exam Extremities exam: Present: normal inspection - Back Exam Back exam: Present: normal inspection - Neurological Exam Neurological exam: Present: alert, oriented X3 - Psychiatric Psychiatric exam: Present: anxious - Skin Skin exam: Present: warm, dry, intact, normal color. Absent: rash ED Course Vital Signs 09/08/20 09/08/20 20:50 20:51 Temperature 98.2 F Pulse Rate 91 H 89 Respiratory 18 Rate Blood Pressure 184/76 O2 Sat by Pulse 100 100 Oximetry - Reevaluation(s) Reevaluation #1: I discussed all results and clinical findings with patient. I discussed plan of care with patient. Patient agrees with plan of care. Patient is stable for discharge. Patient will be discharged home. Patient given discharge instructions. Patient voiced understanding of discharge instructions. 09/08/20 23:52 ED Medical Decision Making - Lab Data Result diagrams: 09/08/20 21:18 09/08/20 21:18 - EKG Data -: EKG Interpreted by Me EKG shows normal: sinus rhythm, axis, intervals, QRS complexes, ST-T waves Rate: normal - Medical Decision Making Patient is a 54-year-old female that presents emergency room for multiple symptoms to include palpitation, hot flashes, anxiety, elevated blood sugar. Patient had labs done and multiple blood sugar checks while in ER. Patient's final blood sugar was 128. Patient had labs done and were unremarkable except for dehydration, elevated BUN and hyperglycemia. Patient's EKG was negative for acute finding and no STEMI. Patient was found to have a normal sinus rhythm. Patient on the cardiac cath lab radiology technologist had a stable vital signs. Patient clinical findings are consistent with anxiety and menopausal symptoms. Patient discharged home. Patient has an appointment tomorrow with her primary care. Patient advised to keep her follow-up point with her primary care. Patient giv en discharge instructions. - Differential Diagnosis Palpitations, hot flashes, menopause symptoms, med side effect, anxiety Critical care attestation.: If time is entered above; I have spent that time in minutes in the direct care of this critically ill patient, excluding procedure time. ED Disposition Clinical Impression: Palpitations, Anxiety, Hot flashes, Hyperglycemia, Menopausal symptoms, Renal insufficiency Disposition: DC-01 TO HOME OR SELFCARE Is pt being admited?: No Does the pt Need Aspirin: No Condition: Stable Instructions: Palpitations, Supporting Someone With Anxiety, Managing Anxiety, Adult, Preventing Chronic Kidney Disease, Palpitations, [id number], Hyperglycemia Additional Instructions: Patient to follow-up with primary care in 2 to 3 days. Patient to follow-up with database marketing specialist in 2 to 3 days. Patient to follow-up with an spring tacker in 2 to 3 days. Patient to rest. Patient to increase water. Patient to avoid strenuous exercise or heavy lifting until cleared by database marketing specialist. Patient to eat a diabetic and a low-salt, heart healthy diet. Patient to monitor blood pressure and blood sugars at home. Patient to keep a blood sugar and blood pressure log. Patient to take blood sugar and blood pressure log to all follow- up appointments. Patient to take Tylenol as needed for pain. Patient to continue all medications. Patient to return to the ER if condition worsens, changes or new symptoms arise. Referrals: ARUN ANTHONY MD [Staff Physician] - 2-3 Days Time of Disposition: 23:58
[2020-09-09 00:01] VITALS: BP 163/77
== END 2020-09-09 | disposition home or self-care (01) ==
LOC: ED 20:26
DX: E11.65 Type 2 diabetes mellitus with hyperglycemia (principal); N28.9 Disorder of kidney and ureter, unspecified; N95.1 Menopausal and female climacteric states; F41.9 Anxiety disorder, unspecified; R00.2 Palpitations; I10 Essential (primary) hypertension; F32.9 Major depressive disorder, single episode, unspecified; Z90.710 Acquired absence of both cervix and uterus; Z98.890 Other specified postprocedural states; Z79.4 Long term (current) use of insulin; Z79.899 Other long term (current) drug therapy; Z88.1 Allergy status to other antibiotic agents; Z88.8 Allergy status to other drugs, medicaments and biological substances
CPT/HCPCS: 36415; 80053; 81001; 82550; 82962; 83735; 84443; 85025; 93005

== ENCOUNTER 2020-10-13 11:54 | Emergency (ER) | payer MEDICARE ==
[2020-10-13 12:07] VITALS: BP 147/78
--- NOTE | 2020-10-13 13:12 | Emergency Department Report ---
Chief Complaint: High BP Stated Complaint: MOLD EXPOSURE, BLOOD PRESSURE, WEAK Time Seen by Provider: 10/13/20 13:03 - HPI History of Present Illness: Patient is a 55-year-old female presents emergency room for a blood pressure check and a blood sugar check. She states that she was exposed to mold in her apartment [facility] 4 months ago. She states she is currently seeing a primary care doctor for this complaint and reports she was having "tests run, She states that she has an appointment with a brand marketing specialist today at 3 PM. She states that last night she when she took her blood pressure it was elevated but she is not sure of the number. She states that she takes nifedipine and clonidine for her blood pressure. She denies any chest pain, shortness of breath, headache, vision changes, numbness, unilateral weakness, fever, n/v/d, dizziness. Vitals are stable Blood pressure is stable non fasting Accu-Chek is 203 On exam: Non toxic appearing, no acute distress atraumatic, normocephalic normal appearance of the eyes, PERRL, EOMI, no periorbital edema or ecchymosis moist mucus membranes regular heart rate and rhythm, no gallops, no rubs, no murmurs breath sounds are clear bilaterally, no w/r/r, no stridor, no respiratory distress, no accessory muscle use A&O x4, no focal neuro deficit, normal gait, 5 out of 5 muscle strength in the bilateral upper extremities and lower extremities, sensation intact throughout skin is warm, dry, intact Patient presents for a blood pressure and blood sugar check Her blood sugar her is 203, she is nonfasting Her blood pressure is 147/78 She does not have any complaints at this time She has an appointment today with her brand marketing specialist at 3 PM she is already seeing a primary care physician regarding her chronic medical conditions Advised patient to follow-up with her doctors and to keep her appointment with her brand marketing specialist Discussed very strict return precautions in detail with patient Medical screening examination performed and there is no threat to life or limb at this time - Exam Vital Signs: Vital Signs 10/13/20 12:05 Temperature 97.4 F L Pulse Rate 88 Respiratory 20 Rate Blood Pressure 147/78 O2 Sat by Pulse 100 Oximetry MSE screening note: Focused history and physical exam performed. ED Disposition for MSE Clinical Impression: Encounter for medical screening examination Disposition: MED SCREENING EXAM-LEFT Is pt being admited?: No Does the pt Need Aspirin: No Condition: Stable Instructions: Low-Sodium Eating Plan, Carbohydrate Counting for Diabetes Mellitus, Adult Additional Instructions: please keep your appointment with your brand marketing specialist today at 3 PM. please follow up with your primary care doctor. return to the emergency room for any new or worsening symptoms. eat a low sodium/low sugar/low carbohydrate diet. incorporate 30-60 minutes of daily exercise. increase your water intake. Referrals: your, brand marketing specialist [Other] - 2-3 Days BRIDGETT DIAZ MD [Staff Physician] - 2-3 Days RAMBO LAWSON MD [Staff Physician] - 2-3 Days LANNY LOVELL MD [Staff Physician] - 2-3 Days [facility] [Provider Group] - 2-3 Days AAKASH ESPINOSA MD [Staff Physician] - 2-3 Days Time of Disposition: 13:09 Print Language: SLOV[place]
== END 2020-10-13 14:54 | disposition left against medical advice (07) ==
LOC: ED 11:54
DX: Z13.9 Encounter for screening, unspecified (principal); R53.1 Weakness; Z53.21 Procedure and treatment not carried out due to patient leaving prior to being seen by health care provider
CPT/HCPCS: 82962

== ENCOUNTER 2020-10-20 08:18 | Outpatient (CLI) | payer MEDICARE ==
--- NOTE | 2020-10-20 10:07 | Mammography Report ---
RIGHT DIAGNOSTIC MAMMOGRAM INDICATION: Status post right breast ultrasound-guided core biopsy. COMPARISON: Ultrasound performed earlier the same day, outside imaging performed 10/05/2020 and 2019. FINDINGS: Right breast CC and LM projection mammograms were obtained. These demonstrate a U-shaped bi opsy marker within a right lateral breast partially calcified mass. IMPRESSION: Technically successful ultrasound-guided core biopsy of right breast 9:00 partially calcified mass. NOTE: Outside imaging described this lesion at the 7:00 position, however evaluation the day of the b iopsy showed this is closer to the 9:00 position. Careful attention to the size as well as morphology and other characteristics of the mass was performed between the current images and outside images an d the mass that was recommended to be biopsy is felt to be successfully biopsied. BI-RADS Category 4: Suspicious for Malignancy. Signer Name: Saúl Andres MD Signed: 10/20/2020 10:02 AM Workstation Name: [id number]
--- NOTE | 2020-10-20 11:19 | Ultrasound Report ---
ULTRASOUND-GUIDED CORE NEEDLE BIOPSY Right BREAST WITH CLIP PLACEMENT INDICATION: Right breast lesion at the 9:00 position. FINDINGS: Informed consent was obtained. The lesion within the right breast at the 9:00 position, 2 cm from the nipple was identified with ultrasound. It should be noted that the outside imaging describes this is at the 7:00 position, however this is felt to be closer to the 9:00 position when viewed on today's exam. The overlying skin was cleansed with chloro prep and local anesthesia was obtained with a 1% li docaine solution. Under ultrasound guidance a 14-gauge spring loaded core biopsy needle was advanced to the lesion. A total of 4 core samples were obtained. A U-shaped biopsy marker was placed to chad t he site of the biopsy. Specimen samples were placed in formalin and sent to pathology for analysis. Patient tolerated the procedure well and no immediate complications were identified. A post procedure mammogram demonstrates accurate placement of the biopsy marker. IMPRESSION: Technically successful ultrasound-guided core biopsy of right breast lesion at the 9:00 position with accurate placement of a U-shaped biopsy marker. An addendum will be added to this report once pathology results are available. Signer Name: Saúl Andres MD Signed: 10/20/2020 11:15 AM Workstation Name: [id number]
== END 2020-10-20 08:19 | disposition home or self-care (01) ==
LOC: SPVWC 08:18
PROVIDERS: ATTEND Surgery
DX: N63.11 Unspecified lump in the right breast, upper outer quadrant (principal); N60.31 Fibrosclerosis of right breast; R92.8 Other abnormal and inconclusive findings on diagnostic imaging of breast; E11.65 Type 2 diabetes mellitus with hyperglycemia; Z79.4 Long term (current) use of insulin; I20.0 Unstable angina; F41.9 Anxiety disorder, unspecified; I10 Essential (primary) hypertension; F32.9 Major depressive disorder, single episode, unspecified; Z98.890 Other specified postprocedural states; Z88.8 Allergy status to other drugs, medicaments and biological substances; Z88.6 Allergy status to analgesic agent; Z79.899 Other long term (current) drug therapy; Z90.710 Acquired absence of both cervix and uterus
CPT/HCPCS: 88305

== ENCOUNTER 2020-11-23 23:11 | Emergency (ER) | payer MEDICARE ==
--- NOTE | 2020-11-24 00:10 | Emergency Department Report ---
ED General Adult HPI - General Chief complaint: Anxiety Stated complaint: EMOTIONAL STRESS Time Seen by Provider: 11/23/20 23:46 Source: patient, EMS Mode of arrival: Ambulatory Limitations: No Limitations - History of Present Illness Initial comments: 55-year-old -[place] female past medical history of hypertension and diabetes presents emergency department complaining of of cough and chest discomfort which she thinks is related to black mold in her apartment she has been following up with her doctor and pulmonology to get clearance to vacate the premises but has been meeting some stressful obstacles. States that she has been having some increased coughing over the past few days which resolved when she is away from her apartment and restarts when she stays in the area but no hemoptysis no hematemesis no hematochezia no fevers chills or sweats no nausea or vomiting. States that the pain does radiate to her left arm from time to laura e but she is not concerned about any acute coronary syndrome stating she just had a stress test a couple days ago which was normal. -: Gradual Location: chest Consistency: constant Improves with: none Worsens with: none Associated Symptoms: cough. denies: malaise, nausea/vomiting, syncope, weakness Treatments Prior to Arrival: none - Related Data Home Medications Medication Instructions Recorded Confirmed Last Taken Citalopram Hydrobromide [celeXA] 40 mg PO DAILY 10/09/13 02/23/20 11/28/15 cloNIDine HCL [Clonidine HCl] 0.2 mg PO BID 04/05/15 02/23/20 03/25/16 Insulin Detemir [Levemir VIAL] 25 unit SQ QHS 12/20/15 03/25/16 Unknown ALPRAZolam [Xanax TAB] 1 mg PO TID PRN 02/23/20 02/23/20 Unknown NIFEdipine [Adalat cc] 50 mg PO DAILY 02/23/20 02/23/20 Unknown Valsartan [Diovan] 160 mg PO DAILY 02/23/20 02/23/20 Unknown Previous Rx's Medication Instructions Recorded Last Taken Type Aspirin [Aspirin BABY CHEW TAB] 81 mg PO QDAY #30 tab.chew 06/30/19 Unknown Rx Insulin Glargine,Hum.rec.anlog 15 unit SQ QHS #3 insuln.pen 12/12/19 Unknown Rx [Lantus Solostar] predniSONE [Deltasone] 50 mg PO QDAY #5 tab 03/08/20 Unknown Rx Famotidine [Pepcid] 20 mg PO BID 4 Days #8 tablet 03/09/20 Unknown Rx Hydrocortisone 1% [Hydrocortisone 1 applicatio TP TID 7 Days #1 tube 03/09/20 Unknown Rx 1% CREAM] diphenhydrAMINE [Benadryl CAP] 25 mg PO Q6HR 4 Days #16 capsule 03/09/20 Unknown Rx Insulin Regular, Human [Humulin R] 10 unit IJ DAILY #1 vial 04/13/20 Unknown Rx Albuterol Mdi (or & Nicu Only) 2 puff IH QID PRN #1 inhalation 11/24/20 Unknown Rx [ProAir HFA Inhaler] Benzonatate [Tessalon Perles] 100 mg PO Q8HR #20 capsule 11/24/20 Unknown Rx Allergies Allergy/AdvReac Type Severity Reaction Status Date / Time amlodipine Allergy Intermediate Unknown Verified 10/13/20 12:02 amoxicillin Allergy Unknown Verified 04/17/19 16:35 insulin NPH human isophane Allergy Unknown Verified 10/13/20 12:02 [From Humulin N] insulin regular, human Allergy Unknown Verified 10/13/20 12:02 [From Humulin R] lisinopril Allergy Swelling Verified 10/13/20 12:02 losartan [Losartan] Allergy Unknown Verified 10/13/20 12:02 metformin Allergy Rash Verified 10/13/20 12:02 potassium Allergy Unknown Verified 10/13/20 12:02 Vyjgusw-Cts-Uou Reductase Allergy Unknown Verified 10/13/20 12:02 Inhibitor valsartan Allergy Swelling Verified 10/13/20 12:02 nifedipine AdvReac Mild Unknown Verified 08/16/19 20:35 ED Review of Systems ROS: Stated complaint: EMOTIONAL STRESS Other details as noted in HPI Comment: All other systems reviewed and negative ED Past Medical Hx - Past Medical History Previous Medical History?: Yes Hx Hypertension: Yes Hx CVA: No Hx Heart Attack/AMI: No Hx Congestive Heart Failure: No Hx Diabetes: Yes Hx Deep Vein Thrombosis: No Hx Pulmonary Embolism: No Hx GERD: No Hx Liver Disease: No Hx Renal Disease: No Hx Sickle Cell Disease: No Hx Arthritis: No Hx Headaches / Migraines: No Hx Seizures: No Hx Kidney Stones: No Hx Psychiatric Treatment: Yes (depression, anxiety, panic attacks) Hx Asthma: No Hx COPD: No Hx Tuberculosis: No Hx Dementia: No Hx HIV: No Additional medical history: fibroids, Mold exposure - Surgical History Past Surgical History?: Yes Hx Coronary Stent: No Hx Pacemaker: No Hx Internal Defibrillator: Yes Hx Breast Surgery: Yes (BREAST REDUCTION) Additional Surgical History: breast reduction 1999, x2, hysterectomy, fibroids removal - Social History Smoking Status: Current Every Day Smoker Substance Use Type: None - Medications Home Medications: Home Medications Medication Instructions Recorded Confirmed Last Taken Type Citalopram Hydrobromide [celeXA] 40 mg PO DAILY 10/09/13 02/23/20 11/28/15 History cloNIDine HCL [Clonidine HCl] 0.2 mg PO BID 04/05/15 02/23/20 03/25/16 History Insulin Detemir [Levemir VIAL] 25 unit SQ QHS 12/20/15 03/25/16 Unknown History Aspirin [Aspirin BABY CHEW TAB] 81 mg PO QDAY #30 tab.chew 06/30/19 02/23/20 Unknown Rx Insulin Glargine,Hum.rec.anlog 15 unit SQ QHS #3 insuln.pen 12/12/19 02/23/20 Unknown Rx [Lantus Solostar] ALPRAZolam [Xanax TAB] 1 mg PO TID PRN 02/23/20 02/23/20 Unknown History NIFEdipine [Adalat cc] 50 mg PO DAILY 02/23/20 02/23/20 Unknown History Valsartan [Diovan] 160 mg PO DAILY 02/23/20 02/23/20 Unknown History predniSONE [Deltasone] 50 mg PO QDAY #5 tab 03/08/20 Unknown Rx Famotidine [Pepcid] 20 mg PO BID 4 Days #8 tablet 03/09/20 Unknown Rx Hydrocortisone 1% [Hydrocortisone 1 applicatio TP TID 7 Days #1 tube 03/09/20 Unknown Rx 1% CREAM] diphenhydrAMINE [Benadryl CAP] 25 mg PO Q6HR 4 Days #16 capsule 03/09/20 Unknown Rx Insulin Regular, Human [Humulin R] 10 unit IJ DAILY #1 vial 04/13/20 Unknown Rx Albuterol Mdi (or & Nicu Only) 2 puff IH QID PRN #1 inhalation 11/24/20 Unknown Rx [ProAir HFA Inhaler] Benzonatate [Tessalon Perles] 100 mg PO Q8HR #20 capsule 11/24/20 Unknown Rx ED Physical Exam - General Limitations: No Limitations General appearance: alert, in no apparent distress - Head Head exam: Present: atraumatic, normocephalic - Eye Eye exam: Present: normal appearance, PERRL, EOMI Pupils: Present: normal accommodation - ENT ENT exam: Present: normal exam, normal orophraynx, mucous membranes moist, TM's normal bilaterally - Neck Neck exam: Present: normal inspection, full ROM - Respiratory Respiratory exam: Present: normal lung sounds bilaterally. Absent: respiratory distress, rales, rhonchi, chest wall tenderness, accessory muscle use - Cardiovascular Cardiovascular Exam: Present: regular rate, normal rhythm. Absent: systolic murmur, diastolic murmur, rubs, gallop - GI/Abdominal GI/Abdominal exam: Present: soft, normal bowel sounds. Absent: distended, tenderness, hyperactive bowel sounds, hypoactive bowel sounds, organomegaly, mass - Extremities Exam Extremities exam: Present: normal inspection, full ROM, normal capillary refill - Back Exam Back exam: Present: normal inspection, full ROM. Absent: paraspinal tenderness, vertebral tenderness - Neurological Exam Neurological exam: Present: alert, oriented X3, CN II-XII intact, normal gait - Psychiatric Psychiatric exam: Present: normal affect, normal mood - Skin Skin exam: Present: warm, dry, intact, normal color. Absent: rash ED Course Vital Signs 11/23/20 11/24/20 23:18 00:36 Temperature 97.8 F Pulse Rate 77 Respiratory 18 Rate Blood Pressure 198/77 Blood Pressure 146/68 [Right] O2 Sat by Pulse 100 Oximetry ED Medical Decision Making - Radiology Data Referring Physician:DELL DUBOSEPatient Name:JALEESA LARRYPatient ID:[id number] of :[id number]:FemaleAccession:[id number] Date:[id number] Status:Finalized Findings [facility] [address] [place] [address] XRay Report Signed Patient: JALEESA LARRY MR#: [id number] 0 : 1965 Acct:[id number] Age/Sex: 55 / F ADM Date: 11/23/20 Loc: ED Attending Dr: Ordering Physician: ALAN BAILEY Date of Service: 11/23/20 Procedure(s): XR chest routine 2V Accession Number(s): [id number] cc: ALAN BAILEY Fluoro Time In Minutes: CHEST 2 VIEWS 0010 INDICATION / CLINICAL INFORMATION: cough and chest pain COMPARISON: 06/29/2020 FINDINGS: SUPPORT DEVICES: None. HEART / MEDIASTINUM: No significant abnormality. LUNGS / PLEURA: No significant pulmonary or pleural abnormality. No pneumothorax. ADDITIONAL FINDINGS: No significant additional findings. IMPRESSION: No significant acute abnormality Signer Name: Tyson Hernandez MD Signed: 11/24/2020 12:15 AM Workstation Name: [id number] Transcribed By: LAURENT Dictated By: Tyson Hernandez MD Electronically Authenticated By: Tyson Hernandez MD Signed Date/Time: 11/24/2014 DD/ TD/TT:* Critical care attestation.: If time is entered above; I have spent that time in minutes in the direct care of this critically ill patient, excluding procedure time. ED Disposition Clinical Impression: Cough, Hypertension Disposition: - TO HOME OR SELFCARE Is pt being admited?: No Does the pt Need Aspirin: No Condition: Stable Instructions: Cool Mist Vaporizer, Loratadine oral disintegrating tablets, Cetirizine orally disintegrating tablet, Cough, Adult, Hypertension, Adult, Hypertension (ED) Additional Instructions: Please utilize over the counter antihistamines such as Zyrtec or Claritin to assist with your hyperresponsiveness to the mold in your apartment in conjunction with the inhaler to help control cough and respiratory symptoms please continue to follow-up with your certified novell engineer and your packaging specialist for further evaluation and treatment options regarding your symptoms as we discussed Prescriptions: Albuterol Mdi (or & Nicu Only) [ProAir HFA Inhaler] 2 puff IH QID PRN #1 inhalation PRN Reason: Shortness Of Breath Benzonatate [Tessalon Perles] 100 mg PO Q8HR #20 capsule Referrals: PRIMARY CARE, [Primary Care Provider] - 3-5 Days
[2020-11-24] MEDS ORDERED: cloNIDine 0.2 MG TAB PO STA (00:17)
--- NOTE | 2020-11-24 00:20 | XRay Report ---
CHEST 2 VIEWS 0010 INDICATION / CLINICAL INFORMATION: cough and chest pain COMPARISON: 06/29/2020 FINDINGS: SUPPORT DEVICES: None. HEART / MEDIASTINUM: No significant abnormality. LUNGS / PLEURA: No significant pulmonary or pleural abnormality. No pneumothorax. ADDITIONAL FINDINGS: No significant additional findings. IMPRESSION: No significant acute abnormality Signer Name: Tyson Hernandez MD Signed: 11/24/2020 12:15 AM Workstation Name: [id number]
[2020-11-24 00:37] VITALS: BP 146/68
== END 2020-11-24 03:22 | disposition home or self-care (01) ==
LOC: ED 23:11
DX: R05 Cough (principal); I10 Essential (primary) hypertension; E11.9 Type 2 diabetes mellitus without complications; F32.9 Major depressive disorder, single episode, unspecified; F41.9 Anxiety disorder, unspecified; F17.200 Nicotine dependence, unspecified, uncomplicated; Z98.890 Other specified postprocedural states; Z90.710 Acquired absence of both cervix and uterus; Z79.4 Long term (current) use of insulin; Z79.82 Long term (current) use of aspirin; Z79.899 Other long term (current) drug therapy; Z88.0 Allergy status to penicillin; Z88.8 Allergy status to other drugs, medicaments and biological substances
CPT/HCPCS: 71046; 93005; 99283

== ENCOUNTER 2020-12-21 00:44 | Emergency (ER) | payer MEDICARE ==
[2020-12-21 01:33] VITALS: BP 150/79
--- NOTE | 2020-12-21 01:36 | Event Note ---
ED Screening Note Date of service: 12/21/20 Time: 01:36 ED Screening Note: Patient complains of dizziness, weakness, nausea, and dark-colored urine x2 weeks History of diabetes Denies chest pain or shortness of breath No headache per patient This initial assessment/diagnostic orders/clinical plan/treatment(s) is/are subject to change based on patients health status, clinical progression and re- assessment by fellow clinical providers in the ED. Further treatment and workup at subsequent clinical providers discretion. Patient/guardian urged not to elope from the ED as their condition may be serious if not clinically assessed and managed. Initial orders include: Labs EKG
[2020-12-21 02:13] LABS: Bacteria,Urine 1+ /HPF (Negative); Bilirubin,Urine NEG (Negative); Blood,Urine NEG (Negative); Color,Urine Straw (Yellow); Mucus,Urine FEW /HPF; RBC,Urine < 1.0 /HPF (0.0-6.0); Urobilinogen,Urine < 2.0 mg/dL (<2.0); WBC,Urine < 1.0 /HPF (0.0-6.0)
[2020-12-21 02:16] LABS: Basophils % (Auto) 0.4 % (0.0-1.8); Eosinophils # (Auto) 0.2 K/mm3 (0.0-0.4); Eosinophils % (Auto) 2.2 % (0.0-4.3); Hemoglobin 11.6 gm/dl (10.1-14.3); Lymphocytes # (Auto) 3.3 K/mm3 (1.2-5.4); Lymphocytes % (Auto) 36.9 % (13.4-35.0); Mean Corpuscular HGB Conc 33 % (30-34); Mean Corpuscular Volume 83 fl (79-97); Monocytes # (Auto) 0.6 K/mm3 (0.0-0.8); Monocytes % (Auto) 7.2 % (0.0-7.3); Platelet Count 231 K/mm3 (140-440); Red Blood Count 4.23 M/mm3 (3.65-5.03); Red Cell Distribution Width 13.9 % (13.2-15.2)
[2020-12-21 02:37] LABS: Alanine Aminotransferase 17 units/L (7-56); Albumin 3.9 g/dL (3.9-5); BUN/Creatinine Ratio 19; Blood Urea Nitrogen 28 mg/dL (7-17); Calcium 9.3 mg/dL (8.4-10.2); Hemolysis Index 0
--- NOTE | 2020-12-21 03:27 | Emergency Department Report ---
- General Chief complaint: Dizziness Stated complaint: DIZZY/WEAKNESS/DRY MOUTH Time Seen by Provider: 12/21/20 01:35 Source: patient Mode of arrival: Ambulatory Limitations: No Limitations - History of Present Illness Initial comments: 55-year-old female with history of hypertension, diabetes, presents to ED with generalized weakness, nausea, dark-colored urine x2 weeks. Patient states her PCP recently increased her nifedipine from 60 mg to 90 mg. Patient states she feels dehydrated, however she denies any vomiting or diarrhea. Patient denies any chest pain, shortness of breath, abdominal pain, headache, fever. MD Complaint: generalized weakness -: days(s) (4) Location: generalized Severity: moderate Consistency: constant Improves with: none Worsens with: none Associated Symptoms: nausea/vomiting. denies: chest pain, dysuria, fever/chills, shortness of breath, syncope - Related Data Home Medications Medication Instructions Recorded Confirmed Last Taken Citalopram Hydrobromide [celeXA] 40 mg PO DAILY 10/09/13 02/23/20 11/28/15 cloNIDine HCL [Clonidine HCl] 0.2 mg PO BID 04/05/15 02/23/20 03/25/16 Insulin Detemir [Levemir VIAL] 25 unit SQ QHS 12/20/15 03/25/16 Unknown ALPRAZolam [Xanax TAB] 1 mg PO TID PRN 02/23/20 02/23/20 Unknown NIFEdipine [Adalat cc] 50 mg PO DAILY 02/23/20 02/23/20 Unknown Valsartan [Diovan] 160 mg PO DAILY 02/23/20 02/23/20 Unknown Previous Rx's Medication Instructions Recorded Last Taken Type Aspirin [Aspirin BABY CHEW TAB] 81 mg PO QDAY #30 tab.chew 06/30/19 Unknown Rx Insulin Glargine,Hum.rec.anlog 15 unit SQ QHS #3 insuln.pen 12/12/19 Unknown Rx [Lantus Solostar] predniSONE [Deltasone] 50 mg PO QDAY #5 tab 03/08/20 Unknown Rx Famotidine [Pepcid] 20 mg PO BID 4 Days #8 tablet 03/09/20 Unknown Rx Hydrocortisone 1% [Hydrocortisone 1 applicatio TP TID 7 Days #1 tube 03/09/20 Unknown Rx 1% CREAM] diphenhydrAMINE [Benadryl CAP] 25 mg PO Q6HR 4 Days #16 capsule 03/09/20 Unknown Rx Insulin Regular, Human [Humulin R] 10 unit IJ DAILY #1 vial 04/13/20 Unknown Rx Albuterol Mdi (or & Nicu Only) 2 puff IH QID PRN #1 inhalation 11/24/20 Unknown Rx [ProAir HFA Inhaler] Benzonatate [Tessalon Perles] 100 mg PO Q8HR #20 capsule 11/24/20 Unknown Rx Docusate Sodium [Colace] 100 mg PO BID #60 capsule 12/21/20 Unknown Rx Sulfamethoxazole/Trimethoprim 1 each PO BID 3 Days #6 tablet 12/21/20 Unknown Rx [Bactrim DS TAB] Allergies Allergy/AdvReac Type Severity Reaction Status Date / Time amlodipine Allergy Intermediate Unknown Verified 10/13/20 12:02 amoxicillin Allergy Unknown Verified 04/17/19 16:35 insulin NPH human isophane Allergy Unknown Verified 10/13/20 12:02 [From Humulin N] insulin regular, human Allergy Unknown Verified 10/13/20 12:02 [From Humulin R] lisinopril Allergy Swelling Verified 10/13/20 12:02 losartan [Losartan] Allergy Unknown Verified 10/13/20 12:02 metformin Allergy Rash Verified 10/13/20 12:02 potassium Allergy Unknown Verified 10/13/20 12:02 Megidhp-Ogq-Smz Reductase Allergy Unknown Verified 10/13/20 12:02 Inhibitor valsartan Allergy Swelling Verified 10/13/20 12:02 ED Review of Systems ROS: Stated complaint: DIZZY/WEAKNESS/DRY MOUTH Other details as noted in HPI Comment: All other systems reviewed and negative Constitutional: denies: fever Respiratory: denies: cough, shortness of breath Cardiovascular: denies: chest pain Gastrointestinal: nausea, constipation. denies: abdominal pain, vomiting, diarrhea Genitourinary: frequency Neurological: denies: headache ED Past Medical Hx - Past Medical History Previous Medical History?: Yes Hx Hypertension: Yes Hx CVA: No Hx Heart Attack/AMI: No Hx Congestive Heart Failure: No Hx Diabetes: Yes Hx Deep Vein Thrombosis: No Hx Pulmonary Embolism: No Hx GERD: No Hx Liver Disease: No Hx Renal Disease: No Hx Sickle Cell Disease: No Hx Arthritis: No Hx Headaches / Migraines: No Hx Seizures: No Hx Kidney Stones: No Hx Psychiatric Treatment: Yes (depression, anxiety, panic attacks) Hx Asthma: No Hx COPD: No Hx Tuberculosis: No Hx Dementia: No Hx HIV: No Additional medical history: fibroids, Mold exposure - Surgical History Past Surgical History?: Yes Hx Coronary Stent: No Hx Pacemaker: No Hx Internal Defibrillator: Yes Hx Breast Surgery: Yes (BREAST REDUCTION) Additional Surgical History: breast reduction 1999, x2, hysterectomy, fibroids removal - Social History Smoking Status: Current Every Day Smoker Substance Use Type: None - Medications Home Medications: Home Medications Medication Instructions Recorded Confirmed Last Taken Type Citalopram Hydrobromide [celeXA] 40 mg PO DAILY 10/09/13 02/23/20 11/28/15 H istory cloNIDine HCL [Clonidine HCl] 0.2 mg PO BID 04/05/15 02/23/20 03/25/16 History Insulin Detemir [Levemir VIAL] 25 unit SQ QHS 12/20/15 03/25/16 Unknown History Aspirin [Aspirin BABY CHEW TAB] 81 mg PO QDAY #30 tab.chew 06/30/19 02/23/20 Unknown Rx Insulin Glargine,Hum.rec.anlog 15 unit SQ QHS #3 insuln.pen 12/12/19 02/23/20 Unknown Rx [Lantus Solostar] ALPRAZolam [Xanax TAB] 1 mg PO TID PRN 02/23/20 02/23/20 Unknown History NIFEdipine [Adalat cc] 50 mg PO DAILY 02/23/20 02/23/20 Unknown History Valsartan [Diovan] 160 mg PO DAILY 02/23/20 02/23/20 Unknown History predniSONE [Deltasone] 50 mg PO QDAY #5 tab 03/08/20 Unknown Rx Famotidine [Pepcid] 20 mg PO BID 4 Days #8 tablet 03/09/20 Unknown Rx Hydrocortisone 1% [Hydrocortisone 1 applicatio TP TID 7 Days #1 tube 03/09/20 Unknown Rx 1% CREAM] diphenhydrAMINE [Benadryl CAP] 25 mg PO Q6HR 4 Days #16 capsule 03/09/20 Unknown Rx Insulin Regular, Human [Humulin R] 10 unit IJ DAILY #1 vial 04/13/20 Unknown Rx Albuterol Mdi (or & Nicu Only) 2 puff IH QID PRN #1 inhalation 11/24/20 Unknown Rx [ProAir HFA Inhaler] Benzonatate [Tessalon Perles] 100 mg PO Q8HR #20 capsule 11/24/20 Unknown Rx Docusate Sodium [Colace] 100 mg PO BID #60 capsule 12/21/20 Unknown Rx Sulfamethoxazole/Trimethoprim 1 each PO BID 3 Days #6 tablet 12/21/20 Unknown Rx [Bactrim DS TAB] ED Physical Exam - General Limitations: No Limitations General appearance: alert, in no apparent distress - Head Head exam: Present: atraumatic, normocephalic - Eye Eye exam: Present: normal appearance, EOMI - ENT ENT exam: Present: mucous membranes moist - Neck Neck exam: Present: normal inspection - Respiratory Respiratory exam: Present: normal lung sounds bilaterally. Absent: respiratory distress - Cardiovascular Cardiovascular Exam: Present: regular rate, normal rhythm - GI/Abdominal GI/Abdominal exam: Present: soft. Absent: distended, tenderness - Extremities Exam Extremities exam: Present: normal inspection - Neurological Exam Neurological exam: Present: alert, oriented X3 - Psychiatric Psychiatric exam: Present: normal affect, normal mood - Skin Skin exam: Present: warm, dry, intact, normal color ED Course Vital Signs 12/21/20 12/21/20 01:32 02:31 Temperature 98.2 F 98.7 F Pulse Rate 89 Respiratory 17 Rate Blood Pressure 150/79 O2 Sat by Pulse 98 Oximetry ED Medical Decision Making - Lab Data Result diagrams: 12/21/20 01:59 12/21/20 01:59 - EKG Data -: EKG Interpreted by Me EKG shows normal: sinus rhythm, axis, intervals, QRS complexes, ST-T waves Rate: normal - EKG Data Interpretation: no acute changes, other (old anterior infarct) Critical care attestation.: If time is entered above; I have spent that time in minutes in the direct care of this critically ill patient, excluding procedure time. ED Disposition Clinical Impression: Constipation, UTI (urinary tract infection) Disposition: - TO HOME OR SELFCARE Is pt being admited?: No Condition: Stable Instructions: Urinary Tract Infection, Adult, Gbka-[id number], Constipation, Adult Prescriptions: Docusate Sodium [Colace] 100 mg PO BID #60 capsule Referrals: PRIMARY CARE, [Primary Care Provider] - 3-5 Days Time of Disposition: 05:09
[2020-12-21] MEDS ORDERED: SODIUM CHLORIDE 0.9% 1000 ML 1,000 ML IV ONE (03:28)
--- NOTE | 2020-12-21 04:37 | XRay Report ---
ABDOMEN 1 VIEW(S) INDICATION / CLINICAL INFORMATION: constipation. COMPARISON: None available. FINDINGS: TUBES / LINES: None. BOWEL GAS PATTERN: No significant abnormality. Moderate constipation. FREE AIR / EXTRALUMINAL GAS: None seen. ADDITIONAL FINDINGS: No significant additional findings. IMPRESSION: 1. Constipation. 2. No significant abnormality. Signer Name: Carlos Ochoa MD Signed: 12/21/2020 4:33 AM Workstation Name: [id number]
== END 2020-12-21 05:26 | disposition home or self-care (01) ==
LOC: ED 00:44
DX: N39.0 Urinary tract infection, site not specified (principal); K59.00 Constipation, unspecified; I10 Essential (primary) hypertension; E11.9 Type 2 diabetes mellitus without complications; F32.9 Major depressive disorder, single episode, unspecified; F17.200 Nicotine dependence, unspecified, uncomplicated; F41.9 Anxiety disorder, unspecified; Z98.890 Other specified postprocedural states; Z79.899 Other long term (current) drug therapy; Z88.0 Allergy status to penicillin; Z88.8 Allergy status to other drugs, medicaments and biological substances; Z90.710 Acquired absence of both cervix and uterus
CPT/HCPCS: 36415; 74022; 80053; 81001; 82962; 84484; 85025; 93005; 96360; 99284; J7030

== ENCOUNTER 2021-01-21 15:56 | Emergency (ER) | payer MEDICARE ==
--- NOTE | 2021-01-21 17:07 | Event Note ---
ED Screening Note Date of service: 01/21/21 Time: 17:02 ED Screening Note: 55-year-old -[place] female presents to the emergency room reporting that she has been being cold and having body aches. Patient states that she went to court today and the temperature scanner scanned her at 86. Patient complains that her blood pressure keeps fluctuating. Patient reports she is no longer taking nifedipine and is now taking clonidine 0.2 mg twice daily and Lasix 40 mg daily potassium 40 mEq daily and is on Lantus 15 to 20 units daily. Patient reported to me that she is having leg cramping in her upper thighs. This initial assessment/diagnostic orders/clinical plan/treatment(s) is/are s ubject to change based on patients health status, clinical progression and re- assessment by fellow clinical providers in the ED. Further treatment and workup at subsequent clinical providers discretion. Patient/guardian urged not to elope from the ED as their condition may be serious if not clinically assessed and managed. Initial orders include: CBC CMP and urinalysis
[2021-01-21 17:18] LABS: Basophils % (Auto) 0.7 % (0.0-1.8); Eosinophils # (Auto) 0.2 K/mm3 (0.0-0.4); Eosinophils % (Auto) 2.2 % (0.0-4.3); Hematocrit 35.5 % (30.3-42.9); Hemoglobin 11.8 gm/dl (10.1-14.3); Lymphocytes # (Auto) 2.6 K/mm3 (1.2-5.4); Lymphocytes % (Auto) 35.5 % (13.4-35.0); Mean Corpuscular HGB Conc 33 % (30-34); Mean Corpuscular Volume 84 fl (79-97); Monocytes # (Auto) 0.6 K/mm3 (0.0-0.8); Platelet Count 203 K/mm3 (140-440); Red Cell Distribution Width 13.8 % (13.2-15.2)
[2021-01-21 17:41] LABS: Albumin 3.5 g/dL (3.9-5); Calcium 8.8 mg/dL (8.4-10.2)
[2021-01-21 17:52] LABS: Bilirubin,Urine NEG (Negative); Blood,Urine NEG (Negative); Color,Urine Yellow (Yellow); Urobilinogen,Urine < 2.0 mg/dL (<2.0)
--- NOTE | 2021-01-21 18:16 | Emergency Department Report ---
ED General Adult HPI - General Chief complaint: Medical Clearance Stated complaint: LOW BODY TEMP 86 Source: patient Mode of arrival: Ambulatory Limitations: No Limitations - History of Present Illness Initial comments: Patient is a 55-year-old -[place] female with a history of hypertension, lrn-fowarkj-uesohqoez diabetes, anxiety and depression, and panic attacks who p resents to the ED with complaint of acute onset persistent intermittent chills, body aches and pains and low back pain for the last 12 hours. Patient states that she went to her doctor's appointment earlier and on entrance to the room and noncontact thermometer read her temperature is 86 F, and she panicked and decided come to the ED for evaluation. Patient also states that her blood pressure has been chronically and significantly elevated in the last few days despite taking clonidine 0.2 mg twice a day as previously prescribed by her primary care physician. Patient denies cough, abdominal pain, nausea, vomiting, headache, chest pain, shortness of breath, change in vision, traumatic injury or heavy lifting, dysuria, urinary frequency and urgency or nasal and sinus congestion or sore throat. MD Complaint: Chills, body aches and pains -: Sudden, hour(s) (12) Location: back, upper extremity, lower extremity Radiation: non-radiation Severity scale (0 -10): 2 Quality: aching Consistency: constant Improves with: none Worsens with: none Associated Symptoms: denies other symptoms, malaise. denies: confusion, chest pain, cough, diaphoresis, fever/chills, headaches, loss of appetite, nausea/vomiting, rash, seizure, shortness of breath, syncope, weakness Treatments Prior to Arrival: none - Related Data Home Medications Medication Instructions Recorded Confirmed Last Taken cloNIDine HCL [Clonidine HCl] 0.2 mg PO BID 04/05/15 01/21/21 1 Day Ago ~01/20/21 .2 ALPRAZolam [Xanax TAB] 1 mg PO TID PRN 02/23/20 01/21/21 1 Day Ago ~01/20/21 Furosemide [Lasix] 40 PO DAILY 01/21/21 1 Day Ago ~01/20/21 Potassium Chloride [K-Dur] 40 meq PO QDAY 01/21/21 01/21/21 1 Day Ago ~01/20/21 Previous Rx's Medication Instructions Recorded Last Taken Type Insulin Glargine,Hum.rec.anlog 15 unit SQ QHS #3 insuln.pen 12/12/19 1 Day Ago Rx [Lantus Solostar] ~01/20/21 hydrOXYzine PAMOATE [Vistaril] 50 mg PO Q12H PRN #30 capsule 01/21/21 Unknown Rx Allergies Allergy/AdvReac Type Severity Reaction Status Date / Time amlodipine Allergy Intermediate Unknown Verified 10/13/20 12:02 amoxicillin Allergy Unknown Verified 04/17/19 16:35 insulin NPH human isophane Allergy Unknown Verified 10/13/20 12:02 [From Humulin N] insulin regular, human Allergy Unknown Verified 10/13/20 12:02 [From Humulin R] lisinopril Allergy Swelling Verified 10/13/20 12:02 losartan [Losartan] Allergy Unknown Verified 10/13/20 12:02 metformin Allergy Rash Verified 10/13/20 12:02 potassium Allergy Unknown Verified 10/13/20 12:02 Arzurjz-Pma-Vwc Reductase Allergy Unknown Verified 10/13/20 12:02 Inhibitor valsartan Allergy Swelling Verified 10/13/20 12:02 ED Review of Systems ROS: Stated complaint: LOW BODY TEMP 86 Other details as noted in HPI Constitutional: denies: chills, fever Eyes: denies: eye pain, eye discharge, vision change ENT: denies: ear pain, throat pain Respiratory: denies: cough, shortness of breath, wheezing Cardiovascular: denies: chest pain, palpitations Endocrine: no symptoms reported Gastrointestinal: denies: abdominal pain, nausea, vomiting, diarrhea Genitourinary: denies: urgency, dysuria, discharge Musculoskeletal: back pain (lower back pain), arthralgia, myalgia. denies: joint swelling Skin: denies: rash, lesions Neurological: denies: headache, weakness, paresthesias Psychiatric: anxiety. denies: depression Hematological/Lymphatic: denies: easy bleeding, easy bruising ED Past Medical Hx - Past Medical History Previous Medical History?: Yes Hx Hypertension: Yes Hx CVA: No Hx Heart Attack/AMI: No Hx Congestive Heart Failure: No Hx Diabetes: Yes Hx Deep Vein Thrombosis: No Hx Pulmonary Embolism: No Hx GERD: No Hx Liver Disease: No Hx Renal Disease: No Hx Sickle Cell Disease: No Hx Arthritis: No Hx Headaches / Migraines: No Hx Seizures: No Hx Kidney Stones: No Hx Psychiatric Treatment: Yes (depression, anxiety, panic attacks) Hx Asthma: No Hx COPD: No Hx Tuberculosis: No Hx Dementia: No Hx HIV: No Additional medical history: fibroids, Mold exposure - Surgical History Past Surgical History?: Yes Hx Coronary Stent: No Hx Pacemaker: No Hx Internal Defibrillator: Yes Hx Breast Surgery: Yes (BREAST REDUCTION) Additional Surgical History: breast reduction 1999, x2, hysterectomy, fibroids removal - Social History Smoking Status: Current Every Day Smoker Substance Use Type: None - Medications Home Medications: Home Medications Medication Instructions Recorded Confirmed Last Taken Type cloNIDine HCL [Clonidine HCl] 0.2 mg PO BID 04/05/15 01/21/21 1 Day Ago History ~01/20/21 .2 Insulin Glargine,Hum.rec.anlog 15 unit SQ QHS #3 insuln.pen 12/12/19 01/21/21 1 Day Ago Rx [Lantus Solostar] ~01/20/21 ALPRAZolam [Xanax TAB] 1 mg PO TID PRN 02/23/20 01/21/21 1 Day Ago History ~01/20/21 Furosemide [Lasix] 40 PO DAILY 01/21/21 1 Day Ago History ~01/20/21 Potassium Chloride [K-Dur] 40 meq PO QDAY 01/21/21 01/21/21 1 Day Ago History ~01/20/21 hydrOXYzine PAMOATE [Vistaril] 50 mg PO Q12H PRN #30 capsule 01/21/21 Unknown Rx ED Physical Exam - General Limitations: No Limitations General appearance: alert, in no apparent distress - Head Head exam: Present: atraumatic, normocephalic, normal inspection - Eye Eye exam: Present: normal appearance, PERRL, EOMI Pupils: Present: normal accommodation - ENT ENT exam: Present: normal exam, normal orophraynx, mucous membranes moist, TM's normal bilaterally, normal external ear exam - Neck Neck exam: Present: normal inspection, full ROM - Respiratory Respiratory exam: Present: normal lung sounds bilaterally. Absent: respiratory distress, wheezes, rales, rhonchi, chest wall tenderness, accessory muscle use, decreased breath sounds, prolonged expiratory - Cardiovascular Cardiovascular Exam: Present: regular rate, normal rhythm, normal heart sounds. Absent: systolic murmur, diastolic murmur, rubs, gallop - GI/Abdominal GI/Abdominal exam: Present: soft, normal bowel sounds. Absent: tenderness, guarding, rebound, hyperactive bowel sounds, hypoactive bowel sounds - Extremities Exam Extremities exam: Present: normal inspection, full ROM, normal capillary refill - Back Exam Back exam: Present: normal inspection, full ROM, tenderness (Mild palpable lumbosacral paraspinal musculoskeletal tenderness), muscle spasm, paraspinal tenderness. Absent: CVA tenderness (L) - Neurological Exam Neurological exam: Present: alert, oriented X3, CN II-XII intact, normal gait, reflexes normal - Psychiatric Psychiatric exam: Present: normal affect, normal mood, anxious - Skin Skin exam: Present: warm, dry, intact, normal color. Absent: rash ED Course Vital Signs 01/21/21 01/21/21 16:00 17:53 Temperature 98.2 F 98.3 F Pulse Rate 87 65 Respiratory 16 16 Rate Blood Pressure 215/77 Blood Pressure 153/75 [Left] O2 Sat by Pulse 97 100 Oximetry ED Medical Decision Making - Lab Data Result diagrams: 01/21/21 17:08 01/21/21 17:08 - Medical Decision Making This is a 55-year-old -[place] female with a history of hypertension, lbd-jcibjzy-jfvlvltdt diabetes, anxiety and depression, and panic attacks who presents to the ED with complaint of acute onset persistent intermittent chills, body aches and pains and low back pain for the last 12 hours. Patient states that she went to her doctor's appointment earlier and on entrance to the room and noncontact thermometer read her temperature is 86 F, and she panicked and decided come to the ED for evaluation. Patient also states that her blood pressure has been chronically and significantly elevated in the last few days despite taking clonidine 0.2 mg twice a day as previously prescribed by her primary care physician. In the ED, patient is alert and oriented x3 and is not in any distress. Lab test results were reviewed and are all nonactionable except for slightly elevated BUN and creatinine which is not new as at this visit. Based on the patient's history and physical exam findings, as well as lab test results, patient symptoms are likely due to panic attack and anxiety which may have also led to her blood pressure being elevated on arrival in the ED. Patient was therefore discharged home on a prescription of Vistaril for anxiety and was advised to follow-up with her primary care physician in 3 to 5 days for reevaluation or return to the ED immediately if symptoms get worse. - Differential Diagnosis Anxiety; Muscle spasm; UTI; Muscle strain Critical care attestation.: If time is entered above; I have spent that time in minutes in the direct care of this critically ill patient, excluding procedure time. ED Disposition Clinical Impression: Anxiety as acute reaction to exceptional stress Disposition: DC- TO HOME OR SELFCARE Is pt being admited?: No Does the pt Need Aspirin: No Condition: Stable Instructions: Generalized Anxiety Disorder, Adult Additional Instructions: Take your usual and regular medications as prescribed, drink plenty of fluids and follow-up with the primary care physician in 3 to 5 days for reevaluation. Return to the ED immediately if symptoms get worse. Prescriptions: hydrOXYzine PAMOATE [Vistaril] 50 mg PO Q12H PRN #30 capsule PRN Reason: Anxiety Referrals: ESE SHANE FNP [Referring] - 3-5 Days Time of Disposition: 18:15 Print Language: ROMANIAN
[2021-01-21 18:29] VITALS: BP 150/78
== END 2021-01-21 18:30 | disposition home or self-care (01) ==
LOC: ED 15:56
DX: F41.1 Generalized anxiety disorder (principal); F43.0 Acute stress reaction; I10 Essential (primary) hypertension; E11.9 Type 2 diabetes mellitus without complications; F32.9 Major depressive disorder, single episode, unspecified; Z90.710 Acquired absence of both cervix and uterus; Z98.890 Other specified postprocedural states; F17.200 Nicotine dependence, unspecified, uncomplicated; Z79.4 Long term (current) use of insulin; Z79.899 Other long term (current) drug therapy; Z88.1 Allergy status to other antibiotic agents; Z88.8 Allergy status to other drugs, medicaments and biological substances
CPT/HCPCS: 36415; 80053; 81001; 85025

== ENCOUNTER 2021-03-11 16:39 | Emergency (ER) | payer MEDICARE ==
[2021-03-11 17:02] VITALS: BP 180/78
--- NOTE | 2021-03-11 18:27 | Emergency Department Report ---
<NEMESIO MEYER - Last Filed: 03/11/21 19:18> ED General Adult HPI - General Chief complaint: Extremity Problem,Nontraumatic Stated complaint: BP HIGH/LT SHOULDER PAIN/DIZZY Source: patient Mode of arrival: Ambulatory Limitations: No Limitations - History of Present Illness Initial comments: 55-year-old -[place] female presents to the emergency room concern for elevated blood pressure. Patient states that she felt that she had eaten something that has caused her blood pressure to rise. Patient reports she is currently taking amlodipine 10 mg and benazepril 40 mg daily for her blood pressure. Patient states that she does feel somewhat better. 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 Severity scale (0 -10): 2 - Related Data Home Medications Medication Instructions Recorded Confirmed Last Taken cloNIDine HCL [Clonidine HCl] 0.2 mg PO BID 04/05/15 01/21/21 1 Day Ago ~01/20/21 .2 ALPRAZolam [Xanax TAB] 1 mg PO TID PRN 02/23/20 01/21/21 1 Day Ago ~01/20/21 Furosemide [Lasix] 40 PO DAILY 01/21/21 1 Day Ago ~01/20/21 Potassium Chloride [K-Dur] 40 meq PO QDAY 01/21/21 01/21/21 1 Day Ago ~01/20/21 Previous Rx's Medication Instructions Recorded Last Taken Type Insulin Glargine,Hum.rec.anlog 15 unit SQ QHS #3 insuln.pen 12/12/19 1 Day Ago Rx [Lantus Solostar] ~01/20/21 hydrOXYzine PAMOATE [Vistaril] 50 mg PO Q12H PRN #30 capsule 01/21/21 Unknown Rx Allergies Allergy/AdvReac Type Severity Reaction Status Date / Time amlodipine Allergy Intermediate Unknown Verified 10/13/20 12:02 amoxicillin Allergy Unknown Verified 04/17/19 16:35 insulin NPH human isophane Allergy Unknown Verified 10/13/20 12:02 [From Humulin N] insulin regular, human Allergy Unknown Verified 10/13/20 12:02 [From Humulin R] lisinopril Allergy Swelling Verified 10/13/20 12:02 losartan [Losartan] Allergy Unknown Verified 10/13/20 12:02 metformin Allergy Rash Verified 10/13/20 12:02 potassium Allergy Unknown Verified 10/13/20 12:02 Xzpfkcw-Mxj-Qbw Reductase Allergy Unknown Verified 10/13/20 12:02 Inhibitor valsartan Allergy Swelling Verified 10/13/20 12:02 ED Review of Systems Comment: All other systems reviewed and negative ED Past Medical Hx - Past Medical History Hx Hypertension: Yes Hx CVA: No Hx Heart Attack/AMI: No Hx Congestive Heart Failure: No Hx Diabetes: Yes Hx Deep Vein Thrombosis: No Hx Pulmonary Embolism: No Hx GERD: No Hx Liver Disease: No Hx Renal Disease: No Hx Sickle Cell Disease: No Hx Arthritis: No Hx Headaches / Migraines: No Hx Seizures: No Hx Kidney Stones: No Hx Psychiatric Treatment: Yes (depression, anxiety, panic attacks) Hx Asthma: No Hx COPD: No Hx Tuberculosis: No Hx Dementia: No Hx HIV: No Additional medical history: fibroids, Mold exposure - Surgical History Hx Coronary Stent: No Hx Pacemaker: No Hx Internal Defibrillator: Yes Hx Breast Surgery: Yes (BREAST REDUCTION) Additional Surgical History: breast reduction 1999, x2, hysterectomy, fibroids removal - Social History Smoking Status: Current Every Day Smoker Substance Use Type: None - Medications Home Medications: Home Medications Medication Instructions Recorded Confirmed Last Taken Type cloNIDine HCL [Clonidine HCl] 0.2 mg PO BID 04/05/15 01/21/21 1 Day Ago History ~01/20/21 .2 Insulin Glargine,Hum.rec.anlog 15 unit SQ QHS #3 insuln.pen 12/12/19 01/21/21 1 Day Ago Rx [Lantus Solostar] ~01/20/21 ALPRAZolam [Xanax TAB] 1 mg PO TID PRN 02/23/20 01/21/21 1 Day Ago History ~01/20/21 Furosemide [Lasix] 40 PO DAILY 01/21/21 1 Day Ago History ~01/20/21 Potassium Chloride [K-Dur] 40 meq PO QDAY 01/21/21 01/21/21 1 Day Ago History ~01/20/21 hydrOXYzine PAMOATE [Vistaril] 50 mg PO Q12H PRN #30 capsule 01/21/21 Unknown Rx ED Physical Exam - General Limitations: No Limitations General appearance: alert, in no apparent distress - Head Head exam: Present: atraumatic, normocephalic - Eye Eye exam: Present: normal appearance - ENT ENT exam: Present: mucous membranes moist - Neck Neck exam: Present: normal inspection - Respiratory Respiratory exam: Present: normal lung sounds bilaterally. Absent: respiratory distress - Cardiovascular Cardiovascular Exam: Present: regular rate, normal rhythm. Absent: systolic murmur, diastolic murmur, rubs, gallop - GI/Abdominal GI/Abdominal exam: Present: soft, normal bowel sounds - Extremities Exam Extremities exam: Present: normal inspection - Back Exam Back exam: Present: normal inspection - Neurological Exam Neurological exam: Present: alert, oriented X3 - Psychiatric Psychiatric exam: Present: normal affect, normal mood - Skin Skin exam: Present: warm, dry, intact, normal color. Absent: rash ED Medical Decision Making - Medical Decision Making 55-year-old -[place] female presents to the emergency room concern for elevated blood pressure. Patient states that she felt that she had eaten something that has caused her blood pressure to rise. Patient reports she is currently taking amlodipine 10 mg and benazepril 40 mg daily for her blood pressure. Patient states that she does feel somewhat better. 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 ED Disposition Clinical Impression: Anxiety Hypertension Qualifiers: Hypertension type: essential hypertension Qualified Code(s): I10 - Essential (primary) hypertension Disposition: - TO HOME OR SELFCARE Is pt being admited?: No Does the pt Need Aspirin: No Condition: Stable Instructions: Hypertension, Adult, [id number], Hypertension (ED) Additional Instructions: Continue with all meds increase fluids avoid salts. Keep appointments. Referrals: AZAM PENA MD [Primary Care Provider] - 3-5 Days <ERIK MYERS - Last Filed: 04/17/21 06:30> ED Review of Systems ROS: Stated complaint: BP HIGH/LT SHOULDER PAIN/DIZZY Other details as noted in HPI ED Course Vital Signs 03/11/21 16:54 Temperature 98.3 F Pulse Rate 82 Respiratory 18 Rate Blood Pressure 180/78 [Right] O2 Sat by Pulse 98 Oximetry Critical care attestation.: If time is entered above; I have spent that time in minutes in the direct care of this critically ill patient, excluding procedure time. ED Disposition Is pt being admited?: No
--- NOTE | 2021-03-14 11:10 | Electrocardiograph Report ---
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
== END 2021-03-11 18:42 | disposition home or self-care (01) ==
LOC: ED 16:39
DX: I10 Essential (primary) hypertension (principal); F41.9 Anxiety disorder, unspecified; E11.9 Type 2 diabetes mellitus without complications; F17.200 Nicotine dependence, unspecified, uncomplicated; Z90.710 Acquired absence of both cervix and uterus; Z98.890 Other specified postprocedural states; Z88.8 Allergy status to other drugs, medicaments and biological substances
CPT/HCPCS: 93005; 99282

== ENCOUNTER 2021-03-20 15:43 | Emergency (ER) | payer MEDICARE ==
--- NOTE | 2021-03-20 17:20 | Event Note ---
ED Screening Note ED Screening Note: states she was restarted on the brand name of amlodipine 10 mg daily on 02/22/2021 states her urine has appeared darker states she was previously on clonidine states her muscles are aching This initial assessment/diagnostic orders/clinical plan/treatment(s) is/are subject to change based on patients health status, clinical progression and re- assessment by fellow clinical providers in the ED. Further treatment and workup at subsequent clinical providers discretion. Patient/guardian urged not to elope from the ED as their condition may be serious if not clinically assessed and managed. Initial orders include: labs, ua
[2021-03-20 18:00] LABS: Albumin 3.7 g/dL (3.9-5); Calcium 8.7 mg/dL (8.4-10.2)
[2021-03-20 18:21] LABS: Basophils % (Auto) 0.2 % (0.0-1.8); Eosinophils # (Auto) 0.1 K/mm3 (0.0-0.4); Eosinophils % (Auto) 1.6 % (0.0-4.3); Hematocrit 34.2 % (30.3-42.9); Hemoglobin 11.3 gm/dl (10.1-14.3); Lymphocytes # (Auto) 2.4 K/mm3 (1.2-5.4); Lymphocytes % (Auto) 28.1 % (13.4-35.0); Mean Corpuscular HGB Conc 33 % (30-34); Mean Corpuscular Volume 85 fl (79-97); Monocytes # (Auto) 0.7 K/mm3 (0.0-0.8); Monocytes % (Auto) 8.4 % (0.0-7.3); Platelet Count 196 K/mm3 (140-440); Red Blood Count 4.02 M/mm3 (3.65-5.03); Red Cell Distribution Width 14.3 % (13.2-15.2)
[2021-03-20 18:33] LABS: Bilirubin,Urine NEG (Negative); Blood,Urine NEG (Negative); Color,Urine Yellow (Yellow); Mucus,Urine FEW /HPF; Urobilinogen,Urine < 2.0 mg/dL (<2.0)
--- NOTE | 2021-03-20 19:45 | Emergency Department Report ---
ED General Adult HPI - General Chief complaint: Weakness Stated complaint: KIDNEY PAIN/RENETTA SHOULDER/DIZZY Time Seen by Provider: 03/20/21 17:18 Source: patient Mode of arrival: Ambulatory Limitations: No Limitations - History of Present Illness Initial comments: Chief complaint: "I am have allergic reaction to amlodipine. I am upset that my kidney function is only 53%." HPI: This is a 55-year-old female with history of stage III chronic kidney disea se, hypertension, anxiety, diabetes mellitus who presents with body aches facial rash after restarting amlodipine. She has been allergic to the generic form of amlodipine on prior occasion. She has shoulder aches. She states that she just "just does not feel good". She is concerned for side effect of amlodipine she also has facial swelling. Symptoms have lasted for 1 and half weeks. She has been drinking water to avoid dehydration. Certified Nurse Practitioner is Dr. Ferreira clip loading machine feeder Dr. Reeves PCP Dr. Michelle Weldon -: Gradual, week(s) (1.5) Location: left, right, upper extremity Quality: aching Consistency: constant Improves with: none Worsens with: none Associated Symptoms: rash, other (Periorbital swelling) - Related Data Home Medications Medication Instructions Recorded Confirmed Last Taken cloNIDine HCL [Clonidine HCl] 0.2 mg PO BID 04/05/15 01/21/21 1 Day Ago ~01/20/21 .2 ALPRAZolam [Xanax TAB] 1 mg PO TID PRN 02/23/20 01/21/21 1 Day Ago ~01/20/21 Furosemide [Lasix] 40 PO DAILY 01/21/21 1 Day Ago ~01/20/21 Potassium Chloride [K-Dur] 40 meq PO QDAY 01/21/21 01/21/21 1 Day Ago ~01/20/21 Previous Rx's Medication Instructions Recorded Last Taken Type Insulin Glargine,Hum.rec.anlog 15 unit SQ QHS #3 insuln.pen 12/12/19 1 Day Ago Rx [Lantus Solostar] ~01/20/21 hydrOXYzine PAMOATE [Vistaril] 50 mg PO Q12H PRN #30 capsule 01/21/21 Unknown Rx Allergies Allergy/AdvReac Type Severity Reaction Status Date / Time amlodipine Allergy Intermediate Unknown Verified 10/13/20 12:02 amoxicillin Allergy Unknown Verified 04/17/19 16:35 insulin NPH human isophane Allergy Unknown Verified 10/13/20 12:02 [From Humulin N] insulin regular, human Allergy Unknown Verified 10/13/20 12:02 [From Humulin R] lisinopril Allergy Swelling Verified 10/13/20 12:02 losartan [Losartan] Allergy Unknown Verified 10/13/20 12:02 metformin Allergy Rash Verified 10/13/20 12:02 potassium Allergy Unknown Verified 10/13/20 12:02 Fcbnetg-Ncc-Nra Reductase Allergy Unknown Verified 10/13/20 12:02 Inhibitor valsartan Allergy Swelling Verified 10/13/20 12:02 ED Review of Systems ROS: Stated complaint: KIDNEY PAIN/RENETTA SHOULDER/DIZZY Other details as noted in HPI Comment: All other systems reviewed and negative Constitutional: denies: fever, malaise Respiratory: denies: cough, shortness of breath Cardiovascular: denies: chest pain Musculoskeletal: arthralgia Skin: rash ED Past Medical Hx - Past Medical History Previous Medical History?: Yes Hx Hypertension: Yes Hx CVA: No Hx Heart Attack/AMI: No Hx Congestive Heart Failure: No Hx Diabetes: Yes Hx Deep Vein Thrombosis: No Hx Pulmonary Embolism: No Hx GERD: No Hx Liver Disease: No Hx Renal Disease: Yes (stage 3) Hx Sickle Cell Disease: No Hx Arthritis: No Hx Headaches / Migraines: No Hx Seizures: No Hx Kidney Stones: No Hx Psychiatric Treatment: Yes (depression, anxiety, panic attacks) Hx Asthma: No Hx COPD: No Hx Tuberculosis: No Hx Dementia: No Hx HIV: No Additional medical history: fibroids, Mold exposure - Surgical History Past Surgical History?: Yes Hx Coronary Stent: No Hx Pacemaker: No Hx Internal Defibrillator: Yes Hx Breast Surgery: Yes (BREAST REDUCTION) Additional Surgical History: breast reduction 1999, x2, hysterectomy, fibroids removal - Social History Smoking Status: Current Every Day Smoker Substance Use Type: None - Medications Home Medications: Home Medications Medication Instructions Recorded Confirmed Last Taken Type cloNIDine HCL [Clonidine HCl] 0.2 mg PO BID 04/05/15 01/21/21 1 Day Ago History ~01/20/21 .2 Insulin Glargine,Hum.rec.anlog 15 unit SQ QHS #3 insuln.pen 12/12/19 01/21/21 1 Day Ago Rx [Lantus Solostar] ~01/20/21 ALPRAZolam [Xanax TAB] 1 mg PO TID PRN 02/23/20 01/21/21 1 Day Ago History ~01/20/21 Furosemide [Lasix] 40 PO DAILY 01/21/21 1 Day Ago History ~01/20/21 Potassium Chloride [K-Dur] 40 meq PO QDAY 01/21/21 01/21/21 1 Day Ago History ~01/20/21 hydrOXYzine PAMOATE [Vistaril] 50 mg PO Q12H PRN #30 capsule 01/21/21 Unknown Rx ED Physical Exam - General Limitations: No Limitations General appearance: alert, in no apparent distress - Head Head exam: Present: atraumatic, normocephalic, other (Faint papular rash involving forehead face flesh-colored papules) - Eye Eye exam: Present: normal appearance - ENT ENT exam: Present: mucous membranes moist - Neck Neck exam: Present: normal inspection - Respiratory Respiratory exam: Present: normal lung sounds bilaterally. Absent: respiratory distress - Cardiovascular Cardiovascular Exam: Present: regular rate, normal rhythm. Absent: systolic murmur, diastolic murmur, rubs, gallop - GI/Abdominal GI/Abdominal exam: Present: soft, normal bowel sounds. Absent: distended, tenderness, guarding, rebound - Extremities Exam Extremities exam: Present: normal inspection - Neurological Exam Neurological exam: Present: alert, oriented X3 - Psychiatric Psychiatric exam: Present: normal affect, normal mood - Skin Skin exam: Present: warm, dry, intact, normal color. Absent: rash ED Course Vital Signs 03/20/21 16:59 Temperature 99 F Pulse Rate 79 Respiratory 18 Rate Blood Pressure 151/68 O2 Sat by Pulse 100 Oximetry ED Medical Decision Making - Lab Data Result diagrams: 03/20/21 17:27 03/20/21 17:27 Laboratory Results - last 24 hr 03/20/21 03/20/21 03/20/21 17:27 17:27 Unknown WBC 8.7 RBC 4.02 Hgb 11.3 Hct 34.2 MCV 85 MCH 28 MCHC 33 RDW 14.3 Plt Count 196 Lymph % (Auto) 28.1 [place] % (Auto) 8.4 H Eos % (Auto) 1.6 Baso % (Auto) 0.2 Lymph # (Auto) 2.4 [place] # (Auto) 0.7 Eos # (Auto) 0.1 Baso # (Auto) 0.0 Seg Neutrophils % 61.7 Seg Neutrophils # 5.3 Sodium 134 L Potassium 4.2 Chloride 100.9 Carbon Dioxide 22 Anion Gap 15 BUN 17 Creatinine 1.2 Estimated GFR 56 BUN/Creatinine Ratio 14 Glucose 244 H Calcium 8.7 Magnesium 1.90 Total Bilirubin 0.20 AST 14 ALT 14 Alkaline Phosphatase 119 Total Creatine Kinase 82 Total Protein 6.7 Albumin 3.7 L Albumin/Globulin Ratio 1.2 Urine Color Yellow Urine Turbidity Clear Urine pH 6.0 Ur Specific [place] 1.006 Urine Protein 100 mg/dl Urine Glucose (UA) Neg Urine Ketones Neg Urine Blood Neg Urine Nitrite Neg Urine Bilirubin Neg Urine Urobilinogen < 2.0 Ur Leukocyte Esterase Neg Urine WBC (Auto) 1.0 Urine RBC (Auto) 1.0 U Epithel Cells (Auto) 1.0 Urine Mucus Few - Medical Decision Making Fatigue, joint pain, rash: Drug allergy to amlodipine. Patient will stop taking the medication. Patient given reassurance. CBC chemistry unremarkable. Patient does have proteinuria. Proteinuria likely reflective of diabetic nephropathy. She is under the care of retail sales professional DR. Ferreira Critical care attestation.: If time is entered above; I have spent that time in minutes in the direct care of this critically ill patient, excluding procedure time. ED Disposition Clinical Impression: Drug allergy, Renal insufficiency Disposition: DC-01 TO HOME OR SELFCARE Is pt being admited?: No Does the pt Need Aspirin: No Condition: Stable Instructions: Drug Allergy
[2021-03-20 20:23] VITALS: BP 172/73
== END 2021-03-20 20:23 | disposition home or self-care (01) ==
LOC: ED 15:43
DX: R21 Rash and other nonspecific skin eruption (principal); T46.1X5A Adverse effect of calcium-channel blockers, initial encounter; N28.9 Disorder of kidney and ureter, unspecified; I10 Essential (primary) hypertension; E11.9 Type 2 diabetes mellitus without complications; F32.9 Major depressive disorder, single episode, unspecified; F17.200 Nicotine dependence, unspecified, uncomplicated; Z98.890 Other specified postprocedural states; Z79.899 Other long term (current) drug therapy; Z79.4 Long term (current) use of insulin; Z88.8 Allergy status to other drugs, medicaments and biological substances; Y92.89 Other specified places as the place of occurrence of the external cause
CPT/HCPCS: 36415; 80053; 81001; 82550; 83735; 85025

== ENCOUNTER 2021-04-25 13:02 | Emergency (ER) | payer MEDICARE ==
--- NOTE | 2021-04-25 14:11 | Event Note ---
ED Screening Note Date of service: 04/25/21 Time: 14:07 ED Screening Note: Pt was sent to ED via EMS for elevated BP. Patient states that when she went to her doctor's office today her systolic blood pressure was in the 200s and so they called EMS to bring her into the ER. Patient states that she has been having left arm pain, tingling in her fingers, and feels like her heart is been skipping beats. She states that she is currently on losartan 100 mg which she started 3 weeks ago, she is also on clonidine 0.2 mg and also wears a clonidine patch. Patient states that she has been to her electrical designer drafter as well as other primary care doctors and no one can seem to control her blood pressure. In addition to the hypertension, past medical history significant for diabetes and tobacco use. This initial assessment/diagnostic orders/clinical plan/treatment(s) is/are subject to change based on patients health status, clinical progression and re- assessment by fellow clinical providers in the ED. Further treatment and workup at subsequent clinical providers discretion. Patient/guardian urged not to elope from the ED as their condition may be serious if not clinically assessed and managed. Initial orders include: Chest pain order set
--- NOTE | 2021-04-25 14:46 | XRay Report ---
CHEST 2 VIEWS INDICATION / CLINICAL INFORMATION: Chest Pain. COMPARISON: 12/21/2020 FINDINGS: SUPPORT DEVICES: None. HEART / MEDIASTINUM: Stable. LUNGS / PLEURA: No significant pulmonary or pleural abnormality. No pneumothorax. ADDITIONAL FINDINGS: No significant additional findings. IMPRESSION: 1. No acute findings. No significant interval change. Signer Name: Júnior Garcia MD Signed: 04/25/2021 2:42 PM Workstation Name: [id number]
[2021-04-25 15:13] LABS: Basophils # (Auto) 0.1 K/mm3 (0.0-0.1); Basophils % (Auto) 0.7 % (0.0-1.8); Eosinophils # (Auto) 0.1 K/mm3 (0.0-0.4); Eosinophils % (Auto) 1.6 % (0.0-4.3); Hematocrit 36.9 % (30.3-42.9); Hemoglobin 11.5 gm/dl (10.1-14.3); Lymphocytes % (Auto) 31.8 % (13.4-35.0); Mean Corpuscular HGB Conc 31 % (30-34); Mean Corpuscular Volume 86 fl (79-97); Monocytes # (Auto) 0.8 K/mm3 (0.0-0.8); Monocytes % (Auto) 8.3 % (0.0-7.3); Platelet Count 240 K/mm3 (140-440); Red Cell Distribution Width 14.7 % (13.2-15.2)
[2021-04-25 16:25] LABS: Alanine Aminotransferase 13 units/L (7-56); Albumin 3.5 g/dL (3.9-5); BUN/Creatinine Ratio 17; Blood Urea Nitrogen 19 mg/dL (7-17); Calcium 8.7 mg/dL (8.4-10.2); Hemolysis Index 48
--- NOTE | 2021-04-25 19:44 | Emergency Department Report ---
ED General Adult HPI - General Chief complaint: High BP Stated complaint: ELEVATED BLOOD PRESSURE PUI?: No Time Seen by Provider: 04/25/21 19:40 Source: patient, RN notes reviewed Mode of arrival: Ambulatory Limitations: No Limitations - History of Present Illness Initial comments: Primary cardiology: [facility]/Dr. Christie Past medical history: Hypertension, diabetes, depression, anxiety, panic attack, history of renal insufficiency, fibroids. The patient is a 55-year-old female. She is referred to the emergency room by her primary care doctor for hypertension. Patient reports that she has blood pressure that is difficult to control, and her primary bench molder apprentice has prescribed clonidine patch, as well as losartan which she is mostly compliant with. The patient reports that her blood pressure has been notoriously difficult to control. Today, she felt like her blood pressure was high at her primary care doctor's office. She does mention that she has nontraumatic left-sided arm pain, near her clonidine patch, which has been present for a few weeks. She also endorses atraumatic left-sided cheek pressure and discomfort, with some dentalgia, which was present since this morning. She reports that she is mostly compliant with her medications, and she denies Covid symptomatology. She denies headache, chest pain, neck pain, abdominal pain, shortness of breath, vomiting, diaphoresis, leg pain, leg swelling, travel, surgery, immobilization, DVT and pulmonary embolism risk factors. She reports having had an unremarkable cardiac stress test a few months ago. She occasionally consumes coffee. She also reports that she gets 6 to 7 hours of sleep most of the time. -: hour(s), week(s) Location: mouth, left, upper extremity Radiation: non-radiation Quality: aching Consistency: intermittent Improves with: none Worsens with: none - Related Data Home Medications Medication Instructions Recorded Confirmed Last Taken cloNIDine HCL [Clonidine HCl] 0.2 mg PO BID 04/05/15 01/21/21 1 Day Ago ~01/20/21 .2 ALPRAZolam [Xanax TAB] 1 mg PO TID PRN 02/23/20 01/21/21 1 Day Ago ~01/20/21 Furosemide [Lasix] 40 PO DAILY 01/21/21 1 Day Ago ~01/20/21 Potassium Chloride [K-Dur] 40 meq PO QDAY 01/21/21 01/21/21 1 Day Ago ~01/20/21 Previous Rx's Medication Instructions Recorded Last Taken Type Insulin Glargine,Hum.rec.anlog 15 unit SQ QHS #3 insuln.pen 12/12/19 1 Day Ago Rx [Lantus Solostar] ~01/20/21 hydrOXYzine PAMOATE [Vistaril] 50 mg PO Q12H PRN #30 capsule 01/21/21 Unknown Rx Allergies Allergy/AdvReac Type Severity Reaction Status Date / Time amlodipine Allergy Intermediate Unknown Verified 10/13/20 12:02 amoxicillin Allergy Unknown Verified 04/17/19 16:35 insulin NPH human isophane Allergy Unknown Verified 10/13/20 12:02 [From Humulin N] insulin regular, human Allergy Unknown Verified 10/13/20 12:02 [From Humulin R] lisinopril Allergy Swelling Verified 10/13/20 12:02 losartan [Losartan] Allergy Unknown Verified 10/13/20 12:02 metformin Allergy Rash Verified 10/13/20 12:02 potassium Allergy Unknown Verified 10/13/20 12:02 Xwqofmr-Lll-Sfr Reductase Allergy Unknown Verified 10/13/20 12:02 Inhibitor valsartan Allergy Swelling Verified 10/13/20 12:02 ED Review of Systems ROS: Stated complaint: ELEVATED BLOOD PRESSURE Other details as noted in HPI Constitutional: denies: fever Eyes: denies: eye discharge, vision change ENT: dental pain Respiratory: denies: cough Cardiovascular: denies: chest pain Gastrointestinal: denies: abdominal pain, nausea, vomiting Musculoskeletal: myalgia Neurological: denies: numbness Psychiatric: anxiety ED Past Medical Hx - Past Medical History Previous Medical History?: Yes Hx Hypertension: Yes Hx CVA: No Hx Heart Attack/AMI: No Hx Congestive Heart Failure: No Hx Diabetes: Yes Hx Deep Vein Thrombosis: No Hx Pulmonary Embolism: No Hx GERD: No Hx Liver Disease: No Hx Renal Disease: Yes (stage 3) Hx Sickle Cell Disease: No Hx Arthritis: No Hx Headaches / Migraines: No Hx Seizures: No Hx Kidney Stones: No Hx Psychiatric Treatment: Yes (depression, anxiety, panic attacks) Hx Asthma: No Hx COPD: No Hx Tuberculosis: No Hx Dementia: No Hx HIV: No Additional medical history: fibroids, Mold exposure - Surgical History Past Surgical History?: Yes Hx Coronary Stent: No Hx Pacemaker: No Hx Internal Defibrillator: Yes Hx Breast Surgery: Yes (BREAST REDUCTION) Additional Surgical History: breast reduction 1999, x2, hysterectomy, fibroids removal - Social History Smoking Status: Current Every Day Smoker Substance Use Type: None - Medications Home Medications: Home Medications Medication Instructions Recorded Confirmed Last Taken Type cloNIDine HCL [Clonidine HCl] 0.2 mg PO BID 04/05/15 01/21/21 1 Day Ago History ~01/20/21 .2 Insulin Glargine,Hum.rec.anlog 15 unit SQ QHS #3 insuln.pen 12/12/19 01/21/21 1 Day Ago Rx [Lantus Solostar] ~01/20/21 ALPRAZolam [Xanax TAB] 1 mg PO TID PRN 02/23/20 01/21/21 1 Day Ago History ~01/20/21 Furosemide [Lasix] 40 PO DAILY 01/21/21 1 Day Ago History ~01/20/21 Potassium Chloride [K-Dur] 40 meq PO QDAY 01/21/21 01/21/21 1 Day Ago History ~01/20/21 hydrOXYzine PAMOATE [Vistaril] 50 mg PO Q12H PRN #30 capsule 01/21/21 Unknown Rx ED Physical Exam - General Limitations: No Limitations General appearance: alert, in no apparent distress, obese - Head Head exam: Present: atraumatic, normocephalic - Eye Eye exam: Present: normal appearance, EOMI. Absent: nystagmus - ENT ENT exam: Present: normal exam, normal orophraynx, mucous membranes moist, normal external ear exam - Neck Neck exam: Present: normal inspection, full ROM. Absent: tenderness, meningismus - Respiratory Respiratory exam: Present: normal lung sounds bilaterally. Absent: respiratory distress, wheezes, rales, rhonchi, stridor, decreased breath sounds - Cardiovascular Cardiovascular Exam: Present: normal rhythm, bradycardia, normal heart sounds. Absent: tachycardia, irregular rhythm, systolic murmur, diastolic murmur, rubs, gallop - GI/Abdominal GI/Abdominal exam: Present: soft. Absent: distended, tenderness, guarding, rebound, rigid, pulsatile mass - Extremities Exam Extremities exam: Present: normal inspection, full ROM, other (2+ pulses noted in the bilateral upper and lower extremities. There is no palpable cord. negative Homans sign. Muscular compartments are soft. The pelvis is stable.). Absent: pedal edema, calf tenderness - Back Exam Back exam: Present: normal inspection, full ROM. Absent: tenderness, CVA tenderness (R), CVA tenderness (L), paraspinal tenderness, vertebral tenderness - Neurological Exam Neurological exam: Present: alert, oriented X3, normal gait, other (No facial droop. Tongue midline. Extraocular movements intact bilaterally. Facial sensation intact to light touch in V1, V2, V3 distribution bilaterally. 5 and a 5 strength in 4 extremities. Sensation intact to light touch in 4 extremities.). Absent: motor sensory deficit - Psychiatric Psychiatric exam: Present: normal affect, normal mood - Skin Skin exam: Present: warm, dry, intact, normal color. Absent: rash ED Course Vital Signs 04/25/21 13:26 Temperature 97.8 F Pulse Rate 59 L Respiratory 20 Rate Blood Pressure 154/60 O2 Sat by Pulse 100 Oximetry - Pulse Oximetry Interpretation Digit-Finger Initial Pulse Oximetry Readin O2 Sat by Pulse Oximetry: 99 Actions Taken: none ED Medical Decision Making - Lab Data Result diagrams: 04/25/21 14:51 04/25/21 14:51 Vital Signs 04/25/21 13:26 Temperature 97.8 F Pulse Rate 59 L Respiratory 20 Rate Blood Pressure 154/60 O2 Sat by Pulse 100 Oximetry Lab Results 04/25/21 04/25/21 04/25/21 Range/Units 14:51 14:51 14:51 WBC 9.4 (4.5-11.0) K/mm3 RBC 4.30 (3.65-5.03) M/mm3 Hgb 11.5 (10.1-14.3) gm/dl Hct 36.9 (30.3-42.9) % MCV 86 (79-97) fl MCH 27 L (28-32) pg MCHC 31 (30-34) % RDW 14.7 (13.2-15.2) % Plt Count 240 (140-440) K/mm3 Lymph % (Auto) 31.8 (13.4-35.0) % [place] % (Auto) 8.3 H (0.0-7.3) % Eos % (Auto) 1.6 (0.0-4.3) % Baso % (Auto) 0.7 (0.0-1.8) % Lymph # (Auto) 3.0 (1.2-5.4) K/mm3 [place] # (Auto) 0.8 (0.0-0.8) K/mm3 Eos # (Auto) 0.1 (0.0-0.4) K/mm3 Baso # (Auto) 0.1 (0.0-0.1) K/mm3 Seg Neutrophils % 57.6 (40.0-70.0) % Seg Neutrophils # 5.4 (1.8-7.7) K/mm3 Sodium 135 L (137-145) mmol/L Potassium 4.4 (3.6-5.0) mmol/L Chloride 103.4 (98-107) mmol/L Carbon Dioxide 22 (22-30) mmol/L Anion Gap 14 mmol/L BUN 19 H (7-17) mg/dL Creatinine 1.1 (0.6-1.2) mg/dL Estimated GFR > 60 ml/min BUN/Creatinine Ratio 17 % Glucose 128 H (65-100) mg/dL Calcium 8.7 (8.4-10.2) mg/dL Total Bilirubin 0.30 (0.1-1.2) mg/dL AST 17 (5-40) units/L ALT 13 (7-56) units/L Alkaline Phosphatase 116 (35-129) units/L Troponin T < 0.010 (0.00-0.029) ng/mL Total Protein 7.0 (6.3-8.2) g/dL Albumin 3.5 L (3.9-5) g/dL Albumin/Globulin Ratio 1.0 % HCG, Qual Negative (Negative) 04/25/21 Range/Units 17:02 WBC (4.5-11.0) K/mm3 RBC (3.65-5.03) M/mm3 Hgb (10.1-14.3) gm/dl Hct (30.3-42.9) % MCV (79-97) fl MCH (28-32) pg MCHC (30-34) % RDW (13.2-15.2) % Plt Count (140-440) K/mm3 Lymph % (Auto) (13.4-35.0) % [place] % (Auto) (0.0-7.3) % Eos % (Auto) (0.0-4.3) % Baso % (Auto) (0.0-1.8) % Lymph # (Auto) (1.2-5.4) K/mm3 [place] # (Auto) (0.0-0.8) K/mm3 Eos # (Auto) (0.0-0.4) K/mm3 Baso # (Auto) (0.0-0.1) K/mm3 Seg Neutrophils % (40.0-70.0) % Seg Neutrophils # (1.8-7.7) K/mm3 Sodium (137-145) mmol/L Potassium (3.6-5.0) mmol/L Chloride (98-107) mmol/L Carbon Dioxide (22-30) mmol/L Anion Gap mmol/L BUN (7-17) mg/dL Creatinine (0.6-1.2) mg/dL Estimated GFR ml/min BUN/Creatinine Ratio % Glucose (65-100) mg/dL Calcium (8.4-10.2) mg/dL Total Bilirubin (0.1-1.2) mg/dL AST (5-40) units/L ALT (7-56) units/L Alkaline Phosphatase (35-129) units/L Troponin T < 0.010 (0.00-0.029) ng/mL Total Protein (6.3-8.2) g/dL Albumin (3.9-5) g/dL Albumin/Globulin Ratio % HCG, Qual (Negative) - EKG Data -: EKG Interpreted by Ga EKG shows normal: sinus rhythm Rate: normal - EKG Data Interpretation: unchanged when compared t 04/25/21 20:14 EKG interpreted at 14: 15 Sinus rhythm, rate 58 bpm, normal axis, first-degree AV block, poor R wave progression, QRS, QTc within normal limits. This is an abnormal EKG. This is not a STEMI. This appears to be unchanged when compared to prior EKG from March 11, 2021. - Radiology Data Radiology results: pending, report reviewed, image reviewed [facility] [address] [place] [address] XRay Report Signed Patient: CRISPIN LARRY MR#: [id number] : 1965 Acct:[id number] Age/Sex: 55 / F ADM Date: 04/25/21 Loc: ED Attending Dr: Ordering Physician: SIMONE ONEIL Date of Service: 04/25/21 Procedure(s): XR chest routine 2V Accession Number(s): [id number] cc: SIMONE ONEIL Fluoro Time In Minutes: CHEST 2 VIEWS INDICATION / CLINICAL INFORMATION: Chest Pain. COMPARISON: 12/21/2020 FINDINGS: SUPPORT DEVICES: None. HEART / MEDIASTINUM: Stable. LUNGS / PLEURA: No significant pulmonary or pleural abnormality. No pneumothorax. ADDITIONAL FINDINGS: No significant additional findings. IMPRESS ION: 1. No acute findings. No significant interval change. Signer Name: Júnior Chase MD Signed: 04/25/2021 2:42 PM Workstation Name: [id number] Transcribed By: RANGEL Dictated By: JÚNIOR CHASE Electronically Authenticated By: JÚNIOR CHASE Signed Date/Time: 04/25/211441 DD/ 40 - Medical Decision Making Differential diagnosis, including but not limited to: Chronic hypertension, dentalgia, myalgia, encounter for medical screening examination Assessment and plan: 55-year-old female, who is not currently tachycardic, tachypneic or hypoxic, who denies DVT and pulmonary embolism risk factors, who is low risk by Wells criteria for pulmonary embolism, EKG unchanged from prior, troponin negative x 2, symptoms present for days to weeks. Has a primary complaint of asymptomatic hypertension, which is not acutely decompensated, and reports having had an unremarkable cardiac risk ratification within the past 5 months. Please reference the [employer] clinical policy on asymptomatic hypertension. Has full range of motion in the upper or lower extremities, without redness, pus, streaking or tenderness. Muscular compartments are soft. Patient has equal pulses in the upper and lower extremities, no pulsatile abdominal mass, and an unremarkable x-ray of the chest, therefore, aortic disease is very unlikely. Patient at low risk for major adverse cardiac event as per heart score. Reassurance provided to patient. She will need to follow-up with her primary care doctor or bench molder apprentice for her chronic hypertension. Based off of the history and physical, she does not appear to have an emergent medical condition present at this time. Return precautions are reviewed. She has no stridor or dysphonia, she is protecting her airway, and she is not stridulous At the time of disposition, the patient is resting comfortably on her stretcher, speaking on a cellular phone, and does not appear to be in any acute distress. Critical care attestation.: If time is entered above; I have spent that time in minutes in the direct care of this critically ill patient, excluding procedure time. ED Disposition Clinical Impression: HTN (hypertension), Encounter for medical screening examination Disposition: TO HOME OR SELFCARE Is pt being admited?: No Does the pt Need Aspirin: No Condition: Good Instructions: Hypertension (ED), Hypertension, Adult Additional Instructions: Please continue current outpatient medications. Make certain to get at least 7 to 8 hours of good quality uninterrupted sleep each evening, and avoid consumption of caffeine, energy drinks, supplements. Please return to the emergency room right away with new pain, worsened pain, migration of pain, projectile vomiting, change in mental status, confusion, inability to tolerate liquid feeds, new, worsened or different symptoms not present on the initial emergency room evaluation. Patient may take [id number] acetaminophen as needed for physical pain. Recommend that the patient follow-up with her primary care doctor or bench molder apprentice for chronically elevated blood pressure within the next 7 to 10 days. Referrals: KAE CHRISTIE MD [Staff Physician] - 7-10 days Heart Score - HEART Score History: Slightly suspicious EKG: Non-specific Age: 45-65 Risk factors: 1-2 risk factors Troponin: < normal limit HEART Score: 3 - EKG Read Time Time EKG Completed: 14:15 EKG Read Time: 14:16 - Critical Actions Critical Actions: 0-3 pts:0.9-1.7%risk of adverse cardiac event.Candidate for discharge
[2021-04-25] MEDS ORDERED: ACETAMINOPHEN 325 MG TAB PO STA (20:08)
[2021-04-25 21:05] VITALS: BP 160/73
--- NOTE | 2021-04-27 19:11 | Electrocardiograph Report ---
[facility] Test Date: 2021-04-25 Test Time: 14:15:52 Pat Name: CRISPIN LARRY Department: Room: Gender: F Commercial Counsel: FIORELLA : 1965 Requested By: SIMONE ONEIL Order Number: [id number] Reading MD: Damian Reeves Measurements Intervals [place] Rate: 58 P: 47 MT: 256 QRS: 34 QRSD: 83 T: 54 QT: 440 QTc: 432 Interpretive Statements Sinus bradycardia Prolonged MT interval Compared to ECG 03/11/2021 17:08:18 No significant change Electronically Signed On 04-27-2021 19:10:52 EDT by Damian Reeves
== END 2021-04-25 20:40 | disposition home or self-care (01) ==
LOC: ED 13:02
DX: I10 Essential (primary) hypertension (principal); Z00.00 Encounter for general adult medical examination without abnormal findings; E11.9 Type 2 diabetes mellitus without complications; F32.9 Major depressive disorder, single episode, unspecified; F17.200 Nicotine dependence, unspecified, uncomplicated; Z98.890 Other specified postprocedural states; Z79.4 Long term (current) use of insulin; Z79.899 Other long term (current) drug therapy; Z88.8 Allergy status to other drugs, medicaments and biological substances
CPT/HCPCS: 36415; 71046; 80053; 84484; 84703; 85025; 93005

== ENCOUNTER 2021-05-04 17:54 | Observation (INO) | payer MEDICARE ==
[2021-05-04] MEDS ORDERED: ASPIRIN 325 MG TAB PO ONE (18:33)
--- NOTE | 2021-05-04 19:36 | XRay Report ---
CHEST 2 VIEWS INDICATION: CP. COMPARISON: 04/25/2021 FINDINGS: SUPPORT DEVICES: None. HEART: Within normal limits. LUNGS/PLEURA: No acute air space or interstitial disease. No pneumothorax. ADDITIONAL FINDINGS: None. IMPRESSION: 1. No acute findings. Signer Name: Derek Young MD Signed: 05/04/2021 7:32 PM Workstation Name: [id number]
[2021-05-04 19:49] LABS: Basophils % (Auto) 0.5 % (0.0-1.8); Eosinophils # (Auto) 0.2 K/mm3 (0.0-0.4); Eosinophils % (Auto) 2.3 % (0.0-4.3); Hematocrit 35.6 % (30.3-42.9); Hemoglobin 11.6 gm/dl (10.1-14.3); Lymphocytes # (Auto) 2.6 K/mm3 (1.2-5.4); Lymphocytes % (Auto) 30.7 % (13.4-35.0); Mean Corpuscular HGB Conc 33 % (30-34); Mean Corpuscular Volume 86 fl (79-97); Monocytes # (Auto) 0.8 K/mm3 (0.0-0.8); Platelet Count 207 K/mm3 (140-440); Red Blood Count 4.13 M/mm3 (3.65-5.03); Red Cell Distribution Width 14.5 % (13.2-15.2)
[2021-05-04 19:57] LABS: Alanine Aminotransferase 12 units/L (7-56); Albumin 3.5 g/dL (3.9-5); BUN/Creatinine Ratio 18; Blood Urea Nitrogen 22 mg/dL (7-17); Calcium 8.8 mg/dL (8.4-10.2); Hemolysis Index 10
--- NOTE | 2021-05-04 22:33 | Emergency Department Report ---
HPI - General Chief Complaint: Chest Pain Time Seen by Provider: 05/04/21 22:18 - HPI HPI: Room 4 The patient is a 55-year-old female present with a chief complaint of chest pain and left upper extremity pain. Patient states she was recently switched to a different blood pressure medication and she noticed her blood pressure was elevated. Patient states today she noticed her blood pressure was 245/95. The patient states this afternoon she developed left upper extremity pain and right- sided chest pain described as a soreness and intermittent in nature. Patient denies shortness of breath, nausea/vomiting or diaphoresis. Patient currently gets her arm pain score 3/10. Patient states her last stress test was approximately 8 months ago. ED Past Medical Hx - Past Medical History Hx Hypertension: Yes Hx Diabetes: Yes Hx Renal Disease: Yes (stage 3) Hx Psychiatric Treatment: Yes (depression, anxiety, panic attacks) Additional medical history: fibroids, Mold exposure - Surgical History Hx Breast Surgery: Yes (BREAST REDUCTION) Additional Surgical History: breast reduction 1999, x2, hysterectomy, fibroids removal - Family History Family history: no significant - Social History Smoking Status: Current Every Day Smoker (1/2 pack/day) Substance Use Type: None (Denies illicit drug use) - Medications Home Medications: Home Medications Medication Instructions Recorded Confirmed Last Taken Type cloNIDine HCL [Clonidine HCl] 0.2 mg PO BID 04/05/15 01/21/21 1 Day Ago History ~01/20/21 .2 Insulin Glargine,Hum.rec.anlog 15 unit SQ QHS #3 insuln.pen 12/12/19 01/21/21 1 Day Ago Rx [Lantus Solostar] ~01/20/21 ALPRAZolam [Xanax TAB] 1 mg PO TID PRN 02/23/20 01/21/21 1 Day Ago History ~01/20/21 Furosemide [Lasix] 40 PO DAILY 01/21/21 1 Day Ago History ~01/20/21 Potassium Chloride [K-Dur] 40 meq PO QDAY 01/21/21 01/21/21 1 Day Ago History ~01/20/21 hydrOXYzine PAMOATE [Vistaril] 50 mg PO Q12H PRN #30 capsule 01/21/21 Unknown Rx ED Review of Systems ROS: Stated complaint: CHEST PAINS HEADACHE Other details as noted in HPI Constitutional: no symptoms reported Eyes: denies: eye pain ENT: denies: throat pain Respiratory: no symptoms reported Cardiovascular: chest pain Endocrine: no symptoms reported Gastrointestinal: denies: nausea, vomiting Genitourinary: denies: dysuria Musculoskeletal: denies: back pain Neurological: denies: headache Physical Exam - Physical Exam Vital Signs: Vital Signs 05/04/21 18:30 Temperature 98.6 F Pulse Rate 67 Respiratory 20 Rate Blood Pressure 186/69 O2 Sat by Pulse 100 Oximetry Physical Exam: GENERAL: The patient is well-developed well-nourished female lying on stretcher not appearing to be in acute distress. [] HEENT: Normocephalic. Atraumatic. Extraocular motions are intact. Patient has moist mucous membranes. NECK: Supple. Trachea midline CHEST/LUNGS: Clear to auscultation. There is no respiratory distress noted. HEART/CARDIOVASCULAR: Regular. There is no tachycardia. There is no gallop rub or murmur. 2+ left radial pulse ABDOMEN: Abdomen is soft, nontender. Patient has normal bowel sounds. There is no abdominal distention. SKIN: There is no rash. There is no edema. There is no diaphoresis. NEURO: The patient is awake, alert, and oriented. The patient is cooperative. The patient has no focal neurologic deficits. The patient has normal speech. GCS 15 MUSCULOSKELETAL: There is no evidence of acute injury. ED Course Vital Signs 05/04/21 18:30 Temperature 98.6 F Pulse Rate 67 Respiratory 20 Rate Blood Pressure 186/69 O2 Sat by Pulse 100 Oximetry ED Medical Decision Making - Lab Data Result diagrams: 05/04/21 19:18 05/04/21 19:18 Laboratory Tests 05/04/21 05/04/21 05/04/21 19:18 19:18 21:20 WBC 8.5 RBC 4.13 Hgb 11.6 Hct 35.6 MCV 86 MCH 28 MCHC 33 RDW 14.5 Plt Count 207 Lymph % (Auto) 30.7 [place] % (Auto) 9.0 H Eos % (Auto) 2.3 Baso % (Auto) 0.5 Lymph # (Auto) 2.6 [place] # (Auto) 0.8 Eos # (Auto) 0.2 Baso # (Auto) 0.0 Seg Neutrophils % 57.5 Seg Neutrophils # 4.9 Sodium 137 Potassium 4.1 Chloride 103.4 Carbon Dioxide 23 Anion Gap 15 BUN 22 H Creatinine 1.2 Estimated GFR 56 BUN/Creatinine Ratio 18 Glucose 103 H Calcium 8.8 Total Bilirubin 0.20 AST 14 ALT 12 Alkaline Phosphatase 110 Troponin T < 0.010 < 0.010 Total Protein 6.5 Albumin 3.5 L Albumin/Globulin Ratio 1.2 - EKG Data -: EKG Interpreted by Me EKG shows normal: sinus rhythm Rate: normal - EKG Data When compared to previous EKG there are: changes noted Interpretation: nonspecific ST-T wave alan (New T wave inversion in lead III and flattened T wave in lead aVF when compared with previous EKG dated 04/25/2021) - Radiology Data Radiology results: report reviewed (Chest x-ray), image reviewed (Chest x-ray) interpreted by me: Chest x-ray-no focal infiltrates, no pneumothorax. No foreign body seen [facility] [address] [place] [address] XRay Report Signed Patient: CRISPIN LARRY MR#: [id number] 0 : 1965 Acct:[id number] Age/Sex: 55 / F ADM Date: 05/04/21 Loc: ED Attending Dr: Ordering Physician: ED MD GENARO Date of Service: 05/04/21 Procedure(s): XR chest routine 2V Accession Number(s): [id number] cc: ED DOCMD Fluoro Time In Minutes: CHEST 2 VIEWS INDICATION: CP. COMPARISON: 04/25/2021 FINDINGS: SUPPORT DEVICES: None. HEART: Within normal limits. LUNGS/PLEURA: No acute air space or intersti tial disease. No pneumothorax. ADDITIONAL FINDINGS: None. IMPRESSION: 1. No acute findings. Signer Name: Derek Young MD Signed: 05/04/2021 7:32 PM Workstation Name: [id number] Transcribed By: JW Dictated By: Derek Young MD Electronically Authenticated By: Derek Young MD Signed Da te/Time: 05/04/211931 DD/ 30 TD/TT: Print Cancel - Differential Diagnosis ACS, pericarditis, GERD, hypertensive urgency Critical care attestation.: If time is entered above; I have spent that time in minutes in the direct care of this critically ill patient, excluding procedure time. ED Disposition Clinical Impression: Hypertensive urgency, Chest pain, T wave inversion in EKG Disposition: 09 OP ADMIT IP TO THIS HOSP Is pt being admited?: Yes Does the pt Need Aspirin: Yes Condition: Fair Instructions: Nonspecific Chest Pain, Adult Time of Disposition: 22:48 (Hospitalist paged (Dr Whatley)) Heart Score - HEART Score History: Moderately suspicious EKG: Non-specific Age: 45-65 Risk factors: > 3 risk factors or hx of atherosclerotic disease Troponin: < normal limit HEART Score: 5 - EKG Read Time Time EKG Completed: 18:44 EKG Read Time: 18:48
[2021-05-04] MEDS ORDERED: NITROGLYCERIN 2% OINT 1 GM TP ONE (22:41)
[2021-05-04] MEDS ORDERED: cloNIDine 0.2 MG TAB PO ONE (22:41)
[2021-05-04] MEDS ORDERED: hydrALAZINE 10 MG TAB PO PRN (23:42)
--- NOTE | 2021-05-04 23:42 | History and Physical Report ---
History of Present Illness Date of examination: 05/04/21 Date of admission: 05/04/21 23:06 Chief complaint: chest pain Hypertensive urgency History of present illness: The patient is a 55-year-old female present with a chief complaint of chest pain and left upper extremity pain. Patient states she was recently switched to a different blood pressure medication and she noticed her blood pressure was elevated. Patient states today she noticed her blood pressure was 245/95. The patient states this afternoon she developed left upper extremity pain and right-sided chest pain described as a soreness and intermittent in nature. Patient denies shortness of breath, nausea/vomiting or diaphoresis. Patient currently gets her arm pain score 3/10. Patient states her last stress test was approximately 8 months ago. ED work-up shows WBC 8.5, 8.1 hemoglobin 11.6 platelets 207 potassium 4.1 sodium 137 serum glucose 103 hemoglobin A1c 8.3 creatinine 1.2, serum albumin 3.5 troponin is negative checks x-ray with no acute finding. Patient seen in the ED at bedside. The patient is alert oriented x3. Patient said he came he came with palpitation and chest pain. Patient said her blood pressures well controlled. Patient reported history of anxiety, medication. Patient has a history of hysterectomy and breast reduction patient admits tobacco use 1 pack every 3 days.] Past History Past Medical History: diabetes, hypertension Past Surgical History: , hysterectomy, Other (breast reduction) Social history: smoking Family history: diabetes, hypertension Medications and Allergies Allergies Allergy/AdvReac Type Severity Reaction Status Date / Time amlodipine Allergy Intermediate Unknown Verified 05/04/21 18:26 amoxicillin Allergy Unknown Verified 05/04/21 18:26 insulin NPH human isophane Allergy Unknown Verified 05/04/21 18:26 [From Humulin N] insulin regular, human Allergy Unknown Verified 05/04/21 18:26 [From Humulin R] lisinopril Allergy Swelling Verified 05/04/21 18:26 losartan [Losartan] Allergy Unknown Verified 05/04/21 18:26 metformin Allergy Rash Verified 05/04/21 18:26 potassium Allergy Unknown Verified 05/04/21 18:26 Teiglhh-Hpx-Ple Reductase Allergy Unknown Verified 05/04/21 18:26 Inhibitor valsartan Allergy Swelling Verified 05/04/21 18:26 Home Medications Medication Instructions Recorded Confirmed Last Taken Type cloNIDine HCL [Clonidine HCl] 0.2 mg PO BID 04/05/15 05/05/21 1 Day Ago History ~01/20/21 .2 Insulin Glargine,Hum.rec.anlog 15 unit SQ QHS #3 insuln.pen 12/12/19 05/05/21 1 Day Ago Rx [Lantus Solostar] ~01/20/21 ALPRAZolam [Xanax TAB] 1 mg PO TID PRN 02/23/20 05/05/21 1 Day Ago History ~01/20/21 Furosemide [Lasix] 40 mg PO DAILY 01/21/21 05/05/21 1 Day Ago History ~01/20/21 Potassium Chloride [K-Dur] 40 meq PO QDAY 01/21/21 05/05/21 1 Day Ago History ~01/20/21 hydrOXYzine PAMOATE [Vistaril] 50 mg PO Q12H PRN #30 capsule 01/21/21 05/05/21 Unknown Rx Review of Systems Ears, nose, mouth and throat: no epistaxis, no bleeding gums Cardiovascular: chest pain, shortness of breath, high blood pressure Respiratory: shortness of breath Gastrointestinal: no melena Rectal: no itching, no hemorrhoids Integumentary: no rash, no pruritis Neurological: no vertigo, no convulsions Psychiatric: anxiety Hematologic/Lymphatic: no easy bruising, no easy bleeding Allergic/Immunologic: no urticaria Exam - Constitutional Vitals: Temp Pulse Resp BP Pulse Ox 98.6 F 61 20 214/82 100 05/04/21 18:30 05/04/21 22:52 05/04/21 22:52 05/04/21 22:52 05/04/21 22:52 General appearance: Present: mild distress, obese - EENT Eyes: Present: PERRL ENT: hearing intact, clear oral mucosa - Neck Neck: Present: supple, normal ROM - Respiratory Respiratory effort: normal Respiratory: bilateral: CTA - Cardiovascular Heart Sounds: Present: S1 & S2. Absent: rub, click - Extremities Extremities: pulses symmetrical, No edema Peripheral Pulses: within normal limits - Abdominal General gastrointestinal: Present: soft, non-tender, non-distended, normal bowel sounds Female genitourinary: Present: normal - Integumentary Integumentary: Present: clear, warm, dry - Musculoskeletal Musculoskeletal: gait normal, strength equal bilaterally - Psychiatric Psychiatric: appropriate mood/affect, intact judgment & insight, cooperative - Neurologic Neurologic: CNII-XII intact, moves all extremities - Allied Health Allied health notes reviewed: nursing, PT HEART Score - HEART Score EKG: Non-specific Age: 45-65 Risk factors: > 3 risk factors or hx of atherosclerotic disease Troponin: Troponin T < 0.010 ng/mL (0.00-0.029) 05/04/21 21:20 Troponin: < normal limit Results - Labs CBC & Chem 7: 05/05/21 04:24 05/05/21 04:24 Labs: Abnormal lab results 05/04/21 05/04/21 Range/Units 19:18 19:18 [place] % (Auto) 9.0 H (0.0-7.3) % BUN 22 H (7-17) mg/dL Glucose 103 H (65-100) mg/dL Albumin 3.5 L (3.9-5) g/dL Assessment and Plan - Patient Problems (1) Hypertensive urgency Current Visit: Yes Status: Acute Plan to address problem: Monitor blood pressure Resume home medication for blood pressure Hydralazine as needed IV Echo follow-up with results cardiology consulted (2) Chest pain Current Visit: Yes Status: Acute Plan to address problem: Continue cardioprotective measures Aspirin, statin, and oxygen supplement if needed (3) Diabetes Current Visit: Yes Status: Acute Plan to address problem: Monitor blood sugar with sliding scale protocol Resume home Lantus nightly Checked hemoglobin A1c greater than 8 (4) Anxiety Current Visit: No Status: Acute Plan to address problem: We will continue home antianxiety and antidepressant (5) Tobacco use Current Visit: Yes Status: Acute Plan to address problem: Discussed tobacco use cessation Cardiovascular neoplasm syndrome of tobacco use explained to patient
[2021-05-04] MEDS ORDERED: ACETAMINOPHEN 325 MG TAB PO PRN (23:56)
[2021-05-04] MEDS ORDERED: METOCLOPRAMIDE 10 MG/2 ML INJ IV PRN (23:56)
[2021-05-04] MEDS ORDERED: ONDANSETRON 4 MG/2 ML INJ IV PRN (23:56)
[2021-05-04] MEDS ORDERED: SENNOSIDES 8.6 MG TAB PO PRN (23:56)
[2021-05-04] MEDS ORDERED: ALUM-MAG HYDROXIDE-SIMETHICONE 200-200-20MG/5ML ORAL LIQD 30 ML PO PRN (23:56)
[2021-05-04] MEDS ORDERED: MAGNESIUM HYDROXIDE (MOM) ORAL LIQD UDC PO PRN (23:56)
[2021-05-05] MEDS ORDERED: cloNIDine 0.2 MG TAB PO ONE (01:07)
[2021-05-05] MEDS ORDERED: ALPRAZolam 0.25 MG TAB PO ONE (03:40)
[2021-05-05 05:05] LABS: Basophils % (Auto) 0.4 % (0.0-1.8); Eosinophils # (Auto) 0.2 K/mm3 (0.0-0.4); Eosinophils % (Auto) 2.4 % (0.0-4.3); Hematocrit 33.3 % (30.3-42.9); Hemoglobin 11.1 gm/dl (10.1-14.3); Lymphocytes # (Auto) 2.4 K/mm3 (1.2-5.4); Lymphocytes % (Auto) 29.6 % (13.4-35.0); Mean Corpuscular HGB Conc 33 % (30-34); Mean Corpuscular Volume 86 fl (79-97); Monocytes # (Auto) 0.8 K/mm3 (0.0-0.8); Monocytes % (Auto) 9.4 % (0.0-7.3); Platelet Count 191 K/mm3 (140-440); Red Blood Count 3.87 M/mm3 (3.65-5.03); Red Cell Distribution Width 14.8 % (13.2-15.2)
[2021-05-05 05:23] LABS: Alanine Aminotransferase 11 units/L (7-56); Albumin 3.4 g/dL (3.9-5); BUN/Creatinine Ratio 20; Blood Urea Nitrogen 20 mg/dL (7-17); Calcium 8.8 mg/dL (8.4-10.2); Hemolysis Index 1
[2021-05-05] MEDS: cloNIDine 0.2 MG TAB PO SCH ×3 (05:34→23:00)
[2021-05-05] MEDS ORDERED: hydrALAZINE 20 MG/1 ML INJ IV PRN (05:46)
--- NOTE | 2021-05-05 09:17 | Electrocardiograph Report ---
[facility] Test Date: 2021-05-04 Test Time: 18:44:18 Pat Name: CRISPIN LARRY Department: Room: A467 1 Gender: F Certified Ophthalmic Assistant: MACARENA : 1965 Requested By: LEIDA DAVISON Order Number: [id number] Reading MD: Chicho Randolph Measurements Intervals [place] Rate: 61 P: 34 IA: 226 QRS: -2 QRSD: 81 T: -18 QT: 450 QTc: 454 Interpretive Statements Sinus rhythm Prolonged IA interval nonspecific st-t Compared to ECG 04/25/2021 14:15:52 Electronically Signed On 05-05-2021 9:17:41 EDT by Chicho Randolph
--- NOTE | 2021-05-05 09:20 | Electrocardiograph Report ---
[facility] Test Date: 2021-05-05 Test Time: 07:34:16 Pat Name: CRISPIN LARRY Department: Room: A467 1 Gender: F Field Service Analyst: ZEESHAN : 1965 Requested By: LEIDA DAVISON Order Number: [id number] Reading MD: Chicho Randolph Measurements Intervals [place] Rate: 60 P: 51 LA: 231 QRS: -8 QRSD: 83 T: -29 QT: 458 QTc: 458 Interpretive Statements Sinus rhythm Prolonged LA interval nonspecific st-t Compared to ECG 05/04/2021 18:44:18 No significant changes Electronically Signed On 05-05-2021 9:20:22 EDT by Chicho Randolph
[2021-05-05] MEDS ORDERED: VALSARTAN 160MG TAB PO SCH (10:00)
[2021-05-05] MEDS: VALSARTAN 160MG TAB PO SCH ×2 (10:21→10:22)
[2021-05-05] MEDS: CITALOPRAM 20 MG TAB PO SCH (10:22)
[2021-05-05] MEDS: hydrALAZINE 100 MG TAB PO SCH ×3 (10:22→20:13)
--- NOTE | 2021-05-05 10:31 | Event Note ---
Date: 05/05/21 Pt states she is followed in the office by Dr. Reeves with [facility]. Please refer to their service for cardiac mgmt.
--- NOTE | 2021-05-05 10:47 | Consultation ---
History of Present Illness Consult date: 05/05/21 Consult reason: chest pain History of present illness: This is a 55-year old F with chronic severe hypertension. There is no history of coronary artery disease. Her latest cardiac workup was done as an outpatient 6 months ago. An exercise thallium stress test was negative but poor exercise capacity. Patient only walked only 4 mins of Horacio protocol. Normal left ventricular systolic function, ejection fraction 55-60%. She presents with headaches, chest pain and uncontrolled hypertension. Systolic blood pressure 180s and greater while in the emergency department. Denies unusual shortness of breath, denies palpitations. No edema. No report of syncope. Chest x-ray is negative. A 12 lead ECG is sinus rhythm with non- specific T wave abnormalities. Cardiology consultation has been requested. Past History Past Medical History: diabetes, hypertension Past Surgical History: , hysterectomy, Other (breast reduction) Social history: smoking Family history: diabetes, hypertension Medications and Allergies Allergies Allergy/AdvReac Type Severity Reaction Status Date / Time amlodipine Allergy Intermediate Unknown Verified 05/04/21 18:26 amoxicillin Allergy Unknown Verified 05/04/21 18:26 insulin NPH human isophane Allergy Unknown Verified 05/04/21 18:26 [From Humulin N] insulin regular, human Allergy Unknown Verified 05/04/21 18:26 [From Humulin R] lisinopril Allergy Swelling Verified 05/04/21 18:26 losartan [Losartan] Allergy Unknown Verified 05/04/21 18:26 metformin Allergy Rash Verified 05/04/21 18:26 potassium Allergy Unknown Verified 05/04/21 18:26 Kzggppn-Phw-Ksb Reductase Allergy Unknown Verified 05/04/21 18:26 Inhibitor valsartan Allergy Swelling Verified 05/04/21 18:26 Home Medications Medication Instructions Recorded Confirmed Last Taken Type cloNIDine HCL [Clonidine HCl] 0.2 mg PO BID 04/05/15 05/05/21 1 Day Ago History ~01/20/21 .2 Insulin Glargine,Hum.rec.anlog 15 unit SQ QHS #3 insuln.pen 12/12/19 05/05/21 1 Day Ago Rx [Lantus Solostar] ~01/20/21 ALPRAZolam [Xanax TAB] 1 mg PO TID PRN 02/23/20 05/05/21 1 Day Ago History ~01/20/21 Furosemide [Lasix] 40 mg PO DAILY 01/21/21 05/05/21 1 Day Ago History ~01/20/21 Potassium Chloride [K-Dur] 40 meq PO QDAY 01/21/21 05/05/21 1 Day Ago History ~01/20/21 hydrOXYzine PAMOATE [Vistaril] 50 mg PO Q12H PRN #30 capsule 01/21/21 05/05/21 Unknown Rx Active Meds: Active Medications Acetaminophen (Acetaminophen 325 Mg Tab) 650 mg PO Q4H PRN PRN Reason: Pain MILD(1-3)/Fever >100.5/LYNN Al Hydrox/Mg Hydrox/Simethicone (Alum-Mag Hydroxide-Simethicone [phone]/5ml Oral Liqd 30 Ml) 30 ml PO Q4H PRN PRN Reason: Indigestion Citalopram Hydrobromide (Citalopram 20 Mg Tab) 20 mg PO QDAY [facility] Last Admin: 05/05/21 10:22 Dose: 20 mg Documented by: Clonidine HCl (Clonidine 0.2 Mg Tab) 0.2 mg PO Q12HR [facility] Last Admin: 05/05/21 10:22 Dose: 0.2 mg Documented by: Hydralazine HCl (Hydralazine 100 Mg Tab) 100 mg PO TID [facility] Last Admin: 05/05/21 10:22 Dose: 100 mg Documented by: Hydralazine HCl (Hydralazine 20 Mg/1 Ml Inj) 5 mg IV Q6H PRN PRN Reason: HYPERTENSION Insulin Glargine (Insulin Glargine 100 Units/Ml) [facility] Insulin Human Lispro (Insulin Lispro 100 Unit/Ml) 0 unit SUB-Q [facility]; Protocol Losartan Potassium (Losartan 50 Mg Tab) 100 mg PO QDAY [facility] Magnesium Hydroxide (Magnesium Hydroxide (Mom) Oral Liqd Udc) 30 ml PO Q4H PRN PRN Reason: Constipation Metoclopramide HCl (Metoclopramide 10 Mg/2 Ml Inj) 10 mg IV Q6H PRN PRN Reason: Nausea And Vomiting Ondansetron HCl (Ondansetron 4 Mg/2 Ml Inj) 4 mg IV Q8H PRN PRN Reason: Nausea And Vomiting Prazosin HCl (Prazosin 5 Mg Cap) 5 mg PO Q8HR WILFRED Senna (Sennosides 8.6 Mg Tab) 8.6 mg PO Q12HR PRN PRN Reason: Constipation Sodium Chloride (Sodium Chloride 0.9% 10 Ml Flush Syringe) 10 ml IV PRN PRN PRN Reason: LINE FLUSH Review of Systems Cardiovascular: chest pain, no palpitations, no shortness of breath Physical Examination Vital Signs Temp Pulse Resp BP Pulse Ox 98.6 F 67 20 186/69 100 05/04/21 18:30 05/04/21 18:30 05/04/21 18:30 05/04/21 18:30 05/04/21 18:30 General appearance: no acute distress HEENT: Positive: PERRL Neck: Positive: trachea midline Cardiac: Positive: Reg Rate and Rhythm Lungs: Positive: Normal Breath Sounds Neuro: Positive: Grossly Intact Extremities: Absent: edema Results 05/05/21 04:24 05/05/21 04:24 Cardiac Enzymes 05/04/21 05/05/21 Range/Units 19:18 04:24 AST 14 13 (5-40) units/L CBC 05/04/21 05/05/21 Range/Units 19:18 04:24 WBC 8.5 8.1 (4.5-11.0) K/mm3 RBC 4.13 3.87 (3.65-5.03) M/mm3 Hgb 11.6 11.1 (10.1-14.3) gm/dl Hct 35.6 33.3 (30.3-42.9) % Plt Count 207 191 (140-440) K/mm3 Lymph # (Auto) 2.6 2.4 (1.2-5.4) K/mm3 [place] # (Auto) 0.8 0.8 (0.0-0.8) K/mm3 Eos # (Auto) 0.2 0.2 (0.0-0.4) K/mm3 Baso # (Auto) 0.0 0.0 (0.0-0.1) K/mm3 Comprehensive Metabolic Panel 05/04/21 05/05/21 Range/Units 19:18 04:24 Sodium 137 139 (137-145) mmol/L Potassium 4.1 3.8 (3.6-5.0) mmol/L Chloride 103.4 103.0 (98-107) mmol/L Carbon Dioxide 23 26 (22-30) mmol/L BUN 22 H 20 H (7-17) mg/dL Creatinine 1.2 1.0 (0.6-1.2) mg/dL Glucose 103 H 194 H (65-100) mg/dL Calcium 8.8 8.8 (8.4-10.2) mg/dL AST 14 13 (5-40) units/L ALT 12 11 (7-56) units/L Alkaline Phosphatase 110 103 (35-129) units/L Total Protein 6.5 5.7 L (6.3-8.2) g/dL Albumin 3.5 L 3.4 L (3.9-5) g/dL Assessment and Plan Chest pain Chronic hypertension normal LVEF 55-60% by echo 10/2020. Diabetes Recommendations: Low sodium diet. Will discontinue Valsartan and use Losartan 100 mg daily and Prazosin 5 mg q 8hrs. Lexiscan thallium stress test before discharge, once hypertension is optimal.
--- NOTE | 2021-05-05 14:50 | Progress Note ---
Assessment and Plan Assessment and plan: 55-year-old -[place]yp[place] female who presents with acute chest pain in the context of hypertensive urgency Hypertensive urgency Current Visit: Yes Status: Acute Plan to address problem: Echocardiogram showing LVEF of 55 to 60% with mild aortic regurgitation. cardiology consulted Patient have stress test in the morning Clonidine, hydralazine, losartan, prazosin Chest pain Current Visit: Yes Status: Acute Plan to address problem: Currently without any chest pain Aspirin, statin, and oxygen supplement if needed Diabetes mellitus type II, insulin-dependent Current Visit: Yes Status: Acute Plan to address problem: Begin Lantus and insulin sliding scale Anxiety Current Visit: No Status: Acute Plan to address problem: Continue antidepressant medications Tobacco use Current Visit: Yes Status: Acute Plan to address problem: Cessation education Morbid obesity Lifestyle change CODE STATUS: Full DVT prophylaxis: Heparin History Interval history: 05/05/2021: Patient seen and examined, no chest pain at this time. Tolerating p.o. intake Hospitalist Physical - Physical exam Narrative exam: General appearance: Obese no acute distress, well-nourished EENT: PERRL, EOM intact, hearing intact, clear oral mucosa Neck: Present: supple, normal ROM Respiratory: bilateral CTA, negative: rales, rhonchi, wheezing Cardiovascular: Regular rate/rhythm, Normal S1 & S2. No gallop, rub Extremities: no ischemia, No edema, normal temperature, normal color, Full ROM Abdominal: soft, no tenderness, non-distended, normal bowel sounds Integumentary: Present: clear, warm, dry no wounds, no erythema noted Psychiatric: appropriate mood/affect, intact judgment & insight Neurologic: CNII-XII intact, moves all extremities, no sensory or motor abnormalities - Constitutional Vitals: Temp Pulse Resp BP Pulse Ox 97.8 F 61 18 197/60 95 05/05/21 07:48 05/05/21 07:48 05/05/21 07:48 05/05/21 07:48 05/05/21 07:48 HEART Score - HEART Score EKG: Non-specific Age: 45-65 Risk factors: > 3 risk factors or hx of atherosclerotic disease Troponin: Troponin T < 0.010 ng/mL (0.00-0.029) 05/05/21 00:13 Troponin: < normal limit Results - Labs CBC & Chem 7: 05/05/21 04:24 05/05/21 04:24 Labs: Laboratory Last Values WBC 8.1 K/mm3 (4.5-11.0) 05/05/21 04:24 RBC 3.87 M/mm3 (3.65-5.03) 05/05/21 04:24 Hgb 11.1 gm/dl (10.1-14.3) 05/05/21 04:24 Hct 33.3 % (30.3-42.9) 05/05/21 04:24 MCV 86 fl (79-97) 05/05/21 04:24 MCH 29 pg (28-32) 05/05/21 04:24 MCHC 33 % (30-34) 05/05/21 04:24 RDW 14.8 % (13.2-15.2) 05/05/21 04:24 Plt Count 191 K/mm3 (140-440) 05/05/21 04:24 Lymph % (Auto) 29.6 % (13.4-35.0) 05/05/21 04:24 Baker % (Auto) 9.4 % (0.0-7.3) H 05/05/21 04:24 Eos % (Auto) 2.4 % (0.0-4.3) 05/05/21 04:24 Baso % (Auto) 0.4 % (0.0-1.8) 05/05/21 04:24 Lymph # (Auto) 2.4 K/mm3 (1.2-5.4) 05/05/21 04:24 Baker # (Auto) 0.8 K/mm3 (0.0-0.8) 05/05/21 04:24 Eos # (Auto) 0.2 K/mm3 (0.0-0.4) 05/05/21 04:24 Baso # (Auto) 0.0 K/mm3 (0.0-0.1) 05/05/21 04:24 Seg Neutrophils % 58.2 % (40.0-70.0) 05/05/21 04:24 Seg Neutrophils # 4.7 K/mm3 (1.8-7.7) 05/05/21 04:24 Sodium 139 mmol/L (137-145) 05/05/21 04:24 Potassium 3.8 mmol/L (3.6-5.0) 05/05/21 04:24 Chloride 103.0 mmol/L (98-107) 05/05/21 04:24 Carbon Dioxide 26 mmol/L (22-30) 05/05/21 04:24 Anion Gap 14 mmol/L 05/05/21 04:24 BUN 20 mg/dL (7-17) H 05/05/21 04:24 Creatinine 1.0 mg/dL (0.6-1.2) 05/05/21 04:24 Estimated GFR > 60 ml/min 05/05/21 04:24 BUN/Creatinine Ratio 20 % 05/05/21 04:24 Glucose 194 mg/dL (65-100) H 05/05/21 04:24 POC Glucose 135 mg/dL (70-105) H 05/05/21 11:47 Hemoglobin A1c 8.3 % (4-6) H 05/05/21 00:13 Calcium 8.8 mg/dL (8.4-10.2) 05/05/21 04:24 Total Bilirubin 0.20 mg/dL (0.1-1.2) 05/05/21 04:24 AST 13 units/L (5-40) 05/05/21 04:24 ALT 11 units/L (7-56) 05/05/21 04:24 Alkaline Phosphatase 103 units/L (35-129) 05/05/21 04:24 Troponin T < 0.010 ng/mL (0.00-0.029) 05/05/21 00:13 Total Protein 5.7 g/dL (6.3-8.2) L 05/05/21 04:24 Albumin 3.4 g/dL (3.9-5) L 05/05/21 04:24 Albumin/Globulin Ratio 1.5 % 05/05/21 04:24 Infante/IV: Voiding Method Toilet Active Medications - Current Medications Current Medications: Generic Name Dose Route Start Last Admin Trade Name Freq PRN Reason Stop Dose Admin Acetaminophen 650 mg 05/04/21 23:56 Acetaminophen 325 Mg Tab PO Q4H PRN Pain MILD(1-3)/Fever >100.5/LYNN Al Hydrox/Mg Hydrox/Simethicone 30 ml 05/04/21 23:56 Alum-Mag Hydroxide-Simethicone 163-219-11fz/5ml Oral Liqd 30 Ml PO Q4H PRN Indigestion Citalopram Hydrobromide 20 mg 05/05/21 10:00 05/05/21 10:22 Citalopram 20 Mg Tab PO 20 mg QDAY WILFRED Administration Clonidine HCl 0.2 mg 05/04/21 23:45 05/05/21 10:22 Clonidine 0.2 Mg Tab PO 0.2 mg Q12HR WILFRED Administration Hydralazine HCl 100 mg 05/05/21 08:00 05/05/21 10:22 Hydralazine 100 Mg Tab PO 100 mg TID WILFRED Administration Hydralazine HCl 5 mg 05/05/21 05:46 Hydralazine 20 Mg/1 Ml Inj IV Q6H PRN HYPERTENSION Insulin Glargine 15 units 05/05/21 22:00 Insulin Glargine 100 Units/Ml SUB-Q QHS [facility] Insulin Human Lispro 0 unit 05/05/21 07:30 Insulin Lispro 100 Unit/Ml SUB-Q ACHS [facility] Protocol Losartan Potassium 100 mg 05/05/21 11:00 Losartan 50 Mg Tab PO QDAY [facility] Magnesium Hydroxide 30 ml 05/04/21 23:56 Magnesium Hydroxide (Mom) Oral Liqd Udc PO Q4H PRN Constipation Metoclopramide HCl 10 mg 05/04/21 23:56 Metoclopramide 10 Mg/2 Ml Inj IV Q6H PRN Nausea And Vomiting Ondansetron HCl 4 mg 05/04/21 23:56 Ondansetron 4 Mg/2 Ml Inj IV Q8H PRN Nausea And Vomiting Prazosin HCl 5 mg 05/05/21 14:00 Prazosin 5 Mg Cap PO Q8HR [facility] Senna 8.6 mg 05/04/21 23:56 Sennosides 8.6 Mg Tab PO Q12HR PRN Constipation Sodium Chloride 10 ml 05/04/21 23:56 Sodium Chloride 0.9% 10 Ml Flush Syringe IV PRN PRN LINE FLUSH
[2021-05-05] MEDS: NICOTINE 7 MG/24 HR PATCH TD SCH (16:26)
[2021-05-05] MEDS: PRAZOSIN 5 MG CAP PO SCH ×2 (16:26→23:00)
[2021-05-05] MEDS: LOSARTAN 50 MG TAB PO SCH (16:27)
[2021-05-05] MEDS: INSULIN LISPRO 100 UNIT/ML SUB-Q SCH ×2 (20:14→22:58)
[2021-05-05] MEDS ORDERED: INSULIN GLARGINE 100 UNITS/ML SUB-Q SCH (22:00)
[2021-05-05] MEDS ORDERED: ALPRAZolam 1 MG TAB PO PRN (22:40)
[2021-05-06] MEDS: PRAZOSIN 5 MG CAP PO SCH ×2 (05:44→16:32)
[2021-05-06] MEDS ORDERED: REGADENOSON 0.4 MG/5 ML INJ IV ONE (07:19)
[2021-05-06] MEDS: hydrALAZINE 100 MG TAB PO SCH ×3 (09:22→16:32)
[2021-05-06] MEDS: INSULIN LISPRO 100 UNIT/ML SUB-Q SCH ×3 (09:22→16:33)
[2021-05-06] MEDS: CITALOPRAM 20 MG TAB PO SCH (12:43)
[2021-05-06] MEDS: cloNIDine 0.2 MG TAB PO SCH (12:43)
[2021-05-06] MEDS: NICOTINE 7 MG/24 HR PATCH TD SCH (12:43)
[2021-05-06] MEDS: LOSARTAN 50 MG TAB PO SCH (12:43)
--- NOTE | 2021-05-06 13:07 | Nuclear Medicine Report ---
APPROVED REPORT Exam: Nuclear Stress Test Indication: Chest pain BMI: 0 Stress Test Details Stress Test: Pharmacologic stress testing performed using 0.4 mg of regadenoson per 5 mL given IV over 10 seconds. HR Resting HR: 73 bpm Max HR Achieved: 107 bpm Max Heart Rate (APMHR): 165 bpm Target HR (85% APMHR): 140 bpm % of APMHR: 64 Recovery HR: 99 bpm HR response to stress: Normal HR response to stress BP Resting BP: 102/45 mmHg Max BP: 134/60 mmHg Recovery BP: 105/46 mmHg BP response to stress: Normal blood pressure response to stress. ECG Resting ECG: Sinus Rhythm Stress ECG: Sinus Tachycardia ST Change: None Arrhythmia: None Recovery ECG: Sinus Rhythm Recovery ST Change: None Recovery Arrhythmia: None Clinical Reason for Termination: Completed protocol Stress Symptoms: Headache Stress ECG Conclusion No chest pain and no ischemic changes on ECG with pharmacologic stress testing. Myocardial perfusion images are pending for final interpretation of this test. NM EXAM: Myocardial Perfusion REST/STRESS Imaging Protocol: Rest Tc-99m/Stress Tc-99m 1 day Resting Data Rest SPECT myocardial perfusion imaging was performed in supine position 45 minutes following the intravenous injection of 10 mCi of Tc-99m Myoview. Time of rest injection: 0700 Pharmacologic Stress Pharmacologic stress test was performed by injecting Regadenoson 0.4 mg IV push followed by the intravenous injection of 28 mCi of Tc-99m Myoview. Time of stress injection: 0945 Study Data TID = 0.95. Perfusion Nuclear Conclusion ECG Findings: negative for ischemia Clinical Findings: negative for ischemia Nuclear Findings: negative for ischemia Risk Study: low Normal myocardial perfusion study, normal left ventricular systolic function, ejection fraction 73%. Conclusion No chest pain and no ischemic changes on ECG with pharmacologic stress testing. Myocardial perfusion images are pending for final interpretation of this test.
--- NOTE | 2021-05-06 13:09 | Progress Note ---
Assessment and Plan - Patient Problems (1) Chest pain Current Visit: Yes Status: Acute Plan to address problem: Patient presented with atypical chest pain, initial cardiac work-up was negative. Today, she underwent a Lexiscan thallium stress test, shows normal myocardial perfusion, normal left ventricular systolic function. (2) Hypertensive urgency Current Visit: Yes Status: Acute Plan to address problem: Patient's blood pressure is much better controlled on current regimen, continue aggressive management. Subjective Date of service: 05/06/21 Interval history: Patient is comfortable, no new cardiac complaints. Blood pressure is much better controlled on current regimen, 114 systolic today. She has completed a Lexiscan thallium stress test, the results showed normal myocardial perfusion with no ischemic changes, normal left ventricular systolic function. Objective Vital Signs Temp Pulse Resp BP Pulse Ox 05/06/21 11:52 98.4 F 87 18 176/78 96 05/06/21 09:41 111/48 05/06/21 09:39 114/50 05/06/21 09:38 114/48 05/06/21 09:37 102/46 05/06/21 09:35 105/45 05/06/21 09:34 125/56 05/06/21 08:32 134/60 05/06/21 05:44 82 146/59 05/06/21 04:00 76 05/06/21 03:50 98.3 F 82 18 146/59 98 05/05/21 23:55 97.3 F L 92 H 18 116/44 97 05/05/21 23:00 103 H 138/55 05/05/21 20:00 99 H 05/05/21 19:32 97.6 F 103 H 18 138/55 97 05/05/21 15:53 98.1 F 74 18 159/69 97 - Physical Examination General: No Apparent Distress HEENT: Positive: PERRL Neck: Positive: trachea midline Cardiac: Positive: Reg Rate and Rhythm Lungs: Positive: clear to auscultation Neuro: Positive: Grossly Intact Abdomen: Positive: Soft Skin: Positive: Clear Extremities: Absent: edema
--- NOTE | 2021-05-06 13:48 | Discharge Summary ---
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 cardiology consulted Patient have stress test in the morning Clonidine, hydralazine, losartan, prazosin Chest pain Current Visit: Yes Status: Acute Plan to address problem: Currently without any chest pain Aspirin, statin, and oxygen supplement if needed Cardiac stress test was normal Diabetes mellitus type II, insulin-dependent Current Visit: Yes Status: Acute Plan to address problem: Lantus and insulin sliding scale Anxiety Current Visit: No Status: Acute Plan to address problem: Continue antidepressant medications Tobacco use Current Visit: Yes Status: Acute Plan to address problem: Cessation education Morbid obesity Lifestyle change CODE STATUS: Full DVT prophylaxis: Heparin History Interval history: 05/05/2021: Patient seen and examined, no chest pain at this time. Tolerating p.o. intake 05/06/2021: Patient seen and examined, cardiac stress test normal, blood pressure better control, continue cardiac care in the outpatient setting, patient stable for discharge. Disposition: TO HOME OR SELFCARE Final Discharge Diagnosis (Prints w/discharge instructions): Hypertensive urgency. Atypical chest pain. Diabetes mellitus type 2 insulin-dependent. Generalized anxiety. Tobacco dependence. Morbid obesity Time spent for discharge: 35 minutes Core Measure Documentation - Palliative Care Palliative Care/ Comfort Measures: Not Applicable - Core Measures Any of the following diagnoses?: none Exam - Physical Exam Narrative exam: General appearance: Obese no acute distress, well-nourished EENT: PERRL, EOM intact, hearing intact, clear oral mucosa Neck: Present: supple, normal ROM Respiratory: bilateral CTA, negative: rales, rhonchi, wheezing Cardiovascular: Regular rate/rhythm, Normal S1 & S2. No gallop, rub Extremities: no ischemia, No edema, normal temperature, normal color, Full ROM Abdominal: soft, no tenderness, non-distended, normal bowel sounds Integumentary: Present: clear, warm, dry no wounds, no erythema noted Psychiatric: appropriate mood/affect, intact judgment & insight Neurologic: CNII-XII intact, moves all extremities, no sensory or motor abnormalities - Constitutional Vitals: Temp Pulse Resp BP Pulse Ox 98.4 F 87 18 176/78 96 05/06/21 11:52 05/06/21 11:52 05/06/21 11:52 05/06/21 11:52 05/06/21 11:52 Plan Activity: no restrictions Diet: low salt, diabetic Follow up with: KAE CHRISTIE MD [Staff Physician] - 14 Days Prescriptions: hydrALAZINE [Apresoline TAB] 100 mg PO TID #180 tab cloNIDine [Catapres] 0.2 mg PO Q12HR #90 tablet Losartan [Cozaar] 100 mg PO QDAY #90 tablet Prazosin 5 mg PO Q8HR #90 capsule
[2021-05-06 16:39] VITALS: BP 113/53
== END 2021-05-06 17:00 | disposition home or self-care (01) ==
LOC: ED 17:54 → 4A 23:06
PROVIDERS: ADMIT Hospitalist; ATTEND Family Medicine
DX: I16.0 Hypertensive urgency (principal); I12.9 Hypertensive chronic kidney disease with stage 1 through stage 4 chronic kidney disease, or unspecified chronic kidney disease; N18.30 Chronic kidney disease, stage 3 unspecified; R07.89 Other chest pain; E11.9 Type 2 diabetes mellitus without complications; F41.9 Anxiety disorder, unspecified; E66.01 Morbid (severe) obesity due to excess calories; F32.9 Major depressive disorder, single episode, unspecified; F17.200 Nicotine dependence, unspecified, uncomplicated; R94.31 Abnormal electrocardiogram [ECG] [EKG]; Z90.710 Acquired absence of both cervix and uterus; Z98.891 History of uterine scar from previous surgery; Z79.4 Long term (current) use of insulin; Z79.899 Other long term (current) drug therapy; Z98.890 Other specified postprocedural states; Z68.33 Body mass index [BMI] 33.0-33.9, adult
CPT/HCPCS: 36415; 71046; 78452; 80053; 82962; 83036; 84484; 85025; 93005; 93017; 93306; 99285; A9502; G0378; J2785; J1815

== ENCOUNTER 2021-05-08 13:45 | Emergency (ER) | payer MEDICARE ==
[2021-05-08] MEDS: ONDANSETRON 4 MG/2 ML INJ IV ONE ×2 (17:50→18:34)
[2021-05-08] MEDS: MORPHINE 4 MG/1 ML INJ IV ONE ×2 (17:50→18:34)
--- NOTE | 2021-05-08 18:05 | Emergency Department Report ---
ED General Adult HPI - General Chief complaint: Allergic Reaction Stated complaint: ANXIETY/HTN Time Seen by Provider: 05/08/21 17:54 Source: patient, EMS Mode of arrival: Wheelchair Limitations: No Limitations - History of Present Illness Initial comments: Patient is 55 years old female with history of hypertension, diabetes, chronic kidney disease and and anxiety and panic attack. Patient presented to the ER stating that she is having an allergic reaction to some of her medication. Patient stating that she is having swelling in her hands and neck. She also complaining of epigastric abdominal pain. Patient stated that she think this is due to her medication that she is taking now which is losartan hydralazine. Patient denied any nausea or vomiting. She denied any fever or chills. No skin rash or itching. - Related Data Home Medications Medication Instructions Recorded Confirmed Last Taken cloNIDine HCL [Clonidine HCl] 0.2 mg PO BID 04/05/15 05/05/21 1 Day Ago ~01/20/21 .2 ALPRAZolam [Xanax TAB] 1 mg PO TID PRN 02/23/20 05/05/21 1 Day Ago ~01/20/21 Furosemide [Lasix] 40 mg PO DAILY 01/21/21 05/05/21 1 Day Ago ~01/20/21 Potassium Chloride [K-Dur] 40 meq PO QDAY 01/21/21 05/05/21 1 Day Ago ~01/20/21 Previous Rx's Medication Instructions Recorded Last Taken Type Insulin Glargine,Hum.rec.anlog 15 unit SQ QHS #3 insuln.pen 12/12/19 1 Day Ago Rx [Lantus Solostar] ~01/20/21 hydrOXYzine PAMOATE [Vistaril] 50 mg PO Q12H PRN #30 capsule 01/21/21 Unknown Rx Losartan [Cozaar] 100 mg PO QDAY #90 tablet 05/06/21 Unknown Rx Prazosin 5 mg PO Q8HR #90 capsule 05/06/21 Unknown Rx cloNIDine [Catapres] 0.2 mg PO Q12HR #90 tablet 05/06/21 Unknown Rx hydrALAZINE [Apresoline TAB] 100 mg PO TID #180 tab 05/06/21 Unknown Rx Allergies Allergy/AdvReac Type Severity Reaction Status Date / Time amlodipine Allergy Intermediate Unknown Verified 05/04/21 18:26 amoxicillin Allergy Unknown Verified 05/04/21 18:26 insulin NPH human isophane Allergy Unknown Verified 05/04/21 18:26 [From Humulin N] insulin regular, human Allergy Unknown Verified 05/04/21 18:26 [From Humulin R] lisinopril Allergy Swelling Verified 05/04/21 18:26 losartan [Losartan] Allergy Unknown Verified 05/04/21 18:26 metformin Allergy Rash Verified 05/04/21 18:26 potassium Allergy Unknown Verified 05/04/21 18:26 Sarlqfc-Kat-Mlx Reductase Allergy Unknown Verified 05/04/21 18:26 Inhibitor valsartan Allergy Swelling Verified 05/04/21 18:26 ED Review of Systems ROS: Stated complaint: ANXIETY/HTN Other details as noted in HPI Comment: All other systems reviewed and negative Constitutional: denies: chills, fever Respiratory: denies: cough, shortness of breath, SOB with exertion Cardiovascular: denies: chest pain, palpitations Gastrointestinal: abdominal pain. denies: nausea, vomiting, diarrhea, constipa tion, hematemesis, melena, hematochezia Musculoskeletal: denies: back pain Skin: denies: rash, lesions, pruritus Neurological: denies: headache, weakness, numbness, paresthesias, confusion ED Past Medical Hx - Past Medical History Previous Medical History?: Yes Hx Hypertension: Yes Hx CVA: No Hx Heart Attack/AMI: No Hx Congestive Heart Failure: No Hx Diabetes: Yes Hx Deep Vein Thrombosis: No Hx Pulmonary Embolism: No Hx GERD: No Hx Liver Disease: No Hx Renal Disease: Yes (stage 3) Hx Sickle Cell Disease: No Hx Arthritis: No Hx Headaches / Migraines: No Hx Seizures: No Hx Kidney Stones: No Hx Psychiatric Treatment: Yes (depression, anxiety, panic attacks) Hx Asthma: No Hx COPD: No Hx Tuberculosis: No Hx Dementia: No Hx HIV: No Additional medical history: fibroids, Mold exposure - Surgical History Past Surgical History?: Yes Hx Coronary Stent: No Hx Pacemaker: No Hx Internal Defibrillator: No Hx Breast Surgery: Yes (BREAST REDUCTION) Additional Surgical History: breast reduction 1999, x2, hysterectomy, fibroids removal - Social History Smoking Status: Current Every Day Smoker Substance Use Type: Prescribed - Medications Home Medications: Home Medications Medication Instructions Recorded Confirmed Last Taken Type cloNIDine HCL [Clonidine HCl] 0.2 mg PO BID 04/05/15 05/05/21 1 Day Ago History ~01/20/21 .2 Insulin Glargine,Hum.rec.anlog 15 unit SQ QHS #3 insuln.pen 12/12/19 05/05/21 1 Day Ago Rx [Lantus Solostar] ~01/20/21 ALPRAZolam [Xanax TAB] 1 mg PO TID PRN 02/23/20 05/05/21 1 Day Ago History ~01/20/21 Furosemide [Lasix] 40 mg PO DAILY 01/21/21 05/05/21 1 Day Ago History ~01/20/21 Potassium Chloride [K-Dur] 40 meq PO QDAY 01/21/21 05/05/21 1 Day Ago History ~01/20/21 hydrOXYzine PAMOATE [Vistaril] 50 mg PO Q12H PRN #30 capsule 01/21/21 05/05/21 Unknown Rx Losartan [Cozaar] 100 mg PO QDAY #90 tablet 05/06/21 Unknown Rx Prazosin 5 mg PO Q8HR #90 capsule 05/06/21 Unknown Rx cloNIDine [Catapres] 0.2 mg PO Q12HR #90 tablet 05/06/21 Unknown Rx hydrALAZINE [Apresoline TAB] 100 mg PO TID #180 tab 05/06/21 Unknown Rx ED Physical Exam - General Limitations: No Limitations General appearance: alert, in no apparent distress, anxious - Head Head exam: Present: atraumatic, normocephalic, normal inspection - Eye Eye exam: Present: normal appearance, PERRL - ENT ENT exam: Present: normal exam, normal orophraynx, mucous membranes moist - Neck Neck exam: Present: normal inspection, full ROM. Absent: tenderness, meningismus - Respiratory Respiratory exam: Present: normal lung sounds bilaterally - Cardiovascular Cardiovascular Exam: Present: regular rate, normal rhythm, normal heart sounds - GI/Abdominal GI/Abdominal exam: Present: soft, normal bowel sounds. Absent: distended, tenderness, guarding, rebound, rigid, organomegaly, mass, bruit, pulsatile mass, hernia - Extremities Exam Extremities exam: Present: normal inspection, full ROM, normal capillary refill. Absent: tenderness - Back Exam Back exam: Present: normal inspection, full ROM. Absent: CVA tenderness (R), CVA tenderness (L) - Neurological Exam Neurological exam: Present: alert, oriented X3, CN II-XII intact, normal gait, reflexes normal - Psychiatric Psychiatric exam: Present: normal mood, anxious - Skin Skin exam: Present: warm, intact, normal color ED Course Vital Signs 05/08/21 05/08/21 05/08/21 14:53 21:08 21:44 Temperature 98.2 F Pulse Rate 78 78 80 Respiratory 20 19 Rate Blood Pressure 201/65 197/67 Blood Pressure 197/82 [Left] O2 Sat by Pulse 99 98 Oximetry 05/08/21 22:15 Temperature Pulse Rate 78 Respiratory 17 Rate Blood Pressure Blood Pressure 212/75 [Left] O2 Sat by Pulse 98 Oximetry ED Medical Decision Making - Lab Data Result diagrams: 05/08/21 18:09 05/08/21 18:09 - Medical Decision Making Patient is 55 years old female with history of hypertension, diabetes, chronic kidney disease and and anxiety and panic attack. Patient presented to the ER stating that she is having an allergic reaction to some of her medication. Patient stating that she is having swelling in her hands and neck. She also complaining of epigastric abdominal pain. Patient stated that she think this is due to her medication that she is taking now which is losartan hydralazine. Patient denied any nausea or vomiting. She denied any fever or chills. No skin rash or itching. Patient received morphine and Zofran. Labs reviewed and is unremarkable. Patient stated that she is feeling much better. Patient is asking for food. Patient advised to follow-up with her primary care physician in the next 2 to 3 days and to return to the ER if she develop any symptoms. Critical care attestation.: If time is entered above; I have spent that time in minutes in the direct care of this critically ill patient, excluding procedure time. ED Disposition Clinical Impression: Acute abdominal pain Disposition: DC-01 TO HOME OR SELFCARE Is pt being admited?: No Condition: Stable Instructions: Abdominal Pain, Adult, [id number] Referrals: CRISTINA SANTANA NP [Primary Care Provider] - 3-5 Days
[2021-05-08 18:22] LABS: Basophils # (Auto) 0.1 K/mm3 (0.0-0.1); Basophils % (Auto) 0.9 % (0.0-1.8); Eosinophils # (Auto) 0.2 K/mm3 (0.0-0.4); Eosinophils % (Auto) 1.9 % (0.0-4.3); Hematocrit 36.1 % (30.3-42.9); Hemoglobin 11.9 gm/dl (10.1-14.3); Lymphocytes # (Auto) 2.5 K/mm3 (1.2-5.4); Lymphocytes % (Auto) 29.2 % (13.4-35.0); Mean Corpuscular HGB Conc 33 % (30-34); Mean Corpuscular Volume 85 fl (79-97); Monocytes # (Auto) 0.7 K/mm3 (0.0-0.8); Monocytes % (Auto) 8.7 % (0.0-7.3); Platelet Count 238 K/mm3 (140-440); Red Blood Count 4.25 M/mm3 (3.65-5.03); Red Cell Distribution Width 14.7 % (13.2-15.2)
[2021-05-08 18:40] LABS: Alanine Aminotransferase 11 units/L (7-56); Albumin 3.5 g/dL (3.9-5); BUN/Creatinine Ratio 22; Blood Urea Nitrogen 22 mg/dL (7-17); Calcium 9.2 mg/dL (8.4-10.2); Hemolysis Index 5
[2021-05-08 18:41] LABS: Bilirubin,Direct < 0.2 mg/dL (0-0.2)
[2021-05-08 21:26] LABS: Bacteria,Urine 1+ /HPF (Negative); Bilirubin,Urine NEG (Negative); Blood,Urine SM (Negative); Color,Urine Straw (Yellow); Urobilinogen,Urine < 2.0 mg/dL (<2.0); WBC,Urine < 1.0 /HPF (0.0-6.0)
[2021-05-08 21:28] LABS: RBC,Urine < 1.0 /HPF (0.0-6.0)
[2021-05-08] MEDS ORDERED: cloNIDine 0.1 MG TAB PO ONE (21:38)
[2021-05-08 22:16] VITALS: BP 212/75
== END 2021-05-08 23:21 | disposition home or self-care (01) ==
LOC: ED 13:45
DX: R10.9 Unspecified abdominal pain (principal); I12.9 Hypertensive chronic kidney disease with stage 1 through stage 4 chronic kidney disease, or unspecified chronic kidney disease; N18.4 Chronic kidney disease, stage 4 (severe); E11.22 Type 2 diabetes mellitus with diabetic chronic kidney disease; F32.9 Major depressive disorder, single episode, unspecified; F41.9 Anxiety disorder, unspecified; F17.200 Nicotine dependence, unspecified, uncomplicated; Z98.890 Other specified postprocedural states; Z79.899 Other long term (current) drug therapy; Z88.8 Allergy status to other drugs, medicaments and biological substances; Z90.710 Acquired absence of both cervix and uterus
CPT/HCPCS: 36415; 80048; 80076; 81001; 83690; 85025; 96374; 96375; 99284; J2270; J2405

== ENCOUNTER 2021-05-11 13:35 | Outpatient (CLI) | payer MEDICARE ==
--- NOTE | 2021-05-11 16:53 | Ultrasound Report ---
RIGHT DIGITAL DIAGNOSTIC MAMMOGRAM WITH CAD CONVENTIONAL, 05/11/2021 RIGHT LIMITED BREAST ULTRASOUND CLINICAL INFORMATION / INDICATION: Patient presents for six-month follow-up following benign right br east biopsy. TECHNIQUE: Digital right mammographic imaging was performed. Limited ultrasound was performed. This e xamination was interpreted with the benefit of Computer-Aided Detection (CAD) analysis. COMPARISON: Prior mammogram 09/02/2020 FINDINGS: Breast Density: There are scattered areas of fibroglandular density. MAMMOGRAPHIC FINDINGS: No dominant mass, suspicious calcifications, or architectural distortion in th e right breast. There is stable benign post reduction change in the right breast with associated ignacio gn fat necrosis. A biopsy clip is seen within an area of fat necrosis/calcified oil cyst in the anter ior upper outer quadrant of the right breast. ULTRASOUND FINDINGS: Targeted ultrasound evaluation was performed of the area of interest. Targeted ultrasound of the prior biopsy site in the right breast 9:00 position located 2 cm from the nipple r eveals a 1.2 cm shadowing calcification compatible with benign fat necrosis as seen mammographically. No suspicious sonographic abnormality identified. IMPRESSION: 1. Stable benign post reduction change in the right breast with associated fat necrosis. No suspiciou s mammographic or sonographic abnormality identified. Follow up recommendation: Back to schedule. BI-RADS Category 2: Benign. A "normal" or negative report should not discourage follow up or biopsy of a clinically significant f inding. A written summary of these findings will be mailed to the patient. The patient will be entered into a mammography reporting system which will generate a reminder letter for the patient's next appointmen t at the appropriate interval. According to the [employer], yearly mammograms are recommended starting at age 40 and continuing as long as a woman is in good health. Breast MRI is recommended for women with an claus roximately 20-25% or greater lifetime risk of breast cancer, including women with a strong family his tory of breast or ovarian cancer and women who have been treated for Hodgkin's disease. Signer Name: Lexi Dang MD Signed: 05/11/2021 4:48 PM Workstation Name: [employer]
== END 2021-05-11 13:36 | disposition home or self-care (01) ==
LOC: SPVWC 13:35
PROVIDERS: ATTEND Surgery
DX: R92.8 Other abnormal and inconclusive findings on diagnostic imaging of breast (principal)

== ENCOUNTER 2022-03-12 00:41 | Emergency (ER) | payer MEDICARE ==
[2022-03-12 02:38] VITALS: BP 170/67
== END 2022-03-12 07:00 | disposition left against medical advice (07) ==
LOC: ED 00:41
DX: I10 Essential (primary) hypertension (principal); Z53.21 Procedure and treatment not carried out due to patient leaving prior to being seen by health care provider

== ENCOUNTER 2022-04-09 11:26 | Emergency (ER) | payer MEDICARE ==
[2022-04-09] MEDS ORDERED: hydrALAZINE 20 MG/1 ML INJ IV ONE ×2 (11:41→17:44)
[2022-04-09] MEDS ORDERED: LORazepam 2 MG/ML VIAL IV ONE (11:41)
--- NOTE | 2022-04-09 11:44 | Emergency Department Report ---
ED General Adult HPI - General Stated complaint: WEAK/DIZZY/LT SIDE PAIN Time Seen by Provider: 04/09/22 11:38 Source: patient, family - History of Present Illness Initial comments: Patient is 56-year-old female with history of hypertension, diabetes, stage III kidney disease and depression. Patient brought to the emergency room by her son for evaluation of elevated blood pressure and generalized body pain. Patient stated that her symptoms been going on for several days. Patient denied any headache, neck pain, focal weakness numbness or tingling sensation. She also denied any chest pain or shortness of breath. Patient stated that she is dealing with a lot of stress especially after menopause. Patient denied any mary jo cidal or homicidal ideation. No visual or auditory hallucination. Stroke scale is 0. - Related Data Home Medications Medication Instructions Recorded Confirmed Last Taken cloNIDine HCL [Clonidine HCl] 0.2 mg PO BID 04/05/15 05/05/21 1 Day Ago ~01/20/21 .2 ALPRAZolam [Xanax TAB] 1 mg PO TID PRN 02/23/20 05/05/21 1 Day Ago ~01/20/21 Furosemide [Lasix] 40 mg PO DAILY 01/21/21 05/05/21 1 Day Ago ~01/20/21 Potassium Chloride [K-Dur] 40 meq PO QDAY 01/21/21 05/05/21 1 Day Ago ~01/20/21 Previous Rx's Medication Instructions Recorded Last Taken Type Insulin Glargine,Hum.rec.anlog 15 unit SQ QHS #3 insuln.pen 12/12/19 1 Day Ago Rx [Lantus Solostar] ~01/20/21 hydrOXYzine PAMOATE [Vistaril] 50 mg PO Q12H PRN #30 capsule 01/21/21 Unknown Rx Losartan [Cozaar] 100 mg PO QDAY #90 tablet 05/06/21 Unknown Rx Prazosin 5 mg PO Q8HR #90 capsule 05/06/21 Unknown Rx cloNIDine [Catapres] 0.2 mg PO Q12HR #90 tablet 05/06/21 Unknown Rx hydrALAZINE [Apresoline TAB] 100 mg PO TID #180 tab 05/06/21 Unknown Rx Ibuprofen [Motrin 800 MG tab] 800 mg PO Q8HR PRN #30 tablet 05/08/21 Unknown Rx Ondansetron [Zofran Odt] 4 mg PO Q8HR PRN #14 tab.rapdis 05/08/21 Unknown Rx traMADoL [Ultram 50 MG tab] 50 mg PO Q4HR PRN #14 tablet 05/08/21 Unknown Rx Metoprolol [Lopressor] 25 mg PO BID #30 tablet 02/10/22 Unknown Rx Ondansetron [Zofran Odt] 4 mg PO Q8HR PRN #14 tab.rapdis 04/09/22 Unknown Rx traMADoL [Ultram 50 MG tab] 50 mg PO Q4HR PRN #14 tablet 04/09/22 Unknown Rx Allergies Allergy/AdvReac Type Severity Reaction Status Date / Time amlodipine Allergy Intermediate Unknown Verified 04/09/22 11:50 amoxicillin Allergy Unknown Verified 04/09/22 11:50 insulin NPH human isophane Allergy Unknown Verified 04/09/22 11:50 [From Humulin N] insulin regular, human Allergy Unknown Verified 04/09/22 11:50 [From Humulin R] lisinopril Allergy Swelling Verified 04/09/22 11:50 losartan [Losartan] Allergy Unknown Verified 04/09/22 11:50 metformin Allergy Rash Verified 04/09/22 11:50 potassium Allergy Unknown Verified 04/09/22 11:50 Jufmvas-OVB-DmT Reductase Allergy Unknown Verified 04/09/22 11:50 Inhibitor [Aosbevg-Gwh-Gll Reductase Inhibitor] valsartan Allergy Swelling Verified 04/09/22 11:50 ED Review of Systems ROS: Stated complaint: WEAK/DIZZY/LT SIDE PAIN Other details as noted in HPI Comment: All other systems reviewed and negative Constitutional: denies: chills, fever Respiratory: denies: cough, shortness of breath, SOB with exertion, SOB at rest, wheezing Cardiovascular: denies: chest pain, palpitations Gastrointestinal: denies: abdominal pain, nausea, vomiting, diarrhea, constipation, hematemesis, melena, hematochezia Musculoskeletal: denies: back pain Neurological: denies: headache, weakness, numbness, paresthesias, confusion, abnormal gait Psychiatric: anxiety, depression. denies: auditory hallucinations, visual hallucinations, homicidal thoughts, suicidal thoughts ED Past Medical Hx - Past Medical History Hx Hypertension: Yes Hx CVA: No Hx Heart Attack/AMI: No Hx Congestive Heart Failure: No Hx Diabetes: Yes Hx Deep Vein Thrombosis: No Hx Pulmonary Embolism: No Hx GERD: No Hx Liver Disease: No Hx Renal Disease: Yes (stage 3) Hx Sickle Cell Disease: No Hx Arthritis: No Hx Headaches / Migraines: No Hx Seizures: No Hx Kidney Stones: No Hx Psychiatric Treatment: Yes (depression, anxiety, panic attacks) Hx Asthma: No Hx COPD: No Hx Tuberculosis: No Hx Dementia: No Hx HIV: No Additional medical history: fibroids, Mold exposure - Surgical History Hx Coronary Stent: No Hx Pacemaker: No Hx Internal Defibrillator: No Hx Breast Surgery: Yes (BREAST REDUCTION) Additional Surgical History: breast reduction 1999, x2, hysterectomy, fibroids removal - Social History Smoking Status: Current Every Day Smoker Substance Use Type: None - Medications Home Medications: Home Medications Medication Instructions Recorded Confirmed Last Taken Type cloNIDine HCL [Clonidine HCl] 0.2 mg PO BID 04/05/15 05/05/21 1 Day Ago History ~01/20/21 .2 Insulin Glargine,Hum.rec.anlog 15 unit SQ QHS #3 insuln.pen 12/12/19 05/05/21 1 Day Ago Rx [Lantus Solostar] ~01/20/21 ALPRAZolam [Xanax TAB] 1 mg PO TID PRN 02/23/20 05/05/21 1 Day Ago History ~01/20/21 Furosemide [Lasix] 40 mg PO DAILY 01/21/21 05/05/21 1 Day Ago History ~01/20/21 Potassium Chloride [K-Dur] 40 meq PO QDAY 01/21/21 05/05/21 1 Day Ago History ~01/20/21 hydrOXYzine PAMOATE [Vistaril] 50 mg PO Q12H PRN #30 capsule 01/21/21 05/05/21 Unknown Rx Losartan [Cozaar] 100 mg PO QDAY #90 tablet 05/06/21 Unknown Rx Prazosin 5 mg PO Q8HR #90 capsule 05/06/21 Unknown Rx cloNIDine [Catapres] 0.2 mg PO Q12HR #90 tablet 05/06/21 Unknown Rx hydrALAZINE [Apresoline TAB] 100 mg PO TID #180 tab 05/06/21 Unknown Rx Ibuprofen [Motrin 800 MG tab] 800 mg PO Q8HR PRN #30 tablet 05/08/21 Unknown Rx Ondansetron [Zofran Odt] 4 mg PO Q8HR PRN #14 tab.rapdis 05/08/21 Unknown Rx traMADoL [Ultram 50 MG tab] 50 mg PO Q4HR PRN #14 tablet 05/08/21 Unknown Rx Metoprolol [Lopressor] 25 mg PO BID #30 tablet 02/10/22 Unknown Rx Ondansetron [Zofran Odt] 4 mg PO Q8HR PRN #14 tab.rapdis 04/09/22 Unknown Rx traMADoL [Ultram 50 MG tab] 50 mg PO Q4HR PRN #14 tablet 04/09/22 Unknown Rx ED Physical Exam - General General appearance: alert, in no apparent distress, anxious - Head Head exam: Present: atraumatic, normocephalic, normal inspection - Eye Eye exam: Present: normal appearance - ENT ENT exam: Present: normal exam, normal orophraynx, mucous membranes moist - Neck Neck exam: Present: normal inspection, full ROM. Absent: tenderness, men ingismus - Respiratory Respiratory exam: Present: normal lung sounds bilaterally - Cardiovascular Cardiovascular Exam: Present: regular rate, normal rhythm, normal heart sounds - GI/Abdominal GI/Abdominal exam: Present: soft, normal bowel sounds. Absent: distended, tenderness, guarding, rebound, rigid, organomegaly, mass, bruit, pulsatile mass, hernia - Extremities Exam Extremities exam: Present: normal inspection, full ROM, normal capillary refill. Absent: tenderness, pedal edema, joint swelling, calf tenderness - Back Exam Back exam: Present: normal inspection, full ROM. Absent: CVA tenderness (R), CVA tenderness (L) - Neurological Exam Neurological exam: Present: alert, oriented X3, CN II-XII intact, normal gait, reflexes normal. Absent: motor sensory deficit - Psychiatric Psychiatric exam: Present: depressed, anxious. Absent: agitated, flat affect, manic, homicidal ideation, suicidal ideation - Skin Skin exam: Present: warm, intact, normal color ED Course Vital Signs 04/09/22 04/09/22 04/09/22 11:33 11:42 11:45 Pulse Rate 72 78 Respiratory 19 11 L 11 L Rate Blood Pressure 230/94 230/94 Blood Pressure [Left] O2 Sat by Pulse 100 100 Oximetry 04/09/22 04/09/22 04/09/22 11:49 12:01 12:04 Pulse Rate 86 66 69 Respiratory 16 11 L Rate Blood Pressure 183/76 204/79 Blood Pressure 230/94 [Left] O2 Sat by Pulse 100 100 Oximetry 04/09/22 04/09/22 04/09/22 12:15 12:30 12:45 Pulse Rate 70 70 72 Respiratory 13 12 13 Rate Blood Pressure 204/79 204/79 233/74 Blood Pressure [Left] O2 Sat by Pulse 100 100 Oximetry 04/09/22 04/09/22 04/09/22 13:01 13:15 13:16 Pulse Rate 72 75 75 Respiratory 25 H 23 16 Rate Blood Pressure 147/47 135/60 Blood Pressure 135/60 [Left] O2 Sat by Pulse 98 99 98 Oximetry 04/09/22 04/09/22 04/09/22 13:31 13:46 14:03 Pulse Rate 74 74 Respiratory 16 21 Rate Blood Pressure 130/28 130/28 130/85 Blood Pressure [Left] O2 Sat by Pulse 97 97 Oximetry 04/09/22 04/09/22 04/09/22 14:04 14:15 14:31 Pulse Rate 60 Respiratory 16 Rate Blood Pressure 130/85 154/63 Blood Pressure 130/74 [Left] O2 Sat by Pulse 96 98 97 Oximetry 04/09/22 04/09/22 04/09/22 14:45 15:00 15:15 Pulse Rate Respiratory Rate Blood Pressure 197/72 197/72 189/83 Blood Pressure [Left] O2 Sat by Pulse 97 96 97 Oximetry 04/09/22 04/09/22 04/09/22 15:31 15:45 16:00 Pulse Rate 74 Respiratory 16 Rate Blood Pressure 194/74 192/123 192/123 Blood Pressure 156/71 [Left] O2 Sat by Pulse 99 99 100 Oximetry 04/09/22 04/09/22 04/09/22 16:19 16:30 16:45 Pulse Rate Respiratory Rate Blood Pressure 164/77 164/77 167/55 Blood Pressure [Left] O2 Sat by Pulse 100 Oximetry 04/09/22 04/09/22 04/09/22 17:01 17:15 17:31 Pulse Rate Respiratory Rate Blood Pressure 164/77 174/70 191/75 Blood Pressure [Left] O2 Sat by Pulse 100 100 95 Oximetry 04/09/22 17:35 Pulse Rate 68 Respiratory 16 Rate Blood Pressure Blood Pressure 197/90 [Left] O2 Sat by Pulse 100 Oximetry ED Medical Decision Making - Lab Data Result diagrams: 04/09/22 11:59 04/09/22 11:59 - EKG Data -: EKG Interpreted by Me EKG shows normal: sinus rhythm Rate: normal - EKG Data Interpretation: no acute changes - Radiology Data Radiology results: report reviewed - Medical Decision Making Patient is 56-year-old female with history of hypertension, diabetes, stage III kidney disease and depression. Patient brought to the emergency room by her son for evaluation of elevated blood pressure and generalized body pain. Patient stated that her symptoms been going on for several days. Patient denied any headache, neck pain, focal weakness numbness or tingling sensation. She also denied any chest pain or shortness of breath. Patient stated that she is dealing with a lot of stress especially after menopause. Patient denied any suicidal or homicidal ideation. No visual or auditory hallucination. Stroke scale is 0. Patient found to have a blood pressure of 203/96. Patient stated that she is having trouble managing her blood pressure and she is worried about that. Patient is on losartan, metoprolol and hydralazine. Patient received hydralazine 10 mg IV and Ativan 1 mg IV. Patient stated that she is feeling mu ch better. Symptoms completely resolved. Labs reviewed and is unremarkable. CT brain is negative for acute finding. EKG shows sinus rhythm with no ST elevation or depression. Patient complain advised abdominal pain mainly to the left side. CT abdomen and pelvis showed constipation. Patient advised to follow-up with her primary care physician in the next 2 to 3 days and to return to the ER if she develop any new symptoms. Critical care attestation.: If time is entered above; I have spent that time in minutes in the direct care of this critically ill patient, excluding procedure time. ED Disposition Clinical Impression: Malignant hypertension, Generalized weakness, Constipation Disposition: 01 HOME / SELF CARE / HOMELESS Is pt being admited?: No Condition: Stable Instructions: Hypertension, Adult, Hypertension (ED), Constipation, Adult, [id number] Prescriptions: traMADoL [Ultram 50 MG tab] 50 mg PO Q4HR PRN #14 tablet PRN Reason: Pain Ondansetron [Zofran Odt] 4 mg PO Q8HR PRN #14 tab.rapdis PRN Reason: Nausea And Vomiting Referrals: PRIMARY CARE,MD [Primary Care Provider] - 3-5 Days
--- NOTE | 2022-04-09 12:02 | XRay Report ---
CHEST 1 VIEW 04/09/2022 10:55 AM INDICATION / CLINICAL INFORMATION: syncope. COMPARISON: 02/10/2022 FINDINGS: SUPPORT DEVICES: None. HEART / MEDIASTINUM: No significant abnormality. LUNGS / PLEURA: No significant pulmonary or pleural abnormality. No pneumothorax. ADDITIONAL FINDINGS: No significant additional findings. IMPRESSION: 1. No acute findings. Signer Name: Meilton Pfeiffer DO Signed: 04/09/2022 11:57 AM Workstation Name: [email or web address]
[2022-04-09 12:17] LABS: Basophils % (Auto) 0.5 % (0.0-1.8); Eosinophils # (Auto) 0.1 K/mm3 (0.0-0.4); Eosinophils % (Auto) 2.1 % (0.0-4.3); Hematocrit 34.5 % (30.3-42.9); Hemoglobin 11.5 gm/dl (10.1-14.3); Lymphocytes # (Auto) 2.7 K/mm3 (1.2-5.4); Lymphocytes % (Auto) 38.6 % (13.4-35.0); Mean Corpuscular HGB Conc 33 % (30-34); Mean Corpuscular Volume 84 fl (79-97); Monocytes # (Auto) 0.6 K/mm3 (0.0-0.8); Platelet Count 198 K/mm3 (140-440); Red Blood Count 4.13 M/mm3 (3.65-5.03); Red Cell Distribution Width 14.4 % (13.2-15.2)
[2022-04-09 12:28] LABS: INR 0.83 (0.87-1.13)
[2022-04-09 12:39] LABS: BUN/Creatinine Ratio 15; Blood Urea Nitrogen 20 mg/dL (7-17); Calcium 9.3 mg/dL (8.4-10.2); Hemolysis Index 2
[2022-04-09 12:42] LABS: Alanine Aminotransferase 16 units/L (7-56); Albumin 3.8 g/dL (3.9-5)
[2022-04-09 12:46] LABS: Bilirubin,Direct < 0.2 mg/dL (0-0.2)
--- NOTE | 2022-04-09 13:16 | Cat Scan Report ---
CT head without contrast INDICATION : Syncope. TECHNIQUE: Axial imaging performed from the skull apex through the skull base without the use of con trast. All CT scans at this location are performed using CT dose reduction for ALARA by means of aut omated exposure control. COMPARISON: CT head from 04/30/2019 FINDINGS: Parenchyma: No acute intracranial hemorrhage or parenchymal abnormality. Ventricles: Ventricles are normal in size and appear symmetric. Soft tissues: Soft tissues including the orbits appear normal. Bones: No acute osseous abnormality. Right frontoparietal osteoma again noted. Sinuses: Sinuses and mastoid air cells are clear. IMPRESSION: No acute abnormality. Signer Name: Derek Young MD Signed: 04/09/2022 1:11 PM Workstation Name: [email or web address]
[2022-04-09 14:27] LABS: Bacteria,Urine 1+ /HPF (Negative); Bilirubin,Urine NEG (Negative); Blood,Urine NEG (Negative); Color,Urine Straw (Yellow); Protein,Urine <15 mg/dL mg/dL (Negative); Urobilinogen,Urine < 2.0 mg/dL (<2.0)
[2022-04-09] MEDS ORDERED: KETOROLAC 30 MG/1 ML INJ IV ONE (14:48)
--- NOTE | 2022-04-09 18:01 | Cat Scan Report ---
CT ABDOMEN AND PELVIS WITH CONTRAST HISTORY: abdominal pain. COMPARISON: CT abdomen/pelvis from 11/17/2018 TECHNIQUE: CT images of the abdomen and pelvis were obtained following administration of intravenous contrast. All CT scans at this location are performed using CT dose reduction for ALARA by means of automated exposure control. CONTRAST: 100 ml of intravenous contrast administered. FINDINGS: Lungs/bones: Lung bases are clear. There are degenerative changes in the spine and the pelvis with n o acute osseous abnormality. Abdomen/pelvis: The liver, gallbladder, spleen, pancreas, adrenals, and proximal GI tract appear unr emarkable. Simple bilateral renal cysts are present. There is nonspecific bilateral perinephric stran ding. No stone disease or hydronephrosis. Urinary bladder is unremarkable. Uterus is surgically absent. No pelvic free fluid. No acute colonic abnormality identified. Moderate colonic stool burden noted. The appendix is normal. IMPRESSION: 1. Moderate colonic stool burden can be seen with constipation. Otherwise nothing acute. 2. Incidental findings as above. Signer Name: Derek Young MD Signed: 04/09/2022 5:57 PM Workstation Name: [id number]
[2022-04-09 18:13] VITALS: BP 191/75
--- NOTE | 2022-04-13 11:39 | Electrocardiograph Report ---
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
== END 2022-04-09 18:30 | disposition home or self-care (01) ==
LOC: ED 11:26
DX: K59.00 Constipation, unspecified (principal); R53.1 Weakness; I12.9 Hypertensive chronic kidney disease with stage 1 through stage 4 chronic kidney disease, or unspecified chronic kidney disease; E11.22 Type 2 diabetes mellitus with diabetic chronic kidney disease; N18.30 Chronic kidney disease, stage 3 unspecified; F32.9 Major depressive disorder, single episode, unspecified; F41.9 Anxiety disorder, unspecified; D21.9 Benign neoplasm of connective and other soft tissue, unspecified; Z98.890 Other specified postprocedural states; F17.290 Nicotine dependence, other tobacco product, uncomplicated; Z88.8 Allergy status to other drugs, medicaments and biological substances; Z91.048 Other nonmedicinal substance allergy status
CPT/HCPCS: 36415; 70450; 71045; 74177; 80048; 80076; 81001; 82962; 83735; 84484; 85025; 85610; 93005; 96374; 96375; 96376; 99285; J0360; J1885; J2060; Q9967

== ENCOUNTER 2022-05-27 14:00 | Emergency (ER) | payer MEDICARE ==
--- NOTE | 2022-05-27 15:36 | XRay Report ---
ABDOMEN 1 VIEW 05/27/2022 3:07 PM INDICATION / CLINICAL INFORMATION: CONSTIPATION. COMPARISON: CT abdomen/pelvis 04/09/22. FINDINGS: TUBES / LINES: None. BOWEL GAS PATTERN: There is a moderate amount of stool throughout the colon. I see no evidence of bow el obstruction or mass effect. FREE AIR / EXTRALUMINAL GAS: None. ADDITIONAL FINDINGS: No significant additional findings. IMPRESSION: No acute findings. Signer Name: Obed Rodriguez MD Signed: 05/27/2022 3:32 PM Workstation Name: [id number]
[2022-05-27 19:33] LABS: Basophils % (Auto) 0.4 % (0.0-1.8); Eosinophils # (Auto) 0.1 K/mm3 (0.0-0.4); Eosinophils % (Auto) 2.1 % (0.0-4.3); Hematocrit 34.6 % (30.3-42.9); Lymphocytes # (Auto) 2.6 K/mm3 (1.2-5.4); Mean Corpuscular HGB Conc 32 % (30-34); Mean Corpuscular Volume 85 fl (79-97); Monocytes # (Auto) 0.5 K/mm3 (0.0-0.8); Monocytes % (Auto) 7.5 % (0.0-7.3); Platelet Count 200 K/mm3 (140-440); Red Blood Count 4.06 M/mm3 (3.65-5.03); Red Cell Distribution Width 14.4 % (13.2-15.2)
[2022-05-27 19:47] LABS: Albumin 3.6 g/dL (3.9-5); Calcium 9.3 mg/dL (8.4-10.2)
[2022-05-27 20:21] LABS: Bacteria,Urine 1+ /HPF (Negative)
[2022-05-27 20:27] LABS: Bilirubin,Urine Negative (Negative); Blood,Urine Negative (Negative); Color,Urine Yellow (Yellow); Urobilinogen,Urine < 2.0 mg/dL (<2.0)
[2022-05-27] MEDS ORDERED: DICYCLOMINE 20 MG TAB PO ONE (20:40)
[2022-05-27] MEDS ORDERED: ONDANSETRON 4 MG ODT TAB PO ONE (20:40)
[2022-05-27] MEDS ORDERED: LACTULOSE 20 GM/30 ML ORAL LIQD PO ONE (20:40)
[2022-05-27 20:51] VITALS: BP 193/75
--- NOTE | 2022-05-27 21:25 | Emergency Department Report ---
ED Abdominal Pain HPI - General Chief Complaint: Abdominal Pain Stated Complaint: CONSTIPATION/WEAKNESS Source: EMS Mode of arrival: Stretcher Limitations: No Limitations - History of Present Illness Initial Comments: Patient is a 56-year-old -Tajik female with a history of hypertension, yka-raasbpt-awhajnsps diabetes, anxiety, depression, panic attacks and stage III chronic kidney disease presents to the ED with complaint of acute onset persistent diffuse abdominal pain with constipation for the last 1 week, worse in the last 3 days. Patient states that the last time she had a "good bowel movement" was 1 week ago. Patient states that she has been taking over-the- counter medications with no relief. Patient also complains of an elevated blood pressure and feeling lightheaded and generalized weakness. Patient denies dizziness, syncope, chest pain, shortness of breath, dysuria, urinary frequency and urgency, nausea, vomiting, diarrhea, fever, chills, cough, headache, neck pain or palpitations. MD Complaint: abdominal pain, other (constipated; elevated Blood pressure, lightheadedness) -: week(s) (1) Location: diffuse Radiation: none Migration to: no migration Severity: moderate Severity scale (0 -10): 6 Quality: cramping, sharp Consistency: intermittent Improves With: nothing Worsens With: nothing Context: other (constipation) Associated Symptoms: denies other symptoms, constipation. denies: nausea, vomiting, diarrhea, fever, chills, hematemesis, hematochezia - Related Data Home Medications Medication Instructions Recorded Confirmed Last Taken cloNIDine HCL [Clonidine HCl] 0.2 mg PO BID 04/05/15 05/05/21 1 Day Ago ~01/20/21 .2 ALPRAZolam [Xanax TAB] 1 mg PO TID PRN 02/23/20 05/05/21 1 Day Ago ~01/20/21 Furosemide [Lasix] 40 mg PO DAILY 01/21/21 05/05/21 1 Day Ago ~01/20/21 Potassium Chloride [K-Dur] 40 meq PO QDAY 01/21/21 05/05/21 1 Day Ago ~01/20/21 Previous Rx's Medication Instructions Recorded Last Taken Type Insulin Glargine,Hum.rec.anlog 15 unit SQ QHS #3 insuln.pen 12/12/19 1 Day Ago Rx [Lantus Solostar] ~01/20/21 hydrOXYzine PAMOATE [Vistaril] 50 mg PO Q12H PRN #30 capsule 01/21/21 Unknown Rx Losartan [Cozaar] 100 mg PO QDAY #90 tablet 05/06/21 Unknown Rx Prazosin 5 mg PO Q8HR #90 capsule 05/06/21 Unknown Rx cloNIDine [Catapres] 0.2 mg PO Q12HR #90 tablet 05/06/21 Unknown Rx hydrALAZINE [Apresoline TAB] 100 mg PO TID #180 tab 05/06/21 Unknown Rx Ibuprofen [Motrin 800 MG tab] 800 mg PO Q8HR PRN #30 tablet 05/08/21 Unknown Rx Ondansetron [Zofran Odt] 4 mg PO Q8HR PRN #14 tab.rapdis 05/08/21 Unknown Rx traMADoL [Ultram 50 MG tab] 50 mg PO Q4HR PRN #14 tablet 05/08/21 Unknown Rx Metoprolol [Lopressor] 25 mg PO BID #30 tablet 02/10/22 Unknown Rx Ondansetron [Zofran Odt] 4 mg PO Q8HR PRN #14 tab.rapdis 04/09/22 Unknown Rx traMADoL [Ultram 50 MG tab] 50 mg PO Q4HR PRN #14 tablet 04/09/22 Unknown Rx Dicyclomine [Bentyl] 20 mg PO QID #20 tablet 05/27/22 Unknown Rx Docusate Sodium [Colace CAP] 100 mg PO BID PRN #60 capsule 05/27/22 Unknown Rx Linaclotide [Linzess] 290 mcg PO DAILY #60 cap 05/27/22 Unknown Rx Magnesium Citrate 295 ml PO ONCE #1 bottle 05/27/22 Unknown Rx Allergies Allergy/AdvReac Type Severity Reaction Status Date / Time amlodipine Allergy Intermediate Unknown Verified 05/27/22 14:15 amoxicillin Allergy Unknown Verified 05/27/22 14:15 insulin NPH human isophane Allergy Unknown Verified 05/27/22 14:15 [From Humulin N] insulin regular, human Allergy Unknown Verified 05/27/22 14:15 [From Humulin R] lisinopril Allergy Swelling Verified 05/27/22 14:15 losartan [Losartan] Allergy Unknown Verified 05/27/22 14:15 metformin Allergy Rash Verified 05/27/22 14:15 potassium Allergy Unknown Verified 05/27/22 14:15 Wtmjfpr-DJB-NhC Reductase Allergy Unknown Verified 05/27/22 14:15 Inhibitor [Adbkpfc-Krc-Bpi Reductase Inhibitor] valsartan Allergy Swelling Verified 05/27/22 14:15 ED Review of Systems ROS: Stated complaint: CONSTIPATION/WEAKNESS Other details as noted in HPI Constitutional: denies: chills, fever Eyes: denies: eye pain, eye discharge, vision change ENT: denies: ear pain, throat pain Respiratory: denies: cough, shortness of breath, wheezing Cardiovascular: denies: chest pain, palpitations Endocrine: no symptoms reported Gastrointestinal: abdominal pain, constipation. denies: nausea, vomiting, diarrhea Genitourinary: denies: urgency, dysuria, discharge Musculoskeletal: denies: back pain, joint swelling, arthralgia Skin: denies: rash, lesions Neurological: denies: headache, weakness, paresthesias Psychiatric: denies: anxiety, depression Hematological/Lymphatic: denies: easy bleeding, easy bruising ED Past Medical Hx - Past Medical History Previous Medical History?: Yes Hx Hypertension: Yes Hx CVA: No Hx Heart Attack/AMI: No Hx Congestive Heart Failure: No Hx Diabetes: Yes Hx Deep Vein Thrombosis: No Hx Pulmonary Embolism: No Hx GERD: No Hx Liver Disease: No Hx Renal Disease: Yes (stage 3) Hx Sickle Cell Disease: No Hx Arthritis: No Hx Headaches / Migraines: No Hx Seizures: No Hx Kidney Stones: No Hx Psychiatric Treatment: Yes (depression, anxiety, panic attacks) Hx Asthma: No Hx COPD: No Hx Tuberculosis: No Hx Dementia: No Hx HIV: No Additional medical history: fibroids, Mold exposure - Surgical History Past Surgical History?: Yes Hx Coronary Stent: No Hx Pacemaker: No Hx Internal Defibrillator: No Hx Breast Surgery: Yes (BREAST REDUCTION) Additional Surgical History: breast reduction 1999, x2, hysterectomy, fibroids removal - Social History Smoking Status: Current Every Day Smoker Substance Use Type: None - Medications Home Medications: Home Medications Medication Instructions Recorded Confirmed Last Taken Type cloNIDine HCL [Clonidine HCl] 0.2 mg PO BID 04/05/15 05/05/21 1 Day Ago History ~01/20/21 .2 Insulin Glargine,Hum.rec.anlog 15 unit SQ QHS #3 insuln.pen 12/12/19 05/05/21 1 Day Ago Rx [Lantus Solostar] ~01/20/21 ALPRAZolam [Xanax TAB] 1 mg PO TID PRN 02/23/20 05/05/21 1 Day Ago History ~01/20/21 Furosemide [Lasix] 40 mg PO DAILY 01/21/21 05/05/21 1 Day Ago History ~01/20/21 Potassium Chloride [K-Dur] 40 meq PO QDAY 01/21/21 05/05/21 1 Day Ago History ~01/20/21 hydrOXYzine PAMOATE [Vistaril] 50 mg PO Q12H PRN #30 capsule 01/21/21 05/05/21 Unknown Rx Losartan [Cozaar] 100 mg PO QDAY #90 tablet 05/06/21 Unknown Rx Prazosin 5 mg PO Q8HR #90 capsule 05/06/21 Unknown Rx cloNIDine [Catapres] 0.2 mg PO Q12HR #90 tablet 05/06/21 Unknown Rx hydrALAZINE [Apresoline TAB] 100 mg PO TID #180 tab 05/06/21 Unknown Rx Ibuprofen [Motrin 800 MG tab] 800 mg PO Q8HR PRN #30 tablet 05/08/21 Unknown Rx Ondansetron [Zofran Odt] 4 mg PO Q8HR PRN #14 tab.rapdis 05/08/21 Unknown Rx traMADoL [Ultram 50 MG tab] 50 mg PO Q4HR PRN #14 tablet 05/08/21 Unknown Rx Metoprolol [Lopressor] 25 mg PO BID #30 tablet 02/10/22 Unknown Rx Ondansetron [Zofran Odt] 4 mg PO Q8HR PRN #14 tab.rapdis 04/09/22 Unknown Rx traMADoL [Ultram 50 MG tab] 50 mg PO Q4HR PRN #14 tablet 04/09/22 Unknown Rx Dicyclomine [Bentyl] 20 mg PO QID #20 tablet 05/27/22 Unknown Rx Docusate Sodium [Colace CAP] 100 mg PO BID PRN #60 capsule 05/27/22 Unknown Rx Linaclotide [Linzess] 290 mcg PO DAILY #60 cap 05/27/22 Unknown Rx Magnesium Citrate 295 ml PO ONCE #1 bottle 05/27/22 Unknown Rx ED Physical Exam - General Limitations: No Limitations General appearance: alert, in no apparent distress - Head Head exam: Present: atraumatic, normocephalic, normal inspection - Eye Eye exam: Present: normal appearance, PERRL, EOMI Pupils: Present: normal accommodation - ENT ENT exam: Present: normal exam, normal orophraynx, mucous membranes moist, TM's normal bilaterally, normal external ear exam - Neck Neck exam: Present: normal inspection, full ROM - Respiratory Respiratory exam: Present: normal lung sounds bilaterally. Absent: respiratory distress, wheezes, rales, rhonchi, stridor, chest wall tenderness, accessory muscle use, prolonged expiratory - Cardiovascular Cardiovascular Exam: Present: regular rate, normal rhythm, normal heart sounds. Absent: systolic murmur, diastolic murmur, rubs, gallop - GI/Abdominal GI/Abdominal exam: Present: soft, normal bowel sounds. Absent: tenderness, guarding, rebound, hyperactive bowel sounds, hypoactive bowel sounds - Extremities Exam Extremities exam: Present: normal inspection, full ROM, normal capillary refill. Absent: tenderness - Back Exam Back exam: Present: normal inspection, full ROM. Absent: tenderness, CVA tenderness (R), CVA tenderness (L), muscle spasm, paraspinal tenderness, vertebral tenderness - Neurological Exam Neurological exam: Present: alert, oriented X3, CN II-XII intact, normal gait, reflexes normal - Psychiatric Psychiatric exam: Present: normal affect, normal mood, anxious - Skin Skin exam: Present: warm, dry, intact, normal color. Absent: rash ED Course Vital Signs 05/27/22 05/27/22 05/27/22 14:13 18:17 19:39 Temperature 98.2 F Pulse Rate 77 68 Respiratory 16 18 Rate Blood Pressure 180/74 128/68 [Left] O2 Sat by Pulse 98 99 96 Oximetry 05/27/22 20:51 Temperature Pulse Rate 70 Respiratory 16 Rate Blood Pressure 193/75 [Left] O2 Sat by Pulse 100 Oximetry ED Medical Decision Making - Lab Data Result diagrams: 05/27/22 18:59 05/27/22 18:59 - Radiology Data [facility] [address] [place] [address] XRay Report Signed Patient: CRISPIN LARRY MR#: [id number] 0 : 1965 Acct:[id number] Age/Sex: 56 / F ADM Date: 05/27/22 Loc: ED Attending Dr: Ordering Physician: DNEA LAM MD Date of Service: 05/27/22 Procedure(s): XR abdomen 1V ap Accession Number(s): [id number] cc: DENA LAM MD Fluoro Time In Minutes: ABDOMEN 1 VIEW 05/27/2022 3:07 PM INDICATION / CLINICAL INFORMATION: CONSTIPATION. COMPARISON: CT abdomen/pelvis 04/09/22. FINDINGS: TUBES / LINES: None. BOWEL GAS PATTERN: There is a moderate amount of stool throughout the colon. I see no evidence of bowel obstruction or mass effect. FREE AIR / EXTRALUMINAL GAS: None. ADDITIONAL FINDINGS: No significant additional findings. IMPRESSION: No acute findings. Signer Name: Obed Rodriguez MD Signed: 05/27/2022 3:32 PM Workstation Name: [id number] Transcribed By: RT Dictated By: Obed Rodriguez MD Electronically Authenticated By: Obed Rodriguez MD Signed Date/Time: 05/27/221531 DD/ 30 TD/TT: - Medical Decision Making This is a 56-year-old -Tajik female with a history of hypertension, ipe-nfcwsfp-omwooqulk diabetes, anxiety, depression, panic attacks and stage III chronic kidney disease presents to the ED with complaint of acute onset persistent diffuse abdominal pain with constipation for the last 1 week, worse in the last 3 days. Patient states that the last time she had a "good bowel movement" was 1 week ago. Patient states that she has been taking xbrv-zxp-pnalrxl medications with no relief. Patient also complains of an elevated blood pressure and feeling lightheaded and generalized weakness. In the ED, patient is alert and oriented x3 and is not in any distress. Patient is however hypertensive in triage. Lab test results were reviewed and are all nonactionable except for elevated BUN and creatinine consistent with her chronic baseline stage III chronic kidney disease. The abdomen KUB x-ray showed a moderate amount of stool throughout the colon with no evidence of bowel obstruction or mass effect. Patient was treated for constipation in the ED and discharged home on medications and advised to continue taking her medications as previously prescribed. Patient was advised to return to the ED immediately if symptoms get worse. - Differential Diagnosis Constipation; UTI; GERD; SBO; Critical care attestation.: If time is entered above; I have spent that time in minutes in the direct care of this critically ill patient, excluding procedure time. ED Disposition Clinical Impression: Uncontrolled stage 2 hypertension Abdominal pain Qualifiers: Abdominal location: generalized Qualified Code(s): R10.84 - Generalized abdominal pain Constipation Qualifiers: Constipation type: other constipation type Qualified Code(s): K59.09 - Other constipation Disposition: 01 HOME / SELF CARE / HOMELESS Is pt being admited?: No Does the pt Need Aspirin: No Condition: Stable Instructions: Constipation, Adult, Jwyq-qv-Gsss, Abdominal Pain, Adult, Easy-t o-Read, Hypertension, Adult, Ensy-vn-Nxwk, Abdominal Pain (ED), Hypertension (ED) Additional Instructions: Take medication with food, drink plenty of fluids, follow-up with your primary care physician in 7 to 10 days for reevaluation. Return to the ED immediately if symptoms get worse. Ensure that you increase your fiber intake and drink plenty of fluids to improve on your constipation conditions. Prescriptions: Dicyclomine [Bentyl] 20 mg PO QID #20 tablet Docusate Sodium [Colace CAP] 100 mg PO BID PRN #60 capsule PRN Reason: Constipation Linaclotide [Linzess] 290 mcg PO DAILY #60 cap Magnesium Citrate 295 ml PO ONCE #1 bottle Referrals: RADHA SMITH JR, MD [Primary Care Provider] - 3-5 Days Time of Disposition: 21:23 Print Language: KOREAN
== END 2022-05-27 22:15 | disposition home or self-care (01) ==
LOC: ED 14:00
DX: I10 Essential (primary) hypertension (principal); R10.9 Unspecified abdominal pain; K59.00 Constipation, unspecified; F17.200 Nicotine dependence, unspecified, uncomplicated; Z88.0 Allergy status to penicillin; Z88.8 Allergy status to other drugs, medicaments and biological substances
CPT/HCPCS: 36415; 74018; 80053; 81001; 83690; 85025; 99284; J3490; Q0162

== ENCOUNTER 2022-05-30 18:06 | Emergency (ER) | payer MEDICARE ==
[2022-05-31 00:06] VITALS: BP 200/80
--- NOTE | 2022-05-31 00:19 | Emergency Department Report ---
ED General Adult HPI - General Chief complaint: Weakness Stated complaint: WEAKNESS/DIZZY Source: patient, EMS Mode of arrival: Stretcher Limitations: No Limitations - History of Present Illness Initial comments: 56-year-old female with multiple medical history including hypertension, diabetes, and a known patient of the emergency department presents to the emergency department with "I feel sick all over. Patient reports her blood pressure is high and she takes clonidine but she thinks the clonidine is the cause of this new complaints, states she is allergic to a lot of blood pressure medication she cannot take. Symptoms associated with dizziness, overall unwell, with nausea. She attributes all of this to the clonidine and request a new set of blood pressure medication. 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 Patient was seen here 2 days ago for abdominal pain, and constipation, states she has been able to have a bowel movement ever since her discharge. No chest pain no swelling of the extremities no shortness of breath, no vomiting, no abdominal pain. No fever or chills. - Related Data Home Medications Medication Instructions Recorded Confirmed Last Taken cloNIDine HCL [Clonidine HCl] 0.2 mg PO BID 04/05/15 05/05/21 1 Day Ago ~01/20/21 .2 ALPRAZolam [Xanax TAB] 1 mg PO TID PRN 02/23/20 05/05/21 1 Day Ago ~01/20/21 Furosemide [Lasix] 40 mg PO DAILY 01/21/21 05/05/21 1 Day Ago ~01/20/21 Potassium Chloride [K-Dur] 40 meq PO QDAY 01/21/21 05/05/21 1 Day Ago ~01/20/21 Previous Rx's Medication Instructions Recorded Last Taken Type Insulin Glargine,Hum.rec.anlog 15 unit SQ QHS #3 insuln.pen 12/12/19 1 Day Ago Rx [Lantus Solostar] ~01/20/21 hydrOXYzine PAMOATE [Vistaril] 50 mg PO Q12H PRN #30 capsule 01/21/21 Unknown Rx Losartan [Cozaar] 100 mg PO QDAY #90 tablet 05/06/21 Unknown Rx Prazosin 5 mg PO Q8HR #90 capsule 05/06/21 Unknown Rx cloNIDine [Catapres] 0.2 mg PO Q12HR #90 tablet 05/06/21 Unknown Rx hydrALAZINE [Apresoline TAB] 100 mg PO TID #180 tab 05/06/21 Unknown Rx Ibuprofen [Motrin 800 MG tab] 800 mg PO Q8HR PRN #30 tablet 05/08/21 Unknown Rx Ondansetron [Zofran Odt] 4 mg PO Q8HR PRN #14 tab.rapdis 05/08/21 Unknown Rx traMADoL [Ultram 50 MG tab] 50 mg PO Q4HR PRN #14 tablet 05/08/21 Unknown Rx Ondansetron [Zofran Odt] 4 mg PO Q8HR PRN #14 tab.rapdis 04/09/22 Unknown Rx traMADoL [Ultram 50 MG tab] 50 mg PO Q4HR PRN #14 tablet 04/09/22 Unknown Rx Dicyclomine [Bentyl] 20 mg PO QID #20 tablet 05/27/22 Unknown Rx Docusate Sodium [Colace CAP] 100 mg PO BID PRN #60 capsule 05/27/22 Unknown Rx Linaclotide [Linzess] 290 mcg PO DAILY #60 cap 05/27/22 Unknown Rx Magnesium Citrate 295 ml PO ONCE #1 bottle 05/27/22 Unknown Rx Metoprolol [Lopressor] 25 mg PO BID #30 tablet 05/31/22 Unknown Rx Allergies Allergy/AdvReac Type Severity Reaction Status Date / Time amlodipine Allergy Intermediate Unknown Verified 05/30/22 18:54 amoxicillin Allergy Unknown Verified 05/30/22 18:54 insulin NPH human isophane Allergy Unknown Verified 05/30/22 18:54 [From Humulin N] insulin regular, human Allergy Unknown Verified 05/30/22 18:54 [From Humulin R] lisinopril Allergy Swelling Verified 05/30/22 18:54 losartan [Losartan] Allergy Unknown Verified 05/30/22 18:54 metformin Allergy Rash Verified 05/30/22 18:54 potassium Allergy Unknown Verified 05/30/22 18:54 Htnthzh-UMC-VkH Reductase Allergy Unknown Verified 05/30/22 18:54 Inhibitor [Xhtkqnd-Rwx-Xoq Reductase Inhibitor] valsartan Allergy Swelling Verified 05/30/22 18:54 ED Review of Systems ROS: Stated complaint: WEAKNESS/DIZZY Other details as noted in HPI Comment: All other systems reviewed and negative Constitutional: malaise, weakness Eyes: as per HPI Respiratory: denies: cough, orthopnea Cardiovascular: denies: chest pain, palpitations, dyspnea on exertion, orthopnea Gastrointestinal: nausea. denies: abdominal pain, vomiting, constipation, hematemesis Musculoskeletal: arthralgia Skin: denies: rash, lesions Neurological: weakness. denies: headache, numbness, paresthesias ED Past Medical Hx - Past Medical History Previous Medical History?: Yes Hx Hypertension: Yes Hx CVA: No Hx Heart Attack/AMI: No Hx Congestive Heart Failure: No Hx Diabetes: Yes Hx Deep Vein Thrombosis: No Hx Pulmonary Embolism: No Hx GERD: No Hx Liver Disease: No Hx Renal Disease: Yes (stage 3) Hx Sickle Cell Disease: No Hx Arthritis: No Hx Headaches / Migraines: No Hx Seizures: No Hx Kidney Stones: No Hx Psychiatric Treatment: Yes (depression, anxiety, panic attacks) Hx Asthma: No Hx COPD: No Hx Tuberculosis: No Hx Dementia: No Hx HIV: No Additional medical history: fibroids, Mold exposure - Surgical History Hx Coronary Stent: No Hx Pacemaker: No Hx Internal Defibrillator: No Hx Breast Surgery: Yes (BREAST REDUCTION) Additional Surgical History: breast reduction 1999, x2, hysterectomy, fibroids removal - Social History Smoking Status: Current Every Day Smoker Substance Use Type: None - Medications Home Medications: Home Medications Medication Instructions Recorded Confirmed Last Taken Type cloNIDine HCL [Clonidine HCl] 0.2 mg PO BID 04/05/15 05/05/21 1 Day Ago History ~01/20/21 .2 Insulin Glargine,Hum.rec.anlog 15 unit SQ QHS #3 insuln.pen 12/12/19 05/05/21 1 Day Ago Rx [Lantus Solostar] ~01/20/21 ALPRAZolam [Xanax TAB] 1 mg PO TID PRN 02/23/20 05/05/21 1 Day Ago History ~01/20/21 Furosemide [Lasix] 40 mg PO DAILY 01/21/21 05/05/21 1 Day Ago History ~01/20/21 Potassium Chloride [K-Dur] 40 meq PO QDAY 01/21/21 05/05/21 1 Day Ago History ~01/20/21 hydrOXYzine PAMOATE [Vistaril] 50 mg PO Q12H PRN #30 capsule 01/21/21 05/05/21 Unknown Rx Losartan [Cozaar] 100 mg PO QDAY #90 tablet 05/06/21 Unknown Rx Prazosin 5 mg PO Q8HR #90 capsule 05/06/21 Unknown Rx cloNIDine [Catapres] 0.2 mg PO Q12HR #90 tablet 05/06/21 Unknown Rx hydrALAZINE [Apresoline TAB] 100 mg PO TID #180 tab 05/06/21 Unknown Rx Ibuprofen [Motrin 800 MG tab] 800 mg PO Q8HR PRN #30 tablet 05/08/21 Unknown Rx Ondansetron [Zofran Odt] 4 mg PO Q8HR PRN #14 tab.rapdis 05/08/21 Unknown Rx traMADoL [Ultram 50 MG tab] 50 mg PO Q4HR PRN #14 tablet 05/08/21 Unknown Rx Ondansetron [Zofran Odt] 4 mg PO Q8HR PRN #14 tab.rapdis 04/09/22 Unknown Rx traMADoL [Ultram 50 MG tab] 50 mg PO Q4HR PRN #14 tablet 04/09/22 Unknown Rx Dicyclomine [Bentyl] 20 mg PO QID #20 tablet 05/27/22 Unknown Rx Docusate Sodium [Colace CAP] 100 mg PO BID PRN #60 capsule 05/27/22 Unknown Rx Linaclotide [Linzess] 290 mcg PO DAILY #60 cap 05/27/22 Unknown Rx Magnesium Citrate 295 ml PO ONCE #1 bottle 05/27/22 Unknown Rx Metoprolol [Lopressor] 25 mg PO BID #30 tablet 05/31/22 Unknown Rx ED Physical Exam - General Limitations: No Limitations General appearance: alert, in no apparent distress, anxious - Eye Eye exam: Present: normal appearance - ENT ENT exam: Present: normal exam, normal orophraynx - Neck Neck exam: Present: normal inspection. Absent: tenderness - Respiratory Respiratory exam: Present: normal lung sounds bilaterally - Cardiovascular Cardiovascular Exam: Present: regular rate, normal rhythm - GI/Abdominal GI/Abdominal exam: Present: soft. Absent: tenderness - Extremities Exam Extremities exam: Present: normal inspection, full ROM - Back Exam Back exam: Present: normal inspection. Absent: CVA tenderness (R) - Neurological Exam Neurological exam: Present: alert, oriented X3, CN II-XII intact, normal gait - Skin Skin exam: Present: warm, dry, intact, normal color ED Course Vital Signs 05/30/22 05/31/22 05/31/22 18:52 00:04 01:50 Temperature 98.2 F 98.0 F Pulse Rate 70 77 86 Respiratory 18 18 Rate Blood Pressure 200/80 Blood Pressure 186/90 200/80 [Left] O2 Sat by Pulse 98 100 Oximetry ED Medical Decision Making - EKG Data EKG shows normal: sinus rhythm Rate: normal - EKG Data EKG taken at 1907, normal sinus rhythm at 65, with prolonged AL interval. No acute STEMI. - Medical Decision Making 56-year-old female with multiple medical history including hypertension, diabetes, and a known patient of the emergency department presents to the emergency department with "I feel sick all over. Patient reports her blood pressure is high and she takes clonidine but she thinks the clonidine is the cause of this new complaints, states she is allergic to a lot of blood pressure medication she cannot take. Symptoms associated with dizziness, overall unwell, with nausea. She attributes all of this to the clonidine and request a new set of blood pressure medication. 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 Patient was seen here 2 days ago for abdominal pain, and constipation, states she has been able to have a bowel movement ever since her discharge. No chest pain no swelling of the extremities no shortness of breath, no vomiting, no abdominal pain. No fever or chills. Blood glucose corrected with oral intake, EKG is nonischemic, Plan Metoprolol which from chart review she has previously been placed on it, follow- up with her certified master safecracker for discussion of blood pressure management and, per the better regimen since she is" not tolerating the clonidine well". Vital signs are stable, I do not think patient has any acute condition at this time however the rest of her symptoms can be followed up outpatient. Discussed all of this with patient and she agrees with plans for Critical care attestation.: If time is entered above; I have spent that time in minutes in the direct care of this critically ill patient, excluding procedure time. ED Disposition Clinical Impression: Medication intolerance, HTN (hypertension), Nausea Disposition: 01 HOME / SELF CARE / HOMELESS Is pt being admited?: No Does the pt Need Aspirin: No Condition: Stable Instructions: Managing Your Hypertension, Hypertension (ED), Nausea and Vomiting, Adult, Eslv-tk-Mkun Prescriptions: Metoprolol [Lopressor] 25 mg PO BID #30 tablet Referrals: PRIMARY CARE, [Primary Care Provider] - 3-5 Days
[2022-05-31] MEDS ORDERED: METOPROLOL TARTRATE 50 MG TAB PO ONE (01:11)
--- NOTE | 2022-05-31 09:05 | Electrocardiograph Report ---
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
== END 2022-05-31 02:15 | disposition home or self-care (01) ==
LOC: ED 18:06
DX: T50.905A Adverse effect of unspecified drugs, medicaments and biological substances, initial encounter (principal); Y92.89 Other specified places as the place of occurrence of the external cause; I10 Essential (primary) hypertension; R11.0 Nausea; F17.200 Nicotine dependence, unspecified, uncomplicated; E11.9 Type 2 diabetes mellitus without complications
CPT/HCPCS: 82962; 93005; 99283

== ENCOUNTER 2022-07-19 00:23 | Emergency (ER) | payer MEDICARE ==
[2022-07-19] MEDS ORDERED: METOCLOPRAMIDE 10 MG TAB PO ONE (00:53)
[2022-07-19] MEDS ORDERED: hydrALAZINE 100 MG TAB PO ONE (00:54)
[2022-07-19] MEDS ORDERED: ACETAMINOPHEN 500 MG TAB PO ONE (00:54)
--- NOTE | 2022-07-19 00:55 | Event Note ---
Date: 07/19/22 Medical screening examination note: 56-year-old female with chronic hypertension, anxiety and renal insufficiency, presenting to the department today with complaint of chronic hypertension. Patient awake and alert, protecting airway, moving 4 extremities, and does not appear to be in any acute distress. Treat symptoms, obtain appropriate lab oratory studies, detailed history and physical to be performed by myself or oncoming provider.
[2022-07-19 01:57] LABS: Hematocrit 35.5 % (30.3-42.9); Hemoglobin 11.3 gm/dl (10.1-14.3); Mean Corpuscular HGB Conc 32 % (30-34); Mean Corpuscular Volume 85 fl (79-97); Platelet Count 191 K/mm3 (140-440); Red Blood Count 4.16 M/mm3 (3.65-5.03); Red Cell Distribution Width 14.8 % (13.2-15.2)
--- NOTE | 2022-07-19 02:00 | Cat Scan Report ---
CT HEAD WITHOUT CONTRAST INDICATION / CLINICAL INFORMATION: htn and headache. TECHNIQUE: CT head was performed without administration of intravenous contrast. All CT scans at this location are performed using CT dose reduction for ALARA by means of automated exposure control. COMPARISON: CT head 04/09/2022 FINDINGS: CEREBRAL HEMISPHERES: There is no evidence of large territorial infarction or significant abnormality of johnson-white matter differentiation. Ventricles within normal limits. No midline shift. Basal ciste rns patent. Moderate bilateral periventricular white matter hypoattenuation compatible with microvasc ular ischemia possible demyelinating process. HEMORRHAGE: None. CEREBELLUM / BRAINSTEM: No significant abnormality. ORBITS: No significant abnormality. SOFT TISSUES: No significant abnormality. SKULL: No interval acute findings. Right frontal osteoma unchanged. PARANASAL SINUSES / MASTOID AIR CELLS: Normal as visualized. ADDITIONAL FINDINGS: None. IMPRESSION: 1. Bilateral white matter hypoattenuation nonspecific in appearance unchanged from comparison study. Differential considerations would include microvascular ischemic disease as well as demyelinating pro cess. 2. Otherwise no acute intracranial findings. Minimal atrophy. Signer Name: Eduardo Graham II, MD Signed: 07/19/2022 1:56 AM Workstation Name: [id number]
[2022-07-19 02:12] LABS: INR 0.8 (0.87-1.13)
[2022-07-19 02:22] LABS: Calcium 9.2 mg/dL (8.4-10.2)
[2022-07-19 02:23] LABS: Color,Urine Yellow (Yellow)
[2022-07-19 02:25] LABS: Mucus,Urine 2+ /HPF
--- NOTE | 2022-07-19 04:42 | Emergency Department Report ---
ED General Adult HPI - General Chief complaint: Headache Stated complaint: HYPERTENSION Time Seen by Provider: 07/19/22 03:24 Source: patient, EMS ( EMS documentation not available at time of chart dictation ), RN notes reviewed, old records reviewed Mode of arrival: Stretcher Limitations: No Limitations - History of Present Illness Initial comments: The patient is a 56-year-old female. I have evaluated this patient in the past. She follows with [facility] cardiology. Her past medical history is remarkable for hypertension, diabetes, depression, anxiety, panic attack, renal insufficiency and fibroids. The patient has a known history of difficult to control blood pressure. She presents to the department today with a complaint of typically elevated blood pressure, nonspecific headache, and possible anxiety. No endorsement of chest pain, shortness of breath, vomiting, or extremity weakness/numbness. She saw her outpatient bobbin fixer within the past 2 days, and had her medications adjusted -: year(s) Severity scale (0 -10): 0 Consistency: constant - Related Data Home Medications Medication Instructions Recorded Confirmed Last Taken cloNIDine HCL [Clonidine HCl] 0.2 mg PO BID 04/05/15 07/19/22 1 Day Ago ~01/20/21 .2 ALPRAZolam [Xanax TAB] 1 mg PO TID PRN 02/23/20 07/19/22 1 Day Ago ~07/18/22 Furosemide [Lasix] 40 mg PO DAILY 01/21/21 07/19/22 1 Day Ago ~01/20/21 Potassium Chloride [K-Dur] 40 meq PO QDAY 01/21/21 07/19/22 1 Day Ago ~01/20/21 Previous Rx's Medication Instructions Recorded Last Taken Type hydrOXYzine PAMOATE [Vistaril] 50 mg PO Q12H PRN #30 capsule 01/21/21 Unknown Rx Prazosin 5 mg PO Q8HR #90 capsule 05/06/21 Unknown Rx cloNIDine [Catapres] 0.2 mg PO Q12HR #90 tablet 05/06/21 1 Day Ago Rx ~07/18/22 hydrALAZINE [Apresoline TAB] 100 mg PO TID #180 tab 05/06/21 Unknown Rx traMADoL [Ultram 50 MG tab] 50 mg PO Q4HR PRN #14 tablet 05/08/21 Unknown Rx traMADoL [Ultram 50 MG tab] 50 mg PO Q4HR PRN #14 tablet 04/09/22 Unknown Rx Docusate Sodium [Colace CAP] 100 mg PO BID PRN #60 capsule 05/27/22 Unknown Rx Linaclotide [Linzess] 290 mcg PO DAILY #60 cap 05/27/22 Unknown Rx Allergies Allergy/AdvReac Type Severity Reaction Status Date / Time amlodipine Allergy Intermediate Unknown Verified 05/30/22 18:54 amoxicillin Allergy Unknown Verified 05/30/22 18:54 insulin NPH human isophane Allergy Unknown Verified 05/30/22 18:54 [From Humulin N] insulin regular, human Allergy Unknown Verified 05/30/22 18:54 [From Humulin R] lisinopril Allergy Swelling Verified 05/30/22 18:54 losartan [Losartan] Allergy Unknown Verified 05/30/22 18:54 metformin Allergy Rash Verified 05/30/22 18:54 potassium Allergy Unknown Verified 05/30/22 18:54 Foxwhwz-BPA-KaB Reductase Allergy Unknown Verified 05/30/22 18:54 Inhibitor [Qpoeizs-Pjo-Kjc Reductase Inhibitor] valsartan Allergy Swelling Verified 05/30/22 18:54 ED Review of Systems ROS: Stated complaint: HYPERTENSION Other details as noted in HPI Constitutional: denies: fever Respiratory: denies: cough Cardiovascular: denies: chest pain Gastrointestinal: denies: abdominal pain Musculoskeletal: back pain Neurological: headache, weakness Psychiatric: anxiety ED Past Medical Hx - Past Medical History Hx Hypertension: Yes Hx CVA: No Hx Heart Attack/AMI: No Hx Congestive Heart Failure: No Hx Diabetes: Yes Hx Deep Vein Thrombosis: No Hx Pulmonary Embolism: No Hx GERD: No Hx Liver Disease: No Hx Renal Disease: Yes (stage 3) Hx Sickle Cell Disease: No Hx Arthritis: No Hx Headaches / Migraines: No Hx Seizures: No Hx Kidney Stones: No Hx Psychiatric Treatment: Yes (depression, anxiety, panic attacks) Hx Asthma: No Hx COPD: No Hx Tuberculosis: No Hx Dementia: No Hx HIV: No Additional medical history: fibroids, Mold exposure - Surgical History Hx Coronary Stent: No Hx Pacemaker: No Hx Internal Defibrillator: No Hx Breast Surgery: Yes (BREAST REDUCTION) Additional Surgical History: breast reduction 1999, x2, hysterectomy, fibroids removal - Social History Smoking Status: Former Smoker Substance Use Type: None - Medications Home Medications: Home Medications Medication Instructions Recorded Confirmed Last Taken Type cloNIDine HCL [Clonidine HCl] 0.2 mg PO BID 04/05/15 07/19/22 1 Day Ago History ~01/20/21 .2 ALPRAZolam [Xanax TAB] 1 mg PO TID PRN 02/23/20 07/19/22 1 Day Ago History ~07/18/22 Furosemide [Lasix] 40 mg PO DAILY 01/21/21 07/19/22 1 Day Ago History ~01/20/21 Potassium Chloride [K-Dur] 40 meq PO QDAY 01/21/21 07/19/22 1 Day Ago History ~01/20/21 hydrOXYzine PAMOATE [Vistaril] 50 mg PO Q12H PRN #30 capsule 01/21/21 05/05/21 Unknown Rx Prazosin 5 mg PO Q8HR #90 capsule 05/06/21 07/19/22 Unknown Rx cloNIDine [Catapres] 0.2 mg PO Q12HR #90 tablet 05/06/21 07/19/22 1 Day Ago Rx ~07/18/22 hydrALAZINE [Apresoline TAB] 100 mg PO TID #180 tab 05/06/21 07/19/22 Unknown Rx traMADoL [Ultram 50 MG tab] 50 mg PO Q4HR PRN #14 tablet 05/08/21 07/19/22 Unknown Rx traMADoL [Ultram 50 MG tab] 50 mg PO Q4HR PRN #14 tablet 04/09/22 07/19/22 Unknown Rx Docusate Sodium [Colace CAP] 100 mg PO BID PRN #60 capsule 05/27/22 07/19/22 Unknown Rx Linaclotide [Linzess] 290 mcg PO DAILY #60 cap 05/27/22 07/19/22 Unknown Rx ED Physical Exam - General Limitations: No Limitations General appearance: alert, in no apparent distress - Head Head exam: Present: atraumatic, normocephalic - Eye Eye exam: Present: normal appearance, EOMI. Absent: nystagmus - ENT ENT exam: Present: normal exam, normal orophraynx, mucous membranes moist, normal external ear exam - Neck Neck exam: Present: normal inspection, full ROM. Absent: tenderness, meningismus - Respiratory Respiratory exam: Present: normal lung sounds bilaterally. Absent: respiratory distress, wheezes, rales, rhonchi, stridor, decreased breath sounds - Cardiovascular Cardiovascular Exam: Present: regular rate, normal rhythm, normal heart sounds. Absent: bradycardia, tachycardia, irregular rhythm, systolic murmur, diastolic murmur, rubs, gallop - GI/Abdominal GI/Abdominal exam: Present: soft. Absent: distended, tenderness, guarding, rebound, rigid, pulsatile mass - Extremities Exam Extremities exam: Present: normal inspection, full ROM, other (2+ pulses noted i n the bilateral upper and lower extremities. There is no palpable cord. negative Homans sign. Muscular compartments are soft. The pelvis is stable.). Absent: pedal edema, calf tenderness - Back Exam Back exam: Present: normal inspection. Absent: tenderness, CVA tenderness (R), CVA tenderness (L), paraspinal tenderness, vertebral tenderness - Neurological Exam Neurological exam: Present: alert, oriented X3, normal gait, other (There is no facial droop. Tongue is midline. EOMI. 5 out of 5 strength in 4 extrem ities.). Absent: motor sensory deficit - Psychiatric Psychiatric exam: Present: normal affect, normal mood - Skin Skin exam: Present: warm, dry, intact, normal color. Absent: rash ED Course Vital Signs 07/19/22 07/19/22 07/19/22 00:59 01:12 01:15 Temperature 98 F Pulse Rate 85 78 Respiratory 16 11 L Rate Blood Pressure 162/66 Blood Pressure 170/130 [Right] O2 Sat by Pulse 98 100 100 Oximetry 07/19/22 07/19/22 07/19/22 02:03 02:15 02:24 Temperature 98.0 F 98.0 F Pulse Rate 78 78 78 Respiratory 13 15 15 Rate Blood Pressure 193/65 193/65 Blood Pressure 193/65 [Right] O2 Sat by Pulse 100 100 100 Oximetry - Reevaluation(s) Reevaluation #1: 07/19/22 04:40 Differential diagnosis, including not limited to: Migraine headache, tension headache, cluster headache, anxiety, chronic hypertension Assessment and plan: Pleasant cooperative 56-year-old female, with a known history of hypertension, and possible anxiety. Patient's presentation today is similar to when I saw her in April 2021. Her physical examination appears to be at baseline. Her laboratory studies appear to be at baseline. High blood pressure is chronic. Patient taking multiple antihypertensive medications, and just saw her bobbin fixer within the past few days. She does not appear to be acutely decompensated from a blood pressure perspective. Please reference the [employer] clinical policy on asymptomatic/not decompensated hypertension. Patient endorses a number of medication allergies intolerances, which are most likely intolerances, and not true allergic reactions. She may follow-up with her outpatient primary care doctor or bobbin fixer for her chronically elevated blood pressure. Observed in the department for hours without clinical decompensation ED Medical Decision Making - Lab Data Result diagrams: 07/19/22 01:08 07/19/22 01:08 Vital Signs 07/19/22 07/19/22 07/19/22 00:59 01:12 01:15 Temperature 98 F Pulse Rate 85 78 Respiratory 16 11 L Rate Blood Pressure 162/66 Blood Pressure 170/130 [Right] O2 Sat by Pulse 98 100 100 Oximetry 07/19/22 07/19/22 07/19/22 02:03 02:15 02:24 Temperature 98.0 F 98.0 F Pulse Rate 78 78 78 Respiratory 13 15 15 Rate Blood Pressure 193/65 193/65 Blood Pressure 193/65 [Right] O2 Sat by Pulse 100 100 100 Oximetry Lab Results 07/19/22 07/19/22 07/19/22 Range/Units 01:08 01:08 01:08 WBC 8.1 (4.5-11.0) K/mm3 RBC 4.16 (3.65-5.03) M/mm3 Hgb 11.3 (10.1-14.3) gm/dl Hct 35.5 (30.3-42.9) % MCV 85 (79-97) fl MCH 27 L (28-32) pg MCHC 32 (30-34) % RDW 14.8 (13.2-15.2) % Plt Count 191 (140-440) K/mm3 PT 12.1 L (12.2-14.9) Sec. INR 0.80 L (0.87-1.13) Sodium 140 (137-145) mmol/L Potassium 3.9 (3.6-5.0) mmol/L Chloride 105.8 (98-107) mmol/L Carbon Dioxide 20 L (22-30) mmol/L Anion Gap 18 mmol/L BUN 35 H (7-17) mg/dL Creatinine 1.6 H (0.6-1.2) mg/dL Estimated GFR 40 ml/min BUN/Creatinine Ratio 22 % Glucose 104 H (65-100) mg/dL Calcium 9.2 (8.4-10.2) mg/dL Magnesium 2.10 (1.7-2.3) mg/dL Total Creatine Kinase 147 H (30-135) units/L Urine Color (Yellow) Urine Turbidity (Clear) Specific [place] (Man) (1.003-1.030) Ur Protein (Man) (Negative) mg/dL Ur Ketones (Man) (Negative) Ur Nitrite (Man) (Negative) Urine Bilirubin (Man) (Negative) Leukocyte Esterase (Man) (Negative) Urine WBC (Auto) (0.0-6.0) /HPF Urine RBC (Auto) (0.0-6.0) /HPF U Epithel Cells (Auto) (0-13.0) /HPF Urine RBC (Manual) (Negative) Urine Mucus /HPF Urine Yeast (Budding) /HPF 07/19/22 Range/Units Unknown WBC (4.5-11.0) K/mm3 RBC (3.65-5.03) M/mm3 Hgb (10.1-14.3) gm/dl Hct (30.3-42.9) % MCV (79-97) fl MCH (28-32) pg MCHC (30-34) % RDW (13.2-15.2) % Plt Count (140-440) K/mm3 PT (12.2-14.9) Sec. INR (0.87-1.13) Sodium (137-145) mmol/L Potassium (3.6-5.0) mmol/L Chloride (98-107) mmol/L Carbon Dioxide (22-30) mmol/L Anion Gap mmol/L BUN (7-17) mg/dL Creatinine (0.6-1.2) mg/dL Estimated GFR ml/min BUN/Creatinine Ratio % Glucose (65-100) mg/dL Calcium (8.4-10.2) mg/dL Magnesium (1.7-2.3) mg/dL Total Creatine Kinase (30-135) units/L Urine Color Yellow (Yellow) Urine Turbidity Clear (Clear) Specific [place] (Man) 1.025 (1.003-1.030) Ur Protein (Man) <30 mg dl (Negative) mg/dL Ur Ketones (Man) Negative (Negative) Ur Nitrite (Man) Negative (Negative) Urine Bilirubin (Man) Negative (Negative) Leukocyte Esterase (Man) Negative (Negative) Urine WBC (Auto) 5.0 (0.0-6.0) /HPF Urine RBC (Auto) 2.0 (0.0-6.0) /HPF U Epithel Cells (Auto) 19.0 H (0-13.0) /HPF Urine RBC (Manual) Negative (Negative) Urine Mucus 2+ /HPF Urine Yeast (Budding) Few /HPF - EKG Data -: EKG Interpreted by Ct EKG shows normal: sinus rhythm Rate: normal - EKG Data 07/19/22 04:39 EKG is interpreted at 01: 10 Sinus rhythm, with a rate of 76 bpm. Normal axis, normal P wave axis. QTC 41 ms. Poor R progression. Motion artifact, and left ventricular hypertrophy. Abnormal EKG. Not a STEMI - Radiology Data Radiology results: pending, report reviewed, image reviewed CT HEAD WITHOUT CONTRAST INDICATION / CLINICAL INFORMATION: htn and headache. TECHNIQUE: CT head was performed without administration of intravenous contrast. All CT scans at this location are performed using CT dose reduction for ALARA by means of automated exposure control. COMPARISON: CT head 04/09/2022 FINDINGS: CEREBRAL HEMISPHERES: There is no evidence of large territorial infarction or significant abnormality of johnson-white matter differentiation. Ventricles within normal limits. No midline shift. Basal cisterns patent. Moderate bilateral periventricular white matter hypoattenuation compatible with microvascular ischemia possible demyelinating process. HEMORRHAGE: None. CEREBELLUM / BRAINSTEM: No significant abnormality. ORBITS: No significant abnormality. SOFT TISSUES: No significant abnormality. SKULL: No interval acute findings. Right frontal osteoma unchanged. PARANASAL SINUSES / MASTOID AIR CELLS: Normal as visualized. ADDITIONAL FINDINGS: None. IMPRESSION: 1. Bilateral white matter hypoattenuation nonspecific in appearance unchanged from comparison study. Differential considerations would include microvascular ischemic disease as well as demyelinating process. 2. Otherwise no acute intracranial findings. Minimal atrophy. Signer Name: Eduardo Graham II, MD Signed: 07/19/2022 12:56 AM Workstation Name: [id number] Critical care attestation.: If time is entered above; I have spent that time in minutes in the direct care of this critically ill patient, excluding procedure time. ED Disposition Clinical Impression: HTN (hypertension), Headache Disposition: HOME / SELF CARE / HOMELESS Is pt being admited?: No Does the pt Need Aspirin: No Condition: Good Instructions: Hypertension (ED) Additional Instructions: Patient may take [id number] Tylenol for physical pain. Please continue current outpatient blood pressure medications as prescribed by your primary care doctor and/or bobbin fixer. Please follow-up with your primary care doctor or bobbin fixer within the next 7 to 10 days. Please return to the emergency room right away with new pain, worsened pain, migration of pain, projectile vomiting, change in mental status, confusion, inability tolerate liquid feeds, new, worsened or different symptoms not present on the initial emergency room evaluation Referrals: [facility] [Provider Group] - 3-5 Days [facility] [Provider Group] - 3-5 Days Forms: Work/School Release Form(ED)
[2022-07-19 04:56] VITALS: BP 159/88
--- NOTE | 2022-07-20 17:28 | Electrocardiograph Report ---
[facility] Test Date: 2022-07-19 Test Time: 01:06:14 Pat Name: CRISPIN LARRY Department: Room: Gender: F Forest Officer: KAYDEN : 1965 Requested By: ELBERT SANTAMARIA Order Number: [id number] Reading MD: Damian Reeves Measurements Intervals [place] Rate: 76 P: 24 MN: 242 QRS: 8 QRSD: 86 T: -81 QT: 384 QTc: 431 Interpretive Statements Sinus rhythm Prolonged MN interval Probable left atrial enlargement LVH with secondary repolarization abnormality Anterior infarct, old Compared to ECG 05/30/2022 19:07:12 No significant change Electronically Signed On 07-20-2022 17:28:11 EDT by Damian Reeves
== END 2022-07-19 04:53 | disposition home or self-care (01) ==
LOC: ED 00:23
DX: I10 Essential (primary) hypertension (principal); R51.9 Headache, unspecified; E11.9 Type 2 diabetes mellitus without complications; F32.9 Major depressive disorder, single episode, unspecified; R79.1 Abnormal coagulation profile; F41.9 Anxiety disorder, unspecified; Z90.710 Acquired absence of both cervix and uterus; Z88.8 Allergy status to other drugs, medicaments and biological substances; Z79.899 Other long term (current) drug therapy
CPT/HCPCS: 36415; 70450; 80048; 81001; 82550; 83735; 85027; 85610; 93005; 99284

== ENCOUNTER 2022-07-20 18:27 | Emergency (ER) | payer MEDICARE ==
[2022-07-20] MEDS ORDERED: SODIUM CHLORIDE 0.9% 1000 ML 1,000 ML IV ONE (19:30)
--- NOTE | 2022-07-20 19:39 | Emergency Department Report ---
ED General Adult HPI - General Chief complaint: High BP Stated complaint: HYPERTENSION PUI?: No Time Seen by Provider: 07/20/22 19:02 Source: patient, RN/MD Mode of arrival: Stretcher Limitations: No Limitations - History of Present Illness Initial comments: THIS IS A PLEASANT 56 YEAR OLD FEMALE CAME IN BY AMBULANCE WITH CONCERN OF ELEVATED BLOOD PRESSURE FOR THE PAST 2-3 DAYS; HIGHEST IN 229/130 PER PATIENT. PATIENT STATES THAT SHE IS ON BYSTOLIC (UNKNOWN DOSE) AND WAS INSTRUCTED BY PRIMARY CARE PROVIDER TO INCREASE ADDITIONAL BYSTOLIC 2 DAYS AGO. TODAY, PATIENT STATES HER CHUTE TAPPER INFORMED HER TO TAKE 3 CLONIDINE AND TO COME TO THE ER. AT THE TIME OF MY EVALUATION, PATIENT'S BLOOD PRESSURE IS 166/82. DENIES ANY OTHER ASSOCIATED SYMPTOMS. DENIES fever chill night sweat dizziness blurred vision lightheadedness headache tinnitus ear pain runny nose sore throat loss of taste loss of smell chest pain palpitation short of breath cough abdominal pain nausea vomiting diarrhea constipation joint pain muscle pain new rash and heat or cold intolerance. - Related Data Home Medications Medication Instructions Recorded Confirmed Last Taken cloNIDine HCL [Clonidine HCl] 0.2 mg PO BID 04/05/15 07/19/22 1 Day Ago ~01/20/21 .2 ALPRAZolam [Xanax TAB] 1 mg PO TID PRN 02/23/20 07/19/22 1 Day Ago ~07/18/22 Furosemide [Lasix] 40 mg PO DAILY 01/21/21 07/19/22 1 Day Ago ~01/20/21 Potassium Chloride [K-Dur] 40 meq PO QDAY 01/21/21 07/19/22 1 Day Ago ~01/20/21 Previous Rx's Medication Instructions Recorded Last Taken Type hydrOXYzine PAMOATE [Vistaril] 50 mg PO Q12H PRN #30 capsule 01/21/21 Unknown Rx Prazosin 5 mg PO Q8HR #90 capsule 05/06/21 Unknown Rx cloNIDine [Catapres] 0.2 mg PO Q12HR #90 tablet 05/06/21 1 Day Ago Rx ~07/18/22 hydrALAZINE [Apresoline TAB] 100 mg PO TID #180 tab 05/06/21 Unknown Rx traMADoL [Ultram 50 MG tab] 50 mg PO Q4HR PRN #14 tablet 07/04/21 Unknown Rx traMADoL [Ultram 50 MG tab] 50 mg PO Q4HR PRN #14 tablet 04/09/22 Unknown Rx Docusate Sodium [Colace CAP] 100 mg PO BID PRN #60 capsule 05/27/22 Unknown Rx Linaclotide [Linzess] 290 mcg PO DAILY #60 cap 05/27/22 Unknown Rx Allergies Allergy/AdvReac Type Severity Reaction Status Date / Time amlodipine Allergy Intermediate Unknown Verified 05/30/22 18:54 amoxicillin Allergy Unknown Verified 05/30/22 18:54 insulin NPH human isophane Allergy Unknown Verified 05/30/22 18:54 [From Humulin N] insulin regular, human Allergy Unknown Verified 05/30/22 18:54 [From Humulin R] lisinopril Allergy Swelling Verified 05/30/22 18:54 losartan [Losartan] Allergy Unknown Verified 05/30/22 18:54 metformin Allergy Rash Verified 05/30/22 18:54 potassium Allergy Unknown Verified 05/30/22 18:54 Lgndusp-JXR-WtQ Reductase Allergy Unknown Verified 05/30/22 18:54 Inhibitor [Qbvnvmc-Iae-Fyj Reductase Inhibitor] valsartan Allergy Swelling Verified 05/30/22 18:54 ED Review of Systems ROS: Stated complaint: HYPERTENSION Other details as noted in HPI ED Past Medical Hx - Past Medical History Previous Medical History?: Yes Hx Hypertension: Yes Hx CVA: No Hx Heart Attack/AMI: No Hx Congestive Heart Failure: No Hx Diabetes: Yes Hx Deep Vein Thrombosis: No Hx Pulmonary Embolism: No Hx GERD: No Hx Liver Disease: No Hx Renal Disease: Yes (stage 3) Hx Sickle Cell Disease: No Hx Arthritis: No Hx Headaches / Migraines: No Hx Seizures: No Hx Kidney Stones: No Hx Psychiatric Treatment: Yes (depression, anxiety, panic attacks) Hx Asthma: No Hx COPD: No Hx Tuberculosis: No Hx Dementia: No Hx HIV: No Additional medical history: fibroids, Mold exposure - Surgical History Past Surgical History?: Yes Hx Coronary Stent: No Hx Pacemaker: No Hx Internal Defibrillator: No Hx Breast Surgery: Yes (BREAST REDUCTION) Additional Surgical History: breast reduction 1999, x2, hysterectomy, fibroids removal - Social History Smoking Status: Never Smoker - Medications Home Medications: Home Medications Medication Instructions Recorded Confirmed Last Taken Type cloNIDine HCL [Clonidine HCl] 0.2 mg PO BID 04/05/15 07/19/22 1 Day Ago History ~03/18/21 .2 ALPRAZolam [Xanax TAB] 1 mg PO TID PRN 02/23/20 07/19/22 1 Day Ago History ~07/18/22 Furosemide [Lasix] 40 mg PO DAILY 01/21/21 07/19/22 1 Day Ago History ~01/20/21 Potassium Chloride [K-Dur] 40 meq PO QDAY 01/21/21 07/19/22 1 Day Ago History ~01/20/21 hydrOXYzine PAMOATE [Vistaril] 50 mg PO Q12H PRN #30 capsule 01/21/21 05/05/21 Unknown Rx Prazosin 5 mg PO Q8HR #90 capsule 05/06/21 07/19/22 Unknown Rx cloNIDine [Catapres] 0.2 mg PO Q12HR #90 tablet 05/06/21 07/19/22 1 Day Ago Rx ~07/18/22 hydrALAZINE [Apresoline TAB] 100 mg PO TID #180 tab 05/06/21 07/19/22 Unknown Rx traMADoL [Ultram 50 MG tab] 50 mg PO Q4HR PRN #14 tablet 05/08/21 07/19/22 Unknown Rx traMADoL [Ultram 50 MG tab] 50 mg PO Q4HR PRN #14 tablet 04/09/22 07/19/22 Unknown Rx Docusate Sodium [Colace CAP] 100 mg PO BID PRN #60 capsule 05/27/22 07/19/22 Unknown Rx Linaclotide [Linzess] 290 mcg PO DAILY #60 cap 05/27/22 07/19/22 Unknown Rx ED Physical Exam - General Limitations: No Limitations General appearance: alert, in no apparent distress - Head Head exam: Present: atraumatic, normocephalic, normal inspection - Eye Eye exam: Present: normal appearance, PERRL, EOMI Pupils: Present: normal accommodation - ENT ENT exam: Present: normal exam, mucous membranes moist - Neck Neck exam: Present: normal inspection, full ROM - Respiratory Respiratory exam: Present: normal lung sounds bilaterally - Cardiovascular Cardiovascular Exam: Present: regular rate, normal rhythm, normal heart sounds - GI/Abdominal GI/Abdominal exam: Present: soft - External exam: Present: normal external exam - Extremities Exam Extremities exam: Present: normal inspection, full ROM, normal capillary refill - Back Exam Back exam: Present: normal inspection, full ROM - Neurological Exam Neurological exam: Present: alert, oriented X3, CN II-XII intact - Psychiatric Psychiatric exam: Present: normal affect, normal mood - Skin Skin exam: Present: warm, normal color ED Course Vital Signs 07/20/22 19:21 Temperature 98.3 F Pulse Rate 82 Blood Pressure 153/78 O2 Sat by Pulse 100 Oximetry - Reevaluation(s) Reevaluation #1: 07/20/22 19:55 PATIENT STATES SHE HAS AN PRIMARY CARE PROVIDER APPOINTMENT TOMORROW AND I HAVE INFORMED HER TO MAKE SURE SHE FOLLOW UP AND ALSO BRING HER BLOOD PRESSURE MACHINE TO THE PCP OFFICE SO THEY CAN COMPARE TO ENSURE HER BP MACHINE IS ACCURATE. PATIENT UNDERSTOOD. I WILL CONTINUE TO MONITOR HER IN THE ER TO ENSURE PATIENT DOESN'T DEVELOP ANY NEUROLOGICAL DISORDER HER BLOOD PRESSURE IS DOWN SIGNIFICANTLY FROM WHAT SHE SAID THE HIGHEST WAS AT HOME. 07/20/22 21:25 REPEAT PATIENT BLOOD AT 166/82 AGAIN WHICH IS UP FROM PREVIOUS ONE. DURING REEVALUATION, PATIENT DENIES ANY DISCOMFORT. NO FOCAL NEUROLOGICAL DEFICIT OR LATERALIZATION. WILL D/C. PATIENT AGAIN REMINDED TO FOLLOW UP W/ PCP TOMORROW WHICH SHE ALREADY HAS AN APPOINTMENT WITH. ED Medical Decision Making - EKG Data -: EKG Interpreted by Me EKG shows normal: sinus rhythm Rate: normal - EKG Data 07/20/22 19:54 EKG AT 1909: SINUS RHYTHM AT 73 BPM; NO ST ELEVATION OR DEPRESSION. Critical care attestation.: If time is entered above; I have spent that time in minutes in the direct care of this critically ill patient, excluding procedure time. ED Disposition Clinical Impression: Elevated blood pressure reading Disposition: HOME / SELF CARE / HOMELESS Is pt being admited?: No Does the pt Need Aspirin: No Condition: Stable Instructions: Hypertension, Adult, [id number] Additional Instructions: FOLLOW UP WITH YOUR PRIMARY CARE PROVIDER TOMORROW FOR FURTHER OUTPATIENT MANAGEMENT OF YOUR ELEVATED BLOOD PRESSURE. Time of Disposition: 19:55
[2022-07-20 21:56] VITALS: BP 156/82
--- NOTE | 2022-07-21 13:23 | Electrocardiograph Report ---
[facility] Test Date: 2022-07-20 Test Time: 19:09:49 Pat Name: CRISPIN LARRY Department: Room: Gender: [employer]: NURSE : 1965 Requested By: DESTINEY MONTANEZ Order Number: [id number] Reading MD: Damian Reeves Measurements Intervals [place] Rate: 73 P: 30 DC: 226 QRS: 10 QRSD: 85 T: 9 QT: 412 QTc: 453 Interpretive Statements Sinus rhythm Prolonged DC interval Consider left ventricular hypertrophy Poor R wave progression Compared to ECG 07/19/2022 01:06:14 No significant change Electronically Signed On 07-21-2022 13:23:18 EDT by Damian Reeves
== END 2022-07-20 21:56 | disposition home or self-care (01) ==
LOC: ED 18:27
DX: I10 Essential (primary) hypertension (principal); Z88.0 Allergy status to penicillin; Z88.8 Allergy status to other drugs, medicaments and biological substances
CPT/HCPCS: 93005; 96360; 99283; J7030